=== PATIENT | female | born 1940 | race Caucasian/White ===

== ENCOUNTER 2016-09-18 16:04 | Inpatient (IN) | payer OTHER ==
[~2016-09-18] VITALS: Ht 160 cm; Wt 86.6 kg
[~2016-09-18 16:04] MED LIST: ASPI81TA21 PO; ATOR-24 PO; CYAN1TAB18 PO; ERGO1CAP35 PO; FLV1 PO; FRCT/ PO; FURO-85 PO; GABA1CAP5 PO; GEMF600T3 PO; GLC/500 PO; LORA0.5T12 PO; LOSA25TA18 PO; MGNO400 PO; NITR0.4S UT; PANT40TA PO; PARO20TA4 PO; PROP120C PO; TICA1TAB PO; VLTG EXT; ZNTT/150 PO
--- NOTE | 2016-09-18 16:22 | EMERGENCY ROOM VISIT NOTE ---
History Report prepared by Bina: Milan Camilo Under the Supervision of: Dr. Sravan Lynn M.D. First contact with patient: 16:07 Chief Complaint: ABDOMINAL PAIN Stated Complaint: AB PAIN Nursing Triage Summary: Patient with complaints of epigastric pain for 1 week. Patient saw PCP and suspected gallbladder per patient, but pain worsened and was instructed to come to ER. Patient also diaphoretic and c/o nausea History of Present Illness The patient is a 76 year old female who presents to the Emergency Room with complaints of constant epigastric pain beginning one week prior to arrival. She currently rates her discomfort as a 0/10 in severity, however, it was a 10/10 at its worst. The patient states she saw her PCP, and her doctor suspected the discomfort was attributed to her gall bladder. She notes she was told that if her abdominal pain worsened to go to the ED. The patient associates resolved nausea, abdominal pain that radiates to her back, and decreased appetite with today's symptoms. It is noted during the call with EMS, they were told to give 50 mcg Fentanyl and 4 mg Zofran as needed. The patient received a total of 100 mcg Fentanyl and 4 mg Zofran prior to arrival. She notes a history of diabetes, coronary artery disease, and a heart attack. Pt denies LOC, headache, fevers, chills, diaphoresis, visual changes, neck pain, chest pain, breathing difficulties, vomiting, back pain, melena, hematochezia, urinary symptoms, numbness, weakness, lymphadenopathy, rash, or other complaints. Source of History: patient Onset: one week [employer] Position: abdomen (epigastric) Symptom Intensity: 10/10 at worst; 0/10 currently Timing: constant Associated Symptoms: + back pain (abdominal pain radiates to back), + nausea (resolved) Note: Associated symptoms: decreased appetite. Review of Systems See HPI for pertinent positives and negatives. A total of ten systems were reviewed and were otherwise negative. Past Medical & Surgical Medical Problems: (1) Acute CO, lateral wall, initial episode of care (2) ARF (acute renal failure) (3) Coronary artery disease (4) Hernia (5) Hyperlipidemia (6) Hypertension (7) NSTEMI (non-ST elevated myocardial infarction) (8) Small bowel obstruction due to adhesions Surgical Problems: (1) Stented coronary artery Family History Diabetes mellitus FHx: cancer FHx: gallbladder disease FHx: heart disease Hypertension Social History Smoking Status: Never Smoker Alcohol Use: none Marital Status: Housing Status: lives with family Occupation Status: employed Current/Historical Medications Scheduled Aspirin Enteric Coated (Ecotrin Or Generic), 81 MG PO DAILY Atorvastatin (Lipitor), 40 MG PO HS Cholecalciferol (D 5000), 5,000 PO DAILY Cyanocobalamin (B-12), 1,000 MCG PO DAILY Folic Acid (Folic Acid), 800 MCG PO DAILY Gabapentin (Neurontin), 400 MG PO TID Gemfibrozil (Lopid), 600 MG PO DAILY Losartan Potassium (Cozaar), 25 MG PO DAILY Magnesium Gluconate (Mag-G), 500 MG PO DAILY Metformin Hcl (Glucophage), 500 MG PO QID Pantoprazole (Protonix), 40 MG PO BID Paroxetine (Paxil), 40 MG PO DAILY Propranolol Hcl (Propranolol Hcl Er), 160 MG PO DAILY Ticagrelor (Brilinta), 90 MG PO BID Scheduled PRN Diclofenac Sod (Voltaren), 4 APPLN EXT QID PRN for joint pain Furosemide (Lasix), 20 MG PO DAILY PRN for Shortness of Breath Nitroglycerin (Nitrostat), 0.4 MG UT UD PRN for Chest Pain Ranitidine (Zantac), 150 MG PO DAILY PRN for heartburn Allergies Coded Allergies: Clarithromycin (Verified Allergy, Unknown, UNKNOWN, 07/26/16) Macrolides (Verified Allergy, Unknown, 07/26/16) Amoxicillin (Verified Adverse Reaction, Mild, GI SYMPTOMS, 07/26/16) Clavulanic Acid (Verified Adverse Reaction, Mild, GI SYMPTOMS, 07/26/16) Physical Exam Vital Signs Date Time Temp Pulse Resp B/P Pulse Ox O2 Delivery O2 Flow Rate FiO2 09/18/16 20:43 Room Air 09/18/16 20:21 64 09/18/16 19:46 59 16 154/66 94 Room Air 09/18/16 17:56 60 16 154/72 96 Room Air 09/18/16 16:18 63 09/18/16 16:10 36.5 64 16 175/79 97 Room Air Physical Exam GENERAL: Awake, alert, uncomfortable-appearing, in no distress HENT: Normocephalic, atraumatic. Oropharynx unremarkable. EYES: Normal conjunctiva. Sclera non-icteric. NECK: Supple. No nuchal rigidity. FROM. No JVD. RESPIRATORY: Clear to auscultation. CARDIAC: Regular rate, normal rhythm. Extremities warm and well perfused. Pulses equal. ABDOMEN: Soft, non-distended. Epigastric tenderness to palpation. No rebound or guarding. No masses. RECTAL: Deferred. MUSCULOSKELETAL: Chest examination reveals no tenderness. The back is symmetrical on inspection without obvious abnormality. There is no CVA tenderness to palpation. No joint edema. LOWER EXTREMITIES: Calves are equal size bilaterally and non-tender. No edema. No discoloration. NEURO: Normal sensorium. No sensory or motor deficits noted. SKIN: No rash or jaundice noted. Medical Decision & Procedures ER Provider Diagnostic Interpretation: X ray results as stated below per my interpretation and radiologist interpretation. Other radiology results as stated below per my review and radiologist interpretation SINGLE VIEW CHEST CLINICAL HISTORY: Upper abdominal pain. FINDINGS: An AP, portable, upright chest radiograph is compared to study dated 07/26/2016 and correlated with chest CT dated 10/19/2013. The examination is degraded by portable technique and patient rotation. The heart is enlarged and there is atherosclerotic calcification of the thoracic aorta. The pulmonary vasculature is noncongested. There is chronic elevation of the left hemidiaphragm with left basilar atelectasis. No airspace consolidation or large pleural effusion is seen chronic interstitial thickening is observed. No pneumothorax is identified. The skeletal structures are osteopenic. The bony thorax appears intact. Degenerative changes noted in the thoracic spine. IMPRESSION: Cardiac enlargement with no acute cardiopulmonary abnormality. Electronically signed by: Edy Martin M.D. 09/18/2016 6:01 PM ULTRASOUND RIGHT UPPER QUADRANT ABDOMEN CLINICAL HISTORY: Right upper quadrant abdominal pain. COMPARISON STUDY: Abdominal CT performed the same day 09/18/2016. TECHNIQUE: Real-time, grayscale, and color flow sonography of the right upper quadrant of the abdomen was performed. Images are reviewed in the transverse and longitudinal planes. FINDINGS: Liver: The liver is normal in size and echotexture. There is no intrahepatic biliary ductal dilatation. The main portal vein is patent. Gallbladder: The gallbladder is normal in appearance. No gallstones are identified. There is no gallbladder wall thickening or pericholecystic fluid. A sonographic Hannon's sign is reportedly absent. The common bile duct measures up to 0.4 cm in diameter. Pancreas: Visualized portions of the pancreatic head and body are echogenic consistent with fatty infiltration. The splenic vein is patent. Right kidney: Survey images of the right kidney demonstrate cortical atrophy. There is no hydronephrosis. Ascites: None. IMPRESSION: There is no acute sonographic abnormality identified in the right upper quadrant. No gallstones are seen. Electronically signed by: Edy Martin M.D. 09/18/2016 5:[address] SCAN OF THE ABDOMEN AND PELVIS WITHOUT IV CONTRAST CLINICAL HISTORY: Upper abdominal pain. COMPARISON STUDY: Abdominal CT dated 07/27/2010. TECHNIQUE: CT scan of the abdomen and pelvis is performed from the lung bases to the proximal femora. Images are reviewed in the axial, sagittal, and coronal planes. IV contrast was not administered for this examination as per the referring clinician. Note that the examination was performed and significant suboptimal fashion without oral and IV contrast. Automated dose control exposure was utilized. CT DOSE: 768.91 mGy.cm FINDINGS: Lung bases: The heart is enlarged and without pericardial effusion. The coronary arteries are densely calcified. There is a tiny hiatal hernia. There is elevation of the left hemidiaphragm and bibasilar atelectasis. No airspace consolidation or pleural effusion is seen. There are calcified granulomas present at both lung bases. Liver: The unenhanced liver is normal in size, contour, and attenuation. There is no intrahepatic biliary ductal dilatation. Gallbladder: Small calcified gallstones are identified. There is no CT evidence of cholecystitis. Spleen: Normal in size and attenuation. Pancreas: There is near complete fatty replacement of the pancreas. Adrenal glands: Unremarkable. Kidneys: The unenhanced kidneys are atrophic and without hydronephrosis. There there is a 4 mm nonobstructing right renal calculus. No left renal calculi are seen. There is no evidence of contour deforming renal mass lesion. Abdominal vasculature: The abdominal aorta is normal in course and caliber noting moderate atherosclerotic calcification. Bowel: The proximal small bowel loops are distended and fecalized. There is surrounding inflammatory change and trace interloop fluid. The distal small bowel is decompressed. A transition point is identified in the ventral right upper pelvis and the appearance is consistent with a small bowel obstruction. No focally thick walled bowel loops are identified. There is no pneumatosis intestinalis or portal venous gas. These measure up to 4.5 cm in diameter. There are scattered colonic diverticula without CT evidence of acute diverticulitis. The appendix is well-visualized and normal. Peritoneum: There is no intraperitoneal free air. A midline surgical scar is present in the pelvis. Findings suggest previous ventral hernia repair. Lymphadenopathy: None. Pelvic viscera: The bladder is decompressed and grossly unremarkable. Uterus and adnexa are normal as visualized. Numerous calcified phleboliths are seen in the pelvis. Surgical clips are identified in the left groin. Skeletal structures: The skeletal structures are osteopenic. There is mild to moderate lumbosacral spondylosis and scoliosis. Sclerotic change is noted involving the sacroiliac joints and pubic symphysis. No lytic or blastic lesions are seen. IMPRESSION: 1. Suboptimal examination without oral and IV contrast 2. Finding are consistent with a small bowel obstruction. A transition point is identified in the right ventral pelvis, and this is likely on the basis of adhesions. 3. There is trace interloop fluid and mild surrounding inflammatory stranding involving the affected bowel loops which appear fecalized. No thick-walled loops identified and there is no pneumatosis intestinalis, portal venous gas, or intraperitoneal free air. 4. Cholelithiasis. 5. Cardiomegaly. 6. Nonobstructing right renal calculus. 7. Additional findings as detailed above. Electronically signed by: Edy Martin M.D. 09/18/2016 7:09 PM Laboratory Results 09/18/16 16:45 Red Blood Count 3.81, Mean Corpuscular Volume 91.3, Mean Corpuscular Hemoglobin 31.2, Mean Corpuscular Hemoglobin Concent 34.2, Mean Platelet Volume 11.0, Neutrophils (%) (Auto) 75.8, Lymphocytes (%) (Auto) 14.1, Monocytes (%) (Auto) 7.9, Eosinophils (%) (Auto) 1.8, Basophils (%) (Auto) 0.2, Neutrophils # (Auto) 7.74, Lymphocytes # (Auto) 1.44, Monocytes # (Auto) 0.81, Eosinophils # (Auto) 0.18, Basophils # (Auto) 0.02 09/18/16 16:45 Test 09/18/16 16:45 09/18/16 18:35 White Blood Count 10.21 K/uL (4.8-10.8) Red Blood Count 3.81 M/uL (4.2-5.4) Hemoglobin 11.9 g/dL (12.0-16.0) Hematocrit 34.8 % (37-47) Mean Corpuscular Volume 91.3 fL (80-100) Mean Corpuscular Hemoglobin 31.2 pg (25-34) Mean Corpuscular Hemoglobin Concent 34.2 g/dl (32-36) Platelet Count 181 K/uL (130-400) Mean Platelet Volume 11.0 fL (7.4-10.4) Neutrophils (%) (Auto) 75.8 % Lymphocytes (%) (Auto) 14.1 % Monocytes (%) (Auto) 7.9 % Eosinophils (%) (Auto) 1.8 % Basophils (%) (Auto) 0.2 % Neutrophils # (Auto) 7.74 K/uL (1.4-6.5) Lymphocytes # (Auto) 1.44 K/uL (1.2-3.4) Monocytes # (Auto) 0.81 K/uL (0.11-0.59) Eosinophils # (Auto) 0.18 K/uL (0-0.5) Basophils # (Auto) 0.02 K/uL (0-0.2) RDW Standard Deviation 46.0 fL (36.4-46.3) RDW Coefficient of Variation 14.0 % (11.5-14.5) Immature Granulocyte % (Auto) 0.2 % Immature Granulocyte # (Auto) 0.02 K/uL (0.00-0.02) Anion Gap 16.0 mmol/L (3-11) Est Creatinine Clear Calc Drug Dose 34.3 ml/min Estimated GFR () 39.4 Estimated GFR (Non- 34.0 BUN/Creatinine Ratio 15.9 (10-20) Calcium Level 9.2 mg/dl (8.5-10.1) Total Bilirubin 0.5 mg/dl (0.2-1) Direct Bilirubin 0.1 mg/dl (0-0.2) Aspartate Amino Transf (AST/SGOT) 17 U/L (15-37) Alanine Aminotransferase (ALT/SGPT) 13 U/L (12-78) Alkaline Phosphatase 59 U/L (45-117) Troponin I < 0.015 ng/ml (0-0.045) Total Protein 7.4 gm/dl (6.4-8.2) Albumin 3.8 gm/dl (3.4-5.0) Lipase 162 U/L (73-393) Urine Color YELLOW Urine Appearance CLEAR (CLEAR) Urine pH 5.0 (4.5-7.5) Urine Specific [place] 1.026 (1.000-1.030) Urine Protein NEG (NEG) Urine Glucose (UA) NEG (NEG) Urine Ketones TRACE (NEG) Urine Occult Blood NEG (NEG) Urine Nitrite NEG (NEG) Urine Bilirubin NEG (NEG) Urine Urobilinogen NEG (NEG) Urine Leukocyte Esterase TRACE (NEG) Urine WBC (Auto) 1-5 /hpf (0-5) Urine RBC (Auto) 0-4 /hpf (0-4) Urine Hyaline Casts (Auto) 1-5 /lpf (0-5) Urine Epithelial Cells (Auto) >30 /lpf (0-5) Urine Bacteria (Auto) NEG (NEG) Laboratory results reviewed by me Medications Administered Medications (Trade) Dose Ordered Sig/Pari Route Start Time Stop Time Status Last Admin Dose Admin Hydromorphone HCl 0.5 mg 0.5 mg Q15M PRN IV 09/18/16 16:30 09/18/16 22:05 DC 09/18/16 20:12 0.5 MG Sodium Chloride (Nss 1000ml) 1,000 ml @ 200 mls/hr Q5H STAT IV 09/18/16 16:29 09/18/16 21:28 DC 09/18/16 16:58 200 MLS/HR Ondansetron HCl (Zofran Inj) 4 mg NOW STAT IV 09/18/16 20:03 09/18/16 20:04 DC 09/18/16 20:12 4 MG ECG Indication: abdominal pain Rate (beats per minute): 63 Rhythm: normal sinus Findings: nonspecific-ST abn, T-wave inversion (Anterolateral), no acute ischemic change ED Course 1620: The patient was evaluated in room B5. A complete history and physical exam was performed. 1628: Ordered Sodium Chloride 1,000 ml @ 200 mls/hr IV. 1629: Ordered Dilaudid Inj 0.5 mg IV. 1934: Reevaluated the patient at this time, and he is doing well. I updated him. 1938: I spoke to FREYA Gregory (Hospitalist) about the patient's case, and he will follow the patient for further evaluation. Medical Decision Triage Nursing notes reviewed. The patient's presentation and history were concerning for abdominal pain. Etiologies such as appendicitis, diverticulitis, obstruction, inflammatory bowel disease, renal colic, PUD, biliary pathology, pancreatitis, mesenteric ischemia, aortic pathology, infections, genitourinary, UTI, perforated viscus, as well as others were entertained. The patient was evaluated. She was uncomfortable and given Dilaudid. She did well with the fentanyl prehospital but it did not last. She had blood work obtained. Ultrasound and CAT scan imaging were performed. The patient had a mild anemia on CBC. Chemistry panel reveals dehydration. LFTs, lipase, troponin, and urinalysis were negative. Gallbladder ultrasound did not reveal any abnormalities. The patient's CT imaging revealed a bowel obstruction. The patient had some more nausea and vomiting. She was hydrated with normal saline and was given additional Dilaudid and Zofran. She is doing better with this. A consultation was made with internal medicine. The patient was evaluated in the Emergency Room for further treatment. The chart was completed utilizing [employer] Speech voice recognition software. Grammatical errors, random word insertions, pronoun errors, and incomplete sentences are an occasional consequence of this system due to software limitations, ambient noise, and hardware issues. Any formal questions or concerns about the content, text, or information contained within the body of this dictation should be directly addressed to the physician for clarification. Consults Time Called: 1933 Consulting Physician: FREYA Gregory (Hospitalist) Returned Call: 1938 I spoke to FREYA Gregory (Hospitalist) about the patient's case, and he will follow the patient for further evaluation. Impression Primary Impression: Bowel obstruction Scribe Attestation The scribe's documentation has been prepared under my direction and personally reviewed by me in its entirety. I confirm that the note above accurately reflects all work, treatment, procedures, and medical decision making performed by me. Departure Information Dispostion Being Evaluated By Hospitalist (FREYA Gregory (Hospitalist)) Referrals Franck Lester M.D. (PCP)
[2016-09-18] MEDS ORDERED: SODIUM CHLORIDE 0.9% 1000ML 1,000 ML IV STA (16:29)
[2016-09-18] MEDS: HYDROmorphone INJ 0.5 MG/0.5 ML SYR IV PRN ×3 (16:42→20:12)
[2016-09-18 17:01] LABS: BASO % 0.2 %; BASO ABS # 0.02 K/uL (0-0.2); COMPLETE YES; EOS % 1.8 %; HEMATOCRIT 34.8 % (37-47); IG% 0.2 %; LYMPH % 14.1 %; LYMPH ABS # 1.44 K/uL (1.2-3.4); MEAN CELL VOLUME 91.3 fL (80-100); MEAN CORPUSCULAR HEMOGLOBIN 31.2 pg (25-34); MEAN CORPUSCULAR HGB CONC 34.2 g/dl (32-36); MONO % 7.9 %; NEUT % 75.8 %; PLATELET COUNT 181 K/uL (130-400); RED BLOOD COUNT 3.81 M/uL (4.2-5.4); WHITE BLOOD COUNT 10.21 K/uL (4.8-10.8)
[2016-09-18 17:18] LABS: ALT/SGPT 13 U/L (12-78); BLOOD UREA NITROGEN 24 mg/dl (7-18); BUN/CREATININE RATIO 15.9 (10-20); CALCIUM 9.2 mg/dl (8.5-10.1); CARBON DIOXIDE 22 mmol/L (21-32); CHLORIDE 103 mmol/L (98-107); GLUCOSE 139 mg/dl (70-99); POTASSIUM 3.9 mmol/L (3.5-5.1); SODIUM 141 mmol/L (136-145)
[2016-09-18 17:22] LABS: ALKALINE PHOSPHATASE 59 U/L (45-117); AST/SGOT 17 U/L (15-37)
--- NOTE | 2016-09-18 17:57 | DIAGNOSTIC IMAGING REPORT ---
ULTRASOUND RIGHT UPPER QUADRANT ABDOMEN CLINICAL HISTORY: Right upper quadrant abdominal pain. COMPARISON STUDY: Abdominal CT performed the same day 09/18/2016. TECHNIQUE: Real-time, grayscale, and color flow sonography of the right upper quadrant of the abdomen was performed. Images are reviewed in the transverse and longitudinal planes. FINDINGS: Liver: The liver is normal in size and echotexture. There is no intrahepatic biliary ductal dilatation. The main portal vein is patent. Gallbladder: The gallbladder is normal in appearance. No gallstones are identified. There is no gallbladder wall thickening or pericholecystic fluid. A sonographic Hannon's sign is reportedly absent. The common bile duct measures up to 0.4 cm in diameter. Pancreas: Visualized portions of the pancreatic head and body are echogenic consistent with fatty infiltration. The splenic vein is patent. Right kidney: Survey images of the right kidney demonstrate cortical atrophy. There is no hydronephrosis. Ascites: None. IMPRESSION: There is no acute sonographic abnormality identified in the right upper quadrant. No gallstones are seen. Electronically signed by: Edy Martin M.D. 09/18/2016 5:55 PM
--- NOTE | 2016-09-18 18:03 | DIAGNOSTIC IMAGING REPORT ---
SINGLE VIEW CHEST CLINICAL HISTORY: Upper abdominal pain. FINDINGS: An AP, portable, upright chest radiograph is compared to study dated 07/26/2016 and correlated with chest CT dated 10/19/2013. The examination is degraded by portable technique and patient rotation. The heart is enlarged and there is atherosclerotic calcification of the thoracic aorta. The pulmonary vasculature is noncongested. There is chronic elevation of the left hemidiaphragm with left basilar atelectasis. No airspace consolidation or large pleural effusion is seen chronic interstitial thickening is observed. No pneumothorax is identified. The skeletal structures are osteopenic. The bony thorax appears intact. Degenerative changes noted in the thoracic spine. IMPRESSION: Cardiac enlargement with no acute cardiopulmonary abnormality. Electronically signed by: Edy Martin M.D. 09/18/2016 6:01 PM
[2016-09-18] MEDS ORDERED: CHOLCAP10 PO (18:41)
[2016-09-18] MEDS ORDERED: FOLI800T PO (18:43)
[2016-09-18] MEDS ORDERED: MGNG500 PO (18:47)
[2016-09-18] MEDS ORDERED: PARO1TAB29 PO (18:50)
[2016-09-18] MEDS ORDERED: PROP160C PO (18:51)
[2016-09-18 18:57] LABS: URINE APPEARANCE CLEAR (CLEAR); URINE BILIRUBIN NEG (NEG); URINE COLOR YELLOW; URINE EPITHELIAL CELL AUTO >30 /lpf (0-5); URINE NITRITE NEG (NEG); URINE SPECIFIC GRAVITY 1.026 (1.000-1.030); UROBILINOGEN NEG (NEG)
[2016-09-18 19:02] LABS: MANUAL MICROSCOPIC REQUIRED? NO; REVIEW REQ? NO
--- NOTE | 2016-09-18 19:11 | DIAGNOSTIC IMAGING REPORT ---
CT SCAN OF THE ABDOMEN AND PELVIS WITHOUT IV CONTRAST CLINICAL HISTORY: Upper abdominal pain. COMPARISON STUDY: Abdominal CT dated 07/27/2010. TECHNIQUE: CT scan of the abdomen and pelvis is performed from the lung bases to the proximal femora. Images are reviewed in the axial, sagittal, and coronal planes. IV contrast was not administered for this examination as per the referring clinician. Note that the examination was performed and significant suboptimal fashion without oral and IV contrast. Automated dose control exposure was utilized. CT DOSE: 768.91 mGy.cm FINDINGS: Lung bases: The heart is enlarged and without pericardial effusion. The coronary arteries are densely calcified. There is a tiny hiatal hernia. There is elevation of the left hemidiaphragm and bibasilar atelectasis. No airspace consolidation or pleural effusion is seen. There are calcified granulomas present at both lung bases. Liver: The unenhanced liver is normal in size, contour, and attenuation. There is no intrahepatic biliary ductal dilatation. Gallbladder: Small calcified gallstones are identified. There is no CT evidence of cholecystitis. Spleen: Normal in size and attenuation. Pancreas: There is near complete fatty replacement of the pancreas. Adrenal glands: Unremarkable. Kidneys: The unenhanced kidneys are atrophic and without hydronephrosis. There there is a 4 mm nonobstructing right renal calculus. No left renal calculi are seen. There is no evidence of contour deforming renal mass lesion. Abdominal vasculature: The abdominal aorta is normal in course and caliber noting moderate atherosclerotic calcification. Bowel: The proximal small bowel loops are distended and fecalized. There is surrounding inflammatory change and trace interloop fluid. The distal small bowel is decompressed. A transition point is identified in the ventral right upper pelvis and the appearance is consistent with a small bowel obstruction. No focally thick walled bowel loops are identified. There is no pneumatosis intestinalis or portal venous gas. These measure up to 4.5 cm in diameter. There are scattered colonic diverticula without CT evidence of acute diverticulitis. The appendix is well-visualized and normal. Peritoneum: There is no intraperitoneal free air. A midline surgical scar is present in the pelvis. Findings suggest previous ventral hernia repair. Lymphadenopathy: None. Pelvic viscera: The bladder is decompressed and grossly unremarkable. Uterus and adnexa are normal as visualized. Numerous calcified phleboliths are seen in the pelvis. Surgical clips are identified in the left groin. Skeletal structures: The skeletal structures are osteopenic. There is mild to moderate lumbosacral spondylosis and scoliosis. Sclerotic change is noted involving the sacroiliac joints and pubic symphysis. No lytic or blastic lesions are seen. IMPRESSION: 1. Suboptimal examination without oral and IV contrast 2. Finding are consistent with a small bowel obstruction. A transition point is identified in the right ventral pelvis, and this is likely on the basis of adhesions. 3. There is trace interloop fluid and mild surrounding inflammatory stranding involving the affected bowel loops which appear fecalized. No thick-walled loops identified and there is no pneumatosis intestinalis, portal venous gas, or intraperitoneal free air. 4. Cholelithiasis. 5. Cardiomegaly. 6. Nonobstructing right renal calculus. 7. Additional findings as detailed above. Electronically signed by: Edy Martin M.D. 09/18/2016 7:09 PM
[2016-09-18] MEDS ORDERED: ONDANSETRON INJ 2 MG/ML 2 ML VIAL IV STA (20:03)
[2016-09-18 20:43] VITALS: Ht 160 cm; Wt 86.6 kg
[2016-09-18] MEDS ORDERED: CIPROFLOXACIN 400MG / 200ML D5W IV STA (21:18)
[2016-09-18] MEDS ORDERED: ACETAMINOPHEN IV 100 ML IV PRN (21:30)
[2016-09-18] MEDS ORDERED: LORAZEPAM 2 MG/ML 1 ML VIAL IV PRN (21:30)
[2016-09-18] MEDS ORDERED: MoRPHine SULFATE 4 MG/ML 1 ML CARP\\VIAL IV PRN (21:30)
[2016-09-18 22:07] VITALS: BP 184/81; PULSE 64; TEMP 36.8; O2SAT 94
[2016-09-18] MEDS: NSS + 20MEQ KCL 1000ML 1,000 ML IV SCH (22:35)
[2016-09-18] MEDS: METRONIDAZOLE / NSS 500 MG in PREMIXED NSS 100 ML IV SCH (22:35)
[2016-09-18 22:54] VITALS: BP 123/76; PULSE 63; TEMP 36.9; O2SAT 88
[2016-09-18] MEDS: MoRPHine SULFATE 2 MG/ML CARP IV PRN (23:24)
[2016-09-18] MEDS: ONDANSETRON INJ 2 MG/ML 2 ML VIAL IV PRN (23:24)
--- NOTE | 2016-09-19 01:58 | History and Physical ---
History & Physical Date & Time of Service: Sep 19, 2016 at 01:13 Chief Complaint: Small Bowel Obstruction Due To Adhesions Primary Care Physician: Franck Lester M.D. History of Present Illness Source: patient The patient is a 76-year-old female who presents emergency department with complaint of abdominal pain that began about one week prior to arrival. She's also had a decreased appetite, intermittent nausea and radiation of pain to her back during this interval as well. She has a history of colon resection approximately 20 years ago, and had surgery for bowel obstruction approximate 5 years ago. Past Medical/Surgical History Medical Problems: (1) Acute CO, lateral wall, initial episode of care Status: Resolved (2) Coronary artery disease Status: Chronic (3) Hernia Status: Resolved (4) Hyperlipidemia Status: Chronic (5) Hypertension Status: Chronic (6) NSTEMI (non-ST elevated myocardial infarction) Status: Resolved Surgical Problems: (1) Stented coronary artery Status: Chronic Family History Diabetes mellitus FHx: cancer FHx: gallbladder disease FHx: heart disease Hypertension Social History Smoking Status: Never Smoker Smokeless Tobacco Use: No Alcohol Use: none Drug Use: none Marital Status: Housing status: lives with family Occupational Status: employed Immunizations History of Influenza Vaccine: Yes Influenza Vaccine Date: Jul 31, 2013 History of Tetanus Vaccine?: UTD Tetanus Immunization Date: Apr 25, 1990 History of Pneumococcal: Yes Pneumococcal Date: Apr 18, 2009 History of Hepatitis B Vaccine: Yes Multi-Drug Resistant Organisms History of MDRO: No Allergies Coded Allergies: Clarithromycin (Verified Allergy, Unknown, UNKNOWN, 07/26/16) Macrolides (Verified Allergy, Unknown, 07/26/16) Amoxicillin (Verified Adverse Reaction, Mild, GI SYMPTOMS, 07/26/16) Clavulanic Acid (Verified Adverse Reaction, Mild, GI SYMPTOMS, 07/26/16) Home Medications Scheduled Aspirin Enteric Coated (Ecotrin Or Generic), 81 MG PO DAILY Atorvastatin (Lipitor), 40 MG PO HS Cholecalciferol (D 5000), 5,000 PO DAILY Cyanocobalamin (B-12), 1,000 MCG PO DAILY Folic Acid (Folic Acid), 800 MCG PO DAILY Gabapentin (Neurontin), 400 MG PO TID Gemfibrozil (Lopid), 600 MG PO DAILY Losartan Potassium (Cozaar), 25 MG PO DAILY Magnesium Gluconate (Mag-G), 500 MG PO DAILY Metformin Hcl (Glucophage), 500 MG PO QID Pantoprazole (Protonix), 40 MG PO BID Paroxetine (Paxil), 40 MG PO DAILY Propranolol Hcl (Propranolol Hcl Er), 160 MG PO DAILY Ticagrelor (Brilinta), 90 MG PO BID Scheduled PRN Diclofenac Sod (Voltaren), 4 APPLN EXT QID PRN for joint pain Furosemide (Lasix), 20 MG PO DAILY PRN for Shortness of Breath Nitroglycerin (Nitrostat), 0.4 MG UT UD PRN for Chest Pain Ranitidine (Zantac), 150 MG PO DAILY PRN for heartburn Review of Systems The patient denies chest pain, palpitations, shortness of breath, cough, lower extremity swelling, vision change, hearing change, sore throat, fevers, chills, sweats, weight change, blood in urine or stool, dysuria, urinary frequency or urgency, lightheadedness, dizziness, headache, memory loss, rash, abnormal bruising or bleeding, imbalance, focal or generalized weakness, numbness or tingling in arms or legs, arthralgias or myalgias, back or neck pain, night sweats, or allergy symptoms. The review of systems is otherwise negative other than for that already noted above, and at least 10 systems have been reviewed. Physical Exam Vital Signs Date Time Temp Pulse Resp B/P Pulse Ox O2 Delivery O2 Flow Rate FiO2 09/18/16 22:54 36.9 63 14 123/76 88 Room Air 09/18/16 22:07 36.8 64 16 184/81 94 Room Air 09/18/16 22:00 Room Air 09/18/16 21:45 36.5 66 16 133/65 97 09/18/16 20:43 Room Air 09/18/16 20:21 64 09/18/16 19:46 59 16 154/66 94 Room Air 09/18/16 17:56 60 16 154/72 96 Room Air 09/18/16 16:18 63 09/18/16 16:10 36.5 64 16 175/79 97 Room Air The patient is awake, well-developed and adequately nourished, alert and oriented 3, normocephalic and atraumatic, lying in bed and in mild distress secondary to abdominal pain. HEENT--PERRL, EOMI, mucous membranes moist, and oropharynx normal. Neck--supple, no JVD or bruits, thyroid normal, trachea midline, no adenopathy. Heart--normal S1 and S2, no extra beats, no murmurs, rubs or gallops. Lungs--clear bilaterally with good air movement, no respiratory distress, no accessory muscle use. Abdomen--decreased bowel sounds and soft, tender in the umbilical and right lower quadrant areas. Extremities--no cyanosis, clubbing or edema. There are good distal pulses b/l. Dermatologic--normal skin turgor, normal color, warm and dry, no abnormal lymph nodes, no rash. Neurologic--cranial nerves II through XII grossly intact. Rheumatologic--normal range of motion, nontender, muscles and joints. Psychiatric--normal affect. Diagnostics Laboratory Results Results Past 24 Hours Test 09/18/16 16:45 09/18/16 18:35 Range/Units White Blood Count 10.21 4.8-10.8 K/uL Red Blood Count 3.81 4.2-5.4 M/uL Hemoglobin 11.9 12.0-16.0 g/dL Hematocrit 34.8 37-47 % Mean Corpuscular Volume 91.3 80-100 fL Mean Corpuscular Hemoglobin 31.2 25-34 pg Mean Corpuscular Hemoglobin Concent 34.2 32-36 g/dl Platelet Count 181 130-400 K/uL Mean Platelet Volume 11.0 7.4-10.4 fL Neutrophils (%) (Auto) 75.8 % Lymphocytes (%) (Auto) 14.1 % Monocytes (%) (Auto) 7.9 % Eosinophils (%) (Auto) 1.8 % Basophils (%) (Auto) 0.2 % Neutrophils # (Auto) 7.74 1.4-6.5 K/uL Lymphocytes # (Auto) 1.44 1.2-3.4 K/uL Monocytes # (Auto) 0.81 0.11-0.59 K/uL Eosinophils # (Auto) 0.18 0-0.5 K/uL Basophils # (Auto) 0.02 0-0.2 K/uL RDW Standard Deviation 46.0 36.4-46.3 fL RDW Coefficient of Variation 14.0 11.5-14.5 % Immature Granulocyte % (Auto) 0.2 % Immature Granulocyte # (Auto) 0.02 0.00-0.02 K/uL Sodium Level 141 136-145 mmol/L Potassium Level 3.9 3.5-5.1 mmol/L Chloride Level 103 98-107 mmol/L Carbon Dioxide Level 22 21-32 mmol/L Anion Gap 16.0 3-11 mmol/L Blood Urea Nitrogen 24 7-18 mg/dl Creatinine 1.50 0.60-1.20 mg/dl Est Creatinine Clear Calc Drug Dose 34.3 ml/min Estimated GFR () 39.4 Estimated GFR (Non- 34.0 BUN/Creatinine Ratio 15.9 10-20 Random Glucose 139 70-99 mg/dl Calcium Level 9.2 8.5-10.1 mg/dl Total Bilirubin 0.5 0.2-1 mg/dl Direct Bilirubin 0.1 0-0.2 mg/dl Aspartate Amino Transf (AST/SGOT) 17 15-37 U/L Alanine Aminotransferase (ALT/SGPT) 13 12-78 U/L Alkaline Phosphatase 59 45-117 U/L Troponin I < 0.015 0-0.045 ng/ml Total Protein 7.4 6.4-8.2 gm/dl Albumin 3.8 3.4-5.0 gm/dl Lipase 162 73-393 U/L Urine Color YELLOW Urine Appearance CLEAR CLEAR Urine pH 5.0 4.5-7.5 Urine Specific [place] 1.026 1.000-1.030 Urine Protein NEG NEG Urine Glucose (UA) NEG NEG Urine Ketones TRACE NEG Urine Occult Blood NEG NEG Urine Nitrite NEG NEG Urine Bilirubin NEG NEG Urine Urobilinogen NEG NEG Urine Leukocyte Esterase TRACE NEG Urine WBC (Auto) 1-5 0-5 /hpf Urine RBC (Auto) 0-4 0-4 /hpf Urine Hyaline Casts (Auto) 1-5 0-5 /lpf Urine Epithelial Cells (Auto) >30 0-5 /lpf Urine Bacteria (Auto) NEG NEG Microbiology Results 09/18/16 Urine Culture, Received Pending Diagnostic Radiology Patient Name: LAURENT ANDERSON Unit Number: [id number] Dictated: 09/18/161753 Transcribed: 09/18/161753 EV Printed Date/Time: [~ rep prt dt]/[~ rep prt tm] [~ rep ct labl] - [~ rep ct ivnm] [facility] [place] [address] Dictated: 09/18/161753 Transcribed: 09/18/161753 EV Printed Date/Time: [~ rep prt dt]/[~ rep prt tm] [~ rep ct labl] - [~ rep ct ivnm] CLINICAL HISTORY: Right upper quadrant abdominal pain. COMPARISON STUDY: Abdominal CT performed the same day 09/18/2016. TECHNIQUE: Real-time, grayscale, and color flow sonography of the right upper quadrant of the abdomen was performed. Images are reviewed in the transverse and longitudinal planes. FINDINGS: Liver: The liver is normal in size and echotexture. There is no intrahepatic biliary ductal dilatation. The main portal vein is patent. Gallbladder: The gallbladder is normal in appearance. No gallstones are identified. There is no gallbladder wall thickening or pericholecystic fluid. A sonographic Hannon's sign is reportedly absent. The common bile duct measures up to 0.4 cm in diameter. Pancreas: Visualized portions of the pancreatic head and body are echogenic consistent with fatty infiltration. The splenic vein is patent. Right kidney: Survey images of the right kidney demonstrate cortical atrophy. There is no hydronephrosis. Ascites: None. IMPRESSION: There is no acute sonographic abnormality identified in the right upper quadrant. No gallstones are seen. Electronically signed by: Edy Martin M.D. 09/18/2016 5:55 PM The status of this report is Signed. Draft = Not yet reviewed or approved by Radiologist. Signed = Reviewed and approved by Radiologist. <AttendingPhy></AttendingPhy> <FamilyPhy>Franck Lester M.D.</FamilyPhy > <PrimaryPhy>Franck Lester M.D.</PrimaryPhy> <UnitNumber>[id number]</ UnitNumber> <VisitNumber>[id number]</VisitNumber> <PatientName>LAURENT ANDERSON</ PatientName> <DateOfBirth>1940</DateOfBirth> <Location>[facility]</Location> < ServiceDate>09/18/16</ServiceDate> <MNE>ESINDI</MNE> <OrderingPhy>Sravan Lynn MD</OrderingPhy> <OrderingPhyMNE>f rep ord dr leonard</OrderingPhyMNE> < DictatingPhyMNE>f rep dict dr leonard</DictatingPhyMNE> <CCListMNE>f rep ct mne</ CCListMNE> <AdmittingPhyMNE>f pt admit dr leonard</AdmittingPhyMNE> <AttendingPhyMNE >f pt attend dr leonard</AttendingPhyMNE> <ConsultingPhyMNE>f pt consult dr leonard</ConsultingPhyMNE> <FamilyPhyMNE>f pt fam dr leonard</FamilyPhyMNE> <OtherPhyMNE>f pt other dr leonard</OtherPhyMNE> < PrimaryPhyMNE>f pt prim care dr leonard</PrimaryPhyMNE> <ReferringPhyMNE>f pt referring dr leonard</ReferringPhyMNE> Patient Name: LAURENT ANDERSON Unit Number: [id number] Dictated: 09/18/16 1800 Transcribed: 09/18/16 1800 EV Printed Date/Time: [~ rep prt dt]/[~ rep prt tm] [~ rep ct labl] - [~ rep ct ivnm] [facility] [place] [address] Dictated: 09/18/16 1800 Transcribed: 09/18/16 1800 EV Printed Date/Time: [~ rep prt dt]/[~ rep prt tm] [~ rep ct labl] - [~ rep ct ivnm] CLINICAL HISTORY: Upper abdominal pain. FINDINGS: An AP, portable, upright chest radiograph is compared to study dated 07/26/2016 and correlated with chest CT dated 10/19/2013. The examination is degraded by portable technique and patient rotation. The heart is enlarged and there is atherosclerotic calcification of the thoracic aorta. The pulmonary vasculature is noncongested. There is chronic elevation of the left hemidiaphragm with left basilar atelectasis. No airspace consolidation or large pleural effusion is seen chronic interstitial thickening is observed. No pneumothorax is identified. The skeletal structures are osteopenic. The bony thorax appears intact. Degenerative changes noted in the thoracic spine. IMPRESSION: Cardiac enlargement with no acute cardiopulmonary abnormality. Electronically signed by: Edy Martin M.D. 09/18/2016 6:01 PM The status of this report is Signed. Draft = Not yet reviewed or approved by Radiologist. Signed = Reviewed and approved by Radiologist. <AttendingPhy></AttendingPhy> <FamilyPhy>Franck Lester M.D.</FamilyPhy > <PrimaryPhy>Franck Lester M.D.</PrimaryPhy> <UnitNumber>[id number]</ UnitNumber> <VisitNumber>[id number]</VisitNumber> <PatientName>MONICALAURENT Espinoza</ PatientName> <DateOfBirth>1940</DateOfBirth> <Location>[facility]</Location> < ServiceDate>09/18/16</ServiceDate> <MNE>ESINDI</MNE> <OrderingPhy>Sravan Lynn MD</OrderingPhy> <OrderingPhyMNE>f rep ord dr leonard</OrderingPhyMNE> < DictatingPhyMNE>f rep dict dr leonard</DictatingPhyMNE> <CCListMNE>f rep ct mne</ CCListMNE> <AdmittingPhyMNE>f pt admit dr leonard</AdmittingPhyMNE> <AttendingPhyMNE >f pt attend dr leonard</AttendingPhyMNE> <ConsultingPhyMNE>f pt consult dr leonard</ConsultingPhyMNE> <FamilyPhyMNE>f pt fam dr leonard</FamilyPhyMNE> <OtherPhyMNE>f pt other dr leonard</OtherPhyMNE> < PrimaryPhyMNE>f pt prim care dr leonard</PrimaryPhyMNE> <ReferringPhyMNE>f pt referring dr leonard</ReferringPhyMNE> Patient Name: ERNIE ANDERSONYanci Espinoza Unit Number: [id number] Dictated: 09/18/161858 Transcribed: 09/18/161858 EV Printed Date/Time: [~ rep prt dt]/[~ rep prt tm] [~ rep ct labl] - [~ rep ct ivnm] [facility] [place] [address] Dictated: 09/18/161858 Transcribed: 09/18/161858 EV Printed Date/Time: [~ rep prt dt]/[~ rep prt tm] [~ rep ct labl] - [~ rep ct ivnm] CT SCAN OF THE ABDOMEN AND PELVIS WITHOUT IV CONTRAST CLINICAL HISTORY: Upper abdominal pain. COMPARISON STUDY: Abdominal CT dated 07/27/2010. TECHNIQUE: CT scan of the abdomen and pelvis is performed from the lung bases to the proximal femora. Images are reviewed in the axial, sagittal, and coronal planes. IV contrast was not administered for this examination as per the referring clinician. Note that the examination was performed and significant suboptimal fashion without oral and IV contrast. Automated dose control exposure was utilized. CT DOSE: 768.91 mGy.cm FINDINGS: Lung bases: The heart is enlarged and without pericardial effusion. The coronary arteries are densely calcified. There is a tiny hiatal hernia. There is elevation of the left hemidiaphragm and bibasilar atelectasis. No airspace consolidation or pleural effusion is seen. There are calcified granulomas present at both lung bases. Liver: The unenhanced liver is normal in size, contour, and attenuation. There is no intrahepatic biliary ductal dilatation. Gallbladder: Small calcified gallstones are identified. There is no CT evidence of cholecystitis. Spleen: Normal in size and attenuation. Pancreas: There is near complete fatty replacement of the pancreas. Adrenal glands: Unremarkable. Kidneys: The unenhanced kidneys are atrophic and without hydronephrosis. There there is a 4 mm nonobstructing right renal calculus. No left renal calculi are seen. There is no evidence of contour deforming renal mass lesion. Abdominal vasculature: The abdominal aorta is normal in course and caliber noting moderate atherosclerotic calcification. Bowel: The proximal small bowel loops are distended and fecalized. There is surrounding inflammatory change and trace interloop fluid. The distal small bowel is decompressed. A transition point is identified in the ventral right upper pelvis and the appearance is consistent with a small bowel obstruction. No focally thick walled bowel loops are identified. There is no pneumatosis intestinalis or portal venous gas. These measure up to 4.5 cm in diameter. There are scattered colonic diverticula without CT evidence of acute diverticulitis. The appendix is well-visualized and normal. Peritoneum: There is no intraperitoneal free air. A midline surgical scar is present in the pelvis. Findings suggest previous ventral hernia repair. Lymphadenopathy: None. Pelvic viscera: The bladder is decompressed and grossly unremarkable. Uterus and adnexa are normal as visualized. Numerous calcified phleboliths are seen in the pelvis. Surgical clips are identified in the left groin. Skeletal structures: The skeletal structures are osteopenic. There is mild to moderate lumbosacral spondylosis and scoliosis. Sclerotic change is noted involving the sacroiliac joints and pubic symphysis. No lytic or blastic lesions are seen. IMPRESSION: 1. Suboptimal examination without oral and IV contrast 2. Finding are consistent with a small bowel obstruction. A transition point is identified in the right ventral pelvis, and this is likely on the basis of adhesions. 3. There is trace interloop fluid and mild surrounding inflammatory stranding involving the affected bowel loops which appear fecalized. No thick-walled loops identified and there is no pneumatosis intestinalis, portal venous gas, or intraperitoneal free air. 4. Cholelithiasis. 5. Cardiomegaly. 6. Nonobstructing right renal calculus. 7. Additional findings as detailed above. Electronically signed by: Edy Martin M.D. 09/18/2016 7:09 PM The status of this report is Signed. Draft = Not yet reviewed or approved by Radiologist. Signed = Reviewed and approved by Radiologist. <AttendingPhy></AttendingPhy> <FamilyPhy>Franck Lester M.D.</FamilyPhy > <PrimaryPhy>Franck Lester M.D.</PrimaryPhy> <UnitNumber>[id number]</ UnitNumber> <VisitNumber>[id number]</VisitNumber> <PatientName>LAURENT ANDERSON</ PatientName> <DateOfBirth>1940</DateOfBirth> <Location>[facility]</Location> < ServiceDate>09/18/16</ServiceDate> <MNE>ESINDI</MNE> <OrderingPhy>Sravan Lynn MD</OrderingPhy> <OrderingPhyMNE>f rep ord dr leonard</OrderingPhyMNE> < DictatingPhyMNE>f rep dict dr leonard</DictatingPhyMNE> <CCListMNE>f rep ct horacio</ CCListMNE> <AdmittingPhyMNE>f pt admit dr leonard</AdmittingPhyMNE> <AttendingPhyMNE >f pt attend dr leonard</AttendingPhyMNE> <ConsultingPhyMNE>f pt consult dr leonard</ConsultingPhyMNE> <FamilyPhyMNE>f pt fam dr leonard</FamilyPhyMNE> <OtherPhyMNE>f pt other dr leonard</OtherPhyMNE> < PrimaryPhyMNE>f pt prim care dr leonard</PrimaryPhyMNE> <ReferringPhyMNE>f pt referring dr leonard</ReferringPhyMNE> EKG EKG shows normal sinus rhythm at 63, with no acute ST-T changes. Impression Assessment and Plan Small bowel obstruction--the patient will be admitted to the medical surgical floor. She'll be kept nothing by mouth. Place on normal saline with potassium chloride 20 mEq at 100 ML's per hour, Cipro 400 mg IV every 12 hours, Flagyl 500 mg IV every 8 hours, Zofran 4 mg IV every 6 hours when necessary, pantoprazole 40 mg IV daily. Coronary artery disease/hypertension/NSTEMI Hx--hold aspirin 81 mg by mouth daily, losartan potassium 25 mg by mouth daily, mag gluconate 500 mg by mouth daily, propranolol ER 160 mg by mouth daily, Brilinta 90mg by mouth twice a day. Diabetes mellitus--hold metformin 500 mg by mouth 4 times a day, and place on Accu-Cheks before meals and at bedtime with NovoLog coverage. Hypercholesterolemia--hold atorvastatin 40 mg by mouth at bedtime and gemfibrozil 600 mg by mouth daily. GERD--change pantoprazole 40 mg by mouth twice a day to 40 mg IV twice a day. Peripheral neuropathy--hold gabapentin 400 mg by mouth 3 times a day. Depression--hold Paxil 40 mg by mouth daily. Vitamin B-12 deficiency--hold B12 supplement 1000 g by mouth daily and folic acid 800 g by mouth daily. Level of Care Med/Surg Advanced Directives Existing Advance Directive: Yes Existing Living Will: Yes Existing Power of Inserter: Yes Resuscitation Status FULL RESUSCITATION VTE Prophylaxis VTE Risk Assessment Done? Y/N: Yes Risk Level: Moderate Given or contraindicated: SCD's Social Service Consult None Apply
[2016-09-19] MEDS ORDERED: GLUCOSE 40% GEL 15 GM TUBE PO PRN (02:00)
[2016-09-19] MEDS ORDERED: GLUCAGON FOR INJ 1 MG VIAL SQ PRN (02:00)
[2016-09-19] MEDS ORDERED: NURSING DECISION MEDICATION ORDER SCH (02:00)
[2016-09-19] MEDS ORDERED: DEXTROSE 50% 50 ML SYR IV PRN (02:00)
[2016-09-19] MEDS ORDERED: GLUCOSE 10 TABS/TUBE PO PRN (02:00)
[2016-09-19 02:11] VITALS: O2SAT 96
[2016-09-19] MEDS: PROMETHAZINE HCL INJ 25 MG in SODIUM CHLORIDE 0.9% 50ML 50 ML IV PRN (02:32)
[2016-09-19] MEDS: ONDANSETRON INJ 2 MG/ML 2 ML VIAL IV PRN ×2 (05:31→06:07)
[2016-09-19] MEDS: INSULIN ASPART 100 UNITS/ML 3 ML PEN SC SCH ×3 (05:50→18:00)
[2016-09-19] MEDS: METRONIDAZOLE / NSS 500 MG in PREMIXED NSS 100 ML IV SCH ×3 (06:07→22:36)
[2016-09-19 06:34] LABS: HEMATOCRIT 33.5 % (37-47); MEAN CELL VOLUME 92.8 fL (80-100); MEAN CORPUSCULAR HEMOGLOBIN 31.9 pg (25-34); MEAN CORPUSCULAR HGB CONC 34.3 g/dl (32-36); MEAN PLATELET VOLUME 11.2 fL (7.4-10.4); PLATELET COUNT 165 K/uL (130-400); RED BLOOD COUNT 3.61 M/uL (4.2-5.4); WHITE BLOOD COUNT 6.28 K/uL (4.8-10.8)
[2016-09-19 07:03] VITALS: BP 111/68; PULSE 74; TEMP 36.9; O2SAT 91
[2016-09-19 07:05] LABS: BUN/CREATININE RATIO 15.6 (10-20); CALCIUM 8.8 mg/dl (8.5-10.1); CREATININE 1.4 mg/dl (0.60-1.20); POTASSIUM 3.9 mmol/L (3.5-5.1)
[2016-09-19 07:08] LABS: BASO % 0.2 %; BASO ABS # 0.01 K/uL (0-0.2); COMPLETE YES; EOS % 1.1 %; GIANT PLATELETS 1+; IG% 0.2 %; LYMPH % 15.4 %; LYMPH ABS # 0.97 K/uL (1.2-3.4); MONO % 11.8 %; NEUT % 71.3 %
[2016-09-19 07:23] LABS: MAGNESIUM 0.7 mg/dl (1.8-2.4)
[2016-09-19] MEDS: NSS + 20MEQ KCL 1000ML 1,000 ML IV SCH ×2 (07:36→18:27)
[2016-09-19] MEDS: MAGNESIUM SULFATE 1GM / D5W 1 GM in PREMIXED IN D5W 100 ML IV SCH ×3 (07:49→13:23)
[2016-09-19] MEDS ORDERED: INSULIN ASPART 100 UNITS/ML 3 ML PEN SC SCH (08:00)
[2016-09-19 08:28] LABS: PHOSPHORUS 4.6 mg/dl (2.5-4.9)
[2016-09-19] MEDS: MoRPHine SULFATE 2 MG/ML CARP IV PRN ×5 (09:11→23:07)
[2016-09-19] MEDS: CIPROFLOXACIN / D5W 400 MG in PREMIXED IN D5W 200 ML IV SCH ×2 (10:16→21:15)
[2016-09-19] MEDS: PANTOprazole INJ 40 MG in SYRINGE 0 ML IV SCH (11:31)
[2016-09-19 12:41] LABS: BUN/CREATININE RATIO 17.5 (10-20); CALCIUM 8.7 mg/dl (8.5-10.1); CREATININE 1.3 mg/dl (0.60-1.20); MAGNESIUM 1.5 mg/dl (1.8-2.4); POTASSIUM 3.9 mmol/L (3.5-5.1)
--- NOTE | 2016-09-19 13:52 | Family Medicine Progress Note ---
Progress Note Date of Service Sep 19, 2016. Subjective Pt evaluation today including: conversation w/ patient, physical exam Voiding: no voiding problems, no incontinence [place] ok today, reviewed events of admission - central, stabbing abdominal pain started Monday (2 days ago). Was 10/10 severity, radiated to back and left side, "excruciating", took Tylenol / ibuprofen with no relief. On Monday, went to [employer] and was unable to eat the 2 biscuits she ordered, went home and felt unwell, then came to the ED. Was found to have a SBO on CT scan, and low magnesium. Remains NPO. Constitutional: + fatigue, + weakness, + weight loss (30 lbs in 3 mo), No chills, No fever, No sweats Eyes: No worsening of vision ENT: No hearing loss, No unusual epistaxis Respiratory: No cough, No dyspnea on exertion, No shortness of breath, No wheezing Cardiovascular: No chest pain Breast: No breast lump Abdomen: + see HPI Musculoskeletal: No joint pain Female : No dysuria Psychiatric: No depression symptoms All Other Systems: Reviewed and Negative Medications Current Inpatient Medications Medications (Trade) Dose Ordered Sig/Pari Route Start Time Stop Time Status Last Admin Dose Admin Diclofenac Sodium 4 appln 4 appln QID PRN EXT 09/18/16 21:30 10/18/16 21:29 Ciprofloxacin/ Dextrose 400 mg/ Prmx 200 ml @ 100 mls/hr Q12 IV 09/19/16 09:00 09/29/16 08:59 09/19/16 10:16 100 MLS/HR Metronidazole/Prmx (Flagyl / Nss/ Premixed Nss) 100 ml @ 100 mls/hr Q8H IV 09/18/16 22:30 09/28/16 22:29 09/19/16 06:07 100 MLS/HR Ondansetron HCl 4 mg 4 mg Q6H PRN IV 09/18/16 21:30 10/18/16 21:29 09/19/16 06:07 4 MG Acetaminophen 100 ml @ 400 mls/hr Q8H PRN IV 09/18/16 21:30 10/18/16 21:29 Potassium Chloride/Sodium Chloride (Nss + 20meq KCl 1000ml) 1,000 ml @ 100 mls/hr Q10H IV 09/18/16 22:00 1/31/17 21:59 09/19/16 07:36 100 MLS/HR Lorazepam (Ativan Inj) 0.5 mg Q4H PRN IV 09/18/16 21:30 10/18/16 21:29 Morphine Sulfate (MoRPHine SULFATE INJ) 2 mg Q2H PRN IV 09/18/16 21:30 10/02/16 21:29 09/19/16 12:24 2 MG Morphine Sulfate 4 mg 4 mg Q2H PRN IV 09/18/16 21:30 10/02/16 21:29 Pantoprazole Sodium/Syringe (Protonix Inj/ Syringe) 10 ml @ 5 mls/min DAILY@11 IV 09/19/16 11:00 10/19/16 10:59 09/19/16 11:31 5 MLS/MIN Glucose (Glucose 40% Gel) UD PRN PO 09/19/16 02:00 10/19/16 01:59 Glucose (Glucose Chew Tab) 1 tabs UD PRN PO 09/19/16 02:00 10/19/16 01:59 Dextrose (Dextrose 50% 50ML Syringe) 50 ml UD PRN IV 09/19/16 02:00 10/19/16 01:59 Glucagon (Glucagon Inj) 1 mg UD PRN SQ 09/19/16 02:00 10/19/16 01:59 Insulin Aspart SLIDING SCALE If C... Q6 SC 09/19/16 06:00 10/19/16 05:59 Promethazine HCl/ Sodium Chloride (Phenergan Inj/ Nss 50ml) 51 ml @ 204 mls/hr Q6H PRN IV 09/19/16 02:30 10/19/16 02:29 09/19/16 02:32 204 MLS/HR Objective Vital Signs Date Time Temp Pulse Resp B/P Pulse Ox O2 Delivery O2 Flow Rate FiO2 09/19/16 08:14 Room Air 09/19/16 07:03 36.9 74 15 111/68 91 Room Air 09/19/16 02:11 96 Nasal Cannula 2.0 09/18/16 23:20 Nasal Cannula 09/18/16 22:54 36.9 63 14 123/76 88 Room Air 09/18/16 22:07 36.8 64 16 184/81 94 Room Air 09/18/16 22:00 Room Air 09/18/16 21:45 36.5 66 16 133/65 97 09/18/16 20:43 Room Air 09/18/16 20:21 64 09/18/16 19:46 59 16 154/66 94 Room Air 09/18/16 17:56 60 16 154/72 96 Room Air 09/18/16 16:18 63 09/18/16 16:10 36.5 64 16 175/79 97 Room Air Physical Exam General Appearance: WD/WN, + mild distress Eyes: normal inspection, PERRL ENT: hearing grossly normal Neck: supple, thyroid normal Respiratory/Chest: chest non-tender, lungs clear, normal breath sounds, no respiratory distress Cardiovascular: regular rate, rhythm, no murmur Abdomen: soft, no organomegaly, no pulsatile mass, + distended, + guarding, + tenderness (epigastric) Extremities: normal inspection, no pedal edema Neurologic/Psychiatric: alert, normal mood/affect, oriented x 3 Skin: no rash Laboratory Results Last 24 Hours Test 09/18/16 16:45 09/18/16 18:35 09/19/16 02:06 09/19/16 05:49 White Blood Count 10.21 K/uL Red Blood Count 3.81 M/uL Hemoglobin 11.9 g/dL Hematocrit 34.8 % Mean Corpuscular Volume 91.3 fL Mean Corpuscular Hemoglobin 31.2 pg Mean Corpuscular Hemoglobin Concent 34.2 g/dl Platelet Count 181 K/uL Mean Platelet Volume 11.0 fL Neutrophils (%) (Auto) 75.8 % Lymphocytes (%) (Auto) 14.1 % Monocytes (%) (Auto) 7.9 % Eosinophils (%) (Auto) 1.8 % Basophils (%) (Auto) 0.2 % Neutrophils # (Auto) 7.74 K/uL Lymphocytes # (Auto) 1.44 K/uL Monocytes # (Auto) 0.81 K/uL Eosinophils # (Auto) 0.18 K/uL Basophils # (Auto) 0.02 K/uL RDW Standard Deviation 46.0 fL RDW Coefficient of Variation 14.0 % Immature Granulocyte % (Auto) 0.2 % Immature Granulocyte # (Auto) 0.02 K/uL Sodium Level 141 mmol/L Potassium Level 3.9 mmol/L Chloride Level 103 mmol/L Carbon Dioxide Level 22 mmol/L Anion Gap 16.0 mmol/L Blood Urea Nitrogen 24 mg/dl Creatinine 1.50 mg/dl Est Creatinine Clear Calc Drug Dose 34.3 ml/min Estimated GFR () 39.4 Estimated GFR (Non- 34.0 BUN/Creatinine Ratio 15.9 Random Glucose 139 mg/dl Calcium Level 9.2 mg/dl Total Bilirubin 0.5 mg/dl Direct Bilirubin 0.1 mg/dl Aspartate Amino Transf (AST/SGOT) 17 U/L Alanine Aminotransferase (ALT/SGPT) 13 U/L Alkaline Phosphatase 59 U/L Troponin I < 0.015 ng/ml Total Protein 7.4 gm/dl Albumin 3.8 gm/dl Lipase 162 U/L Urine Color YELLOW Urine Appearance CLEAR Urine pH 5.0 Urine Specific [place] 1.026 Urine Protein NEG Urine Glucose (UA) NEG Urine Ketones TRACE Urine Occult Blood NEG Urine Nitrite NEG Urine Bilirubin NEG Urine Urobilinogen NEG Urine Leukocyte Esterase TRACE Urine WBC (Auto) 1-5 /hpf Urine RBC (Auto) 0-4 /hpf Urine Hyaline Casts (Auto) 1-5 /lpf Urine Epithelial Cells (Auto) >30 /lpf Urine Bacteria (Auto) NEG Bedside Glucose 133 mg/dl 149 mg/dl Test 09/19/16 05:55 09/19/16 11:57 09/19/16 11:58 White Blood Count 6.28 K/uL Red Blood Count 3.61 M/uL Hemoglobin 11.5 g/dL Hematocrit 33.5 % Mean Corpuscular Volume 92.8 fL Mean Corpuscular Hemoglobin 31.9 pg Mean Corpuscular Hemoglobin Concent 34.3 g/dl Platelet Count 165 K/uL Mean Platelet Volume 11.2 fL Neutrophils (%) (Auto) 71.3 % Lymphocytes (%) (Auto) 15.4 % Monocytes (%) (Auto) 11.8 % Eosinophils (%) (Auto) 1.1 % Basophils (%) (Auto) 0.2 % Neutrophils # (Auto) 4.48 K/uL Lymphocytes # (Auto) 0.97 K/uL Monocytes # (Auto) 0.74 K/uL Eosinophils # (Auto) 0.07 K/uL Basophils # (Auto) 0.01 K/uL RDW Standard Deviation 47.9 fL RDW Coefficient of Variation 14.0 % Immature Granulocyte % (Auto) 0.2 % Immature Granulocyte # (Auto) 0.01 K/uL Giant Platelets 1+ Sodium Level 142 mmol/L 142 mmol/L Potassium Level 3.9 mmol/L 3.9 mmol/L Chloride Level 104 mmol/L 105 mmol/L Carbon Dioxide Level 25 mmol/L 25 mmol/L Anion Gap 13.0 mmol/L 12.0 mmol/L Blood Urea Nitrogen 22 mg/dl 23 mg/dl Creatinine 1.40 mg/dl 1.30 mg/dl Est Creatinine Clear Calc Drug Dose 36.8 ml/min 39.6 ml/min Estimated GFR () 42.8 46.8 Estimated GFR (Non- 36.9 40.4 BUN/Creatinine Ratio 15.6 17.5 Random Glucose 144 mg/dl 149 mg/dl Calcium Level 8.8 mg/dl 8.7 mg/dl Phosphorus Level 4.6 mg/dl Magnesium Level 0.7 mg/dl 1.5 mg/dl Bedside Glucose 140 mg/dl Assessment and Plan 76 yo F with previous abdominal surgery (colon resection after SBO), and recent admission for low K and Mg, with overall poor appetite and about 20 lb weight loss presents 09/18/16 with small bowel obstruction, likely due to adhesions, and low magnesium. Small bowel obstruction - Remains NPO - Continue IV fluids of NS + 20mEq KCL 100mL/hour - Did not initially want an NG tube. If vomits again, would place one, and pt agrees to this. - Zofran / Phenergan for nausea - Avoid narcotics for pain unless severe - Surgery consulted to review, in case pt worsens - Continue Abx (Cipro/ Flagyl) for now Hypomagnesemia - 3g IV Mag Sulfate - Recheck level 1 hour afterwards (result was still low at 1.5, so will replete with 1 further gram of IV Mag) Coronary artery disease / Hypercholesterolemia - Aspirin, Losartan, Mag gluconate, Propranolol, Statin, Brilinta all on hold Type 2 DM - Metformin on hold - BSC AC and HS Peripheral neuropathy - Fall precautions - Gabapentin on hold VTE - Heparin SQ, SCDS CODE STATUS: FULL CODE Dispo: Med/Surg Resident Physician Supervision Note: I was present with Dr. Aguilar during the history and exam. I discussed the case with the resident and agree with the findings and plan as documented in the note. Any exceptions or clarifications are listed here: Discussed need for NG tube should patient not improve. She was resistant to the idea since she had one prior an recalls it being uncomfortable. However, she would be willing if it was deemed necessary; at this point, will hold off unless she has recurrent emesis or of recommended by general surgery. Documented By: Chuck Lucero Resident Tracking Resident Involvement: Resident Care Provided Care Provided: Adult [facility]
--- NOTE | 2016-09-19 14:45 | Medical Student: [facility] ---
Med Student History & Physical Date & Time of Service: Sep 19, 2016 at 14:40 Chief Complaint: Small Bowel Obstruction Due To Adhesions Primary Care Physician: Franck Lester M.D. History of Present Illness Source: patient, hospital records Pt is a 76 yo F with a history of HTN, T2DM and CAD who presented to the ED via ambulance one day ago with 10/10 epigastric abdominal pain. The pain began late at night two days ago and progressively worsened until it reached 10/10 pain and she called EMS. The pain was precipitated by a week of decreased appetite, food aversion, and nausea. She denied chest pain, palpitations, dyspnea, fever or chills, n/v/d, hematemesis or hematochezia. Overnight last night, she vomited 5-6 times, with the last episode early this AM. Vomitus was food and liquid in origin, no hematemesis. She attempted to eat 24 hours ago, and her last BM was yesterday before presenting to the ED. She was hospitalized in Jul 2016 with severe dehydration and hypomagnesemia (0.5 ) that resulted from nausea and food aversion similar to what she has been feeling in the last week.She previously had a colon resection and has a hx of SBO 5 years ago. Past Medical/Surgical History Medical Problems: (1) Acute kidney injury Status: Acute (2) Bowel obstruction Status: Acute (3) Bronchitis Status: Acute (4) Hypomagnesemia Status: Acute (5) Orthostasis Status: Acute (6) Syncope Status: Acute T2DM Social History Smoking Status: Never Smoker Smokeless Tobacco Use: No Alcohol Use: none Drug Use: none Marital Status: Housing status: lives with family Immunizations History of Influenza Vaccine: Yes Influenza Vaccine Date: Jul 31, 2013 History of Tetanus Vaccine?: UTD Tetanus Immunization Date: Apr 25, 1990 History of Pneumococcal: Yes Pneumococcal Date: Apr 18, 2009 History of Hepatitis B Vaccine: Yes Allergies Coded Allergies: Clarithromycin (Verified Allergy, Unknown, UNKNOWN, 07/26/16) Macrolides (Verified Allergy, Unknown, 07/26/16) Amoxicillin (Verified Adverse Reaction, Mild, GI SYMPTOMS, 07/26/16) Clavulanic Acid (Verified Adverse Reaction, Mild, GI SYMPTOMS, 07/26/16) Medications Aspirin Enteric Coated (Ecotrin Or Generic), 81 MG PO DAILY Atorvastatin (Lipitor), 40 MG PO HS Cholecalciferol (D 5000), 5,000 PO DAILY Cyanocobalamin (B-12), 1,000 MCG PO DAILY Diclofenac Sod (Voltaren), 4 APPLN EXT QID PRN for joint pain Folic Acid (Folic Acid), 800 MCG PO DAILY Furosemide (Lasix), 20 MG PO DAILY PRN for Shortness of Breath Gabapentin (Neurontin), 400 MG PO TID Gemfibrozil (Lopid), 600 MG PO DAILY Losartan Potassium (Cozaar), 25 MG PO DAILY Magnesium Gluconate (Mag-G), 500 MG PO DAILY Metformin Hcl (Glucophage), 500 MG PO QID Nitroglycerin (Nitrostat), 0.4 MG UT UD PRN for Chest Pain Pantoprazole (Protonix), 40 MG PO BID Paroxetine (Paxil), 40 MG PO DAILY Propranolol Hcl (Propranolol Hcl Er), 160 MG PO DAILY Ranitidine (Zantac), 150 MG PO DAILY PRN for heartburn Ticagrelor (Brilinta), 90 MG PO BID Review of Systems Constitutional: No chills, No fever, No sweats Eyes: No worsening of vision ENT: No hearing loss Respiratory: No cough, No dyspnea at rest, No dyspnea on exertion, No shortness of breath Cardiovascular: No chest pain, No palpitations Abdomen: + nausea, + pain (epigastric), + vomiting, No GI bleeding, No diarrhea Genitourinary - Female: No dysuria, No urinary retention Integumentary: No rash Physical Exam Vital Signs (24 Hours) Date Time Temp Pulse Resp B/P Pulse Ox O2 Delivery O2 Flow Rate FiO2 09/19/16 08:14 Room Air 09/19/16 07:03 36.9 74 15 111/68 91 Room Air 09/19/16 02:11 96 Nasal Cannula 2.0 09/18/16 23:20 Nasal Cannula 09/18/16 22:54 36.9 63 14 123/76 88 Room Air 09/18/16 22:07 36.8 64 16 184/81 94 Room Air 09/18/16 22:00 Room Air 09/18/16 21:45 36.5 66 16 133/65 97 09/18/16 20:43 Room Air 09/18/16 20:21 64 09/18/16 19:46 59 16 154/66 94 Room Air 09/18/16 17:56 60 16 154/72 96 Room Air 09/18/16 16:18 63 09/18/16 16:10 36.5 64 16 175/79 97 Room Air General Appearance: WD/WN, no apparent distress Head: normocephalic, atraumatic Eyes: EOMI, sclerae normal Neck: supple, no adenopathy, no JVD, no carotid bruits Respiratory/Chest: lungs clear, normal breath sounds, no respiratory distress Cardiovascular: regular rate, rhythm, no edema, no gallop, no JVD, no murmur Abdomen/GI: normal bowel sounds, + tenderness, + distended, + pertinent finding (firm) Extremities/Musculoskelatal: normal inspection, no pedal edema Neurologic/Psych: alert, normal mood/affect Skin: normal color, warm/dry Diagnostics Laboratory Results Results Past 24 Hours Test 09/18/16 16:45 09/18/16 18:35 09/19/16 02:06 09/19/16 05:49 Range/Units White Blood Count 10.21 4.8-10.8 K/uL Red Blood Count 3.81 4.2-5.4 M/uL Hemoglobin 11.9 12.0-16.0 g/dL Hematocrit 34.8 37-47 % Mean Corpuscular Volume 91.3 80-100 fL Mean Corpuscular Hemoglobin 31.2 25-34 pg Mean Corpuscular Hemoglobin Concent 34.2 32-36 g/dl Platelet Count 181 130-400 K/uL Mean Platelet Volume 11.0 7.4-10.4 fL Neutrophils (%) (Auto) 75.8 % Lymphocytes (%) (Auto) 14.1 % Monocytes (%) (Auto) 7.9 % Eosinophils (%) (Auto) 1.8 % Basophils (%) (Auto) 0.2 % Neutrophils # (Auto) 7.74 1.4-6.5 K/uL Lymphocytes # (Auto) 1.44 1.2-3.4 K/uL Monocytes # (Auto) 0.81 0.11-0.59 K/uL Eosinophils # (Auto) 0.18 0-0.5 K/uL Basophils # (Auto) 0.02 0-0.2 K/uL RDW Standard Deviation 46.0 36.4-46.3 fL RDW Coefficient of Variation 14.0 11.5-14.5 % Immature Granulocyte % (Auto) 0.2 % Immature Granulocyte # (Auto) 0.02 0.00-0.02 K/uL Sodium Level 141 136-145 mmol/L Potassium Level 3.9 3.5-5.1 mmol/L Chloride Level 103 98-107 mmol/L Carbon Dioxide Level 22 21-32 mmol/L Anion Gap 16.0 3-11 mmol/L Blood Urea Nitrogen 24 7-18 mg/dl Creatinine 1.50 0.60-1.20 mg/dl Est Creatinine Clear Calc Drug Dose 34.3 ml/min Estimated GFR () 39.4 Estimated GFR (Non- 34.0 BUN/Creatinine Ratio 15.9 10-20 Random Glucose 139 70-99 mg/dl Calcium Level 9.2 8.5-10.1 mg/dl Total Bilirubin 0.5 0.2-1 mg/dl Direct Bilirubin 0.1 0-0.2 mg/dl Aspartate Amino Transf (AST/SGOT) 17 15-37 U/L Alanine Aminotransferase (ALT/SGPT) 13 12-78 U/L Alkaline Phosphatase 59 45-117 U/L Troponin I < 0.015 0-0.045 ng/ml Total Protein 7.4 6.4-8.2 gm/dl Albumin 3.8 3.4-5.0 gm/dl Lipase 162 73-393 U/L Urine Color YELLOW Urine Appearance CLEAR CLEAR Urine pH 5.0 4.5-7.5 Urine Specific [place] 1.026 1.000-1.030 Urine Protein NEG NEG Urine Glucose (UA) NEG NEG Urine Ketones TRACE NEG Urine Occult Blood NEG NEG Urine Nitrite NEG NEG Urine Bilirubin NEG NEG Urine Urobilinogen NEG NEG Urine Leukocyte Esterase TRACE NEG Urine WBC (Auto) 1-5 0-5 /hpf Urine RBC (Auto) 0-4 0-4 /hpf Urine Hyaline Casts (Auto) 1-5 0-5 /lpf Urine Epithelial Cells (Auto) >30 0-5 /lpf Urine Bacteria (Auto) NEG NEG Bedside Glucose 133 149 70-90 mg/dl Test 09/19/16 05:55 09/19/16 11:57 09/19/16 11:58 Range/Units White Blood Count 6.28 4.8-10.8 K/uL Red Blood Count 3.61 4.2-5.4 M/uL Hemoglobin 11.5 12.0-16.0 g/dL Hematocrit 33.5 37-47 % Mean Corpuscular Volume 92.8 80-100 fL Mean Corpuscular Hemoglobin 31.9 25-34 pg Mean Corpuscular Hemoglobin Concent 34.3 32-36 g/dl Platelet Count 165 130-400 K/uL Mean Platelet Volume 11.2 7.4-10.4 fL Neutrophils (%) (Auto) 71.3 % Lymphocytes (%) (Auto) 15.4 % Monocytes (%) (Auto) 11.8 % Eosinophils (%) (Auto) 1.1 % Basophils (%) (Auto) 0.2 % Neutrophils # (Auto) 4.48 1.4-6.5 K/uL Lymphocytes # (Auto) 0.97 1.2-3.4 K/uL Monocytes # (Auto) 0.74 0.11-0.59 K/uL Eosinophils # (Auto) 0.07 0-0.5 K/uL Basophils # (Auto) 0.01 0-0.2 K/uL RDW Standard Deviation 47.9 36.4-46.3 fL RDW Coefficient of Variation 14.0 11.5-14.5 % Immature Granulocyte % (Auto) 0.2 % Immature Granulocyte # (Auto) 0.01 0.00-0.02 K/uL Giant Platelets 1+ Sodium Level 142 142 136-145 mmol/L Potassium Level 3.9 3.9 3.5-5.1 mmol/L Chloride Level 104 105 98-107 mmol/L Carbon Dioxide Level 25 25 21-32 mmol/L Anion Gap 13.0 12.0 3-11 mmol/L Blood Urea Nitrogen 22 23 7-18 mg/dl Creatinine 1.40 1.30 0.60-1.20 mg/dl Est Creatinine Clear Calc Drug Dose 36.8 39.6 ml/min Estimated GFR () 42.8 46.8 Estimated GFR (Non- 36.9 40.4 BUN/Creatinine Ratio 15.6 17.5 10-20 Random Glucose 144 149 70-99 mg/dl Calcium Level 8.8 8.7 8.5-10.1 mg/dl Phosphorus Level 4.6 2.5-4.9 mg/dl Magnesium Level 0.7 1.5 1.8-2.4 mg/dl Bedside Glucose 140 70-90 mg/dl Microbiology Results 09/18/16 Urine Culture - Preliminary, Resulted PIN-POINT GROWTH PRESENT, REINCUBATING. Diagnostic Radiology CT of abdomen - small bowel is distended and fecalized, with inflammation around. Likely dt adhesions. No indication of perforation. Impression Assessment and Plan Pt is a 76 yo female who presented with severe epigastric abdominal pain and was found to be severely hypomagnesemic. Epigastric abdominal pain likely secondary too small bowel obstruction dt adhesions. Other possible etiologies include, Cholecystis, Cholelithiasis, GERD , gastric ulcer, diverticulitis. Small Bowel Obstruction 1. Continue Cipro (200 mls at 100 mls per hr) and metronidazole (500 mg) abx 2. Consult General Surgery - pt reluctant to NG tube. 3. Remain NPO 4. Zofran 4 mg for nausea Hypomagnesiumemia 1. Continue Magnesium Sulfate replacement 2. Continue daily Mg bloodwork Hold home HTN and T2DM medications as NPO. Insulin sliding scale PRN. DVT prophylaxis - Subq heparin Full Resuscitation Remain on med/surg Medical Student Supervision Note: I reviewed the medical student note with the medical student. Please see separate and complete care documentation in the note of the resident physician and my separate attestation. Documented By: Chuck Lucero Level of Care Med/Surg Advanced Directives Existing Advance Directive: Yes Existing Living Will: Yes Existing Power of Accessibility Lift Technician: Yes Resuscitation Status FULL RESUSCITATION DVT Prophylaxis unfractionated heparin SQ
[2016-09-19] MEDS ORDERED: MAGNESIUM SULFATE 1GM / D5W 1 GM in PREMIXED IN D5W 100 ML IV ONE (15:00)
[2016-09-19 15:16] VITALS: BP 119/70; PULSE 70; TEMP 37.1; O2SAT 94
[2016-09-19] MEDS: HEPARIN SOD 5000 UNIT/0.5 ML CARP SQ SCH (22:33)
[2016-09-19 22:55] VITALS: BP 121/72; PULSE 66; TEMP 37.1; O2SAT 93
--- NOTE | 2016-09-19 23:16 | SURGICAL CONSULTATION ---
DATE OF CONSULTATION: 09/19/2016 I have been asked by Dr. Reynoso to see this 76-year-old female who, presented to the Emergency Room with abdominal discomfort and nausea and vomiting. The abdominal discomfort began 2 days ago. It is intermittent. It is sharp when it occurs. Each episode lasts for 5 minutes or so. She states the abdominal discomfort is throughout her abdomen and not in one area in particular. She has had some mild nausea over the last 1-2 weeks, but it has resolved spontaneously. She has been moving her bowels; in fact, she had a bowel movement prior to coming to the Emergency Room. She has not had fever or chills. Since being in the hospital, she has had at least 4 episodes of vomiting. She has refused an NG tube. She has had multiple previous abdominal procedures. PAST MEDICAL HISTORY: For coronary artery disease, status post IL, hyperlipidemia, hypertension, non-STEMI, diabetes mellitus. PAST SURGICAL HISTORY: For a sigmoid colectomy for diverticulitis, which was followed by a surgical procedure for a bowel obstruction about 5 years ago. She also reports having had ventral hernias repaired at least 3-4 times. She thinks a mesh was placed during last procedure. MEDICATIONS AT HOME: Include aspirin, Brilinta, propranolol, Paxil, Protonix, Glucophage, Cozaar, Lopid, Neurontin, folic acid, Lipitor. ALLERGIES: CLARITHROMYCIN, MACROLIDES, AMOXICILLIN AND CLAVULANIC ACID. SOCIAL HISTORY: She does not smoke nor does she drink alcohol. PHYSICAL EXAMINATION: GENERAL: Reveals an overweight female, who appears in no acute distress. VITAL SIGNS: Blood pressure 119/70, heart rate 70, respirations 18, temperature 37.1, pulse oximetry is 94% on room air. HEENT: Reveals her sclerae to be anicteric. Mucous membranes are moist. NECK: Supple, with no adenopathy. BACK: Has no spinal or CVA tenderness. LUNGS: Clear. HEART: Regular. ABDOMEN: Has bowel sounds that are present, but slightly decreased. Her abdomen is soft. It is not distended. There is tenderness over the upper portion of her incision. It is mild. There is some mild tenderness to the left and right of that, but there is no diffuse abdominal tenderness. EXTREMITIES: Reveal no edema. LABORATORY DATA: WBC 6.28, H\T\H is 11.5 and 33.5, platelet count 165,000. Sodium 142, potassium 3.9, chloride 105, CO2 25, BUN 23, creatinine 1.3, glucose 149. Magnesium is 1.5, which is up from 0.7. She had a gallbladder ultrasound that showed the gallbladder to be of normal appearance with no stones and no gallbladder wall thickening or pericholecystic fluid. The common bile duct measures 0.[address] of the abdomen and pelvis showed proximal small bowel loops, distended and focalized with surrounding inflammatory change and trace interloop fluid with distal small bowel decompression. There seemed to be a transition point in the ventral right upper pelvis. The appearance was consistent with small-bowel obstruction, but no focally thick-walled bowel loops were identified and no pneumatosis intestinalis. The appendix was normal. ASSESSMENT AND PLAN: This patient has evidence of bowel obstruction. I would agree with conservative management at first. I have recommended to her that she allow an NG tube if she develops nausea or vomits. Hopefully, this will resolve spontaneously. Because of her ventral hernia repairs and the placement of mesh, her previous multiple abdominal procedures, a surgical intervention would be difficult, at best. I explained all that to her and she agrees.
[2016-09-20] MEDS: NSS + 20MEQ KCL 1000ML 1,000 ML IV SCH ×2 (01:16→14:31)
[2016-09-20] MEDS: MoRPHine SULFATE 2 MG/ML CARP IV PRN ×5 (05:21→21:53)
[2016-09-20] MEDS: HEPARIN SOD 5000 UNIT/0.5 ML CARP SQ SCH ×3 (05:26→22:02)
[2016-09-20] MEDS: INSULIN ASPART 100 UNITS/ML 3 ML PEN SC SCH ×4 (06:00→18:00)
[2016-09-20] MEDS: METRONIDAZOLE / NSS 500 MG in PREMIXED NSS 100 ML IV SCH ×3 (06:04→23:23)
[2016-09-20 06:58] LABS: BASO % 0.2 %; BASO ABS # 0.01 K/uL (0-0.2); COMPLETE YES; EOS % 3.8 %; HEMATOCRIT 30.7 % (37-47); IG% 0.2 %; LYMPH % 21.8 %; LYMPH ABS # 0.98 K/uL (1.2-3.4); MEAN CELL VOLUME 94.2 fL (80-100); MEAN CORPUSCULAR HEMOGLOBIN 31.3 pg (25-34); MEAN CORPUSCULAR HGB CONC 33.2 g/dl (32-36); MEAN PLATELET VOLUME 10.9 fL (7.4-10.4); MONO % 13.4 %; NEUT % 60.6 %; PLATELET COUNT 145 K/uL (130-400); RED BLOOD COUNT 3.26 M/uL (4.2-5.4); WHITE BLOOD COUNT 4.49 K/uL (4.8-10.8)
[2016-09-20 07:05] VITALS: BP 131/79; PULSE 70; TEMP 36.7; O2SAT 95
[2016-09-20 07:33] LABS: BUN/CREATININE RATIO 15.6 (10-20); CALCIUM 8.1 mg/dl (8.5-10.1); CREATININE 1.2 mg/dl (0.60-1.20); MAGNESIUM 1.7 mg/dl (1.8-2.4)
--- NOTE | 2016-09-20 08:10 | Clinical Documentation Query ---
BRIANNE Nolan : CLINICAL DOCUMENTATION QUERY Patient is a 76 year old female admitted with a small bowel obstruction. Admission BUN and creatinine were 24 mg/dl and 1.50 mg/dl. There is no documented history of chronic kidney disease. She is being treated with IVF and monitored with serial chemistries. Please clarify as clinically appropriate. Thank you. In your clinical opinion is this patient being managed for: ( ) Acute kidney failure, POA ( x ) Other explanation of clinical findings (Please Explain) - dehydration related SOHAN ( ) Unable to determine (Please Define) ( ) Need to Discuss ( ) Not Agree The medical record reflects the following clinical findings, treatment, and risk factors. Clinical Indicators: As above Treatment: She is being treated with IVF and monitored with serial chemistries Risk Factors: Age, hypertension, poor intake secondary to SBO Please clarify and document your clinical opinion in the progress notes and discharge summary. Terms such as "probable", "suspected", "likely", "questionable", "possible", or "still to be ruled out" are acceptable. IF IN AGREEMENT, YOU MUST DOCUMENT ABOVE DIAGNOSTIC STATEMENT IN DAILY PROGRESS NOTES AND DISCHARGE SUMMARY. This document is not part of the patient's record. Thank You, John Zarco, RN [phone]
--- NOTE | 2016-09-20 08:12 | Clinical Documentation Query ---
KAYLA Schulte : CLINICAL DOCUMENTATION QUERY Patient is a 76 year old female admitted with a small bowel obstruction. Admission BUN and creatinine were 24 mg/dl and 1.50 mg/dl. There is no documented history of chronic kidney disease. She is being treated with IVF and monitored with serial chemistries. Please clarify as clinically appropriate. Thank you. In your clinical opinion is this patient being managed for: ( ) Acute kidney failure, POA (X ) Other explanation of clinical findings SBO (Please Explain) ( ) Unable to determine (Please Define) ( ) Need to Discuss ( ) Not Agree The medical record reflects the following clinical findings, treatment, and risk factors. Clinical Indicators: As above Treatment: She is being treated with IVF and monitored with serial chemistries Risk Factors: Age, hypertension, poor intake secondary to SBO Please clarify and document your clinical opinion in the progress notes and discharge summary. Terms such as "probable", "suspected", "likely", "questionable", "possible", or "still to be ruled out" are acceptable. IF IN AGREEMENT, YOU MUST DOCUMENT ABOVE DIAGNOSTIC STATEMENT IN DAILY PROGRESS NOTES AND DISCHARGE SUMMARY. This document is not part of the patient's record. Thank You, John Zarco, FABIO [phone]
[2016-09-20] MEDS: CIPROFLOXACIN / D5W 400 MG in PREMIXED IN D5W 200 ML IV SCH ×2 (08:31→21:56)
[2016-09-20] MEDS ORDERED: MAGNESIUM SULFATE 1GM / D5W 1 GM in PREMIXED IN D5W 100 ML IV ONE (10:30)
[2016-09-20] MEDS: PANTOprazole INJ 40 MG in SYRINGE 0 ML IV SCH (10:47)
--- NOTE | 2016-09-20 11:28 | Family Medicine Progress Note ---
Progress Note Date of Service Sep 20, 2016. Subjective Pt evaluation today including: conversation w/ patient, physical exam Voiding: no voiding problems, no incontinence Has not passed stool, and did not vomit so did not have NG tube placed. She has heard bowl "gurgling" overnight. Remains NPO. Constitutional: + weakness, No chills, No fever, No sweats, No weight loss ENT: No hearing loss Respiratory: No cough, No sputum Cardiovascular: No chest pain Abdomen: + constipation, + pain (09/27 now), No diarrhea, No nausea, No vomiting Female : No dysuria Psychiatric: No depression symptoms Endo: No fatigue Skin: No rash All Other Systems: Reviewed and Negative Medications Current Inpatient Medications Medications (Trade) Dose Ordered Sig/Pari Route Start Time Stop Time Status Last Admin Dose Admin Diclofenac Sodium 4 appln 4 appln QID PRN EXT 09/18/16 21:30 10/18/16 21:29 Ciprofloxacin/ Dextrose 400 mg/ Prmx 200 ml @ 100 mls/hr Q12 IV 09/19/16 09:00 09/29/16 08:59 09/20/16 08:31 100 MLS/HR Metronidazole/Prmx (Flagyl / Nss/ Premixed Nss) 100 ml @ 100 mls/hr Q8H IV 09/18/16 22:30 09/28/16 22:29 09/20/16 06:04 100 MLS/HR Ondansetron HCl 4 mg 4 mg Q6H PRN IV 09/18/16 21:30 10/18/16 21:29 09/19/16 06:07 4 MG Acetaminophen 100 ml @ 400 mls/hr Q8H PRN IV 09/18/16 21:30 10/18/16 21:29 Potassium Chloride/Sodium Chloride (Nss + 20meq KCl 1000ml) 1,000 ml @ 100 mls/hr Q10H IV 09/18/16 22:00 10/18/16 21:59 09/20/16 01:16 100 MLS/HR Lorazepam (Ativan Inj) 0.5 mg Q4H PRN IV 09/18/16 21:30 10/18/16 21:29 Morphine Sulfate (MoRPHine SULFATE INJ) 2 mg Q2H PRN IV 09/18/16 21:30 10/02/16 21:29 09/20/16 08:04 2 MG Morphine Sulfate 4 mg 4 mg Q2H PRN IV 09/18/16 21:30 10/02/16 21:29 Pantoprazole Sodium/Syringe (Protonix Inj/ Syringe) 10 ml @ 5 mls/min DAILY@11 IV 09/19/16 11:00 10/19/16 10:59 09/20/16 10:47 5 MLS/MIN Glucose (Glucose 40% Gel) UD PRN PO 09/19/16 02:00 10/19/16 01:59 Glucose (Glucose Chew Tab) 1 tabs UD PRN PO 09/19/16 02:00 10/19/16 01:59 Dextrose (Dextrose 50% 50ML Syringe) 50 ml UD PRN IV 09/19/16 02:00 10/19/16 01:59 Glucagon (Glucagon Inj) 1 mg UD PRN SQ 09/19/16 02:00 10/19/16 01:59 Insulin Aspart SLIDING SCALE If C... Q6 SC 09/19/16 06:00 10/19/16 05:59 Promethazine HCl/ Sodium Chloride (Phenergan Inj/ Nss 50ml) 51 ml @ 204 mls/hr Q6H PRN IV 09/19/16 02:30 10/19/16 02:29 09/19/16 02:32 204 MLS/HR Heparin Sodium (Porcine) 5000 unit 5,000 unit Q8 SQ 09/19/16 22:00 10/19/16 21:59 09/20/16 05:26 5,000 UNIT Magnesium Sulfate/ Prmx (Magnesium Sulfate/Premixed D5W) 100 ml @ 100 mls/hr NOW ONCE IV 09/20/16 10:30 09/20/16 11:29 09/20/16 10:44 100 MLS/HR Objective Vital Signs Date Time Temp Pulse Resp B/P Pulse Ox O2 Delivery O2 Flow Rate FiO2 09/20/16 08:30 Room Air 09/20/16 07:05 36.7 70 15 131/79 95 Room Air 09/20/16 00:05 Nasal Cannula 2.0 09/19/16 22:55 37.1 66 17 121/72 93 Nasal Cannula 2.0 09/19/16 15:30 Room Air 09/19/16 15:16 37.1 70 18 119/70 94 Room Air Physical Exam General Appearance: WD/WN, no apparent distress Eyes: normal inspection, PERRL ENT: hearing grossly normal Neck: supple, no adenopathy Respiratory/Chest: lungs clear, normal breath sounds, no respiratory distress Cardiovascular: regular rate, rhythm, no murmur Abdomen: soft, + distended, + pertinent finding (soft sounds audible, mild tenderness in RUQ) Extremities: normal inspection, no pedal edema Neurologic/Psychiatric: no motor/sensory deficits, alert, normal mood/affect, oriented x 3 Skin: no rash Laboratory Results Last 24 Hours Test 09/19/16 11:57 09/19/16 11:58 09/19/16 17:59 09/19/16 23:53 Bedside Glucose 140 mg/dl 126 mg/dl 135 mg/dl Sodium Level 142 mmol/L Potassium Level 3.9 mmol/L Chloride Level 105 mmol/L Carbon Dioxide Level 25 mmol/L Anion Gap 12.0 mmol/L Blood Urea Nitrogen 23 mg/dl Creatinine 1.30 mg/dl Est Creatinine Clear Calc Drug Dose 39.6 ml/min Estimated GFR () 46.8 Estimated GFR (Non- 40.4 BUN/Creatinine Ratio 17.5 Random Glucose 149 mg/dl Calcium Level 8.7 mg/dl Magnesium Level 1.5 mg/dl Test 09/20/16 06:00 09/20/16 06:25 Bedside Glucose 133 mg/dl White Blood Count 4.49 K/uL Red Blood Count 3.26 M/uL Hemoglobin 10.2 g/dL Hematocrit 30.7 % Mean Corpuscular Volume 94.2 fL Mean Corpuscular Hemoglobin 31.3 pg Mean Corpuscular Hemoglobin Concent 33.2 g/dl Platelet Count 145 K/uL Mean Platelet Volume 10.9 fL Neutrophils (%) (Auto) 60.6 % Lymphocytes (%) (Auto) 21.8 % Monocytes (%) (Auto) 13.4 % Eosinophils (%) (Auto) 3.8 % Basophils (%) (Auto) 0.2 % Neutrophils # (Auto) 2.72 K/uL Lymphocytes # (Auto) 0.98 K/uL Monocytes # (Auto) 0.60 K/uL Eosinophils # (Auto) 0.17 K/uL Basophils # (Auto) 0.01 K/uL RDW Standard Deviation 48.7 fL RDW Coefficient of Variation 14.1 % Immature Granulocyte % (Auto) 0.2 % Immature Granulocyte # (Auto) 0.01 K/uL Sodium Level 142 mmol/L Potassium Level 4.0 mmol/L Chloride Level 107 mmol/L Carbon Dioxide Level 26 mmol/L Anion Gap 9.0 mmol/L Blood Urea Nitrogen 19 mg/dl Creatinine 1.20 mg/dl Est Creatinine Clear Calc Drug Dose 42.9 ml/min Estimated GFR () 51.6 Estimated GFR (Non- 44.5 BUN/Creatinine Ratio 15.6 Random Glucose 141 mg/dl Calcium Level 8.1 mg/dl Magnesium Level 1.7 mg/dl Assessment and Plan 76 yo F with small bowel obstruction, day 2 of NPO / IV fluid and overall conservative management. Small bowel obstruction - Remains NPO - Continue IV fluids of NS + 20mEq KCL 100mL/hour - Did not initially want an NG tube. If vomits again, would place one, and pt agrees to this. - Zofran / Phenergan for nausea - Avoid narcotics for pain unless severe - Appreciate Surgery recommendations - Continue Abx (Cipro/ Flagyl) for now, will likely stop tomorrow. Hypomagnesemia - Repleted with 1g today Coronary artery disease / Hypercholesterolemia - Aspirin, Losartan, Mag gluconate, Propranolol, Statin, Brilinta all on hold Type 2 DM - Metformin on hold - BSC AC and HS Peripheral neuropathy - Fall precautions - Gabapentin on hold VTE - Heparin SQ, SCDS CODE STATUS: FULL CODE Dispo: Med/Surg Resident Physician Supervision Note: I was present with Dr. Aguilar during the history and exam. I discussed the case with the resident and agree with the findings and plan as documented in the note. Any exceptions or clarifications are listed here: Continue conservative approach for SBO. Appreciate surgery consultation. Documented By: Chuck Lucero Resident Tracking Resident Involvement: Resident Care Provided Care Provided: Adult [facility] Medicine
[2016-09-20] MEDS: ONDANSETRON INJ 2 MG/ML 2 ML VIAL IV PRN ×2 (11:44→18:58)
--- NOTE | 2016-09-20 14:23 | Medical Student: [facility] ---
Med Student Progress Note Date of Service Sep 20, 2016. Subjective Pt evaluation today including: conversation w/ patient, physical exam, chart review, lab review Pain: 1/10 in epigastric and LLQ PO Intake: Remain NPO Voiding: no voiding problems Pt is 76 yo female who presented to ED 3 days ago with 10/10 abdominal pain. She was found to be hypomagnesemic and to have a small bowel obstruction. Today she notes her pain to be 1/10. She has not vomited, and denies passing a BM of flatulence. She notes that she is feeling better today, however she is not hungry currently. Review of Systems Constitutional: + sweats, No chills, No fever Respiratory: No cough, No shortness of breath Cardiac: No chest pain, No palpitations Abdomen: + nausea, + pain (epigastric and LLQ), No diarrhea, No vomiting Objective Vital Signs Date Time Temp Pulse Resp B/P Pulse Ox O2 Delivery O2 Flow Rate FiO2 09/20/16 08:30 Room Air 09/20/16 07:05 36.7 70 15 131/79 95 Room Air 09/20/16 00:05 Nasal Cannula 2.0 09/19/16 22:55 37.1 66 17 121/72 93 Nasal Cannula 2.0 09/19/16 15:30 Room Air 09/19/16 15:16 37.1 70 18 119/70 94 Room Air Physical Exam General Appearance: WD/WN, no apparent distress Neck: supple, no JVD Respiratory/Chest: lungs clear, normal breath sounds Cardiovascular: regular rate, rhythm, no murmur Abdomen: normal bowel sounds, + tenderness, + pertinent finding (firm) Neurologic/Psychiatric: alert, normal mood/affect Laboratory Results Last 24 Hours Test 09/19/16 17:59 09/19/16 23:53 09/20/16 06:00 09/20/16 06:25 Bedside Glucose 126 mg/dl 135 mg/dl 133 mg/dl White Blood Count 4.49 K/uL Red Blood Count 3.26 M/uL Hemoglobin 10.2 g/dL Hematocrit 30.7 % Mean Corpuscular Volume 94.2 fL Mean Corpuscular Hemoglobin 31.3 pg Mean Corpuscular Hemoglobin Concent 33.2 g/dl Platelet Count 145 K/uL Mean Platelet Volume 10.9 fL Neutrophils (%) (Auto) 60.6 % Lymphocytes (%) (Auto) 21.8 % Monocytes (%) (Auto) 13.4 % Eosinophils (%) (Auto) 3.8 % Basophils (%) (Auto) 0.2 % Neutrophils # (Auto) 2.72 K/uL Lymphocytes # (Auto) 0.98 K/uL Monocytes # (Auto) 0.60 K/uL Eosinophils # (Auto) 0.17 K/uL Basophils # (Auto) 0.01 K/uL RDW Standard Deviation 48.7 fL RDW Coefficient of Variation 14.1 % Immature Granulocyte % (Auto) 0.2 % Immature Granulocyte # (Auto) 0.01 K/uL Sodium Level 142 mmol/L Potassium Level 4.0 mmol/L Chloride Level 107 mmol/L Carbon Dioxide Level 26 mmol/L Anion Gap 9.0 mmol/L Blood Urea Nitrogen 19 mg/dl Creatinine 1.20 mg/dl Est Creatinine Clear Calc Drug Dose 42.9 ml/min Estimated GFR () 51.6 Estimated GFR (Non- 44.5 BUN/Creatinine Ratio 15.6 Random Glucose 141 mg/dl Calcium Level 8.1 mg/dl Magnesium Level 1.7 mg/dl Test 09/20/16 12:17 Bedside Glucose 134 mg/dl Assessment and Plan Assessment and Plan: Pt is a 76 yo female who presented with severe epigastric abdominal pain secondary to small bowel obstruction and was found to be severely hypomagnesemic. Small Bowel Obstruction 1. Continue Cipro (200 mls at 100 mls per hr) and metronidazole (500 mg) abx 2. Remain NPO 3. Zofran 4 mg for nausea Hypomagnesiumemia 1. Continue Magnesium Sulfate replacement 2. Continue daily Mg bloodwork Hold home HTN and T2DM medications as NPO. Insulin sliding scale PRN. DVT prophylaxis - Subq heparin Full Resuscitation Remain on med/surg MEDICAL STUDENT SUPERVISION NOTE I saw this patient with the medical student and the resident physician. Please see the resident note along with my attestation of the same date. Continued [facility] stay due to: voiding difficulties (Remains Obstructed)
[2016-09-20 15:06] VITALS: BP 123/74; PULSE 70; TEMP 37.1; O2SAT 93
[2016-09-20 15:50] VITALS: O2SAT 93
[2016-09-20] MEDS: PROMETHAZINE HCL INJ 25 MG in SODIUM CHLORIDE 0.9% 50ML 50 ML IV PRN (15:52)
--- NOTE | 2016-09-20 16:38 | Surgery Progress Note ---
Surgery Progress Note Date of Service Sep 20, 2016. Subjective + feeling well F/U SBO, pt is stable, no abdominal pain, no N/V, no fever, not pass gas and stool yet, Objective Vital Signs: Date Time Temp Pulse Resp B/P Pulse Ox O2 Delivery O2 Flow Rate FiO2 09/20/16 15:06 37.1 70 16 123/74 93 Room Air 09/20/16 08:30 Room Air 09/20/16 07:05 36.7 70 15 131/79 95 Room Air 09/20/16 00:05 Nasal Cannula 2.0 09/19/16 22:55 37.1 66 17 121/72 93 Nasal Cannula 2.0 General Appearance: WD/WN Head: normocephalic Neck: supple Respiratory/Chest: chest non-tender, lungs clear Cardiovascular: regular rate, rhythm, no edema Abdomen: normal bowel sounds, non tender, non distended, soft, + abnormal bowel sounds Laboratory Results: Results Past 24 Hours Test 09/19/16 17:59 09/19/16 23:53 09/20/16 06:00 09/20/16 06:25 Range/Units Bedside Glucose 126 135 133 70-90 mg/dl White Blood Count 4.49 4.8-10.8 K/uL Red Blood Count 3.26 4.2-5.4 M/uL Hemoglobin 10.2 12.0-16.0 g/dL Hematocrit 30.7 37-47 % Mean Corpuscular Volume 94.2 80-100 fL Mean Corpuscular Hemoglobin 31.3 25-34 pg Mean Corpuscular Hemoglobin Concent 33.2 32-36 g/dl Platelet Count 145 130-400 K/uL Mean Platelet Volume 10.9 7.4-10.4 fL Neutrophils (%) (Auto) 60.6 % Lymphocytes (%) (Auto) 21.8 % Monocytes (%) (Auto) 13.4 % Eosinophils (%) (Auto) 3.8 % Basophils (%) (Auto) 0.2 % Neutrophils # (Auto) 2.72 1.4-6.5 K/uL Lymphocytes # (Auto) 0.98 1.2-3.4 K/uL Monocytes # (Auto) 0.60 0.11-0.59 K/uL Eosinophils # (Auto) 0.17 0-0.5 K/uL Basophils # (Auto) 0.01 0-0.2 K/uL RDW Standard Deviation 48.7 36.4-46.3 fL RDW Coefficient of Variation 14.1 11.5-14.5 % Immature Granulocyte % (Auto) 0.2 % Immature Granulocyte # (Auto) 0.01 0.00-0.02 K/uL Sodium Level 142 136-145 mmol/L Potassium Level 4.0 3.5-5.1 mmol/L Chloride Level 107 98-107 mmol/L Carbon Dioxide Level 26 21-32 mmol/L Anion Gap 9.0 3-11 mmol/L Blood Urea Nitrogen 19 7-18 mg/dl Creatinine 1.20 0.60-1.20 mg/dl Est Creatinine Clear Calc Drug Dose 42.9 ml/min Estimated GFR () 51.6 Estimated GFR (Non- 44.5 BUN/Creatinine Ratio 15.6 10-20 Random Glucose 141 70-99 mg/dl Calcium Level 8.1 8.5-10.1 mg/dl Magnesium Level 1.7 1.8-2.4 mg/dl Test 09/20/16 12:17 Range/Units Bedside Glucose 134 70-90 mg/dl Assessment & Plan IMP SBO, Plan, continue treatment, repeat labs in am, Will F/u,
[2016-09-20] MEDS: DICLOFENAC SOD 1% GEL 100 GM TUBE EXT PRN (21:47)
[2016-09-20 22:56] VITALS: BP 119/71; PULSE 71; TEMP 36.7; O2SAT 93
[2016-09-21] MEDS: ONDANSETRON INJ 2 MG/ML 2 ML VIAL IV PRN (04:12)
[2016-09-21] MEDS: MoRPHine SULFATE 2 MG/ML CARP IV PRN ×5 (04:13→23:12)
[2016-09-21] MEDS: NSS + 20MEQ KCL 1000ML 1,000 ML IV SCH ×3 (04:18→18:42)
[2016-09-21] MEDS: INSULIN ASPART 100 UNITS/ML 3 ML PEN SC SCH ×5 (06:00→20:58)
[2016-09-21] MEDS: METRONIDAZOLE / NSS 500 MG in PREMIXED NSS 100 ML IV SCH (06:01)
[2016-09-21] MEDS: HEPARIN SOD 5000 UNIT/0.5 ML CARP SQ SCH ×3 (06:04→21:03)
[2016-09-21 07:00] VITALS: BP 132/79; PULSE 69; TEMP 36.7; O2SAT 97
[2016-09-21 07:11] LABS: BASO % 0.3 %; BASO ABS # 0.01 K/uL (0-0.2); COMPLETE YES; EOS % 3.8 %; HEMATOCRIT 27.7 % (37-47); LYMPH % 24.7 %; MEAN CELL VOLUME 93.9 fL (80-100); MEAN CORPUSCULAR HEMOGLOBIN 31.5 pg (25-34); MEAN CORPUSCULAR HGB CONC 33.6 g/dl (32-36); MEAN PLATELET VOLUME 10.9 fL (7.4-10.4); MONO % 15.1 %; NEUT % 56.1 %; PLATELET COUNT 142 K/uL (130-400); RED BLOOD COUNT 2.95 M/uL (4.2-5.4); WHITE BLOOD COUNT 3.64 K/uL (4.8-10.8)
[2016-09-21 07:37] LABS: BUN/CREATININE RATIO 14.5 (10-20); CALCIUM 8.2 mg/dl (8.5-10.1); CREATININE 1.1 mg/dl (0.60-1.20); MAGNESIUM 1.6 mg/dl (1.8-2.4); POTASSIUM 4.4 mmol/L (3.5-5.1)
[2016-09-21] MEDS: MAGNESIUM SULFATE 1GM / D5W 1 GM in PREMIXED IN D5W 100 ML IV SCH ×2 (08:02→09:00)
[2016-09-21] MEDS: CIPROFLOXACIN / D5W 400 MG in PREMIXED IN D5W 200 ML IV SCH (08:59)
--- NOTE | 2016-09-21 10:36 | Family Medicine Progress Note ---
Progress Note Date of Service Sep 21, 2016. Subjective Pt evaluation today including: conversation w/ patient Has had some burping but no stool or gas passed. Pain persistent. Remains afebrile. Constitutional: No fever, No sweats, No weakness, No weight loss ENT: No hearing loss Respiratory: No cough, No dyspnea on exertion, No shortness of breath, No sputum, No wheezing Abdomen: + pain, No nausea Female : No dysuria Endo: No fatigue Skin: No rash All Other Systems: Reviewed and Negative Medications Current Inpatient Medications Medications (Trade) Dose Ordered Sig/Pari Route Start Time Stop Time Status Last Admin Dose Admin Diclofenac Sodium (Voltaren 1% Top Gel) 4 appln QID PRN EXT 09/18/16 21:30 10/18/16 21:29 09/20/16 21:47 4 APPLN Ondansetron HCl 4 mg 4 mg Q6H PRN IV 09/18/16 21:30 10/18/16 21:29 09/21/16 04:12 4 MG Acetaminophen 100 ml @ 400 mls/hr Q8H PRN IV 09/18/16 21:30 10/18/16 21:29 Potassium Chloride/Sodium Chloride (Nss + 20meq KCl 1000ml) 1,000 ml @ 100 mls/hr Q10H IV 09/18/16 22:00 10/18/16 21:59 09/21/16 04:18 100 MLS/HR Lorazepam (Ativan Inj) 0.5 mg Q4H PRN IV 09/18/16 21:30 10/18/16 21:29 Morphine Sulfate (MoRPHine SULFATE INJ) 2 mg Q2H PRN IV 09/18/16 21:30 10/02/16 21:29 09/21/16 09:08 2 MG Morphine Sulfate (MoRPHine SULFATE INJ) 4 mg Q2H PRN IV 09/18/16 21:30 10/02/16 21:29 Glucose (Glucose 40% Gel) UD PRN PO 09/19/16 02:00 10/19/16 01:59 Glucose (Glucose Chew Tab) 1 tabs UD PRN PO 09/19/16 02:00 10/19/16 01:59 Dextrose (Dextrose 50% 50ML Syringe) 50 ml UD PRN IV 09/19/16 02:00 10/19/16 01:59 Glucagon (Glucagon Inj) 1 mg UD PRN SQ 09/19/16 02:00 10/19/16 01:59 Insulin Aspart SLIDING SCALE If C... Q6 SC 09/19/16 06:00 10/19/16 05:59 Promethazine HCl/ Sodium Chloride (Phenergan Inj/ Nss 50ml) 51 ml @ 204 mls/hr Q6H PRN IV 09/19/16 02:30 10/19/16 02:29 09/20/16 15:52 204 MLS/HR Heparin Sodium (Porcine) (Heparin Sq 5000 Unit/0.5ml) 5,000 unit Q8 SQ 09/19/16 22:00 10/19/16 21:59 09/21/16 06:04 5,000 UNIT Objective Vital Signs Date Time Temp Pulse Resp B/P Pulse Ox O2 Delivery O2 Flow Rate FiO2 09/21/16 07:34 Nasal Cannula 2.0 09/21/16 07:00 36.7 69 16 132/79 97 Nasal Cannula 2.0 09/20/16 23:20 Room Air 09/20/16 22:56 36.7 71 17 119/71 93 Room Air 09/20/16 15:50 93 Room Air 09/20/16 15:06 37.1 70 16 123/74 93 Room Air Physical Exam General Appearance: WD/WN, no apparent distress Eyes: normal inspection, PERRL ENT: hearing grossly normal Neck: supple, no JVD Respiratory/Chest: lungs clear, normal breath sounds, no respiratory distress Cardiovascular: regular rate, rhythm, no murmur Abdomen: soft, + distended, + guarding, + tenderness (epigastrium) Extremities: non-tender, normal inspection, no pedal edema Neurologic/Psychiatric: alert, normal mood/affect, oriented x 3 Skin: no rash Laboratory Results Last 24 Hours Test 09/20/16 12:17 09/20/16 17:57 09/20/16 23:56 09/21/16 06:02 Bedside Glucose 134 mg/dl 123 mg/dl 148 mg/dl 126 mg/dl Test 09/21/16 06:15 White Blood Count 3.64 K/uL Red Blood Count 2.95 M/uL Hemoglobin 9.3 g/dL Hematocrit 27.7 % Mean Corpuscular Volume 93.9 fL Mean Corpuscular Hemoglobin 31.5 pg Mean Corpuscular Hemoglobin Concent 33.6 g/dl Platelet Count 142 K/uL Mean Platelet Volume 10.9 fL Neutrophils (%) (Auto) 56.1 % Lymphocytes (%) (Auto) 24.7 % Monocytes (%) (Auto) 15.1 % Eosinophils (%) (Auto) 3.8 % Basophils (%) (Auto) 0.3 % Neutrophils # (Auto) 2.04 K/uL Lymphocytes # (Auto) 0.90 K/uL Monocytes # (Auto) 0.55 K/uL Eosinophils # (Auto) 0.14 K/uL Basophils # (Auto) 0.01 K/uL RDW Standard Deviation 48.7 fL RDW Coefficient of Variation 14.1 % Immature Granulocyte % (Auto) 0.0 % Immature Granulocyte # (Auto) 0.00 K/uL Sodium Level 143 mmol/L Potassium Level 4.4 mmol/L Chloride Level 112 mmol/L Carbon Dioxide Level 23 mmol/L Anion Gap 8.0 mmol/L Blood Urea Nitrogen 16 mg/dl Creatinine 1.10 mg/dl Est Creatinine Clear Calc Drug Dose 46.8 ml/min Estimated GFR () 57.3 Estimated GFR (Non- 49.4 BUN/Creatinine Ratio 14.5 Random Glucose 127 mg/dl Calcium Level 8.2 mg/dl Magnesium Level 1.6 mg/dl Assessment and Plan 76 yo F with small bowel obstruction, day 3 of NPO / IV fluid and overall conservative management. Small bowel obstruction - Remains NPO - Continue IV fluids of NS + 20mEq KCL 100mL/hour - Did not initially want an NG tube. If vomits again, would place one, and pt agrees to this. She would prefer to have an anxiolytic prior to getting it however. - Zofran / Phenergan for nausea - Avoid narcotics for pain unless severe - Appreciate Surgery recommendations - Will stop antibiotics today. Hypomagnesemia - Repleted with a further 2g IV today. - Will stop PPI as this could be contributing to loss of Mag / poor absorption. Coronary artery disease / Hypercholesterolemia - Aspirin, Losartan, Mag gluconate, Propranolol, Statin, Brilinta all on hold Acute on chronic kidney injury - Cr 1.5, now 1.1 with IV fluids - Likely pre-renal though has kidney disease likely from DM Type 2 DM - Metformin on hold - BSC AC and HS Peripheral neuropathy - Fall precautions - Gabapentin on hold VTE - Heparin SQ, SCDS CODE STATUS: FULL CODE Dispo: Med/Surg Resident Physician Supervision Note: I was present with Dr. Aguilar during the history and exam. I discussed the case with the resident and agree with the findings and plan as documented in the note. Any exceptions or clarifications are listed here: Upon my exam with Dr. Delcid, the patient is out of bed and seated in a chair. Clinically improving with noted flatulence. Will try clear liquids and see how she tolerates. At this point, I would stop antibiotics, as there is no evidence of infection. Documented By: Chuck Lucero Resident Tracking Resident Involvement: Resident Care Provided Care Provided: Adult Hospital Medicine
[2016-09-21] MEDS: DICLOFENAC SOD 1% GEL 100 GM TUBE EXT PRN ×2 (12:00→19:50)
[2016-09-21 13:11] LABS: BUN/CREATININE RATIO 11.2 (10-20); CALCIUM 8.6 mg/dl (8.5-10.1); CREATININE 1.2 mg/dl (0.60-1.20); MAGNESIUM 2.4 mg/dl (1.8-2.4); POTASSIUM 4.1 mmol/L (3.5-5.1)
--- NOTE | 2016-09-21 14:51 | Medical Student: [facility] ---
Med Student Progress Note Date of Service Sep 21, 2016. Subjective Pt evaluation today including: conversation w/ patient, physical exam, chart review, lab review Pain: Improved. PO Intake: Remains NPO Pt is a 76 yo female who presented to the ED 4 days ago with 10/10 abdominal pain. She was later found to have a small bowel obstruction and low magnesium at 0.7. Her pain and magnesium levels have been improving over the last 4 days. On days 1-3 she felt nauseated and vomitted on Day 2. Her last BM was 4 days ago and she had not passed gas until this morning. She has yet to have a BM. Review of Systems Constitutional: No chills, No fever, No sweats ENT: No trouble swallowing Respiratory: No cough, No shortness of breath, No wheezing Cardiac: No chest pain, No palpitations Abdomen: + pain, No nausea, No vomiting Musculoskeletal: No joint pain, No muscle pain Female : No dysuria, No urinary frequency Skin: No new/changing skin lesions, No rash Objective Vital Signs Date Time Temp Pulse Resp B/P Pulse Ox O2 Delivery O2 Flow Rate FiO2 09/21/16 07:34 Nasal Cannula 2.0 09/21/16 07:00 36.7 69 16 132/79 97 Nasal Cannula 2.0 09/20/16 23:20 Room Air 09/20/16 22:56 36.7 71 17 119/71 93 Room Air 09/20/16 15:50 93 Room Air 09/20/16 15:06 37.1 70 16 123/74 93 Room Air Physical Exam General Appearance: WD/WN, no apparent distress ENT: hearing grossly normal Neck: supple, no adenopathy Respiratory/Chest: lungs clear, normal breath sounds Cardiovascular: regular rate, rhythm, no edema, no murmur Abdomen: normal bowel sounds, non tender (Abdomen significantly less tender today. ) Extremities: normal range of motion, no pedal edema Neurologic/Psychiatric: alert, normal mood/affect, oriented x 3 Skin: normal color, warm/dry Laboratory Results Last 24 Hours Test 09/20/16 17:57 09/20/16 23:56 09/21/16 06:02 09/21/16 06:15 Bedside Glucose 123 mg/dl 148 mg/dl 126 mg/dl White Blood Count 3.64 K/uL Red Blood Count 2.95 M/uL Hemoglobin 9.3 g/dL Hematocrit 27.7 % Mean Corpuscular Volume 93.9 fL Mean Corpuscular Hemoglobin 31.5 pg Mean Corpuscular Hemoglobin Concent 33.6 g/dl Platelet Count 142 K/uL Mean Platelet Volume 10.9 fL Neutrophils (%) (Auto) 56.1 % Lymphocytes (%) (Auto) 24.7 % Monocytes (%) (Auto) 15.1 % Eosinophils (%) (Auto) 3.8 % Basophils (%) (Auto) 0.3 % Neutrophils # (Auto) 2.04 K/uL Lymphocytes # (Auto) 0.90 K/uL Monocytes # (Auto) 0.55 K/uL Eosinophils # (Auto) 0.14 K/uL Basophils # (Auto) 0.01 K/uL RDW Standard Deviation 48.7 fL RDW Coefficient of Variation 14.1 % Immature Granulocyte % (Auto) 0.0 % Immature Granulocyte # (Auto) 0.00 K/uL Sodium Level 143 mmol/L Potassium Level 4.4 mmol/L Chloride Level 112 mmol/L Carbon Dioxide Level 23 mmol/L Anion Gap 8.0 mmol/L Blood Urea Nitrogen 16 mg/dl Creatinine 1.10 mg/dl Est Creatinine Clear Calc Drug Dose 46.8 ml/min Estimated GFR () 57.3 Estimated GFR (Non- 49.4 BUN/Creatinine Ratio 14.5 Random Glucose 127 mg/dl Calcium Level 8.2 mg/dl Magnesium Level 1.6 mg/dl Test 09/21/16 12:00 09/21/16 12:34 Sodium Level 141 mmol/L Potassium Level 4.1 mmol/L Chloride Level 109 mmol/L Carbon Dioxide Level 21 mmol/L Anion Gap 11.0 mmol/L Blood Urea Nitrogen 13 mg/dl Creatinine 1.20 mg/dl Est Creatinine Clear Calc Drug Dose 42.9 ml/min Estimated GFR () 51.6 Estimated GFR (Non- 44.5 BUN/Creatinine Ratio 11.2 Random Glucose 131 mg/dl Calcium Level 8.6 mg/dl Magnesium Level 2.4 mg/dl Bedside Glucose 111 mg/dl Assessment and Plan Assessment and Plan: Pt is a 76 yo female who presented with severe epigastric abdominal pain secondary to small bowel obstruction and was found to be severely hypomagnesemic. Small Bowel Obstruction - passed gas today! 1. D/C Cipro 2. Begin clear liquid diet, return to NPO with nausea or vomiting. 3. Zofran 4 mg PRN for nausea Hypomagnesiumemia - Resolved. Today Mg Level was 2.4. 1. Stop Magnesium Sulfate replacement Hold home HTN and T2DM medications as just starting clear liquid diet. Insulin sliding scale PRN. DVT prophylaxis - Subq heparin Full Resuscitation Remain on med/surg Continued [facility] stay due to: voiding difficulties (Remains Obstructed)
[2016-09-21 15:10] VITALS: BP 126/75; PULSE 70; TEMP 36.6; O2SAT 92
--- NOTE | 2016-09-21 16:58 | Surgery Progress Note ---
Surgery Progress Note Date of Service Sep 21, 2016. Subjective + feeling well pt passed some gas, pt denies abdominal pain, no N/V, no fever, Objective Vital Signs: Date Time Temp Pulse Resp B/P Pulse Ox O2 Delivery O2 Flow Rate FiO2 09/21/16 15:10 36.6 70 18 126/75 92 Room Air 09/21/16 07:34 Nasal Cannula 2.0 09/21/16 07:00 36.7 69 16 132/79 97 Nasal Cannula 2.0 09/20/16 23:20 Room Air 09/20/16 22:56 36.7 71 17 119/71 93 Room Air General Appearance: WD/WN Head: normocephalic Neck: supple Respiratory/Chest: chest non-tender, lungs clear Cardiovascular: regular rate, rhythm, no edema Abdomen: normal bowel sounds, non tender Extremities: normal range of motion, non-tender Laboratory Results: Results Past 24 Hours Test 09/20/16 17:57 09/20/16 23:56 09/21/16 06:02 09/21/16 06:15 Range/Units Bedside Glucose 123 148 126 70-90 mg/dl White Blood Count 3.64 4.8-10.8 K/uL Red Blood Count 2.95 4.2-5.4 M/uL Hemoglobin 9.3 12.0-16.0 g/dL Hematocrit 27.7 37-47 % Mean Corpuscular Volume 93.9 80-100 fL Mean Corpuscular Hemoglobin 31.5 25-34 pg Mean Corpuscular Hemoglobin Concent 33.6 32-36 g/dl Platelet Count 142 130-400 K/uL Mean Platelet Volume 10.9 7.4-10.4 fL Neutrophils (%) (Auto) 56.1 % Lymphocytes (%) (Auto) 24.7 % Monocytes (%) (Auto) 15.1 % Eosinophils (%) (Auto) 3.8 % Basophils (%) (Auto) 0.3 % Neutrophils # (Auto) 2.04 1.4-6.5 K/uL Lymphocytes # (Auto) 0.90 1.2-3.4 K/uL Monocytes # (Auto) 0.55 0.11-0.59 K/uL Eosinophils # (Auto) 0.14 0-0.5 K/uL Basophils # (Auto) 0.01 0-0.2 K/uL RDW Standard Deviation 48.7 36.4-46.3 fL RDW Coefficient of Variation 14.1 11.5-14.5 % Immature Granulocyte % (Auto) 0.0 % Immature Granulocyte # (Auto) 0.00 0.00-0.02 K/uL Sodium Level 143 136-145 mmol/L Potassium Level 4.4 3.5-5.1 mmol/L Chloride Level 112 98-107 mmol/L Carbon Dioxide Level 23 21-32 mmol/L Anion Gap 8.0 3-11 mmol/L Blood Urea Nitrogen 16 7-18 mg/dl Creatinine 1.10 0.60-1.20 mg/dl Est Creatinine Clear Calc Drug Dose 46.8 ml/min Estimated GFR () 57.3 Estimated GFR (Non- 49.4 BUN/Creatinine Ratio 14.5 10-20 Random Glucose 127 70-99 mg/dl Calcium Level 8.2 8.5-10.1 mg/dl Magnesium Level 1.6 1.8-2.4 mg/dl Test 09/21/16 12:00 09/21/16 12:34 Range/Units Sodium Level 141 136-145 mmol/L Potassium Level 4.1 3.5-5.1 mmol/L Chloride Level 109 98-107 mmol/L Carbon Dioxide Level 21 21-32 mmol/L Anion Gap 11.0 3-11 mmol/L Blood Urea Nitrogen 13 7-18 mg/dl Creatinine 1.20 0.60-1.20 mg/dl Est Creatinine Clear Calc Drug Dose 42.9 ml/min Estimated GFR () 51.6 Estimated GFR (Non- 44.5 BUN/Creatinine Ratio 11.2 10-20 Random Glucose 131 70-99 mg/dl Calcium Level 8.6 8.5-10.1 mg/dl Magnesium Level 2.4 1.8-2.4 mg/dl Bedside Glucose 111 70-90 mg/dl Assessment & Plan IMP SBO, pt passed some gas in AM, pt has no abdominal pain, no N/V, Plan, continue treatment, repeat labs in am, Will F/u, IMP SBO, Plan, continue treatment, repeat labs in am, Will F/u,
[2016-09-21] MEDS ORDERED: NURSING DECISION MEDICATION ORDER SCH (20:00)
[2016-09-21 22:50] VITALS: BP 129/73; PULSE 75; TEMP 37.1; O2SAT 91
[2016-09-22] MEDS: NSS + 20MEQ KCL 1000ML 1,000 ML IV SCH ×2 (04:37→15:44)
[2016-09-22] MEDS: HEPARIN SOD 5000 UNIT/0.5 ML CARP SQ SCH ×3 (05:50→21:19)
[2016-09-22 06:22] LABS: BASO % 0.3 %; BASO ABS # 0.01 K/uL (0-0.2); COMPLETE YES; HEMATOCRIT 28.4 % (37-47); IG% 0.3 %; LYMPH % 26.7 %; MEAN CELL VOLUME 93.4 fL (80-100); MEAN CORPUSCULAR HEMOGLOBIN 30.6 pg (25-34); MEAN CORPUSCULAR HGB CONC 32.7 g/dl (32-36); MEAN PLATELET VOLUME 10.7 fL (7.4-10.4); MONO % 13.4 %; NEUT % 55.3 %; PLATELET COUNT 156 K/uL (130-400); RED BLOOD COUNT 3.04 M/uL (4.2-5.4); WHITE BLOOD COUNT 3.74 K/uL (4.8-10.8)
[2016-09-22 06:53] LABS: BUN/CREATININE RATIO 10.3 (10-20); CALCIUM 8.4 mg/dl (8.5-10.1); CREATININE 1.1 mg/dl (0.60-1.20); POTASSIUM 4.7 mmol/L (3.5-5.1)
[2016-09-22 07:03] VITALS: BP 145/80; PULSE 68; TEMP 36.9; O2SAT 96
--- NOTE | 2016-09-22 07:56 | Medical Student: [facility] ---
Med Student Progress Note Date of Service Sep 22, 2016. Subjective Pt evaluation today including: conversation w/ patient, physical exam, chart review, lab review Pain: 4-5/10 PO Intake: Clear liquids Pt is a 76 yo female who presented with 10/10 abdominal pain 5 days ago, and was found to have a small bowel obstruction and low magnesium levels. Pt notes that she had two BMs, one overnight and one this morning. She notes that last night was mostly solid where this morning it was both solid and liquid. She tolerated the clear liquid diet well, but does not wish to advance her diet further at this time. She notes that her pain currently is 4-5/10. Review of Systems Constitutional: No chills, No fever Eyes: No worsening of vision Respiratory: No cough, No shortness of breath, No sputum, No wheezing Cardiac: No chest pain, No palpitations Abdomen: + pain (4-5/10 epigastric area), No constipation, No diarrhea, No vomiting Skin: No rash Objective Vital Signs Date Time Temp Pulse Resp B/P Pulse Ox O2 Delivery O2 Flow Rate FiO2 09/21/16 23:10 Room Air 09/21/16 22:50 37.1 75 17 129/73 91 Room Air 09/21/16 19:50 Room Air 09/21/16 15:10 36.6 70 18 126/75 92 Room Air Physical Exam General Appearance: WD/WN, no apparent distress ENT: hearing grossly normal Neck: supple, no adenopathy Respiratory/Chest: lungs clear, normal breath sounds Cardiovascular: regular rate, rhythm, no murmur Abdomen: normal bowel sounds, soft Extremities: normal range of motion, normal inspection, no pedal edema Neurologic/Psychiatric: alert, normal mood/affect Skin: normal color, warm/dry Laboratory Results Last 24 Hours Test 09/21/16 12:00 09/21/16 12:34 09/21/16 16:43 09/21/16 20:57 Sodium Level 141 mmol/L Potassium Level 4.1 mmol/L Chloride Level 109 mmol/L Carbon Dioxide Level 21 mmol/L Anion Gap 11.0 mmol/L Blood Urea Nitrogen 13 mg/dl Creatinine 1.20 mg/dl Est Creatinine Clear Calc Drug Dose 42.9 ml/min Estimated GFR () 51.6 Estimated GFR (Non- 44.5 BUN/Creatinine Ratio 11.2 Random Glucose 131 mg/dl Calcium Level 8.6 mg/dl Magnesium Level 2.4 mg/dl Bedside Glucose 111 mg/dl 153 mg/dl 134 mg/dl Test 09/22/16 06:07 09/22/16 07:18 White Blood Count 3.74 K/uL Red Blood Count 3.04 M/uL Hemoglobin 9.3 g/dL Hematocrit 28.4 % Mean Corpuscular Volume 93.4 fL Mean Corpuscular Hemoglobin 30.6 pg Mean Corpuscular Hemoglobin Concent 32.7 g/dl Platelet Count 156 K/uL Mean Platelet Volume 10.7 fL Neutrophils (%) (Auto) 55.3 % Lymphocytes (%) (Auto) 26.7 % Monocytes (%) (Auto) 13.4 % Eosinophils (%) (Auto) 4.0 % Basophils (%) (Auto) 0.3 % Neutrophils # (Auto) 2.07 K/uL Lymphocytes # (Auto) 1.00 K/uL Monocytes # (Auto) 0.50 K/uL Eosinophils # (Auto) 0.15 K/uL Basophils # (Auto) 0.01 K/uL RDW Standard Deviation 47.2 fL RDW Coefficient of Variation 13.8 % Immature Granulocyte % (Auto) 0.3 % Immature Granulocyte # (Auto) 0.01 K/uL Sodium Level 143 mmol/L Potassium Level 4.7 mmol/L Chloride Level 116 mmol/L Carbon Dioxide Level 18 mmol/L Anion Gap 9.0 mmol/L Blood Urea Nitrogen 11 mg/dl Creatinine 1.10 mg/dl Est Creatinine Clear Calc Drug Dose 46.8 ml/min Estimated GFR () 57.3 Estimated GFR (Non- 49.4 BUN/Creatinine Ratio 10.3 Random Glucose 127 mg/dl Calcium Level 8.4 mg/dl Assessment and Plan Assessment and Plan: Pt is a 76 yo female who presented with severe epigastric abdominal pain secondary to small bowel obstruction and was found to be severely hypomagnesemic. Small Bowel Obstruction - two BMs overnight! 1. Advance to soft food diet as tolerated. 3. Zofran 4 mg PRN for nausea Hypomagnesiumemia - Today Mg Level was down to 1.7. 1. Now no longer NPO, magnesium replacement PO Hold home HTN and T2DM medications as just starting clear liquid diet. Insulin sliding scale PRN. DVT prophylaxis - Subq heparin Full Resuscitation Remain on med/surg Continued [facility] stay due to: voiding difficulties (Remains Obstructed)
[2016-09-22] MEDS: INSULIN ASPART 100 UNITS/ML 3 ML PEN SC SCH ×4 (09:30→20:57)
[2016-09-22] MEDS: MoRPHine SULFATE 2 MG/ML CARP IV PRN ×2 (14:18→20:01)
--- NOTE | 2016-09-22 14:34 | Family Medicine Progress Note ---
Progress Note Date of Service Sep 22, 2016. Subjective Pt evaluation today including: conversation w/ patient Voiding: no incontinence Passed THREE bowel movements by the time I saw her today. Looked and felt well. BMs were small the first time, then watery the rest. Had tolerated clear liquid and now full liquid diet. Has occasional spasms of pain. Constitutional: No chills, No fever, No sweats, No weakness, No weight loss Respiratory: No cough, No sputum Abdomen: + constipation, + pain, No nausea All Other Systems: Reviewed and Negative Medications Current Inpatient Medications Medications (Trade) Dose Ordered Sig/Pari Route Start Time Stop Time Status Last Admin Dose Admin Diclofenac Sodium (Voltaren 1% Top Gel) 4 appln QID PRN EXT 09/18/16 21:30 10/18/16 21:29 09/21/16 19:50 4 APPLN Ondansetron HCl 4 mg 4 mg Q6H PRN IV 09/18/16 21:30 10/18/16 21:29 09/21/16 04:12 4 MG Acetaminophen 100 ml @ 400 mls/hr Q8H PRN IV 09/18/16 21:30 10/18/16 21:29 Potassium Chloride/Sodium Chloride (Nss + 20meq KCl 1000ml) 1,000 ml @ 100 mls/hr Q10H IV 09/18/16 22:00 10/18/16 21:59 09/22/16 04:37 100 MLS/HR Lorazepam (Ativan Inj) 0.5 mg Q4H PRN IV 09/18/16 21:30 10/18/16 21:29 Morphine Sulfate (MoRPHine SULFATE INJ) 2 mg Q2H PRN IV 09/18/16 21:30 10/02/16 21:29 09/22/16 14:18 2 MG Morphine Sulfate (MoRPHine SULFATE INJ) 4 mg Q2H PRN IV 09/18/16 21:30 10/02/16 21:29 Glucose (Glucose 40% Gel) UD PRN PO 09/19/16 02:00 10/19/16 01:59 Glucose (Glucose Chew Tab) 1 tabs UD PRN PO 09/19/16 02:00 10/19/16 01:59 Dextrose (Dextrose 50% 50ML Syringe) 50 ml UD PRN IV 09/19/16 02:00 10/19/16 01:59 Glucagon 1 mg 1 mg UD PRN SQ 09/19/16 02:00 10/19/16 01:59 Promethazine HCl/ Sodium Chloride (Phenergan Inj/ Nss 50ml) 51 ml @ 204 mls/hr Q6H PRN IV 09/19/16 02:30 10/19/16 02:29 09/20/16 15:52 204 MLS/HR Heparin Sodium (Porcine) (Heparin Sq 5000 Unit/0.5ml) 5,000 unit Q8 SQ 09/19/16 22:00 10/19/16 21:59 09/22/16 14:16 5,000 UNIT Insulin Aspart (novoLOG ASPART) SLIDING SCALE If C... ACHS SC 09/21/16 21:00 10/21/16 20:59 09/22/16 13:27 5 UNITS Objective Vital Signs Date Time Temp Pulse Resp B/P Pulse Ox O2 Delivery O2 Flow Rate FiO2 09/22/16 08:00 Room Air 09/22/16 07:03 36.9 68 16 145/80 96 Room Air 09/21/16 23:10 Room Air 09/21/16 22:50 37.1 75 17 129/73 91 Room Air 09/21/16 19:50 Room Air 09/21/16 15:10 36.6 70 18 126/75 92 Room Air Physical Exam General Appearance: WD/WN, no apparent distress Eyes: normal inspection ENT: hearing grossly normal Neck: supple, no JVD Respiratory/Chest: lungs clear, normal breath sounds, no respiratory distress Cardiovascular: regular rate, rhythm, no murmur Abdomen: normal bowel sounds, non tender, soft Extremities: non-tender, normal inspection, no pedal edema Neurologic/Psychiatric: alert, normal mood/affect, oriented x 3 Skin: no rash Laboratory Results Last 24 Hours Test 09/21/16 16:43 09/21/16 20:57 09/22/16 06:07 09/22/16 08:18 Bedside Glucose 153 mg/dl 134 mg/dl 136 mg/dl White Blood Count 3.74 K/uL Red Blood Count 3.04 M/uL Hemoglobin 9.3 g/dL Hematocrit 28.4 % Mean Corpuscular Volume 93.4 fL Mean Corpuscular Hemoglobin 30.6 pg Mean Corpuscular Hemoglobin Concent 32.7 g/dl Platelet Count 156 K/uL Mean Platelet Volume 10.7 fL Neutrophils (%) (Auto) 55.3 % Lymphocytes (%) (Auto) 26.7 % Monocytes (%) (Auto) 13.4 % Eosinophils (%) (Auto) 4.0 % Basophils (%) (Auto) 0.3 % Neutrophils # (Auto) 2.07 K/uL Lymphocytes # (Auto) 1.00 K/uL Monocytes # (Auto) 0.50 K/uL Eosinophils # (Auto) 0.15 K/uL Basophils # (Auto) 0.01 K/uL RDW Standard Deviation 47.2 fL RDW Coefficient of Variation 13.8 % Immature Granulocyte % (Auto) 0.3 % Immature Granulocyte # (Auto) 0.01 K/uL Sodium Level 143 mmol/L Potassium Level 4.7 mmol/L Chloride Level 116 mmol/L Carbon Dioxide Level 18 mmol/L Anion Gap 9.0 mmol/L Blood Urea Nitrogen 11 mg/dl Creatinine 1.10 mg/dl Est Creatinine Clear Calc Drug Dose 46.8 ml/min Estimated GFR () 57.3 Estimated GFR (Non- 49.4 BUN/Creatinine Ratio 10.3 Random Glucose 127 mg/dl Calcium Level 8.4 mg/dl Magnesium Level 1.7 mg/dl Test 09/22/16 12:08 Bedside Glucose 118 mg/dl Assessment and Plan 76 yo F with small bowel obstruction, day 4 of NPO / IV fluid and overall conservative management, now passing small bowl movements. Small bowel obstruction - Tolerating liquid diet, moderately - Continue IV fluids of NS + 20mEq KCL 100mL/hour - Did not initially want an NG tube. If vomits again, would place one, and pt agrees to this. She would prefer to have an anxiolytic prior to getting it however. - Zofran / Phenergan for nausea - Avoid narcotics for pain unless severe - Appreciate Surgery recommendations Hypomagnesemia - Will go back to daily tablet form Coronary artery disease / Hypercholesterolemia - Will restart some PO meds (Brilinta, Losartan). Will hold off on Aspirin until improved GI tolerance. Acute on chronic kidney injury - Cr 1.5, now 1.1 with IV fluids - Likely pre-renal though has kidney disease likely from DM Type 2 DM - Metformin on hold - BSC AC and HS Peripheral neuropathy - Fall precautions - Gabapentin on hold VTE - Heparin SQ, SCDS CODE STATUS: FULL CODE Dispo: Med/Surg Resident Physician Supervision Note: I was present with Dr. Aguilar during the history and exam. I discussed the case with the resident and agree with the findings and plan as documented in the note. Any exceptions or clarifications are listed here: She denies pain and remains afebrile. She has tolerated full liquids without difficulty; advance diet further and anticipate d/c in AM should she tolerate. Documented By: Chuck Lucero Resident Tracking Resident Involvement: Resident Care Provided Care Provided: Adult Hospital Medicine
[2016-09-22 15:02] VITALS: BP 151/69; PULSE 71; TEMP 36.6; O2SAT 94
[2016-09-22] MEDS ORDERED: PAROXETINE 20 MG TAB PO ONE (15:21)
[2016-09-22] MEDS: DICLOFENAC SOD 1% GEL 100 GM TUBE EXT PRN (19:40)
[2016-09-22] MEDS: ONDANSETRON INJ 2 MG/ML 2 ML VIAL IV PRN (20:01)
[2016-09-22] MEDS: MAGNESIUM OXIDE 400 MG TAB PO SCH (21:08)
[2016-09-22] MEDS: TICAGRELOR 90 MG TAB PO SCH (21:08)
[2016-09-22] MEDS: RANITIDINE HCL 150 MG TAB PO SCH (21:09)
[2016-09-22 23:05] VITALS: BP 134/72; PULSE 67; TEMP 36.9; O2SAT 95
[2016-09-23] MEDS: NSS + 20MEQ KCL 1000ML 1,000 ML IV SCH ×2 (01:24→12:00)
[2016-09-23] MEDS: ONDANSETRON INJ 2 MG/ML 2 ML VIAL IV PRN (02:15)
[2016-09-23] MEDS: HEPARIN SOD 5000 UNIT/0.5 ML CARP SQ SCH ×2 (05:48→13:22)
[2016-09-23 07:05] LABS: BASO % 0.3 %; BASO ABS # 0.01 K/uL (0-0.2); COMPLETE YES; EOS % 2.5 %; HEMATOCRIT 27.7 % (37-47); LYMPH % 25.2 %; MEAN CELL VOLUME 93.6 fL (80-100); MEAN CORPUSCULAR HEMOGLOBIN 30.7 pg (25-34); MEAN CORPUSCULAR HGB CONC 32.9 g/dl (32-36); MEAN PLATELET VOLUME 10.6 fL (7.4-10.4); MONO % 16.1 %; NEUT % 55.9 %; PLATELET COUNT 154 K/uL (130-400); RED BLOOD COUNT 2.96 M/uL (4.2-5.4); WHITE BLOOD COUNT 3.97 K/uL (4.8-10.8)
[2016-09-23 07:42] LABS: BUN/CREATININE RATIO 6.9 (10-20); CALCIUM 8.3 mg/dl (8.5-10.1); CREATININE 0.98 mg/dl (0.60-1.20); MAGNESIUM 1.4 mg/dl (1.8-2.4); POTASSIUM 5.2 mmol/L (3.5-5.1)
[2016-09-23 07:59] VITALS: BP 130/76; PULSE 74; TEMP 36.7; O2SAT 93
--- NOTE | 2016-09-23 08:30 | Medical Student: [facility] ---
Discharge Summary Admission Date: Sep 18, 2016 at 21:00 Discharge Date: Sep 23, 2016 Discharge Disposition: Home Principal Diagnosis: Small Bowel Obstruction; Hypomagnesemia Immunizations: Have You Had Influenza Vaccine: Yes Influenza Vaccine Date: Jul 31, 2013 History of Tetanus Vaccine?: UTD Tetanus Immunization Date: Apr 25, 1990 History of Pneumococcal: Yes Pneumococcal Date: Apr 18, 2009 History of Hepatitis B Vaccine: Yes Procedures: ULTRASOUND RIGHT UPPER QUADRANT ABDOMEN CLINICAL HISTORY: Right upper quadrant abdominal pain. COMPARISON STUDY: Abdominal CT performed the same day 09/18/2016. TECHNIQUE: Real-time, grayscale, and color flow sonography of the right upper quadrant of the abdomen was performed. Images are reviewed in the transverse and longitudinal planes. FINDINGS: Liver: The liver is normal in size and echotexture. There is no intrahepatic biliary ductal dilatation. The main portal vein is patent. Gallbladder: The gallbladder is normal in appearance. No gallstones are identified. There is no gallbladder wall thickening or pericholecystic fluid. A sonographic Hannon's sign is reportedly absent. The common bile duct measures up to 0.4 cm in diameter. Pancreas: Visualized portions of the pancreatic head and body are echogenic consistent with fatty infiltration. The splenic vein is patent. Right kidney: Survey images of the right kidney demonstrate cortical atrophy. There is no hydronephrosis. Ascites: None. IMPRESSION: There is no acute sonographic abnormality identified in the right upper quadrant. No gallstones are seen. Electronically signed by: Edy Martin M.D. 09/18/2016 5:55 PM SINGLE VIEW CHEST CLINICAL HISTORY: Upper abdominal pain. FINDINGS: An AP, portable, upright chest radiograph is compared to study dated 07/26/2016 and correlated with chest CT dated 10/19/2013. The examination is degraded by portable technique and patient rotation. The heart is enlarged and there is atherosclerotic calcification of the thoracic aorta. The pulmonary vasculature is noncongested. There is chronic elevation of the left hemidiaphragm with left basilar atelectasis. No airspace consolidation or large pleural effusion is seen chronic interstitial thickening is observed. No pneumothorax is identified. The skeletal structures are osteopenic. The bony thorax appears intact. Degenerative changes noted in the thoracic spine. IMPRESSION: Cardiac enlargement with no acute cardiopulmonary abnormality. Electronically signed by: Edy Martin M.D. 09/18/2016 6:[address] SCAN OF THE ABDOMEN AND PELVIS WITHOUT IV CONTRAST CLINICAL HISTORY: Upper abdominal pain. COMPARISON STUDY: Abdominal CT dated 07/27/2010. TECHNIQUE: CT scan of the abdomen and pelvis is performed from the lung bases to the proximal femora. Images are reviewed in the axial, sagittal, and coronal planes. IV contrast was not administered for this examination as per the referring clinician. Note that the examination was performed and significant suboptimal fashion without oral and IV contrast. Automated dose control exposure was utilized. CT DOSE: 768.91 mGy.cm FINDINGS: Lung bases: The heart is enlarged and without pericardial effusion. The coronary arteries are densely calcified. There is a tiny hiatal hernia. There is elevation of the left hemidiaphragm and bibasilar atelectasis. No airspace consolidation or pleural effusion is seen. There are calcified granulomas present at both lung bases. Liver: The unenhanced liver is normal in size, contour, and attenuation. There is no intrahepatic biliary ductal dilatation. Gallbladder: Small calcified gallstones are identified. There is no CT evidence of cholecystitis. Spleen: Normal in size and attenuation. Pancreas: There is near complete fatty replacement of the pancreas. Adrenal glands: Unremarkable. Kidneys: The unenhanced kidneys are atrophic and without hydronephrosis. There there is a 4 mm nonobstructing right renal calculus. No left renal calculi are seen. There is no evidence of contour deforming renal mass lesion. Abdominal vasculature: The abdominal aorta is normal in course and caliber noting moderate atherosclerotic calcification. Bowel: The proximal small bowel loops are distended and fecalized. There is surrounding inflammatory change and trace interloop fluid. The distal small bowel is decompressed. A transition point is identified in the ventral right upper pelvis and the appearance is consistent with a small bowel obstruction. No focally thick walled bowel loops are identified. There is no pneumatosis intestinalis or portal venous gas. These measure up to 4.5 cm in diameter. There are scattered colonic diverticula without CT evidence of acute diverticulitis. The appendix is well-visualized and normal. Peritoneum: There is no intraperitoneal free air. A midline surgical scar is present in the pelvis. Findings suggest previous ventral hernia repair. Lymphadenopathy: None. Pelvic viscera: The bladder is decompressed and grossly unremarkable. Uterus and adnexa are normal as visualized. Numerous calcified phleboliths are seen in the pelvis. Surgical clips are identified in the left groin. Skeletal structures: The skeletal structures are osteopenic. There is mild to moderate lumbosacral spondylosis and scoliosis. Sclerotic change is noted involving the sacroiliac joints and pubic symphysis. No lytic or blastic lesions are seen. IMPRESSION: 1. Suboptimal examination without oral and IV contrast 2. Finding are consistent with a small bowel obstruction. A transition point is identified in the right ventral pelvis, and this is likely on the basis of adhesions. 3. There is trace interloop fluid and mild surrounding inflammatory stranding involving the affected bowel loops which appear fecalized. No thick-walled loops identified and there is no pneumatosis intestinalis, portal venous gas, or intraperitoneal free air. 4. Cholelithiasis. 5. Cardiomegaly. 6. Nonobstructing right renal calculus. 7. Additional findings as detailed above. Electronically signed by: Edy Martin M.D. 09/18/2016 7:09 PM Consultations: General Surgery: Recommended conservative management of watch and wait unless continued n/v in which NG tube would be recommended. Medications: Aspirin Enteric Coated (Ecotrin Or Generic), 81 MG PO DAILY Atorvastatin (Lipitor), 40 MG PO HS Cholecalciferol (D 5000), 5,000 PO DAILY Cyanocobalamin (B-12), 1,000 MCG PO DAILY Folic Acid (Folic Acid), 800 MCG PO DAILY Gabapentin (Neurontin), 400 MG PO TID Gemfibrozil (Lopid), 600 MG PO DAILY Losartan Potassium (Cozaar), 25 MG PO DAILY Magnesium Gluconate (Mag-G), 500 MG PO DAILY Metformin Hcl (Glucophage), 500 MG PO QID Pantoprazole (Protonix), 40 MG PO BID Paroxetine (Paxil), 40 MG PO DAILY Propranolol Hcl (Propranolol Hcl Er), 160 MG PO DAILY Ticagrelor (Brilinta), 90 MG PO BID Diclofenac Sod (Voltaren), 4 APPLN EXT QID PRN for joint pain Furosemide (Lasix), 20 MG PO DAILY PRN for Shortness of Breath Nitroglycerin (Nitrostat), 0.4 MG UT UD PRN for Chest Pain Ranitidine (Zantac), 150 MG PO DAILY PRN for heartburn Discharge Exam Review of Systems: Constitutional: No chills, No fever, No sweats, No weakness Eyes: No worsening of vision ENT: No hearing loss, No nasal symptoms, No sore throat, No trouble swallowing Respiratory: No cough, No dyspnea on exertion, No shortness of breath Cardiovascular: No chest pain, No palpitations Abdomen: + pain (intermitent pain), No constipation, No diarrhea, No nausea , No vomiting Musculoskeletal: No calf pain, No swelling Genitourinary - Female: No dysuria, No urinary frequency Hematologic / Lymphatic: No abnormal bleeding/bruising, No clotting problems Integumentary: No itch, No rash Physical Exam: General Appearance: WD/WN, no apparent distress Eyes: EOMI, sclerae normal ENT: hearing grossly normal Neck: supple, no adenopathy, no JVD Respiratory/Chest: lungs clear, normal breath sounds, no respiratory distress Cardiovascular: regular rate, rhythm, no edema, no murmur Abdomen / GI: normal bowel sounds, soft, + tenderness (slight tenderness in epigastric region) Extremities: normal inspection, no pedal edema Neurologic/Psychiatric: alert, normal mood/affect, oriented x 3 Skin: normal color, warm/dry, no rash Hospital Course Small Bowel Obstruction Admitted and placed NPO. Surgical consult - recommended conservative treatment. Pt reluctant to NG tube placement, requested watch and wait. Some n/v early on that was treated with Zofran and resolved. Diet advanced as tolerated. Pt moved bowels after 5 days. Tolerated soft diet and PO medications prior to dc on day 6. Hypomagnesemia Mg Level was 0.7 on admission, resumed to normal on Day 4, but fell again to 1.4 prior to discharge. Received 7 mg IV magnesium sulfate while inpt. Was dc'd on PO Magnesium Oxide. Please f/u with PCP regarding low mg levels. Home meds reinstated when regular diet was tolerated. No changes to home medications, remain as stated above. This includes examination of the patient, discharge planning, medication reconciliation, and communication with other providers. Discharge Instructions 1. Advance diet slowly, as tolerated. 2. Follow-up with PCP within the next week - monitor Mg levels. 3. Continue medications as before. Please refer to the electronic Patient Visit Report (Discharge Instructions) for additional information. Medical Student Supervision Note: Please see my separate and complete documentation for patient care of this date. Documented By: Chuck Lucero
[2016-09-23 08:35] VITALS: O2SAT 90; O2SAT 93
--- NOTE | 2016-09-23 08:47 | Discharge Instructions ---
Discharge Instructions Admission Reason for Admission: Small Bowel Obstruction Due To Adhesions Discharge Discharge Diagnosis / Problem: Small bowel obstruction Discharge Goals Goal(s): Improve disease control Activity Recommendations Activity Limitations: resume your previous activity Lifting Limitations: none Exercise/Sports Limitations: none Shower/Bathe: no limitations . Instructions / Follow-Up Instructions / Follow-Up Increase your diet SLOWLY, as tolerated If you develop worse pain or start vomiting, come back to the ED See your PCP within a week, get labwork checked to see your MAGNESIUM LEVEL Current Hospital Diet Patient's current hospital diet: Regular Diet, AHA Diet (Heart Healthy), Diabetes Type 2 Diet Discharge Diet Recommended Diet: AHA Diet (Heart Healthy) Diet Texture: Mechanical Soft (ground) Pending Studies Studies pending at discharge: no Medical Emergencies . Who to Call and When: Medical Emergencies: If at any time you feel your situation is an emergency, please call 911 immediately. . Non-Emergent Contact Non-Emergency issues call your: Primary Care Provider Call Non-Emergent contact if: you have a fever, temperature is above 100.5, your pain is worsening, your pain is unusual for you . . "Provider Documentation" section prepared by Sara Aguilar. VTE Core Measure Inpt VTE Proph given/why not?: SCD's
[2016-09-23] MEDS ORDERED: PAROXETINE 20 MG TAB PO SCH (09:00)
[2016-09-23] MEDS: RANITIDINE HCL 150 MG TAB PO SCH (09:10)
[2016-09-23] MEDS: TICAGRELOR 90 MG TAB PO SCH (09:10)
[2016-09-23] MEDS: MAGNESIUM OXIDE 400 MG TAB PO SCH (09:10)
[2016-09-23] MEDS: DICLOFENAC SOD 1% GEL 100 GM TUBE EXT PRN (09:16)
[2016-09-23] MEDS: INSULIN ASPART 100 UNITS/ML 3 ML PEN SC SCH ×2 (09:19→12:00)
[2016-09-23] MEDS ORDERED: MAGNESIUM SULFATE 1GM / D5W 1 GM in PREMIXED IN D5W 100 ML IV ONE (10:00)
--- NOTE | 2016-09-23 10:15 | Discharge Summary ---
Discharge Summary Admission Date: Sep 18, 2016 at 21:00 Discharge Date: Sep 23, 2016 Discharge Disposition: Home Principal Diagnosis: Small bowel obstruction Immunizations: Have You Had Influenza Vaccine: Yes Influenza Vaccine Date: Jul 31, 2013 History of Tetanus Vaccine?: UTD Tetanus Immunization Date: Apr 25, 1990 History of Pneumococcal: Yes Pneumococcal Date: Apr 18, 2009 History of Hepatitis B Vaccine: Yes Procedures: ULTRASOUND RIGHT UPPER QUADRANT ABDOMEN CLINICAL HISTORY: Right upper quadrant abdominal pain. COMPARISON STUDY: Abdominal CT performed the same day 09/18/2016. TECHNIQUE: Real-time, grayscale, and color flow sonography of the right upper quadrant of the abdomen was performed. Images are reviewed in the transverse and longitudinal planes. FINDINGS: Liver: The liver is normal in size and echotexture. There is no intrahepatic biliary ductal dilatation. The main portal vein is patent. Gallbladder: The gallbladder is normal in appearance. No gallstones are identified. There is no gallbladder wall thickening or pericholecystic fluid. A sonographic Hannon's sign is reportedly absent. The common bile duct measures up to 0.4 cm in diameter. Pancreas: Visualized portions of the pancreatic head and body are echogenic consistent with fatty infiltration. The splenic vein is patent. Right kidney: Survey images of the right kidney demonstrate cortical atrophy. There is no hydronephrosis. Ascites: None. IMPRESSION: There is no acute sonographic abnormality identified in the right upper quadrant. No gallstones are seen. Electronically signed by: Edy Martin M.D. 09/18/2016 5:55 PM SINGLE VIEW CHEST CLINICAL HISTORY: Upper abdominal pain. FINDINGS: An AP, portable, upright chest radiograph is compared to study dated 07/26/2016 and correlated with chest CT dated 10/19/2013. The examination is degraded by portable technique and patient rotation. The heart is enlarged and there is atherosclerotic calcification of the thoracic aorta. The pulmonary vasculature is noncongested. There is chronic elevation of the left hemidiaphragm with left basilar atelectasis. No airspace consolidation or large pleural effusion is seen chronic interstitial thickening is observed. No pneumothorax is identified. The skeletal structures are osteopenic. The bony thorax appears intact. Degenerative changes noted in the thoracic spine. IMPRESSION: Cardiac enlargement with no acute cardiopulmonary abnormality. Electronically signed by: Edy Martin M.D. 09/18/2016 6:[address] SCAN OF THE ABDOMEN AND PELVIS WITHOUT IV CONTRAST CLINICAL HISTORY: Upper abdominal pain. COMPARISON STUDY: Abdominal CT dated 07/27/2010. TECHNIQUE: CT scan of the abdomen and pelvis is performed from the lung bases to the proximal femora. Images are reviewed in the axial, sagittal, and coronal planes. IV contrast was not administered for this examination as per the referring clinician. Note that the examination was performed and significant suboptimal fashion without oral and IV contrast. Automated dose control exposure was utilized. CT DOSE: 768.91 mGy.cm FINDINGS: Lung bases: The heart is enlarged and without pericardial effusion. The coronary arteries are densely calcified. There is a tiny hiatal hernia. There is elevation of the left hemidiaphragm and bibasilar atelectasis. No airspace consolidation or pleural effusion is seen. There are calcified granulomas present at both lung bases. Liver: The unenhanced liver is normal in size, contour, and attenuation. There is no intrahepatic biliary ductal dilatation. Gallbladder: Small calcified gallstones are identified. There is no CT evidence of cholecystitis. Spleen: Normal in size and attenuation. Pancreas: There is near complete fatty replacement of the pancreas. Adrenal glands: Unremarkable. Kidneys: The unenhanced kidneys are atrophic and without hydronephrosis. There there is a 4 mm nonobstructing right renal calculus. No left renal calculi are seen. There is no evidence of contour deforming renal mass lesion. Abdominal vasculature: The abdominal aorta is normal in course and caliber noting moderate atherosclerotic calcification. Bowel: The proximal small bowel loops are distended and fecalized. There is surrounding inflammatory change and trace interloop fluid. The distal small bowel is decompressed. A transition point is identified in the ventral right upper pelvis and the appearance is consistent with a small bowel obstruction. No focally thick walled bowel loops are identified. There is no pneumatosis intestinalis or portal venous gas. These measure up to 4.5 cm in diameter. There are scattered colonic diverticula without CT evidence of acute diverticulitis. The appendix is well-visualized and normal. Peritoneum: There is no intraperitoneal free air. A midline surgical scar is present in the pelvis. Findings suggest previous ventral hernia repair. Lymphadenopathy: None. Pelvic viscera: The bladder is decompressed and grossly unremarkable. Uterus and adnexa are normal as visualized. Numerous calcified phleboliths are seen in the pelvis. Surgical clips are identified in the left groin. Skeletal structures: The skeletal structures are osteopenic. There is mild to moderate lumbosacral spondylosis and scoliosis. Sclerotic change is noted involving the sacroiliac joints and pubic symphysis. No lytic or blastic lesions are seen. IMPRESSION: 1. Suboptimal examination without oral and IV contrast 2. Finding are consistent with a small bowel obstruction. A transition point is identified in the right ventral pelvis, and this is likely on the basis of adhesions. 3. There is trace interloop fluid and mild surrounding inflammatory stranding involving the affected bowel loops which appear fecalized. No thick-walled loops identified and there is no pneumatosis intestinalis, portal venous gas, or intraperitoneal free air. 4. Cholelithiasis. 5. Cardiomegaly. 6. Nonobstructing right renal calculus. 7. Additional findings as detailed above. Electronically signed by: Edy Martin M.D. 09/18/2016 7:09 PM Consultations: Consultations: General Surgery: Recommended conservative management of watch and wait unless continued n/v in which NG tube would be recommended. (Sara Aguilar MD) Medication Reconciliation Continued Medications: Aspirin Enteric Coated (Ecotrin Or Generic) 81 Mg Tab 81 MG PO DAILY Atorvastatin (Lipitor) 40 Mg Tab 40 MG PO HS Cholecalciferol (D 5000) 5,000 Unit Cap 5000 PO DAILY Cyanocobalamin (B-12) 1,000 Mcg Tab 1000 MCG PO DAILY, #30 5 Refills Diclofenac Sod (Voltaren) 100 Appln/100 Gm Gel 4 APPLN EXT QID PRN for joint pain, #1 0 Refills apply 4 grams to either knee 4 times a day as needed for pain Folic Acid (Folic Acid) 800 Mcg Tab 800 MCG PO DAILY Furosemide (Lasix) 20 Mg Tab 20 MG PO DAILY PRN for Shortness of Breath Gabapentin (Neurontin) 400 Mg Cap 400 MG PO TID Gemfibrozil (Lopid) 600 Mg Tab 600 MG PO DAILY Losartan Potassium (Cozaar) 25 Mg Tab 25 MG PO DAILY Magnesium Gluconate (Mag-G) 500 Mg Tab 500 MG PO DAILY Metformin Hcl (Glucophage) 500 Mg Tab 500 MG PO QID Nitroglycerin (Nitrostat) 0.4 Mg Sub 0.4 MG UT UD PRN for Chest Pain Pantoprazole (Protonix) 40 Mg Tab 40 MG PO BID Paroxetine (Paxil) 40 Mg Tab 40 MG PO DAILY, TAB Propranolol Hcl (Propranolol Hcl Er) 160 Mg Cap 160 MG PO DAILY Ranitidine (Zantac) 150 Mg Tab 150 MG PO DAILY PRN for heartburn Ticagrelor (Brilinta) 90 Mg Tab 90 MG PO BID Discharge Exam Review of Systems: Constitutional: No chills, No fever, No sweats, No weakness Eyes: No worsening of vision ENT: No hearing loss, No nasal symptoms, No sore throat, No trouble swallowing Respiratory: No cough, No dyspnea on exertion, No shortness of breath Cardiovascular: No chest pain, No palpitations Abdomen: + pain (intermittent pain), No constipation, No diarrhea, No nausea , No vomiting Musculoskeletal: No calf pain, No swelling Genitourinary - Female: No dysuria, No urinary frequency Hematologic / Lymphatic: No abnormal bleeding/bruising, No clotting problems Integumentary: No itch, No rash Physical Exam: General Appearance: WD/WN, no apparent distress Eyes: EOMI, sclerae normal ENT: hearing grossly normal Neck: supple, no adenopathy, no JVD Respiratory/Chest: lungs clear, normal breath sounds, no respiratory distress Cardiovascular: regular rate, rhythm, no edema, no murmur Abdomen / GI: normal bowel sounds, soft, + tenderness (slight tenderness in epigastric region) Extremities: normal inspection, no pedal edema Neurologic/Psychiatric: alert, normal mood/affect, oriented x 3 Skin: normal color, warm/dry, no rash (Sara Aguilar MD) Hospital Course HPI: The patient is a 76-year-old female who presents emergency department with complaint of abdominal pain that began about one week prior to arrival. She's also had a decreased appetite, intermittent nausea and radiation of pain to her back during this interval as well. She has a history of colon resection approximately 20 years ago, and had surgery for bowel obstruction approximate 5 years ago. HOSPITAL COURSE: 76 yo F who presented 09/18/16 with SBO, likely due to adhesions. Small bowel obstruction - Received IV fluids, remained NPO, diet was advanced as tolerated - Zofran / Phenergan for nausea Hypomagnesemia - On arrival was 0.5 - Received about 7g IV of Mag Sulfate - May be due to chronic PPI use - would recommend switching to PRN Prilosec with regular Ranitidine. For now with acute abdominal pain would continue with current PO regime. Coronary artery disease / Hypercholesterolemia - Continued home meds when was able to tolerate PO Acute on chronic kidney injury - Improved with fluid hydration Type 2 DM - Metformin on hold - BSC AC and HS Peripheral neuropathy - Fall precautions - Gabapentin on hold VTE - Heparin SQ, SCDS CODE STATUS: FULL CODE Discharged home Follow up within a week Have magnesium level rechecked and meds adjusted as needed Total Time Spent: Greater than 30 minutes This includes examination of the patient, discharge planning, medication reconciliation, and communication with other providers. (Sara Aguilar MD) Resident Physician Supervision Note: I was present with Dr. Aguilar during the history and exam. I discussed the case with the resident and agree with the findings and plan as documented in the note. Any exceptions or clarifications are listed here: Upon visit today, the patient was seated in a bedside chair without complaints. She is tolerating her diet without nausea or vomiting. She continues to do to deny abdominal pain. Upon examination, she is afebrile. Bowel sounds are auscultated in all quadrants. With firm palpation of all quadrants, she does not have tenderness. Her magnesium is low by morning labs; this will be repleted prior to discharge. I reviewed with the patient signs and symptoms to watch for with regards to her admission diagnosis was small bowel obstruction. She has arranged follow up with primary care physician for the middle of next week but knows to contact in sooner or return to the emergency department should her symptoms recur. Documented By: Chuck Lucero (Chuck Lucero.,D.O.) Discharge Instructions Please refer to the electronic Patient Visit Report (Discharge Instructions) for additional information. (Sara Aguilar MD) Resident Tracking Resident Involvement: Resident Care Provided Care Provided: Adult [facility] (Sara Aguilar MD)
[2016-09-23 11:35] VITALS: BP 130/76; PULSE 74; TEMP 36.7; O2SAT 93
--- NOTE | 2016-09-23 11:55 | Surgery Progress Note ---
Surgery Progress Note Date of Service Sep 23, 2016. Subjective + bowel movement (multiple), + diet (tolerating regular diet), + feeling well, No nausea, No vomiting Objective Vital Signs: Date Time Temp Pulse Resp B/P Pulse Ox O2 Delivery O2 Flow Rate FiO2 09/23/16 11:35 36.7 74 20 93 Room Air 09/23/16 07:59 36.7 74 20 130/76 93 Room Air 09/23/16 07:25 Room Air 09/22/16 23:05 36.9 67 17 134/72 95 Room Air 09/22/16 19:40 Room Air 09/22/16 15:02 36.6 71 16 151/69 94 Room Air Laboratory Results: Results Past 24 Hours Test 09/22/16 12:08 09/22/16 16:44 09/22/16 20:35 09/23/16 06:47 Range/Units Bedside Glucose 118 115 107 70-90 mg/dl White Blood Count 3.97 4.8-10.8 K/uL Red Blood Count 2.96 4.2-5.4 M/uL Hemoglobin 9.1 12.0-16.0 g/dL Hematocrit 27.7 37-47 % Mean Corpuscular Volume 93.6 80-100 fL Mean Corpuscular Hemoglobin 30.7 25-34 pg Mean Corpuscular Hemoglobin Concent 32.9 32-36 g/dl Platelet Count 154 130-400 K/uL Mean Platelet Volume 10.6 7.4-10.4 fL Neutrophils (%) (Auto) 55.9 % Lymphocytes (%) (Auto) 25.2 % Monocytes (%) (Auto) 16.1 % Eosinophils (%) (Auto) 2.5 % Basophils (%) (Auto) 0.3 % Neutrophils # (Auto) 2.22 1.4-6.5 K/uL Lymphocytes # (Auto) 1.00 1.2-3.4 K/uL Monocytes # (Auto) 0.64 0.11-0.59 K/uL Eosinophils # (Auto) 0.10 0-0.5 K/uL Basophils # (Auto) 0.01 0-0.2 K/uL RDW Standard Deviation 47.3 36.4-46.3 fL RDW Coefficient of Variation 13.7 11.5-14.5 % Immature Granulocyte % (Auto) 0.0 % Immature Granulocyte # (Auto) 0.00 0.00-0.02 K/uL Sodium Level 142 136-145 mmol/L Potassium Level 5.2 3.5-5.1 mmol/L Chloride Level 118 98-107 mmol/L Carbon Dioxide Level 16 21-32 mmol/L Anion Gap 8.0 3-11 mmol/L Blood Urea Nitrogen 7 7-18 mg/dl Creatinine 0.98 0.60-1.20 mg/dl Est Creatinine Clear Calc Drug Dose 52.5 ml/min Estimated GFR () 65.9 Estimated GFR (Non- 56.8 BUN/Creatinine Ratio 6.9 10-20 Random Glucose 111 70-99 mg/dl Calcium Level 8.3 8.5-10.1 mg/dl Magnesium Level 1.4 1.8-2.4 mg/dl Test 09/23/16 08:00 09/23/16 11:46 Range/Units Bedside Glucose 110 135 70-90 mg/dl Assessment & Plan SBO resolved For D/C later today
== END 2016-09-23 14:23 | disposition home or self-care (01) | DRG 389 ==
LOC: ENRESERVTM → ENRESERVDT → EDBD 16:04 → C.EDB 16:05 → C.MSW 21:00
PROVIDERS: ADMIT Hospitalist; ATTEND Family Medicine
DX: K56.5 Intestinal adhesions [bands] with obstruction (postinfection) (principal); N17.9 Acute kidney failure, unspecified; I25.2 Old myocardial infarction; I25.10 Atherosclerotic heart disease of native coronary artery without angina pectoris; E78.00 Pure hypercholesterolemia, unspecified; I10 Essential (primary) hypertension; E83.42 Hypomagnesemia; G62.9 Polyneuropathy, unspecified; E53.8 Deficiency of other specified B group vitamins; K80.20 Calculus of gallbladder without cholecystitis without obstruction; Z95.5 Presence of coronary angioplasty implant and graft; Z79.82 Long term (current) use of aspirin

== ENCOUNTER → 2016-10-13 | Outpatient (CLI) | payer OTHER ==
[~2016-10-13] MED LIST changes: +CHOLCAP10 PO; -ERGO1CAP35 PO; -FLV1 PO; +FOLI800T PO; -FRCT/ PO; -LORA0.5T12 PO; +MGNG500 PO; -MGNO400 PO; +PARO1TAB29 PO; -PARO20TA4 PO; -PROP120C PO; +PROP160C PO
== END | disposition home or self-care (01) ==
LOC: C.LABPVFM 15:17
PROVIDERS: ATTEND Family Medicine
DX: E87.8 Other disorders of electrolyte and fluid balance, not elsewhere classified (principal)

== ENCOUNTER → 2016-11-14 | Outpatient (CLI) | payer OTHER ==
--- NOTE | 2016-11-15 12:24 | MAMMOGRAPHY REPORT ---
BILATERAL DIGITAL SCREENING MAMMOGRAM WITH CAD: 11/14/2016 CLINICAL HISTORY: Routine screening. Patient has no complaints. TECHNIQUE: Bilateral CC and MLO views were obtained. Current study was also evaluated with a Comput er Aided Detection (CAD) system. COMPARISON: Comparison is made to exams dated: 11/12/2015 mammogram, 10/07/2014 mammogram, 07/08/2013 mammogram, 05/25/2012 mammogram, 05/24/2011 mammogram, and 05/21/2010 mammogram - [facility] enter. BREAST COMPOSITION: The tissue of both breasts is heterogeneously dense, which may obscure small ma sses. FINDINGS: There are stable intramammary lymph nodes in each upper outer posterior breast. Stable be nign-appearing coarse and grouped calcifications bilaterally. No suspicious mass, architectural dis tortion or cluster of microcalcifications is seen. IMPRESSION: ACR BI-RADS CATEGORY 1: NEGATIVE There is no mammographic evidence of malignancy. A 1 year screening mammogram is recommended. The p atient will receive written notification of the results. Approximately 10% of breast cancers are not detected with mammography. A negative mammographic repor t should not delay biopsy if a clinically suggestive mass is present. Mary Alice Goss M.D. ay/:11/14/2016 15:30:06 Breakdown Man: Monica PHILLIPS)(Herrera)(BD), [facility] letter sent: Normal 1/2 BI-RADS Code: ACR BI-RADS Category 1: Negative
== END | disposition home or self-care (01) ==
LOC: C.MAMM 12:27
PROVIDERS: ATTEND Family Medicine
DX: Z12.31 Encounter for screening mammogram for malignant neoplasm of breast (principal)

== ENCOUNTER → 2016-11-16 | Outpatient (CLI) | payer OTHER ==
[2016-11-16 17:44] LABS: ESTIMATED AVERAGE GLUCOSE 140 mg/dl; HA1C FLAG Normal (Normal)
[2016-11-16 17:46] LABS: CHOLESTEROL/HDL RATIO 3.2
[2016-11-16 18:08] LABS: RATIO 11.1 mcg/mg (0-30.0)
--- NOTE | 2016-11-22 08:24 | CODING QUERY MEDICAL NECESSITY ---
SUPPORTING DIAGNOSIS NEEDED A supporting diagnosis is required for the test/procedure performed on this patient in order for us to be reimbursed by the patient's insurance. Please provide a supporting diagnosis for the following test/procedure listed below next to the test name along with your signature. *If there is no additional diagnosis for this patient that would support the following test/procedure please document that below next to the test/procedure. Test(s)/Procedure(s) that require a supporting diagnosis: * GLYCATED HEMOGLOBIN DIAGNOSIS: * DOS: 11/16/16 Provider Signature: Date: Thank you Dorota Nielson Health Information Management Once completed, please kindly fax back to [phone] For questions please call [phone]
== END | disposition home or self-care (01) ==
LOC: C.LABPVFM 10:54
PROVIDERS: ATTEND Family Medicine
DX: E78.00 Pure hypercholesterolemia, unspecified (principal); E87.8 Other disorders of electrolyte and fluid balance, not elsewhere classified; E11.9 Type 2 diabetes mellitus without complications

== ENCOUNTER → 2017-04-28 | Outpatient (CLI) | payer OTHER ==
[2017-04-28 18:15] LABS: ALT/SGPT 18 U/L (12-78); BLOOD UREA NITROGEN 27 mg/dl (7-18); BUN/CREATININE RATIO 15.8 (10-20); CALCIUM 9.7 mg/dl (8.5-10.1); CARBON DIOXIDE 28 mmol/L (21-32); CHLORIDE 104 mmol/L (98-107); GLUCOSE 130 mg/dl (70-99); MAGNESIUM 1.8 mg/dl (1.8-2.4); POTASSIUM 4.8 mmol/L (3.5-5.1); SODIUM 138 mmol/L (136-145)
[2017-04-28 18:18] LABS: ALB/GLOB RATIO 1.1 (0.9-2); ALKALINE PHOSPHATASE 77 U/L (45-117); AST/SGOT 14 U/L (15-37); CHOLESTEROL/HDL RATIO 3.1
[2017-04-29 08:21] LABS: ESTIMATED AVERAGE GLUCOSE 146 mg/dl; HA1C FLAG Normal (Normal)
== END | disposition home or self-care (01) ==
LOC: C.LABPVFM 13:21
PROVIDERS: ATTEND Family Medicine
DX: E11.9 Type 2 diabetes mellitus without complications (principal); I10 Essential (primary) hypertension; E78.00 Pure hypercholesterolemia, unspecified; K56.69 Other intestinal obstruction; E83.42 Hypomagnesemia; I25.10 Atherosclerotic heart disease of native coronary artery without angina pectoris

== ENCOUNTER → 2017-07-14 | Outpatient (CLI) | payer OTHER ==
--- NOTE | 2017-07-14 12:08 | DIAGNOSTIC IMAGING REPORT ---
ULTRASOUND KIDNEYS AND BLADDER CLINICAL HISTORY: Diabetes. Chronic kidney disease. COMPARISON STUDY: Abdominal CT dated 09/18/2016. TECHNIQUE: Real-time, grayscale, and color flow sonography of the kidneys and bladder is performed. Images are reviewed in the transverse and longitudinal planes. FINDINGS: Kidneys: The kidneys are atrophic. The right kidney measures 10.7 x 4.6 x 5.2 cm and the left kidney measures 10.3 x 5.2 x 6.2 cm. There is no hydronephrosis. No shadowing renal calculi are identified. There is no sonographic evidence of contour deforming renal mass lesion. A subcentimeter cyst is noted on the right. No perinephric fluid is identified. Bladder: The bladder is normal in appearance. Bilateral ureteral jets were seen. IMPRESSION: 1. The kidneys are atrophic and without hydronephrosis. 2. The bladder is normal as visualized. Electronically signed by: Edy Martin M.D. 07/14/2017 12:06 PM Dictated Date/Time: 07/14/2017 12:05 PM
== END | disposition home or self-care (01) ==
LOC: C.ULTR 11:29
PROVIDERS: ATTEND Family Medicine
DX: E11.22 Type 2 diabetes mellitus with diabetic chronic kidney disease (principal); N18.9 Chronic kidney disease, unspecified

== ENCOUNTER → 2017-07-31 | Outpatient (CLI) | payer OTHER ==
[2017-07-31 13:30] LABS: BLOOD UREA NITROGEN 37 mg/dl (7-18); CREATININE 2.15 mg/dl (0.60-1.20)
== END | disposition home or self-care (01) ==
LOC: C.LABPVFM 10:26
PROVIDERS: ATTEND Physical Medicine & Rehabilitation
DX: M25.532 Pain in left wrist (principal)

== ENCOUNTER → 2017-08-03 | Outpatient (CLI) | payer OTHER ==
--- NOTE | 2017-08-03 15:23 | DIAGNOSTIC IMAGING REPORT ---
MRI THE LEFT WRIST NO CONTRAST CLINICAL HISTORY: Left wrist pain. Abnormal x-ray. COMPARISON STUDY: Conventional radiographic study dated 07/19/2017 FINDINGS: Imaging was performed in the sagittal, coronal, and axial planes. There is an area of marrow edema involving the dorsal aspect of the lunate. 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 There is a tiny 2 mm ganglion located or subtle to the capitate. There is a 2 mm navicular cyst. There is irregularity of the trigone fibrocartilage, a finding not unexpected for a patient this age. There is thickening and edema surrounding the extensor carpi ulnaris tendon, consistent with a tenosynovitis. There is synovial thickening involving the ulnar aspect of the wrist with a subjacent erosion involving the ulnar styloid. The findings suggest an inflammatory arthropathy. There are no soft tissue masses to indicate a neoplasm. There are no suspicious areas of marrow replacement to indicate neoplasm. IMPRESSION: 1. Tenosynovitis involving the extensor carpi ulnaris tendon 2. Soft tissue thickening and edema adjacent to the ulnar styloid and extensor carpi ulnaris tendon. This likely represents a synovial proliferative process with a subjacent ulnar styloid erosion. The findings suggest an inflammatory arthropathy 3. Nonspecific marrow edema within the dorsal aspect of the lunate. 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 08/03/2017 3:21 PM Dictated Date/Time: 08/03/2017 3:10 PM
== END | disposition home or self-care (01) ==
LOC: C.MRI 13:36
PROVIDERS: ATTEND Physical Medicine & Rehabilitation
DX: M25.532 Pain in left wrist (principal)

== ENCOUNTER → 2017-09-06 | Outpatient (CLI) | payer OTHER ==
[~2017-09-06] MED LIST changes: +AMLO10TA3 PO; +ASPI-319 PO; -ASPI81TA21 PO; +CIPR250T3 PO; +CYAN500T13 PO; +DICL1GEL12 TD; +FUROSEMIDE 40 MG/4 ML VIAL IV ONE; +GABA-1220 PO; -GABA1CAP5 PO; -GEMF600T3 PO; +GEMF600T5 PO; +GLIM2TAB2 PO; +LORA-741 PO; +MAGN400T6 PO; +NAPR-22 PO; +ONDA4TAB46 PO; +POTTAB2 PO; +RANI150T85 PO; -ZNTT/150 PO
--- NOTE | 2017-09-06 12:07 | DIAGNOSTIC IMAGING REPORT ---
EXAMINATION: RENAL ULTRASOUND CLINICAL HISTORY: I10 [id number] CHRONIC RENAL DISEASE COMPARISON STUDY: 07/14/2017 FINDINGS: The right kidney measures 10.5 cm. The left kidney measures 10.2 cm. There is no evidence of hydronephrosis. There is a 1 cm lower pole right renal cyst. There is a mid pole left renal lobulation, likely representing a hypertrophied column of Emmett. There is bilateral renal cortical thinning. Neither ureteral jet was visualized. No bladder masses were evident. IMPRESSION : 1. Bilateral renal cortical thinning 2. 1 cm lower pole right renal cyst 3. No evidence of hydronephrosis Electronically signed by: James Gore M.D. 09/06/2017 12:05 PM Dictated Date/Time: 09/06/2017 12:03 PM
--- NOTE | 2017-09-06 12:12 | DIAGNOSTIC IMAGING REPORT ---
DOPPLER ULTRASOUND OF THE RENAL ARTERIES CLINICAL HISTORY: Hypertension. COMPARISON STUDY: Renal ultrasound July 14, [address] of the abdomen and pelvis September 18, 2016. FINDINGS: The grayscale exam will be reported separately. There is bilateral renal cortical thinning. There is no hydronephrosis. This exam is mildly compromised by suboptimal penetration. Segmental waveforms within each kidney were within normal limits. The bilateral renal arteries and veins were patent. Peak systolic velocity within the abdominal aorta was 101 cm a second. Systolic velocity within the right renal artery was 96 cm/s and peak systolic velocity within the left renal artery was 65 cm/s. IMPRESSION: 1. Study mildly compromised by suboptimal penetration but no sonographic evidence of renal artery stenosis. 2. Renal cortical thinning. No hydronephrosis. Electronically signed by: Major Bender M.D. 09/06/2017 12:11 PM Dictated Date/Time: 09/06/2017 12:08 PM
--- NOTE | 2017-09-06 13:49 | DIAGNOSTIC IMAGING REPORT ---
RENAL SCAN DIURETIC (DTPA) HISTORY: Loss of kidney function. Kidney stones. I10 [id number] TECHNIQUE: Posterior renal imaging was performed medially: The intravenous administration of 11 mCi of technetium 99 M DTPA. Additional posterior renal imaging was performed following the intravenous administration of 20 mg of Lasix. COMPARISON STUDY: Renal ultrasound 09/06/2017. FINDINGS: There is prompt and symmetric perfusion of the kidneys with normal concentration and excretion. No hydronephrosis. Following injection of Lasix there is expected clearing of the renal collecting systems with bilateral spontaneous ureteral activity. The kidneys are normal in size and shape for age. Mild cortical thinning is likely age-related. No cortical defects identified. Split function was demonstrated to be 51% on the left and 49% on the right. IMPRESSION: Normal renal scan for age demonstrating mild cortical thinning. Split function was 51% on the left and 49% on the right. Electronically signed by: Francisco Javier Boone M.D. 09/06/2017 1:48 PM Dictated Date/Time: 09/06/2017 1:42 PM
== END | disposition home or self-care (01) ==
LOC: C.ULTR 11:04
PROVIDERS: ATTEND Internal Medicine
DX: E78.00 Pure hypercholesterolemia, unspecified (principal); I10 Essential (primary) hypertension; N28.1 Cyst of kidney, acquired

== ENCOUNTER → 2017-11-03 | Outpatient (CLI) | payer OTHER ==
[~2017-11-03] MED LIST changes: -AMLO10TA3 PO; -ASPI-319 PO; +ASPI81TA21 PO; -CIPR250T3 PO; -CYAN500T13 PO; -DICL1GEL12 TD; -FUROSEMIDE 40 MG/4 ML VIAL IV ONE; +GEMF600T3 PO; -GEMF600T5 PO; -GLIM2TAB2 PO; -LORA-741 PO; -MAGN400T6 PO; -NAPR-22 PO; -ONDA4TAB46 PO; -POTTAB2 PO
[2017-11-03 12:50] LABS: HEMOGLOBIN A1C 5.9 % (4.5-5.6)
== END | disposition home or self-care (01) ==
LOC: C.LABPVFM 10:24
PROVIDERS: ATTEND Family Medicine
DX: E11.9 Type 2 diabetes mellitus without complications (principal); I25.10 Atherosclerotic heart disease of native coronary artery without angina pectoris

== ENCOUNTER → 2017-12-20 | Outpatient (CLI) | payer OTHER ==
[2017-12-20 17:22] LABS: BASO % 0.4 %; BASO ABS # 0.03 K/uL (0-0.2); EOS ABS # 0.14 K/uL (0-0.5); HEMATOCRIT 36.5 % (37-47); HEMOGLOBIN 12.2 g/dL (12.0-16.0); IG# 0.03 K/uL (0.00-0.02); LYMPH % 23.4 %; LYMPH ABS # 1.65 K/uL (1.2-3.4); MEAN CELL VOLUME 93.1 fL (80-100); MEAN CORPUSCULAR HEMOGLOBIN 31.1 pg (25-34); MEAN CORPUSCULAR HGB CONC 33.4 g/dl (32-36); MEAN PLATELET VOLUME 10.5 fL (7.4-10.4); MONO % 11.9 %; MONO ABS # 0.84 K/uL (0.11-0.59); NEUT % 61.9 %; NEUT ABS # 4.36 K/uL (1.4-6.5); PLATELET COUNT 213 K/uL (130-400); RED CELL DISTRIBUTION WIDTH CV 13.9 % (11.5-14.5); RED CELL DISTRIBUTION WIDTH SD 46.9 fL (36.4-46.3); WHITE BLOOD COUNT 7.05 K/uL (4.8-10.8)
[2017-12-20 17:56] LABS: ALBUMIN 3.9 gm/dl (3.4-5.0); BLOOD UREA NITROGEN 29 mg/dl (7-18); CALCIUM 8.8 mg/dl (8.5-10.1); CARBON DIOXIDE 26 mmol/L (21-32); CREATININE 1.89 mg/dl (0.60-1.20); GLUCOSE 132 mg/dl (70-99); POTASSIUM 4.4 mmol/L (3.5-5.1); SODIUM 135 mmol/L (136-145)
[2017-12-20 18:02] LABS: PHOSPHORUS 3.2 mg/dl (2.5-4.9); TRANSFERRIN 346 mg/dl (200-360)
== END | disposition home or self-care (01) ==
LOC: C.LABPVFM 13:22
PROVIDERS: ATTEND Internal Medicine
DX: N18.9 Chronic kidney disease, unspecified (principal); E78.00 Pure hypercholesterolemia, unspecified

== ENCOUNTER → 2018-01-31 | Outpatient (CLI) | payer OTHER ==
[~2018-01-31] MED LIST changes: +ASPI-319 PO; -ASPI81TA21 PO
[2018-01-31 17:20] LABS: BASO % 0.5 %; BASO ABS # 0.03 K/uL (0-0.2); EOS ABS # 0.24 K/uL (0-0.5); HEMATOCRIT 35.4 % (37-47); IG# 0.01 K/uL (0.00-0.02); LYMPH % 33.2 %; LYMPH ABS # 1.97 K/uL (1.2-3.4); MEAN CELL VOLUME 92.7 fL (80-100); MEAN CORPUSCULAR HEMOGLOBIN 31.4 pg (25-34); MEAN CORPUSCULAR HGB CONC 33.9 g/dl (32-36); MEAN PLATELET VOLUME 10.9 fL (7.4-10.4); MONO ABS # 0.83 K/uL (0.11-0.59); NEUT % 48.1 %; NEUT ABS # 2.86 K/uL (1.4-6.5); PLATELET COUNT 197 K/uL (130-400); RED CELL DISTRIBUTION WIDTH CV 14.3 % (11.5-14.5); RED CELL DISTRIBUTION WIDTH SD 48.7 fL (36.4-46.3); WHITE BLOOD COUNT 5.94 K/uL (4.8-10.8)
--- NOTE | 2018-01-31 17:23 | DIAGNOSTIC IMAGING REPORT ---
CHEST 2 VIEWS ROUTINE HISTORY: DYSPNEA LOWER LEG EDEMA COMPARISON: Chest 09/18/2016. FINDINGS: The heart remains mildly enlarged. No pleural effusions. No pneumothorax. No focal lung consolidations to suggest pneumonia. No evidence for pulmonary edema. Linear density within the left lower lobe. IMPRESSION: 1. Stable mild cardiomegaly. 2. Linear density at the left lower lobe which favors scarring or atelectasis. This remains unchanged. Electronically signed by: Francisco Javier Boone M.D. 01/31/2018 5:22 PM Dictated Date/Time: 01/31/2018 5:20 PM
[2018-01-31 17:45] LABS: ALBUMIN 4.1 gm/dl (3.4-5.0); BLOOD UREA NITROGEN 26 mg/dl (7-18); CARBON DIOXIDE 27 mmol/L (21-32); CREATININE 2.33 mg/dl (0.60-1.20); GLUCOSE 94 mg/dl (70-99); PHOSPHORUS 4.1 mg/dl (2.5-4.9); POTASSIUM 4.3 mmol/L (3.5-5.1); SODIUM 138 mmol/L (136-145)
== END | disposition home or self-care (01) ==
LOC: C.LABPVFM 16:03
PROVIDERS: ATTEND Family Medicine
DX: R60.0 Localized edema (principal); R06.00 Dyspnea, unspecified

== ENCOUNTER → 2018-02-07 | Outpatient (CLI) | payer OTHER ==
[2018-02-07 13:27] LABS: HEMOGLOBIN A1C 6.7 % (4.5-5.6)
[2018-02-07 13:51] LABS: BLOOD UREA NITROGEN 33 mg/dl (7-18); CALCIUM 9.2 mg/dl (8.5-10.1); CARBON DIOXIDE 24 mmol/L (21-32); CREATININE 2.11 mg/dl (0.60-1.20); GLUCOSE 188 mg/dl (70-99); POTASSIUM 4.3 mmol/L (3.5-5.1); SODIUM 137 mmol/L (136-145)
== END | disposition home or self-care (01) ==
LOC: C.LABPVFM 10:40
PROVIDERS: ATTEND Internal Medicine Nephrology
DX: I12.9 Hypertensive chronic kidney disease with stage 1 through stage 4 chronic kidney disease, or unspecified chronic kidney disease (principal); E11.22 Type 2 diabetes mellitus with diabetic chronic kidney disease; N18.9 Chronic kidney disease, unspecified; E53.8 Deficiency of other specified B group vitamins; E83.42 Hypomagnesemia

== ENCOUNTER 2019-08-02 10:49 | Inpatient (IN) ==
[2019-08-02] MEDS ORDERED: ONDANSETRON INJ 2 MG/ML 2 ML VIAL IV STA (11:37)
[2019-08-02] MEDS ORDERED: SODIUM CHLORIDE 0.9% 1000ML 1,000 ML IV SCH (11:45)
[2019-08-02 11:59] LABS: Basophils # (auto) 0.03 K/uL (0-0.2); Basophils % (auto) 0.3 %; Eosinophils # (auto) 0.21 K/uL (0-0.5); Eosinophils % (auto) 2.4 %; Hematocrit (blood only) 38.5 % (37-47); Hemoglobin 13.8 g/dL (12.0-16.0); Immature Granulocytes # (auto) 0.02 K/uL (0.00-0.02); Immature Granulocytes % (auto) 0.2 %; Lymphocytes # (auto) 1.73 K/uL (1.2-3.4); Lymphocytes % (auto) 19.5 %; Mean Corpuscular Hemoglobin 31.6 pg (25-34); Mean Corpuscular Hgb Conc 35.8 g/dL (32-36); Mean Corpuscular Volume 88.1 fL (80-100); Monocytes # (auto) 0.65 K/uL (0.11-0.59); Monocytes % (auto) 7.3 %; Neutrophils # (auto) 6.22 K/uL (1.4-6.5); Neutrophils % (auto) 70.3 %; Platelet Count 152 K/uL (130-400); RDW Coefficient of Variation 14.5 % (11.5-14.5); RDW Standard Deviation 46.4 fL (36.4-46.3); Red Blood Count 4.37 M/uL (4.2-5.4); White Blood Count 8.86 K/uL (4.8-10.8)
[2019-08-02 12:17] LABS: D Dimer 6750 ug/L FEU (0-500)
[2019-08-02 12:26] LABS: Alanine Aminotransferase 19 U/L (12-78); Albumin Globulin Ratio 1.1 (0.9-2); Albumin Level 3.9 gm/dl (3.4-5.0); Aspartate Aminotransferase 14 U/L (15-37); BUN Creatinine Ratio 7.9 (10-20); Bilirubin,Total 1.1 mg/dl (0.2-1); Blood Urea Nitrogen 16 mg/dl (7-18); Calcium 8.6 mg/dl (8.5-10.1); Carbon Dioxide 23 mmol/L (21-32); Chloride 105 mmol/L (98-107); Creatinine Clr Calc Pharmacy 24.1 ml/min; Est GFR (African American) 26.3; Est GFR (Non-African American) 22.7; Globulin 3.5 gm/dl (2.5-4.0); Glucose 150 mg/dl (70-99); Lipase 278 U/L (73-393); Potassium 3.2 mmol/L (3.5-5.1); Sodium 139 mmol/L (136-145); Total Protein 7.4 gm/dl (6.4-8.2)
[2019-08-02 12:29] LABS: Alkaline Phosphatase 111 U/L (45-117); Troponin I < 0.015 ng/ml (0-0.045)
[2019-08-02] MEDS ORDERED: POTASSIUM CHLORIDE / WTR 10 MEQ/100 ML PLCT IV ONE (12:43)
[2019-08-02] MEDS ORDERED: MAGNESIUM SULFATE / D5W 1 GM/100 ML BAG IV ONE (12:43)
[2019-08-02] MEDS ORDERED: PANTOprazole 40 MG TAB PO STA (13:42)
--- NOTE | 2019-08-02 13:59 | History & Physical Report ---
Date of Service August 02, 2019 Assessment & Plan (1) Nausea: Patient has had nausea since early June 2019. This has been associated with inability to eat and significant weight loss of 15-20 pounds since then. Nausea was initially intermittent and now is fairly constant, occurring even during times of fasting. CT abdomen/pelvis on 07/26 showed abnormalities of the gastric body - etiology uncertain - but severe gastritis vs gastric cancer vs other are all possible. She also has gallstones on imaging. CT head from that 07/26 ER visit was negative making central causes of nausea unlikely. Has h/o CAD but doubt that the GI symptoms are due to CAD (weight loss from CAD would be highly unusual). Plan - * gall bladder u/s today to r/o biliary cause of nausea/weight loss/inability to eat * add carafate 1gm QID * change oral PPI to IV zantac * I spoke with Dr Adams from GI and asked him to consult for consideration of EGD * if u/s gall bladder is negative then allow clear liquids * zofran prn (2) Abnormal CT of the abdomen: 07/26/19 CT with gastric abnormality. See discussion above in "nausea." Certainly concerning given her recent weight loss. GI consultation requested. (3) Weight loss: Differential as noted above in "nausea." Last TSH was in January 2018 and was wnl. Will repeat with AM labs tomorrow to r/o hyperthyroid state, etc as another cause of weight loss. (4) Hypomagnesemia: Severe. Given 1 gm mag sulfate in ER. Will give 2 additional gms (total 3) then repeat the mag level this evening. 2nd to inability to eat, diuretic usage, diarrhea, etc. (5) Hypokalemia: 2nd to diarrhea, difficulty eating, dry heaves, diuretics, etc. Given 10meq IV x 1 of KCL in ER. Give additional k-dur 20meq x 1 now. Replete low mag. Repeat K level later today. Hold lasix. (6) Diarrhea: In light of recent antibiotic usage (2 courses since 06/2019) check c diff. Also check stool culture. (7) Diabetes mellitus: Hold oral agents. Check BSGs ac/hs. Novolog sliding scale for now. Low threshold for basal insulin. (8) History of coronary artery disease: Troponin is negative. Although some women can have atypical anginal symptoms from their CAD I do not believe her 6+ weeks of GI symptoms/weight loss is from such. Hold aspirin for now in light of the CT findings from last week and her ongoing symptoms. Cont plavix due to h/o stents. Cont BB. Cont statin agent. (9) Hyperlipidemia: Cont statin. Hold gemfibrozil for now. (10) Hypertension: cont home medications except for losartan in light of CKD stage 4 and Cr of 2 today (11) Chronic kidney disease, stage IV (severe): baseline Cr appears to be about 2 given the levels seen over the last few months repeat BMP in am (12) D-dimer, elevated: I believe this was drawn in the ER due to a complaint of right shoulder pain. however, she has had no dyspnea, NOVOA, chest pain, or other cardiopulmonary symptoms to suggest PE. The right shoulder pain appears to be referred pain from her cervical spine. At this time, despite the elevation in d-dimer, I do not believe that she needs a VTE work-up. V/Q scan and dopplers of legs deferred for now. Cause of elevated d-dimer?? If abnormal CT of abdomen (gastric thickening) turns out to be gastric ca then dimer elevation could be from that. (13) Right shoulder pain: The patient has had right paraspinal cervical pain and right shoulder pain for about 1-2 weeks. It is brought on by movements of the neck. I believe that the shoulder pain is indeed musculoskeletal and not referred pain from the lungs or gall bladder. The shoulder pain is not connected to her eating, nausea, etc. (14) Abnormal EKG: Last week's EKG and today's has anterior T wave changes. Despite such she is not reporting any cardiopulmonary / ischemic symptoms. Her troponin is negative. She follows with Dr Vasquez from cardiology. Will follow for now. Place on telemetry. (15) DVT prophylaxis: SCDs for now If H/H remain stable then start heparin 5000 units BID for chemical DVT proph daughter updated at bedside place on telemetry due to low mag and low K History of Present Illness Chief Complaint: inability to eat Primary Care Provider: Franck Lester MD 78yo female with T2DM, CAD, HTN, and CKD 3-4 who presents with inability to eat dating back to June. She states she has had poor appetite since early June. With attempts at eating she would "feel sick." Has lost 15 pounds of weight since June. Within 10 minutes of eating she develops the nausea. Never has abdominal pain at the same time as the nausea. In fact she has never had abdominal pain. Has had dry heaves x 2 weeks. Denies vomiting of food material. She also states the nausea is becoming per frequent. Initially the nausea was with eating only; now it occurs in the morning upon awakening and during other times of fasting. Seen in ER about 1 week ago - told she had gastritis (based on CT scan) and UTI - was d/c home on 10-day course of BID cefdinir for suspected UTI. She was also on antibiotics in June for right foot cellulitis and took a course of oral keflex for that. She also reports diarrhea - intermittent initially now continuous for several day.s Had had some diarrhea about the time she took keflex in June. It resolved quickly then. Then got watery diarrhea once again about 1 week ago when she started on the cefdinir. Diarrhea is occurring about 4 times each day. No blood or mucous. No fevers/chills. Has been taking once daily protonix for 2 years. She was also placed on paxil about 1 week ago for anxiety. Denies ever having an EGD. Has had colonoscopies with Dr Adams. Allergies Allergy/AdvReac Type Severity Reaction Status Date / Time clarithromycin Allergy Unknown UNKNOWN Verified 08/02/19 13:53 amoxicillin AdvReac Mild GI SYMPTOMS Verified 08/02/19 13:53 clavulanic acid AdvReac Mild GI SYMPTOMS Verified 08/02/19 13:53 Lisinopri AdvReac Mild cough Uncoded 08/02/19 13:53 Macrolides AdvReac Unknown Unknown Uncoded 08/02/19 13:53 Home Medications Home Medications Medication Instructions Recorded Confirmed Type cholecalciferol (vitamin D3) 5,000 5,000 units PO DAILY #30 cap 02/17/19 08/02/19 Rx unit capsule folic acid 800 mcg tablet 0.8 mg PO DAILY tab 04/11/19 08/02/19 History furosemide 40 mg tablet 40 mg PO BID #180 tab 04/11/19 08/02/19 History losartan 25 mg tablet 25 mg PO DAILY #90 tab 04/11/19 08/02/19 History nitroglycerin 0.4 mg sublingual 0.4 mg SL Q5M PRN #25 tab 04/11/19 08/02/19 History tablet glimepiride 2 mg tablet 2 mg PO DAILY #90 tab 05/13/19 08/02/19 Rx propranolol 160 mg capsule,24 160 mg PO DAILY #90 cap 05/13/19 08/02/19 Rx hr,extended release atorvastatin 40 mg tablet 40 mg PO DAILY #90 tab 05/27/19 08/02/19 Rx clopidogrel 75 mg tablet 75 mg PO DAILY #90 tab 05/31/19 08/02/19 Rx lorazepam 0.5 mg tablet 0.25 mg PO DAILY PRN #10 tab 07/16/19 08/02/19 Rx amlodipine 10 mg tablet 5 mg PO DAILY tab 07/24/19 08/02/19 History cyanocobalamin (vitamin B-12) 1,000 mcg PO DAILY 07/24/19 08/02/19 History 1,000 mcg capsule gemfibrozil 600 mg tablet 600 mg PO DAILY #180 tab 07/24/19 08/02/19 History magnesium oxide 500 mg tablet 500 mg PO DAILY tab 07/24/19 08/02/19 History omeprazole 20 mg capsule,delayed 20 mg PO DAILY 07/24/19 08/02/19 History release pantoprazole 40 mg tablet,delayed 40 mg PO DAILY #90 tab 07/24/19 08/02/19 History release paroxetine HCl 20 mg tablet 20 mg PO DAILY #30 tab 07/24/19 08/02/19 Rx aspirin [Aspir-81] 81 mg PO DAILY 07/26/19 08/02/19 History cefdinir 300 mg PO BID 10 Days #20 cap 07/26/19 08/02/19 Rx ondansetron HCl [Zofran] 4 mg PO Q6H PRN #6 tab 07/26/19 08/02/19 Rx Past Med/Surg History Medical History (Updated 08/02/19 @ 15:57 by Parminder Fan) Acute PA, lateral wall, initial episode of care (Resolved 08/04/13) ARF (acute renal failure) Arteriosclerotic cardiovascular disease (Acute) Chronic reflux esophagitis (Acute) Diabetes mellitus (Acute) Elevated troponin (Acute) History of coronary artery disease (Acute) s/p stents Hyperlipidemia (Chronic) Hypertension (Chronic) NSTEMI (non-ST elevated myocardial infarction) (Resolved 08/04/13) s/p stents Presence of stent in artery (Resolved) SBO (small bowel obstruction) UTI (urinary tract infection) (Acute) Surgical History (Updated 08/02/19 @ 14:19 by Parminder Fan) History of intestinal surgery small bowel resection Hx of hernia repair ventral hernia repair w/ mesh; year? 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 other: lives with son and Feels Safe at Home: Yes Smoking Status: Former smoker Age Quit Using Tobacco: 27 ; packs per day: 0.5 ; Years Smoked: 12 ; Hx Alcohol Use: No Hx Substance Use: No caffeine: No Dental Care, Regularly: Yes Physical Activity Frequency: Does not Exercise Seatbelt Use: always Sunscreen Use: No Review of Systems Constitutional: + fatigue, + anorexia and + weight loss (15 pounds); no fever and no chills Eyes: no worsening vision Ear, Nose, Mouth, Throat: no sore throat and no dysphagia Respiratory: no cough, no dyspnea and no dyspnea on exertion Cardiovascular: no chest pain, no orthopnea and no edema Gastrointestinal: + belching, + nausea and + vomiting; no abdominal pain, no bloating, no early satiety, no coffee ground emesis, no hematemesis, no blood in stools and no melena Genitourinary: no dysuria, no difficulty urinating and no urinary incontinence Musculoskeletal: + joint pain (right shoulder) neck pain w/ radiation to right shoulder Integumentary: no rash Neurologic: + numbness (feet - neuropathy ); no localized weakness Psychiatric: + anxiety Endocrine: BSGs < 200; has been diabetic for 6 years Hematologic / Lymphatic: + easy bruising; no easy bleeding Physical Exam Constitutional: + obese; no acute distress and no altered mental status Eyes: PERRL ENMT: Ears: no TM abnormality Mouth: + dry oral mucous membranes; no oropharynx abnormality Neck: trachea midline, no thyromegaly Respiratory: normal respiratory effort, lungs clear to auscultation Cardiovascular: Rate/Rhythm: regular rate and regular rhythm Heart Sounds: normal S1, normal S2 and + murmur (1-2/6 systolic LSB) Vessels: posterior tibial pulses present and dorsalis pedis pulses present; no JVD Extremities: + edema (<1+ b/l with venous stasis changes ) Gastrointestinal (Abdomen): Inspection/Auscultation: abdomen normal to inspection and normal bowel sounds; abdomen not distended Percussion/Palpation: + abdomen tender (minimal - high epigastric region ) and abdomen soft; no guarding, abdomen not rigid and no hepatosplenomegaly TORSTEN was deferred Musculoskeletal: no cyanosis or clubbing, extremities motor strength 5/5 Skin: no rashes, warm and dry venous stasis changes b/l legs only Neurologic: deep tendon reflexes 2+ bilaterally and moves all extremities; no focal motor deficits Psychiatric: A+Ox3, euthymic affect Lymphatic: no cervical lymphadenopathy Results & Data Vital Signs (Past 12 Hours) Vital Signs Pulse Pulse Resp BP Pulse Ox 08/02/19 12:20 54 L 20 94 08/02/19 10:58 60 20 130/69 94 Laboratory Results Laboratory Results - last 24 hr 08/02/19 08/02/19 08/02/19 11:49 11:49 11:49 WBC 8.86 RBC 4.37 Hgb 13.8 Hct 38.5 MCV 88.1 MCH 31.6 MCHC 35.8 RDW Std Deviation 46.4 H RDW Coeff of Juan 14.5 Plt Count 152 MPV 11.0 H Immature Gran % (Auto) 0.2 Neut % (Auto) 70.3 Lymph % (Auto) 19.5 Gray % (Auto) 7.3 Eos % (Auto) 2.4 Baso % (Auto) 0.3 Immature Gran # (Auto) 0.02 Neut # (Auto) 6.22 Lymph # (Auto) 1.73 Gray # (Auto) 0.65 H Eos # (Auto) 0.21 Baso # (Auto) 0.03 D-Dimer 6750 H* Sodium 139 Potassium 3.2 L Chloride 105 Carbon Dioxide 23 Anion Gap 11.0 BUN 16 Creatinine 2.07 H Est Cr Clr Drug Dosing 24.1 Est GFR ( Amer) 26.3 Est GFR (Non-Af Amer) 22.7 BUN/Creatinine Ratio 7.9 L Glucose 150 H Calcium 8.6 Magnesium 1.0 L Total Bilirubin 1.1 H AST 14 L ALT 19 Alkaline Phosphatase 111 Troponin I < 0.015 Total Protein 7.4 Albumin 3.9 Globulin 3.5 Albumin/Globulin Ratio 1.1 Lipase [address] abd/pelvis - 07/26/19 IMPRESSION: 1. Findings suggest gastric fold thickening, which could indicate a mild gastritis possibly on an infectious or inflammatory basis. 2. No other evidence of acute intra-abdominal pathology allowing for lack of intravenous contrast. 3. Suspected small bowel adhesions at the anterior peritoneum at the site of postsurgical change. No resulting bowel obstruction at this time. 4. Postsurgical changes of ventral hernia repair with small recurrent bowel containing hernias along the superior margin as on prior exam. Again, this does not result in obstruction. 5. Nonobstructing 6 mm right nephrolithiasis. 6. Cholelithiasis. No evidence of cholecystitis. 7. Cardiomegaly. Urine cx from 07/26/19 noted to be negative EKG - my reading -- sinus ann; anterior T wave changes - similar to 07/26 EKG, but different in comparison to June 2019 EKG; inferior ST changes also present Code Status & VTE Plan Code Status full code VTE Prophylaxis Plan VTE Prophylaxis will be ordered: Yes PG Care Time/CCT Total # of Minutes Spent Total Time Spent with Patient: Total time spent is greater than 50% in coordination of care (as documented) at patient's floor/unit and/or counseling patient: (1) Diabetes mellitus Chronic kidney disease stage: stage 3 (moderate) Diabetes mellitus complication detail: with chronic kidney disease Diabetes mellitus complication status: with kidney complications Diabetes mellitus vermin exterminator insulin use: without vermin exterminator use Diabetes mellitus type: type 2 Qualified Code(s): E11.22 - Type 2 diabetes mellitus with diabetic chronic kidney disease; N18.3 - Chronic kidney disease, stage 3 (moderate) (2) Diarrhea Diarrhea type: unspecified type Qualified Code(s): R19.7 - Diarrhea, unspecified (3) Hyperlipidemia Hyperlipidemia type: mixed hyperlipidemia Qualified Code(s): E78.2 - Mixed hyperlipidemia (4) Hypertension Hypertension type: essential hypertension Qualified Code(s): I10 - Essential (primary) hypertension (5) Right shoulder pain Chronicity: unspecified Qualified Code(s): M25.511 - Pain in right shoulder
[2019-08-02] MEDS ORDERED: POTASSIUM CHLORIDE 20 MEQ TABCR PO STA (15:42)
[2019-08-02] MEDS ORDERED: ALUMINUM/MAGNESIUM SUSP 30 ML UDC PO PRN (16:17)
[2019-08-02] MEDS ORDERED: NITROGLYCERIN SL 0.4 MG/TAB TAB SL PRN (16:17)
[2019-08-02] MEDS ORDERED: ONDANSETRON INJ 2 MG/ML 2 ML VIAL IV PRN (16:17)
[2019-08-02] MEDS ORDERED: LORazepam 0.5 MG TAB PO PRN (16:17)
--- NOTE | 2019-08-02 16:32 | Emergency Department Note ---
History of Present Illness General Chief complaint: Nausea Time Seen by Provider: 08/02/19 11:26 History of Present Illness This is a 78-year-old female that presents to the emergency department via private vehicle accompanied by daughter with complaints of "illness". The patient states that since June she has had trouble eating, and some stomach/epigastric discomfort with nausea. She notes that she has not vomited but will dry heave at times. She states that for her right lower extremity cellulitis she was put on Keflex and then changed to Omnicef. She notes she is currently taking the Omnicef. She also notes profuse watery diarrhea. She notes weight loss as well. Patient notes a history of diabetes, coronary artery disease, as well as stent placement. She is tried Zofran at help with minimal relief. No fevers or chills. No chest pain or shortness of breath. No hematochezia. Home Medications Home Medications Medication Instructions Recorded Confirmed Type cholecalciferol (vitamin D3) 5,000 5,000 units PO DAILY #30 cap 02/17/19 08/02/19 Rx unit capsule folic acid 800 mcg tablet 0.8 mg PO DAILY tab 04/11/19 08/02/19 History furosemide 40 mg tablet 40 mg PO BID #180 tab 04/11/19 08/02/19 History losartan 25 mg tablet 25 mg PO DAILY #90 tab 04/11/19 08/02/19 History nitroglycerin 0.4 mg sublingual 0.4 mg SL Q5M PRN #25 tab 04/11/19 08/02/19 History tablet glimepiride 2 mg tablet 2 mg PO DAILY #90 tab 05/13/19 08/02/19 Rx propranolol 160 mg capsule,24 160 mg PO DAILY #90 cap 05/13/19 08/02/19 Rx hr,extended release atorvastatin 40 mg tablet 40 mg PO DAILY #90 tab 05/27/19 08/02/19 Rx clopidogrel 75 mg tablet 75 mg PO DAILY #90 tab 05/31/19 08/02/19 Rx lorazepam 0.5 mg tablet 0.25 mg PO DAILY PRN #10 tab 07/16/19 08/02/19 Rx amlodipine 10 mg tablet 5 mg PO DAILY tab 07/24/19 08/02/19 History cyanocobalamin (vitamin B-12) 1,000 mcg PO DAILY 07/24/19 08/02/19 History 1,000 mcg capsule gemfibrozil 600 mg tablet 600 mg PO DAILY #180 tab 07/24/19 08/02/19 History magnesium oxide 500 mg tablet 500 mg PO DAILY tab 07/24/19 08/02/19 History omeprazole 20 mg capsule,delayed 20 mg PO DAILY 07/24/19 08/02/19 History release pantoprazole 40 mg tablet,delayed 40 mg PO DAILY #90 tab 07/24/19 08/02/19 History release paroxetine HCl 20 mg tablet 20 mg PO DAILY #30 tab 07/24/19 08/02/19 Rx aspirin [Aspir-81] 81 mg PO DAILY 07/26/19 08/02/19 History cefdinir 300 mg PO BID 10 Days #20 cap 07/26/19 08/02/19 Rx ondansetron HCl [Zofran] 4 mg PO Q6H PRN #6 tab 07/26/19 08/02/19 Rx Allergies Allergy/AdvReac Type Severity Reaction Status Date / Time clarithromycin Allergy Unknown UNKNOWN Verified 08/02/19 13:53 amoxicillin AdvReac Mild GI SYMPTOMS Verified 08/02/19 13:53 clavulanic acid AdvReac Mild GI SYMPTOMS Verified 08/02/19 13:53 Lisinopri AdvReac Mild cough Uncoded 08/02/19 13:53 Macrolides AdvReac Unknown Unknown Uncoded 08/02/19 13:53 Past Med/Surg History Medical History Acute RI, lateral wall, initial episode of care (Resolved 08/04/13) ARF (acute renal failure) Arteriosclerotic cardiovascular disease (Acute) Chronic reflux esophagitis (Acute) Diabetes mellitus (Acute) Elevated troponin (Acute) History of coronary artery disease (Acute) s/p stents Hyperlipidemia (Chronic) Hypertension (Chronic) NSTEMI (non-ST elevated myocardial infarction) (Resolved 08/04/13) s/p stents Presence of stent in artery (Resolved) SBO (small bowel obstruction) UTI (urinary tract infection) (Acute) Surgical History History of intestinal surgery small bowel resection Hx of hernia repair ventral hernia repair w/ mesh; year? 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 Other Information That Helps Us Care for You: No other: lives with son and Feels Safe at Home: Yes Safety Concerns: Feels Safe At This Time Smoking Status: Former smoker Age Quit Using Tobacco: 27 ; packs per day: 0.5 ; Years Smoked: 12 ; Hx Alcohol Use: No Hx Substance Use: No caffeine: No Dental Care, Regularly: Yes Physical Activity Frequency: Does not Exercise Seatbelt Use: always Sunscreen Use: No Review of Systems A total of 10 systems reviewed and were otherwise negative Physical Exam Vital Signs Vital Signs - 24 hr 08/02/19 10:58 08/02/19 12:20 08/02/19 14:40 Pulse Rate 60 Pulse Rate [Left Finger] 54 L 56 L Pulse Rhythm Regular Pulse Rhythm [Left Finger] Regular Regular Pulse Strength Normal Pulse Strength [Left Finger] Normal Normal Respiratory Rate 20 20 20 Respiratory Effort / Characteristics Non-Labored Spontaneous Non-Labored Spontaneous Non-Labored Spontaneous Respiratory Depth Normal Normal Normal Respiratory Pattern Regular Regular Regular Blood Pressure 130/69 Blood Pressure [Right Arm] 125/68 Blood Pressure Mean 89 Blood Pressure Mean [Right Arm] 87 Blood Pressure Position Sitting Blood Pressure Position [Right Arm] Sitting Pulse Oximetry 94 94 93 Oxygen Delivery Method Room Air Room Air Room Air Sepsis Recent Fever Within 48 Hours No Sepsis New/Unexplained Change in Mental Status No Sepsis Action Taken by Nursing No Action Required VITAL SIGNS - Vital signs and nursing notes were reviewed. Stable and afebrile. GENERAL -78-year-old female appearing her stated age who is in no acute distress. Communicates well with provider and answers questions appropriately. SKIN - Without rashes. No meningeal or petechial rash. HEAD - NC/AT. EYES - Sclera anicteric. EARS - No deformities of external structures noted on gross examination bi laterally. NOSE - Midline and without cyanosis. MOUTH/OROPHARYNX - Without perioral cyanosis. NECK - Neck with FROM. No nuchal rigidity. LUNGS - Chest wall symmetric without accessory muscle use, intercostals retractions, or central cyanosis. Normal vesicular breath sounds CTA B/L. No wheezes, rales, or rhonchi appreciated. CARDIAC - RRR with S1/S2. No murmur, rubs, or gallops appreciated. ABDOMEN - Abdominal contour normal without pulsations or visible masses. BS normoactive all four quadrants. No tenderness, palpable masses, hepatosplenomegaly, or ascites noted. EXTREMITIES - No clubbing or peripheral cyanosis. No pretibial edema present. +5/5 strength noted in UE/LE bilaterally. No reproducible tenderness to palpation overlying the right superior trapezius muscle or shoulder region. NEUROLOGIC - Cranial nerves II through XII grossly intact. PSYCH - A&O, and cooperates fully with examiner. Pt is very pleasant and interacts well with examiner. Course Administered Medications Potassium Chloride/Sodium Chloride (Normal Saline W/20 Meq Kcl) 20 meq in 1,000 mls @ 100 mls/hr IV .Q10H ZAHRA Stop: 08/03/19 12:59 Last Admin: 08/02/19 17:54 Dose: 100 mls/hr Documented by: [id number] Ranitidine HCl 50 mg/ Dextrose 102 mls @ 200 mls/hr IV Q8H ZAHRA Stop: 09/01/19 16:59 Last Infusion: 08/02/19 18:28 Dose: 0 mls/hr Documented by: [id number] Admin: 08/02/19 17:53 Dose: 200 mls/hr Documented by: [id number] Insulin Aspart (Novolog Flexpen) 0 units SC ACHS ZAHRA Stop: 09/01/19 17:59 Last Admin: 08/02/19 20:35 Dose: Not Given Documented by: [id number] Cosigned by: [id number] Admin: 08/02/19 18:36 Dose: Not Given Documented by: [id number] Cosigned by: [id number] Sucralfate (Carafate) 1 gm PO QID ZAHRA Stop: 09/01/19 16:59 Last Admin: 08/02/19 21:04 Dose: 1 gm Documented by: [id number] Admin: 08/02/19 17:54 Dose: 1 gm Documented by: [id number] Discontinued Medications Sodium Chloride (Nss 1000ml) 1,000 mls @ 999 mls/hr IV .Q1H1M ZAHRA Stop: 08/02/19 12:45 Last Infusion: 08/02/19 12:52 Dose: 0 mls/hr Documented by: [id number] Admin: 08/02/19 11:45 Dose: 999 mls/hr Documented by: [id number] Magnesium Sulfate/Dextrose (Magnesium Sulfate / D5w) 1 gm in 100 mls @ 100 mls/hr IV ONE ONE Stop: 08/02/19 13:42 Last Infusion: 08/02/19 14:25 Dose: 0 mls/hr Documented by: [id number] Admin: 08/02/19 13:04 Dose: 100 mls/hr Documented by: [id number] Potassium Chloride (K Howie / Wtr) 10 meq in 100 mls @ 100 mls/hr IV ONE ONE Stop: 08/02/19 13:42 Last Infusion: 08/02/19 14:05 Dose: 0 mls/hr Documented by: [id number] Admin: 08/02/19 13:04 Dose: 100 mls/hr Documented by: [id number] Magnesium Sulfate/Dextrose (Magnesium Sulfate / D5w) 1 gm in 100 mls @ 100 mls/hr IV Q1H ZAHRA Stop: 08/02/19 17:59 Last Infusion: 08/02/19 20:30 Dose: 0 mls/hr Documented by: [id number] Admin: 08/02/19 19:30 Dose: 100 mls/hr Documented by: [id number] Infusion: 08/02/19 18:56 Dose: 0 mls/hr Documented by: [id number] Admin: 08/02/19 17:53 Dose: 100 mls/hr Documented by: [id number] Ondansetron HCl (Zofran) 4 mg IV NOW STA Stop: 08/02/19 11:38 Last Admin: 08/02/19 12:17 Dose: 4 mg Documented by: [id number] Pantoprazole Sodium (Protonix) 40 mg PO NOW STA Stop: 08/02/19 13:43 Last Admin: 08/02/19 14:24 Dose: 40 mg Documented by: [id number] Potassium Chloride (Klor-Con M20) 20 meq PO NOW STA Stop: 08/02/19 15:43 Last Admin: 08/02/19 17:53 Dose: 20 meq Documented by: [id number] Medical Decision Making Laboratory Data Result diagrams: 08/02/19 11:49 08/02/19 19:04 Lab Results 08/02/19 08/02/19 08/02/19 Range/Units 11:49 11:49 11:49 WBC 8.86 (4.8-10.8) K/uL RBC 4.37 (4.2-5.4) M/uL Hgb 13.8 (12.0-16.0) g/dL Hct 38.5 (37-47) % MCV 88.1 (80-100) fL MCH 31.6 (25-34) pg MCHC 35.8 (32-36) g/dL RDW Std Deviation 46.4 H (36.4-46.3) fL RDW Coeff of Juan 14.5 (11.5-14.5) % Plt Count 152 (130-400) K/uL MPV 11.0 H (7.4-10.4) fL Immature Gran % (Auto) 0.2 % Neut % (Auto) 70.3 % Lymph % (Auto) 19.5 % [place] % (Auto) 7.3 % Eos % (Auto) 2.4 % Baso % (Auto) 0.3 % Immature Gran # (Auto) 0.02 (0.00-0.02) K/uL Neut # (Auto) 6.22 (1.4-6.5) K/uL Lymph # (Auto) 1.73 (1.2-3.4) K/uL [place] # (Auto) 0.65 H (0.11-0.59) K/uL Eos # (Auto) 0.21 (0-0.5) K/uL Baso # (Auto) 0.03 (0-0.2) K/uL D-Dimer 6750 H* (0-500) ug/L FEU Sodium 139 (136-145) mmol/L Potassium 3.2 L (3.5-5.1) mmol/L Chloride 105 (98-107) mmol/L Carbon Dioxide 23 (21-32) mmol/L Anion Gap 11.0 (3-11) BUN 16 (7-18) mg/dl Creatinine 2.07 H (0.6-1.2) mg/dl Est Cr Clr Drug Dosing 24.1 ml/min Est GFR ( Amer) 26.3 Est GFR (Non-Af Amer) 22.7 BUN/Creatinine Ratio 7.9 L (10-20) Glucose 150 H (70-99) mg/dl Calcium 8.6 (8.5-10.1) mg/dl Magnesium 1.0 L (1.8-2.4) mg/dl Total Bilirubin 1.1 H (0.2-1) mg/dl AST 14 L (15-37) U/L ALT 19 (12-78) U/L Alkaline Phosphatase 111 (45-117) U/L Troponin I < 0.015 (0-0.045) ng/ml Total Protein 7.4 (6.4-8.2) gm/dl Albumin 3.9 (3.4-5.0) gm/dl Globulin 3.5 (2.5-4.0) gm/dl Albumin/Globulin Ratio 1.1 (0.9-2) Lipase 278 (73-393) U/L MDM Narrative Patient was seen and evaluated as above in room a 12. Review was performed of nursing notes and vital signs. After obtaining a thorough history and physical examination the above work up was performed. She presents to us today with persistence of inability to eat regular food, as well as persistent nausea despite antiemetics at home. Patient is nontoxic on exam and has stable vital signs. Patient is very upfront that she is concerned about going home given her decline. I extensively reviewed her previous visits. She underwent a CT scan with oral contrast that did show so possible gastritis versus other etiologies within the stomach. She is prescribed and has been taking the pantoprazole. She notes that she has had very little food to eat. I do not believe that repeating a scan of the abdomen is warranted, but did further discuss the right shoulder pain. A d-dimer was also ordered at time of entry given the right shou lder pain not reproducible on examination as well as oxygen saturation between 90-94 upon evaluation in the exam room, and unfortunately was elevated but in the setting of CKD with the patient's elevated creatinine it was felt that a CTA at this time would be more harm than benefit. VQ scan ordered. Doppler ultrasound also ordered of the lower extremities. She was medicated with IV fluids, as well as Zofran. Labs resulted. CBC reveals no leukocytosis or anemia. There is hypokalemia with potassium at 3.2 as well as magnesium at 1.0. Troponin negative. Urinalysis does not reveal UTI. C. difficile negative. EKG reveals sinus bradycardia at a rate of 55 bpm. Per my interpretation there is no evidence of active ischemia. QTc 420. When compared with EKG of July 26, 2019 there are no longer PVCs. There is also possible minor criteria for anterior septal infarct. Given the patient's persistence of decline while at home, and ability to eat regular foods, weight loss, and presentation I do believe that further evaluation and management is warranted in the inpatient setting. Case discussed with the attending physician as well as the hospitalist. Please refer to further documentation regarding her stay. I attest that I have personally reviewed the patient medication list. I attest that I have reviewed the patient's blood pressure and it was found to be upon entry it was found to be slightly elevated. She will be admitted for further evaluation and management of her medical conditions found today. GCS: 15 In the evaluation and treatment of this patient, the following differential diagnoses were considered: ASC, RI, Pneumonia, GERD, Cholecystitis, Ascending Cholangitis, Cholydocholithiasis, gastric cancer, gastritis, ulcer, bowel Obstruction, PE, Amongst Others. Impression & Plan Nausea, Weight loss, Hypomagnesemia, Hypokalemia, Diarrhea, D-dimer, elevated Discharge Plan Visit Data *Final* Discharge Date/Time: 08/02/19 15:40 Chief Complaint: Nausea ED Provider: Catalina Hernandez ED Midlevel Provider: Mingo Richards Discharge Problem: Nausea, Weight loss, Hypomagnesemia, Hypokalemia, Diarrhea, D-dimer, elevated Patient Disposition: Admitted As Inpatient Discharge Instructions Interventions: ED Discharge Assessment Last Done: 08/02/19 15:40
--- NOTE | 2019-08-02 17:18 | Ultrasound Report ---
ABDOMINAL ULTRASOUND, RIGHT UPPER QUADRANT HISTORY: gallstones, nausea, weight loss. COMPARISON: Abdomen and pelvis CT 07/26/2019. FINDINGS: Pancreas: The visualized pancreas demonstrates a normal echotexture. Liver: The liver is echogenic consistent with fatty change. Gallbladder: Echogenic foci with ringdown artifact at the gallbladder fundus consistent with adenomyo matosis. No gallbladder wall thickening. Tiny stones at the gallbladder neck. CBD: 4 mm. Right kidney: Mild cortical thinning. A 1.2 cm renal cyst. No hydronephrosis. IMPRESSION: 1. A few tiny gallstones. No gallbladder wall thickening. 2. 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 3. Mild hepatic steatosis. Electronically signed by: Francisco Javier Boone M.D. 08/02/2019 5:17 PM
[2019-08-02] MEDS: MAGNESIUM SULFATE / D5W 1 GM/100 ML BAG IV SCH ×2 (17:53→19:30)
[2019-08-02] MEDS: SUCRALFATE 1 GM/10 ML UDC PO SCH ×2 (17:54→21:04)
[2019-08-02] MEDS: NSS + 20MEQ KCL 20 MEQ/1,000 ML BAG IV SCH (17:54)
[2019-08-02 18:14] LABS: Appearance Urine Clear (Clear); Bacteria Urine Automated Negative (Negative); Bilirubin Urine Negative (Negative); Blood Urine Negative (Negative); Color Urine Dark Yellow; Epithelial Cell Urine Auto >30 /lpf (0-5); Glucose Urine UA Negative (Negative); Ketones Urine Trace (Negative); Leukocyte Esterase Urine Negative (Negative); Nitrite Urine Negative (Negative); Protein Urine Trace (Negative); RBC Urine Automated 0-4 /hpf (0-4); Specific Gravity Urine 1.021 (1.000-1.030); Urobilinogen Urine Negative (Negative); pH Urine 5.5 (4.5-7.5)
[2019-08-02] MEDS ORDERED: GLUCOSE 40% GEL 15 GM TUBE PO PRN (18:15)
[2019-08-02] MEDS ORDERED: GLUCOSE 10 TABS/TUBE PO PRN (18:15)
[2019-08-02] MEDS ORDERED: GLUCAGON FOR INJ 1 MG VIAL IM PRN (18:15)
[2019-08-02] MEDS ORDERED: DEXTROSE 50% 50 ML SYRINGE IV PRN (18:15)
[2019-08-02] MEDS ORDERED: CARBOHYDRATES FOR HYPOGLYCEMIA PO PRN (18:15)
--- NOTE | 2019-08-02 18:30 | Emergency Department Note ---
ED Visit Note I have personally seen and evaluated the patient with the PA. I agree with the diagnosis and management decisions and have been personally involved in the case. Patient and her daughter were educated to the findings. They will be evaluated by the hospitalist for further management. IV Protonix bolus was ordered. Please see Mingo Richards PA-C's notes for further details of the history, physical and visit. .
[2019-08-02] MEDS: INSULIN ASPART 100 UNITS/ML 3 ML PEN SC SCH ×2 (18:36→20:35)
[2019-08-02 19:43] LABS: BUN Creatinine Ratio 7.5 (10-20); Calcium 8.1 mg/dl (8.5-10.1); Creatinine Clr Calc Pharmacy 26.8 ml/min; Est GFR (African American) 29.9; Est GFR (Non-African American) 25.8; Magnesium 1.8 mg/dl (1.8-2.4); Potassium 3.2 mmol/L (3.5-5.1)
[2019-08-03] MEDS ORDERED: PNEUMOCOCCAL POLYSACCHARIDES 25 MCG/0.5 ML VIAL/SYR IM ONE (05:30)
[2019-08-03] MEDS ORDERED: INFLUENZA VACCINE HIGH DOSE 65+ 0.5 ML SYR IM ONE (05:30)
[2019-08-03] MEDS ORDERED: PNEUMOCOCCAL ADMINISTRATION CHARGE ONE (05:30)
[2019-08-03] MEDS ORDERED: INFLUENZA ADMINISTRATION CHARGE ONE (05:30)
[2019-08-03] MEDS: POTASSIUM CHLORIDE / WTR 10 MEQ/100 ML PLCT IV SCH ×2 (05:30→07:59)
[2019-08-03] MEDS: NSS + 20MEQ KCL 20 MEQ/1,000 ML BAG IV SCH (05:30)
[2019-08-03] MEDS: SUCRALFATE 1 GM/10 ML UDC PO SCH ×4 (07:47→21:30)
[2019-08-03] MEDS: PROPRANOLOL HCL LA 80 MG CAPCR PO SCH (07:49)
[2019-08-03 07:50] LABS: BUN Creatinine Ratio 7.2 (10-20); Calcium 8.4 mg/dl (8.5-10.1); Creatinine Clr Calc Pharmacy 30.4 ml/min; Est GFR (African American) 34.8; Est GFR (Non-African American) 30.1; Potassium 3.7 mmol/L (3.5-5.1)
[2019-08-03] MEDS: CYANOCOBALAMIN 500 MCG TABLET (VITAMIN B-12) PO SCH (07:51)
[2019-08-03] MEDS: ATORVASTATIN 40 MG TAB PO SCH (07:51)
[2019-08-03] MEDS: FOLIC ACID 400 MCG TAB PO SCH (07:52)
[2019-08-03] MEDS: CHOLECALCIFEROL 1,000 UNITS TAB PO SCH (07:52)
[2019-08-03] MEDS: PARoxetine HCl 20 MG TAB PO SCH (07:52)
[2019-08-03] MEDS: INSULIN ASPART 100 UNITS/ML 3 ML PEN SC SCH ×4 (08:09→21:30)
[2019-08-03 08:44] LABS: Albumin Level 3.3 gm/dl (3.4-5.0); Bilirubin Direct 0.2 mg/dl (0-0.2); Bilirubin,Total 0.9 mg/dl (0.2-1); Magnesium 2.1 mg/dl (1.8-2.4); Total Protein 6.3 gm/dl (6.4-8.2)
[2019-08-03] MEDS ORDERED: AMLODIPINE BESYLATE 5 MG TAB PO SCH (09:00)
[2019-08-03] MEDS: CLOPIDOGREL BISULFATE 75 MG TAB PO SCH (10:46)
--- NOTE | 2019-08-03 23:50 | Hospitalist Progress Note ---
Date of Service August 03, 2019 Assessment & Plan (1) Nausea: Appears to have good correlation with antibiotic use as per history gathered today. Continue zantac and carafate. Advance diet as tolerated. US liver - adenomyomatosis at gallbladder fundus of unlikely significance with normal LFTs Agree with holding gemfibrozil as possible contributing. Less likely paroxetine as this was started after nausea. Possible gastritis given CT findings (see below). (2) Abnormal CT of the abdomen: Suspect just gastritis but given weight loss will leave consult to GI as previously arranged as concerned for gastric ca. ?possible need for EGD. (3) Weight loss: Differential as noted above in "nausea." Last TSH was in January 2018 and was wnl. Will repeat with AM labs tomorrow to r/o hyperthyroid state, etc as another cause of weight loss. (4) Hypomagnesemia: Mg 1.0 on admission. Now resolved with IV supplementation, continue to trend. (5) Hypokalemia: Secondary to diarrhea K 3.2 on admission, now resolved. (6) Diarrhea: C. diff negative Stool culture pending (7) Diabetes mellitus: Hold oral agents. Check BSGs ac/hs. Novolog sliding scale for now. Low threshold for basal insulin. (8) History of coronary artery disease: Troponin is negative. Although some women can have atypical anginal symptoms from their CAD I do not believe her 6+ weeks of GI symptoms/weight loss is from such. Hold aspirin for now in light of the CT findings from last week and her ongoing symptoms. Cont plavix due to h/o stents. Cont BB. Cont statin agent. (9) Hyperlipidemia: Cont statin. Hold gemfibrozil for now. (10) Hypertension: cont home medications except for losartan in light of CKD stage 4 and Cr of 2 today (11) Chronic kidney disease, stage IV (severe): baseline Cr 2. Improved since admission near back to baseline. Continue to trend daily. (12) Right shoulder pain: The patient has had right paraspinal cervical pain and right shoulder pain for about 1-2 weeks. (13) Abnormal EKG: Last week's EKG and today's has anterior T wave changes. Despite such she is not reporting any cardiopulmonary / ischemic symptoms. Her troponin is negative. She follows with Dr Vasquez from cardiology. Will follow for now. Place on telemetry. (14) DVT prophylaxis: SCDs for now If H/H remain stable then start heparin 5000 units BID for chemical DVT proph daughter updated at bedside place on telemetry due to low mag and low K Subjective Revisited history with the patient. Initially presented to the ER on 06/25 with chest pain although she points to her RUQ currently, intermittent, possible association with food. Diagnosed with MSK pain and discharged from the ER but lasted intermittently for the next 2 weeks. She'd have approx 10 episodes a day lasting for 5-10 minutes a time. She also followed up with cardiology and agreed most likely MSK pain. She returned to the ER 07/09 with foot pain and diagnosed with cellulitis although she feels in hindsight this pain have been more just arthritis and was mainly ankle swelling. She was put on antibiotics and has felt nauseous since. Returned to her family doctor for panic attacks on 07/24 and started on paroxetine. Returned to ER on 07/26 with worsening nausea and diagnosed with UTI, eventual culture mixed but was placed on a course of anti biotics at that time. CT most notable for mild gastritis at that time. Returns on this occasion with decreased appetite and ongoing nausea. She reports minimal improvement since admission. Tolerating small amounts of liquid diet at present. Review of Systems Review of Systems: All systems reviewed & are unremarkable except as noted in HPI & below left foot pain over 5th mid MT superiorly without any skin changes Physical Exam Constitutional: + obese; no acute distress, not ill appearing and no altered mental status Eyes: + anicteric sclerae; normal pupil size ENMT: external ear and nose normal, oropharynx normal Neck: trachea midline, no thyromegaly Respiratory: normal respiratory effort, lungs clear to auscultation Cardiovascular: Rate/Rhythm: regular rate and regular rhythm Heart Sounds: normal S1 and normal S2; no murmur Vessels: no JVD Extremities: + edema (Trace b/l) Gastrointestinal (Abdomen): Inspection/Auscultation: abdomen normal to inspection and normal bowel sounds; abdomen not distended Percussion/Palpation: + abdomen tender (Mild epigastric) and abdomen soft; no guarding and abdomen not rigid Musculoskeletal: no cyanosis or clubbing, extremities motor strength 5/5 Skin: no rashes, warm and dry Neurologic: moves all extremities and awake; no focal motor deficits and not confused Motor/Sensory: no tremor and no pronator drift Psychiatric: A+Ox3, euthymic affect Lymphatic: no cervical lymphadenopathy Results & Data Vital Signs (Past 12 Hours) Vital Signs Temp Pulse Pulse Pulse Resp BP Pulse Ox 08/03/19 23:30 98.4 F 60 18 113/62 90 08/03/19 19:29 98.2 F 54 L 18 133/77 93 08/03/19 15:45 98.1 F 59 L 18 104/60 93 08/03/19 15:04 60 PG Care Time/CCT Total # of Minutes Spent Total Time Spent with Patient: Total time spent is greater than 50% in coordination of care (as documented) at patient's floor/unit and/or counseling patient: (1) Diabetes mellitus Chronic kidney disease stage: stage 3 (moderate) Diabetes mellitus complication detail: with chronic kidney disease Diabetes mellitus complication status: with kidney complications Diabetes mellitus senior living insulin use: without senior living use Diabetes mellitus type: type 2 Qualified Code(s): E11.22 - Type 2 diabetes mellitus with diabetic chronic kidney disease; N18.3 - Chronic kidney disease, stage 3 (moderate) (2) Diarrhea Diarrhea type: unspecified type Qualified Code(s): R19.7 - Diarrhea, unspecified (3) Hyperlipidemia Hyperlipidemia type: mixed hyperlipidemia Qualified Code(s): E78.2 - Mixed hyperlipidemia (4) Right shoulder pain Chronicity: unspecified Qualified Code(s): M25.511 - Pain in right shoulder (5) Hypertension Hypertension type: essential hypertension Qualified Code(s): I10 - Essential (primary) hypertension
[2019-08-04] MEDS: ACETAMINOPHEN 325 MG TAB PO PRN ×3 (04:44→16:32)
[2019-08-04 08:09] LABS: Basophils # (auto) 0.02 K/uL (0-0.2); Basophils % (auto) 0.3 %; Eosinophils # (auto) 0.18 K/uL (0-0.5); Eosinophils % (auto) 2.4 %; Hematocrit (blood only) 32.2 % (37-47); Immature Granulocytes # (auto) 0.01 K/uL (0.00-0.02); Immature Granulocytes % (auto) 0.1 %; Lymphocytes % (auto) 20.2 %; Mean Corpuscular Hemoglobin 30.8 pg (25-34); Mean Corpuscular Hgb Conc 34.2 g/dL (32-36); Mean Corpuscular Volume 90.2 fL (80-100); Mean Platelet Volume 10.7 fL (7.4-10.4); Monocytes # (auto) 0.75 K/uL (0.11-0.59); Monocytes % (auto) 10.1 %; Neutrophils # (auto) 4.95 K/uL (1.4-6.5); Neutrophils % (auto) 66.9 %; Platelet Count 113 K/uL (130-400); RDW Coefficient of Variation 14.6 % (11.5-14.5); Red Blood Count 3.57 M/uL (4.2-5.4); White Blood Count 7.41 K/uL (4.8-10.8)
[2019-08-04 08:37] LABS: BUN Creatinine Ratio 5.7 (10-20); Calcium 8.7 mg/dl (8.5-10.1); Creatinine Clr Calc Pharmacy 35.9 ml/min; Est GFR (African American) 42.6; Est GFR (Non-African American) 36.7; Potassium 3.6 mmol/L (3.5-5.1)
[2019-08-04 08:39] LABS: Bilirubin,Total 0.9 mg/dl (0.2-1); Globulin 2.9 gm/dl (2.5-4.0); Total Protein 5.9 gm/dl (6.4-8.2)
[2019-08-04] MEDS: CYANOCOBALAMIN 500 MCG TABLET (VITAMIN B-12) PO SCH (08:39)
[2019-08-04] MEDS: LACTOBACILLUS ACIDOPHILUS (FLORANEX) TAB PO SCH ×4 (08:39→21:42)
[2019-08-04] MEDS: CLOPIDOGREL BISULFATE 75 MG TAB PO SCH (08:40)
[2019-08-04] MEDS: PARoxetine HCl 20 MG TAB PO SCH (08:40)
[2019-08-04] MEDS: ATORVASTATIN 40 MG TAB PO SCH (08:40)
[2019-08-04] MEDS: PROPRANOLOL HCL LA 80 MG CAPCR PO SCH (08:40)
[2019-08-04] MEDS: CHOLECALCIFEROL 1,000 UNITS TAB PO SCH (08:41)
[2019-08-04] MEDS: FOLIC ACID 400 MCG TAB PO SCH (08:41)
[2019-08-04] MEDS: SUCRALFATE 1 GM/10 ML UDC PO SCH ×4 (08:41→21:42)
[2019-08-04] MEDS: INSULIN ASPART 100 UNITS/ML 3 ML PEN SC SCH ×4 (08:44→21:40)
--- NOTE | 2019-08-04 13:36 | Consultation Report ---
DATE OF CONSULTATION: 08/04/2019 REFERRED BY: Dr. Parminder Hussein. HISTORY OF PRESENT ILLNESS: I was asked by Dr. Hussein to consult on this woman for evaluation of upper GI symptoms. The patient is a 78-year-old who was admitted on the because of issues with nausea and abdominal discomfort. She states that she has been unable to eat a lot for a few weeks and she describes subjective weight loss of about 15-20 pounds. She had some associated nausea but denies any true vomiting. Some of these symptoms may have started back when she received a course of antibiotics for cellulitis. She also has been struggling with some loose stools. She denies any rectal bleeding. She denies dysphagia. She states that she just does not feel hungry and when she eats she feels up very quickly. She has been on Protonix twice a day and has had Carafate added to her treatment, neither have helped. She has seen Dr. Adams in the past and has had several colonoscopies by him. Her last colonoscopy was several years ago. She has a history of polyps. She states that her sugars have been "relatively good." PAST MEDICAL HISTORY: I reviewed her medical records and her past medical history and her past medical history is significant for diabetes, coronary artery disease, hyperlipidemia, hypertension, chronic kidney disease. OUTPATIENT MEDICATIONS: Include numerous vitamins, Lasix, losartan, glimepiride, propranolol, atorvastatin, clopidogrel, lorazepam, amlodipine, gemfibrozil, mag oxide, Protonix twice a day, paroxetine, baby aspirin. ALLERGIES: SHE STATES SHE IS ALLERGIC TO CLARITHROMYCIN, AMOXICILLIN, CLAVULANIC ACID, LISINOPRIL AND MACROLIDES. SOCIAL HISTORY: Not significant for active smoking or drinking. FAMILY HISTORY: Negative for gastrointestinal disease. REVIEW OF SYSTEMS: As above, otherwise she denies any recent change in vision or hearing. She has had no history of seizures. She denies any icterus, jaundice or pruritus. She denies any joint swelling. She denies any heat or cold intolerance. She denies any dysuria. She denies any productive cough. She has had no recent issues with increasing shortness of breath, or intolerance to exercise, though she is very fatigued. She denies recent fevers. She denies recent issues with bruising. She has had no hair loss. She feels that she has had no issues with any recent change in mood. PHYSICAL EXAMINATION: GENERAL: Reveals a pleasant woman in no distress, appearing comfortable in bed. VITAL SIGNS: Most recent blood pressure is 118/61, pulse is 59, temperature is 36.6. SKIN: Anicteric. EYES: Show anicteric sclerae. MOUTH: Clear lesions. NECK: Supple with no adenopathy. CHEST: Has good breath sounds and is clear. HEART: Regular to slightly bradycardic. ABDOMEN: Soft with good bowel sounds. There is no organomegaly, masses, rebound tenderness noted. EXTREMITIES: Warm with fair distal pulses. NEUROLOGIC: She is alert and oriented x3 and grossly intact. LABORATORY DATA: Show a white blood cell count of 8 on admission, hemoglobin is 11, platelet count is 152,000. Liver enzymes were normal and CAT scan of the abdomen and pelvis with oral contrast only showed gastric fold thickening. No other sinister pathology was seen except for some possible small bowel adhesions. IMPRESSION: A 78-year-old woman with early satiety, epigastric discomfort, weight loss, abnormal imaging on CAT scan. I see that her stool has been checked for C. diff and it has been negative which is good given her antibiotic use and loose stools. I think it is reasonable to set her up for an upper endoscopy to investigate the abnormal gastric fold findings on CAT scan. I will set this up for Dr. Adams who knows the patient. It is unclear whether this could be related to diabetes and gastroparesis; however, an endoscopy would rule out sinister upper gastrointestinal pathology. Continue to look for other non-GI sources for her symptoms.
[2019-08-04] MEDS ORDERED: OXYCODONE HCL IR 5 MG TAB (IMMEDIATE RELEASE) PO PRN (17:17)
--- NOTE | 2019-08-04 18:17 | Hospitalist Progress Note ---
Date of Service August 04, 2019 Assessment & Plan (1) Nausea: Suspect correlation with antibiotics causing gastritis. Continue zantac and carafate. Advance diet as tolerated. Appears to have resolved today. Recommending advancing diet after endoscopy tomorrow. 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 Agree with holding gemfibrozil as possible contributing. Less likely paroxetine as this was started after nausea. Possible gastritis given CT findings [see below] (2) Abnormal CT of the abdomen: Plan for EGD in a.m. Due to weight loss and early satiety. 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 Current wrist swelling and pain without a erythema or warmth. Possibly related to cannula placement although no infiltration and this flushed normally prior to removal this morning. Worse with ice Lyme test negative. Deferred gonorrhea and chlamydia testing, sexual history not taken, consider testing if no viable cause of reactive arthritis found. Unable to give NSAIDs or steroids due to gastritis with EGD planned tomorrow. Consider starting prednisone pending EGD findings. Overnight will prescribe oxycodone for pain relief and advised patient to elevate hand above her head (4) Weight loss: Suspect secondary to nausea. EGD to rule out cancerous cause. Last TSH was in January 2018 and was wnl. (5) Hypomagnesemia: Mg 1.0 on admission. Now resolved with IV supplementation, continue to trend. (6) Hypokalemia: Secondary to diarrhea K 3.2 on admission, now resolved. (7) Diarrhea: C. diff negative Stool culture negative Continue lactobacillus due to recent antibiotic use. (8) Diabetes mellitus: Holding glimepiride. 0 units of NovoLog sliding scale required. Suspect due to reduced oral intake on liquid diet. (9) History of coronary artery disease: Troponin is negative. Hold aspirin for now in light of the CT findings from last week and her ongoing symptoms. Cont plavix due to h/o stents. Cont BB. Cont statin agent. (10) Hyperlipidemia: Cont statin. Hold gemfibrozil for now. (11) Hypertension: Holding Lasix and losartan due to setting of CKD (12) Chronic kidney disease, stage IV (severe): baseline Cr 2. Now improved to 1.4. Questionable needs to restart Lasix as remains euvolemic and suspect this was decreasing her renal function. (13) Right shoulder pain: Now resolved. Possible part of inflammatory arthritis as above. (14) DVT prophylaxis: SCDs for now Hold heparin prior to EGD. If she stays beyond tomorrow recommend chemical DVT prophylaxis. Subjective Patient seen after seen by gastroenterology. She informs me the plan is for endoscopy tomorrow. However her main concern right now is her left wrist pain which is been going on since she woke up at 5 AM this morning. She denies falling on it. Her hand did have a cannula placed over her first MCPJ however while she was having pain this was flushed and did not change her pain in any way. She is only been getting Zantac through this IV. I had advised ice to be placed upon her wrist but she reports this made it worse. Warm packs make no difference. She reports her nausea is mostly resolved at this point. Her left toe pain has also resolved. Review of Systems Review of Systems: All systems reviewed & are unremarkable except as noted in HPI & below Physical Exam Constitutional: + obese; no acute distress, not ill appearing and no altered mental status Eyes: + anicteric sclerae; normal pupil size ENMT: external ear and nose normal, oropharynx normal Neck: trachea midline, no thyromegaly Respiratory: normal respiratory effort, lungs clear to auscultation Cardiovascular: Rate/Rhythm: regular rate and regular rhythm Heart Sounds: normal S1 and normal S2; no murmur Vessels: no JVD Extremities: + edema (Trace b/l) Gastrointestinal (Abdomen): Inspection/Auscultation: abdomen normal to inspection and normal bowel sounds; abdomen not distended Percussion/Palpation: abdomen soft; abdomen nontender (Resolved), no guarding and abdomen not rigid Musculoskeletal: Swelling and pain surrounding left wrist. Unable to reproduce pain on distal or proximal muscle/tendon movements. No erythema. Skin: no rashes, warm and dry Neurologic: moves all extremities and awake; no focal motor deficits and not confused Motor/Sensory: no tremor and no pronator drift Psychiatric: A+Ox3, euthymic affect Lymphatic: no cervical lymphadenopathy Results & Data Vital Signs (Past 12 Hours) Vital Signs Temp Pulse Resp BP Pulse Ox 08/04/19 07:19 97.9 F 59 L 18 118/61 90 PG Care Time/CCT Total # of Minutes Spent Total Time Spent with Patient: Total time spent is greater than 50% in coordination of care (as documented) at patient's floor/unit and/or counseling patient: (1) Diarrhea Diarrhea type: unspecified type Qualified Code(s): R19.7 - Diarrhea, unspecified (2) Diabetes mellitus Diabetes mellitus type: 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-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 Diabetes mellitus complication status: with kidney complications Diabetes mellitus complication detail: with chronic kidney disease Chronic kidney disease stage: stage 3 (moderate) Qualified Code(s): E11.22 - Type 2 diabetes mellitus with diabetic chronic kidney disease; N18.3 - Chronic kidney disease, stage 3 (moderate) (3) Hyperlipidemia Hyperlipidemia type: mixed hyperlipidemia Qualified Code(s): E78.2 - Mixed hyperlipidemia (4) Hypertension Hypertension type: essential hypertension Qualified Code(s): I10 - Essential (primary) hypertension (5) Right shoulder pain Chronicity: unspecified Qualified Code(s): M25.511 - Pain in right shoulder
[2019-08-04 18:44] LABS: Lyme Ab IgG w/WB Rflx Negative (Negative)
[2019-08-04 18:45] LABS: Lyme Ab IgM w/WB Rflx Negative (Negative)
[2019-08-04] MEDS: LACTATED RINGER'S 1,000 ML IV SCH (23:15)
[2019-08-05 06:28] LABS: Basophils # (auto) 0.03 K/uL (0-0.2); Basophils % (auto) 0.4 %; Eosinophils # (auto) 0.12 K/uL (0-0.5); Eosinophils % (auto) 1.6 %; Hematocrit (blood only) 31.9 % (37-47); Immature Granulocytes # (auto) 0.02 K/uL (0.00-0.02); Immature Granulocytes % (auto) 0.3 %; Lymphocytes # (auto) 1.48 K/uL (1.2-3.4); Lymphocytes % (auto) 20.1 %; Mean Corpuscular Hemoglobin 30.8 pg (25-34); Mean Corpuscular Hgb Conc 34.5 g/dL (32-36); Mean Corpuscular Volume 89.4 fL (80-100); Mean Platelet Volume 11.1 fL (7.4-10.4); Monocytes # (auto) 1.04 K/uL (0.11-0.59); Monocytes % (auto) 14.1 %; Neutrophils # (auto) 4.66 K/uL (1.4-6.5); Neutrophils % (auto) 63.5 %; Platelet Count 109 K/uL (130-400); RDW Coefficient of Variation 14.3 % (11.5-14.5); RDW Standard Deviation 46.3 fL (36.4-46.3); Red Blood Count 3.57 M/uL (4.2-5.4); White Blood Count 7.35 K/uL (4.8-10.8)
[2019-08-05 06:41] LABS: INR 1.2 (0.9-1.1); Prothrombin Time 11.9 Seconds (9.0-12.0)
[2019-08-05 07:05] LABS: BUN Creatinine Ratio 4.8 (10-20); Calcium 8.4 mg/dl (8.5-10.1); Est GFR (Non-African American) 40.6; Potassium 3.4 mmol/L (3.5-5.1)
[2019-08-05 07:17] LABS: Bilirubin,Total 1.2 mg/dl (0.2-1); Thyroid Stimulating Hormone 0.258 uIu/ml (0.300-4.500)
[2019-08-05 07:29] LABS: T4 Free Thyroxine 1.18 ng/dl (0.8-1.6)
[2019-08-05] MEDS: INSULIN ASPART 100 UNITS/ML 3 ML PEN SC SCH ×4 (08:02→21:25)
[2019-08-05] MEDS: LACTOBACILLUS ACIDOPHILUS (FLORANEX) TAB PO SCH ×4 (08:12→20:04)
--- NOTE | 2019-08-05 09:23 | History & Physical Bridge Note ---
Date of Service August 05, 2019 History & Physical Bridge Note I have examined the patient, reviewed the History & Physical and in the interval since the performance of the History & Physical I have noted the following changes of clinical significance: no changes noted. Patient has been NPO since midnight when she had her last sips of liquid. She has not had a meal since around 6 PM for dinner. Proceed with EGD today for further evaluation. Supervising Physician Co-Signing Physician Notes Agree with TONY Lee as above Abd: Soft, NT, ND, +BS Continue current therapy Proceed with EGD for abnormal CT imaging findings and abdominal pain.
--- NOTE | 2019-08-05 11:08 | Anesthesiology Consultation ---
Date of Service August 05, 2019 Assessment & Plan (1) Encounter for pre-operative examination: Chart Review Chart Review: Acceptable Risk for Surgery and Patient NOT seen in Pre Admission Testing Consults Requested none History Surgery Operation Date: 08/05/19 16:30 Proposed Procedures p Esophagogastroduodenoscopy Dr Adams - Sky Mcbride Case, DO Height/Weight Height: 5 ft 3 in Weight: 86.6 kg Allergies Allergy/AdvReac Type Severity Reaction Status Date / Time clarithromycin Allergy Unknown UNKNOWN Verified 08/02/19 13:53 amoxicillin AdvReac Mild GI SYMPTOMS Verified 08/02/19 13:53 clavulanic acid AdvReac Mild GI SYMPTOMS Verified 08/02/19 13:53 Lisinopri AdvReac Mild cough Uncoded 08/02/19 13:53 Macrolides AdvReac Unknown Unknown Uncoded 08/02/19 13:53 Medications Home Medications Medication Instructions Recorded Confirmed Last Taken cholecalciferol (vitamin D3) 5,000 5,000 units PO DAILY #30 cap 02/17/19 08/02/19 07/09/19 unit capsule folic acid 800 mcg tablet 0.8 mg PO DAILY tab 04/11/19 08/02/19 07/09/19 furosemide 40 mg tablet 40 mg PO BID #180 tab 04/11/19 08/02/19 07/09/19 losartan 25 mg tablet 25 mg PO DAILY #90 tab 04/11/19 08/02/19 07/09/19 nitroglycerin 0.4 mg sublingual 0.4 mg SL Q5M PRN #25 tab 04/11/19 08/02/19 Unknown tablet glimepiride 2 mg tablet 2 mg PO DAILY #90 tab 05/13/19 08/02/19 07/09/19 propranolol 160 mg capsule,24 160 mg PO DAILY #90 cap 05/13/19 08/02/19 07/09/19 hr,extended release atorvastatin 40 mg tablet 40 mg PO DAILY #90 tab 05/27/19 08/02/19 07/09/19 clopidogrel 75 mg tablet 75 mg PO DAILY #90 tab 05/31/19 08/02/19 07/09/19 lorazepam 0.5 mg tablet 0.25 mg PO DAILY PRN #10 tab 07/16/19 08/02/19 Unknown amlodipine 10 mg tablet 5 mg PO DAILY tab 07/24/19 08/02/19 Unknown cyanocobalamin (vitamin B-12) 1,000 mcg PO DAILY 07/24/19 08/02/19 Unknown 1,000 mcg capsule gemfibrozil 600 mg tablet 600 mg PO DAILY #180 tab 07/24/19 08/02/19 Unknown magnesium oxide 500 mg tablet 500 mg PO DAILY tab 07/24/19 08/02/19 Unknown omeprazole 20 mg capsule,delayed 20 mg PO DAILY 07/24/19 08/02/19 Unknown release pantoprazole 40 mg tablet,delayed 40 mg PO DAILY #90 tab 07/24/19 08/02/19 Unknown release paroxetine HCl 20 mg tablet 20 mg PO DAILY #30 tab 07/24/19 08/02/19 Unknown aspirin [Aspir-81] 81 mg PO DAILY 07/26/19 08/02/19 Unknown cefdinir 300 mg PO BID 10 Days #20 cap 07/26/19 08/02/19 Unknown ondansetron HCl [Zofran] 4 mg PO Q6H PRN #6 tab 07/26/19 08/02/19 Unknown Active Medications Generic Name Dose Route Start Last Admin Trade Name Freq PRN Reason Stop Dose Admin Acetaminophen 650 mg 08/02/19 16:17 08/04/19 16:32 Tylenol PO 09/01/19 16:16 650 mg Q4H PRN Administration Pain or Fever Atorvastatin Calcium 40 mg 08/03/19 09:00 08/04/19 08:40 Lipitor PO 09/02/19 08:59 40 mg DAILY ZAHRA Administration Clopidogrel Bisulfate 75 mg 08/03/19 09:00 08/04/19 08:40 Plavix PO 09/02/19 08:59 75 mg DAILY ZAHRA Administration Cyanocobalamin 1,000 mcg 08/03/19 09:00 08/04/19 08:39 Vitamin B-12 PO 09/02/19 08:59 1,000 mcg DAILY ZAHRA Administration Folic Acid 800 mcg 08/03/19 09:00 08/04/19 08:41 Folvite PO 09/02/19 08:59 800 mcg DAILY ZAHRA Administration Ranitidine HCl 50 mg/ Dextrose 102 mls @ 200 mls/hr 08/02/19 17:00 08/05/19 01:42 IV 09/01/19 16:59 Infused Q8H ZAHRA Infusion Lactated Ringer's 1,000 mls @ 80 mls/hr 08/04/19 23:30 08/05/19 10:32 Lr IV 09/03/19 23:29 0 mls/hr .[id number] ZAHRA Infusion Insulin Aspart 0 units 08/02/19 18:00 08/05/19 08:02 Novolog Flexpen SC 09/01/19 17:59 Not Given ACHS ZAHRA Lactobacillus Acidophilus 4 tab 08/04/19 08:00 08/05/19 08:12 Floranex PO 09/03/19 07:59 Not Given QIDM ZAHRA Lorazepam 0.25 mg 08/02/19 16:17 08/04/19 04:45 Ativan PO 09/01/19 16:16 0.25 mg DAILY PRN Administration anxiety Oxycodone HCl 5 mg 08/04/19 17:17 08/04/19 17:45 Roxicodone Immediate Rel PO 08/18/19 17:16 5 mg Q4H PRN Administration Pain Paroxetine HCl 20 mg 08/03/19 09:00 08/04/19 08:40 Paxil PO 09/02/19 08:59 20 mg DAILY ZAHRA Administration Propranolol HCl 160 mg 08/03/19 09:00 08/04/19 08:40 Inderal La PO 09/02/19 08:59 160 mg DAILY ZAHRA Administration Sucralfate 1 gm 08/02/19 17:00 08/04/19 21:42 Carafate PO 09/01/19 16:59 1 gm QID ZAHRA Administration Vitamin D 5,000 units 08/03/19 09:00 08/04/19 08:41 Vitamin D3 PO 09/02/19 08:59 5,000 units DAILY ZAHRA Administration NPO Date Last Intake of Fluids: 08/04/19 Time Last Intake of Fluids: 23:30 Date Last Intake of Solids: 08/04/19 Time Last Intake of Solids: 18:00 Past Medical History Medical History Acute [place], lateral wall, initial episode of care (Resolved 08/04/13) ARF (acute renal failure) Arteriosclerotic cardiovascular disease (Acute) Chronic reflux esophagitis (Acute) Diabetes mellitus (Acute) Elevated troponin (Acute) History of coronary artery disease (Acute) s/p stents Hyperlipidemia (Chronic) Hypertension (Chronic) NSTEMI (non-ST elevated myocardial infarction) (Resolved 08/04/13) s/p stents Presence of stent in artery (Resolved) SBO (small bowel obstruction) UTI (urinary tract infection) (Acute) Past Family History Family History Mother , from complications of a fall ; age 92 Breast cancer stage 4 Sister Breast cancer Father , 60s Coronary heart disease s/p CABG Past Surgical History Surgical History History of intestinal surgery small bowel resection Hx of hernia repair ventral hernia repair w/ mesh; year? Social History Smoking Status: Former smoker Hx Alcohol Use: No Hx Substance Use: No Physical Exam Vital Signs Last Vital Signs Temp 37.1 C 08/05/19 10:49 Pulse 58 L 08/05/19 10:49 Resp 20 08/05/19 10:49 BP 133/79 08/05/19 10:49 Pulse Ox 94 08/05/19 10:49 Testing Laboratory Results 08/05/19 05:50 08/05/19 05:50 PT 11.9 Seconds (9.0-12.0) 08/05/19 05:50 INR 1.2 (0.9-1.1) H 08/05/19 05:50 Urine Color Dark Yellow 08/02/19 17:43 Urine Appearance Clear (Clear) 08/02/19 17:43 Urine pH 5.5 (4.5-7.5) 08/02/19 17:43 Ur Specific [place] 1.021 (1.000-1.030) 08/02/19 17:43 Urine Protein Trace (Negative) H 08/02/19 17:43 Urine Glucose (UA) Negative (Negative) 08/02/19 17:43 Urine Ketones Trace (Negative) H 08/02/19 17:43 Urine Nitrite Negative (Negative) 08/02/19 17:43 Ur Leukocyte Esterase Negative (Negative) 08/02/19 17:43 Urine WBC (Auto) 1-5 /hpf (0-5) 08/02/19 17:43 Urine RBC (Auto) 0-4 /hpf (0-4) 08/02/19 17:43 U Hyaline Cast (Auto) 10-30 /lpf (0-5) H 08/02/19 17:43 U Epithel Cells (Auto) >30 /lpf (0-5) H 08/02/19 17:43 Urine Bacteria (Auto) Negative (Negative) 08/02/19 17:43 08/02/19 17:43 Escherichia coli Shiga Toxins Test - Final Stool Stool Culture - Final No Salmonella isolated, No Shigella isolated, No Campylobacter jejuni isolated. 08/02/19 17:43 Urine Culture - Preliminary Urine,Clean Catch Yeast not [place] albicans 08/05/19 06:45 POC Glucose 122 H
[2019-08-05] MEDS ORDERED: ATROPINE SULFATE 0.1 MG/ML 10ML SYR IV PRN (11:11)
[2019-08-05] MEDS ORDERED: ePHEDrine sulfate 50 MG/ML AMP IV PRN (11:11)
[2019-08-05] MEDS ORDERED: PROPOFOL IV EMULSION 10 MG/ML 20 ML VIAL IV ONE (11:46)
[2019-08-05] MEDS ORDERED: LIDOCAINE HCL 2% 2 ML VIAL/AMP(20MG/ML) INFIL ONE (11:46)
--- NOTE | 2019-08-05 11:51 | GI REPORT ---
Patient Name: Clay Pederson Procedure Date: 08/05/2019 10:59 AM Date of : 1940 Admit Type: Inpatient Age: 78 Gender: Female Attending MD: Sky Adams DO Procedure: Upper GI endoscopy Providers: Sky Adams DO Referring MD: Franck Lester Indications: Abnormal CT of the GI tract Medicines: Monitored Anesthesia Care Complications: No immediate complications. Estimated Blood Loss: Estimated blood loss: none. Procedure: Pre-Anesthesia Assessment: - Prior to the procedure, a History and Physical was performed, and patient medications and allergies were reviewed. The patient's tolerance of previous anesthesia was also reviewed. The risks and benefits of the procedure and the sedation options and risks were discussed with the patient. All questions were answered, and informed consent was obtained. Prior Anticoagulants: The patient last took aspirin 1 day and Plavix (clopidogrel) 1 day prior to the procedure. ASA Grade Assessment: IV - A patient with severe systemic disease that is a constant threat to life. After reviewing the risks and benefits, the patient was deemed in satisfactory condition to undergo the procedure. After obtaining informed consent, the endoscope was passed under direct vision. Throughout the procedure, the patient's blood pressure, pulse, and oxygen saturations were monitored continuously. The Endoscope was introduced through the mouth, and advanced to the second part of duodenum. The upper GI endoscopy was accomplished without difficulty. The patient tolerated the procedure well. Findings: The examined esophagus was normal. A small hiatal hernia was present. Diffuse moderate inflammation characterized by granularity was found in the entire examined stomach. Biopsies were taken with a cold forceps for histology. The examined duodenum was normal. Impression: - Normal esophagus. - Small hiatal hernia. - Gastritis. Biopsied. - Normal examined duodenum. Recommendation: - Resume previous diet. - Continue present medications. - Await pathology results. - Return to primary care physician as previously scheduled. Sky Adams DO 08/05/2019 11:51:25 AM This report has been signed electronically. Note Initiated On: 08/05/2019 10:59 AM Number of Addenda: 0 I attest to the content of the Intraoperative Record and orders documented therein, exceptions below {[id number]}
[2019-08-05] MEDS: SUCRALFATE 1 GM/10 ML UDC PO SCH ×4 (12:48→20:04)
[2019-08-05] MEDS: PARoxetine HCl 20 MG TAB PO SCH (12:48)
[2019-08-05] MEDS: CYANOCOBALAMIN 500 MCG TABLET (VITAMIN B-12) PO SCH (12:48)
[2019-08-05] MEDS: ATORVASTATIN 40 MG TAB PO SCH (12:48)
[2019-08-05] MEDS: PROPRANOLOL HCL LA 80 MG CAPCR PO SCH (12:48)
[2019-08-05] MEDS: CHOLECALCIFEROL 1,000 UNITS TAB PO SCH (12:48)
[2019-08-05] MEDS: POTASSIUM CHLORIDE / WTR 10 MEQ/100 ML PLCT IV SCH ×2 (12:49→13:59)
[2019-08-05] MEDS: FOLIC ACID 400 MCG TAB PO SCH (12:49)
[2019-08-05] MEDS: LACTATED RINGER'S 1,000 ML IV SCH (13:59)
--- NOTE | 2019-08-05 16:58 | Anesthesiology Progress Note ---
Date of Service August 05, 2019 Anesthesia Post Procedure Vital Signs Vital Signs: Temp Pulse Pulse Resp BP BP Pulse Ox 08/05/19 15:34 36.8 C 65 16 123/69 94 08/05/19 12:24 59 L 20 138/61 94 08/05/19 12:10 54 L 16 130/64 95 08/05/19 11:54 62 16 114/57 L 94 08/05/19 10:49 37.1 C 58 L 20 133/79 94 08/05/19 07:41 37.1 C 61 18 143/72 H 90 08/04/19 23:26 37.0 C 63 19 133/62 97 Pain Intensity Left Hand: Pain Intensity: 5 Transfer of Care Handoff Completed per policy Notes Mental Status: alert / awake / arousable Patient Amnestic to Procedure: Yes Nausea / Vomiting: adequately controlled Pain: adequately controlled Airway Patency, RR, SpO2: stable & adequate BP & HR: stable & adequate Hydration State: stable & adequate Anesthetic Complications: no major complications apparent and Pt Satisfied with anesthetic care
[2019-08-05] MEDS ORDERED: KETOROLAC TROMETHAMINE 15 MG/ML VIAL IV ONE (19:14)
[2019-08-05] MEDS ORDERED: LOPERAMIDE HCL 2 MG CAP PO STA (19:22)
[2019-08-05] MEDS ORDERED: LOPERAMIDE HCL 2 MG CAP PO PRN (19:22)
--- NOTE | 2019-08-05 19:22 | Hospitalist Progress Note ---
Date of Service August 05, 2019 Assessment & Plan (1) Gastritis: Presented with persistent nausea. 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 Now resolved Continue carafate and PPI started as above Advance diet as tolerated. 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 Agree with holding gemfibrozil as possible contributing. Less likely paroxetine as this was started after nausea. (4) Abnormal CT of the abdomen: secondary to gastritis (5) Inflammatory arthritis: Consistent with inflammatory/reactive arthritis given prior history of right ankle swelling and toe pains at different points in the last 2 weeks. Current wrist swelling and pain possibly related to IV site Lyme test negative. Deferred gonorrhea and chlamydia testing, sexual history not taken, consider testing if no viable cause of reactive arthritis found. -plan as above (6) Weight loss: Suspect secondary to nausea. EGD w/ gastritis as above Last TSH was in January 2018 and was wnl. -TSH now mildly low at 0.2 but FT4 normal (7) Hypomagnesemia: Mg 1.0 on admission. Now resolved with IV supplementation, continue to trend. (8) Hypokalemia: Secondary to diarrhea K 3.2 on admission, now improved but still at 3.4 -replace with KCl -follow BMP (9) Diarrhea: C. diff negative Stool culture negative Continue lactobacillus due to recent antibiotic use. -add immodium as C. diff negative (10) Diabetes mellitus: Holding glimepiride. 0 units of NovoLog sliding scale required. Suspect due to reduced oral intake on liquid diet. (11) History of coronary artery disease: Troponin is negative. 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 (12) Hyperlipidemia: Cont statin. -continue to hold gemfibrozil for now. (13) Hypertension: Holding Lasix and losartan due to setting of dehydration (14) Chronic kidney disease, stage IV (severe): baseline Cr 2. Now improved to 1.28 with holding lasix and losartan and giving IVFs Questionable needs to restart Lasix as remains euvolemic and suspect this was decreasing her renal function. -dc IVFs (15) Right shoulder pain: Now resolved. Possible part of inflammatory arthritis as above. (16) Thrombocytopenia: plts mildly low at 109, no previous h/o thrombocytopenia No splenomegaly on imaging, no h/o liver issues chronically although fatty liver on CT scan -no evidence of bleeding -follow CBC (17) Anemia: mild, hgb 11 may be hemodilutional, no obvious bleeding but may have been some from gastritis -holding ASA, ok to restart Plavix -follow CBC (18) DVT prophylaxis: SCDs Dispo-hopefully to home tomorrow Subjective Still having 2 loose stools today which is decreased from previous but did not eat all day for EGD. EGD showed gastritis. Had liquids for dinner and tolerated. Reports nausea is improved, denies abd pains. Denies CP or SOB. Denies lightheadedness and is ambulating independently to the bathroom. Biggest complaint right now is actually pain in her left wrist. She had an IV site infiltrate there this admission and it remains swollen and exquisitely painful to move and to the touch. Review of Systems Review of Systems: All systems reviewed & are unremarkable except as noted in HPI & below Physical Exam Constitutional: WD/WN, vitals as above Eyes: + anicteric sclerae Neck: trachea midline, no thyromegaly Respiratory: normal respiratory effort, lungs clear to auscultation Cardiovascular: RRR, no murmur, no edema Gastrointestinal (Abdomen): normal bowel sounds, soft, nontender, no hepatosplenomegaly Musculoskeletal: Extremities: + extremities abnormal to inspection (left wrist with mild erythema,warmth,edema), no cyanosis and no clubbing Left wrist with exquisite tenderness to palpation over joint; significantly decreased passive and active ROM, +warmth to the touch Skin: no rashes, warm and dry Neurologic: moves all extremities and awake; no focal motor deficits Psychiatric: A+Ox3, euthymic affect Results & Data Vital Signs (Past 12 Hours) Vital Signs Temp Pulse Pulse Resp BP BP Pulse Ox 08/05/19 15:34 36.8 C 65 16 123/69 94 08/05/19 12:24 59 L 20 138/61 94 08/05/19 12:10 54 L 16 130/64 95 08/05/19 11:54 62 16 114/57 L 94 08/05/19 10:49 37.1 C 58 L 20 133/79 94 08/05/19 07:41 37.1 C 61 18 143/72 H 90 Laboratory Results 08/05/19 08/05/19 08/05/19 Range/Units 17:05 12:33 06:45 WBC (4.8-10.8) K/uL RBC (4.2-5.4) M/uL Hgb (12.0-16.0) g/dL Hct (37-47) % MCV (80-100) fL MCH (25-34) pg MCHC (32-36) g/dL RDW Std Deviation (36.4-46.3) fL RDW Coeff of Juan (11.5-14.5) % Plt Count (130-400) K/uL MPV (7.4-10.4) fL Immature Gran % (Auto) % Neut % (Auto) % Lymph % (Auto) % [place] % (Auto) % Eos % (Auto) % Baso % (Auto) % Immature Gran # (Auto) (0.00-0.02) K/uL Neut # (Auto) (1.4-6.5) K/uL Lymph # (Auto) (1.2-3.4) K/uL [place] # (Auto) (0.11-0.59) K/uL Eos # (Auto) (0-0.5) K/uL Baso # (Auto) (0-0.2) K/uL PT (9.0-12.0) Seconds INR (0.9-1.1) Sodium (136-145) mmol/L Potassium (3.5-5.1) mmol/L Chloride (98-107) mmol/L Carbon Dioxide (21-32) mmol/L Anion Gap (3-11) BUN (7-18) mg/dl Creatinine (0.6-1.2) mg/dl Est Cr Clr Drug Dosing ml/min Est GFR ( Amer) Est GFR (Non-Af Amer) BUN/Creatinine Ratio (10-20) Glucose (70-99) mg/dl POC Glucose 121 H 132 H 122 H (70-99) Calcium (8.5-10.1) mg/dl Total Bilirubin (0.2-1) mg/dl AST (15-37) U/L ALT (12-78) U/L Alkaline Phosphatase (45-117) U/L Total Protein (6.4-8.2) gm/dl Albumin (3.4-5.0) gm/dl Globulin (2.5-4.0) gm/dl Albumin/Globulin Ratio (0.9-2) TSH (0.300-4.500) uIu/ml Free T4 (0.8-1.6) ng/dl 08/05/19 08/05/19 08/05/19 Range/Units 05:50 05:50 05:50 WBC 7.35 (4.8-10.8) K/uL RBC 3.57 L (4.2-5.4) M/uL Hgb 11.0 L (12.0-16.0) g/dL Hct 31.9 L (37-47) % MCV 89.4 (80-100) fL MCH 30.8 (25-34) pg MCHC 34.5 (32-36) g/dL RDW Std Deviation 46.3 (36.4-46.3) fL RDW Coeff of Juan 14.3 (11.5-14.5) % Plt Count 109 L (130-400) K/uL MPV 11.1 H (7.4-10.4) fL Immature Gran % (Auto) 0.3 % Neut % (Auto) 63.5 % Lymph % (Auto) 20.1 % [place] % (Auto) 14.1 % Eos % (Auto) 1.6 % Baso % (Auto) 0.4 % Immature Gran # (Auto) 0.02 (0.00-0.02) K/uL Neut # (Auto) 4.66 (1.4-6.5) K/uL Lymph # (Auto) 1.48 (1.2-3.4) K/uL [place] # (Auto) 1.04 H (0.11-0.59) K/uL Eos # (Auto) 0.12 (0-0.5) K/uL Baso # (Auto) 0.03 (0-0.2) K/uL PT 11.9 (9.0-12.0) Seconds INR 1.2 H (0.9-1.1) Sodium 137 (136-145) mmol/L Potassium 3.4 L (3.5-5.1) mmol/L Chloride 108 H (98-107) mmol/L Carbon Dioxide 21 (21-32) mmol/L Anion Gap 8.0 (3-11) BUN 6 L (7-18) mg/dl Creatinine 1.28 H (0.6-1.2) mg/dl Est Cr Clr Drug Dosing 39.0 ml/min Est GFR ( Amer) 47.0 Est GFR (Non-Af Amer) 40.6 BUN/Creatinine Ratio 4.8 L (10-20) Glucose 125 H (70-99) mg/dl POC Glucose (70-99) Calcium 8.4 L (8.5-10.1) mg/dl Total Bilirubin 1.2 H (0.2-1) mg/dl AST 9 L (15-37) U/L ALT 11 L (12-78) U/L Alkaline Phosphatase 86 (45-117) U/L Total Protein 6.0 L (6.4-8.2) gm/dl Albumin 3.0 L (3.4-5.0) gm/dl Globulin 3.0 (2.5-4.0) gm/dl Albumin/Globulin Ratio 1.0 (0.9-2) TSH 0.258 L (0.300-4.500) uIu/ml Free T4 1.18 (0.8-1.6) ng/dl 08/04/ Range/Units 20:19 WBC (4.8-10.8) K/uL RBC (4.2-5.4) M/uL Hgb (12.0-16.0) g/dL Hct (37-47) % MCV (80-100) fL MCH (25-34) pg MCHC (32-36) g/dL RDW Std Deviation (36.4-46.3) fL RDW Coeff of Juan (11.5-14.5) % Plt Count (130-400) K/uL MPV (7.4-10.4) fL Immature Gran % (Auto) % Neut % (Auto) % Lymph % (Auto) % [place] % (Auto) % Eos % (Auto) % Baso % (Auto) % Immature Gran # (Auto) (0.00-0.02) K/uL Neut # (Auto) (1.4-6.5) K/uL Lymph # (Auto) (1.2-3.4) K/uL [place] # (Auto) (0.11-0.59) K/uL Eos # (Auto) (0-0.5) K/uL Baso # (Auto) (0-0.2) K/uL PT (9.0-12.0) Seconds INR (0.9-1.1) Sodium (136-145) mmol/L Potassium (3.5-5.1) mmol/L Chloride (98-107) mmol/L Carbon Dioxide (21-32) mmol/L Anion Gap (3-11) BUN (7-18) mg/dl Creatinine (0.6-1.2) mg/dl Est Cr Clr Drug Dosing ml/min Est GFR ( Amer) Est GFR (Non-Af Amer) BUN/Creatinine Ratio (10-20) Glucose (70-99) mg/dl POC Glucose 175 H (70-99) Calcium (8.5-10.1) mg/dl Total Bilirubin (0.2-1) mg/dl AST (15-37) U/L ALT (12-78) U/L Alkaline Phosphatase (45-117) U/L Total Protein (6.4-8.2) gm/dl Albumin (3.4-5.0) gm/dl Globulin (2.5-4.0) gm/dl Albumin/Globulin Ratio (0.9-2) TSH (0.300-4.500) uIu/ml Free T4 (0.8-1.6) ng/dl PG Care Time/CCT Total # of Minutes Spent Total Time Spent with Patient: Total time spent is greater than 50% in coordination of care (as documented) at patient's floor/unit and/or counseling patient: (1) Diabetes mellitus Chronic kidney disease stage: stage 3 (moderate) Diabetes mellitus complication detail: with chronic kidney disease Diabetes mellitus complication status: with kidney complications 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 use Diabetes mellitus type: type 2 Qualified Code(s): E11.22 - Type 2 diabetes mellitus with diabetic chronic kidney disease; N18.3 - Chronic kidney disease, stage 3 (moderate) (2) Diarrhea Diarrhea type: unspecified type Qualified Code(s): R19.7 - Diarrhea, unspecified (3) Gastritis Chronicity: acute Gastritis bleeding: with bleeding Gastritis type: unspecified gastritis Qualified Code(s): K29.01 - Acute gastritis with bleeding (4) Hyperlipidemia Hyperlipidemia type: mixed hyperlipidemia Qualified Code(s): E78.2 - Mixed hyperlipidemia (5) Right shoulder pain Chronicity: unspecified Qualified Code(s): M25.511 - Pain in right shoulder (6) Hypertension Hypertension type: essential hypertension Qualified Code(s): I10 - Essential (primary) hypertension
--- NOTE | 2019-08-05 20:43 | XRay Report ---
XR wrist LT min 3V routine CLINICAL HISTORY: 78 years-old Female presenting with left wrist pain,swelling. TECHNIQUE: Frontal, bilateral oblique, and lateral views of the left wrist were obtained. COMPARISON: 07/19/2017. FINDINGS: Osteopenia. No acute fracture or malalignment. Mild osteophytosis at the distal radial ulnar joint an d articulation of the pisiform and triquetrum. Diffuse soft tissue swelling. IMPRESSION: 1. No acute osseous injury. 2. Nonspecific soft tissue swelling. Electronically signed by: Alvaro Almazan M.D. 08/05/2019 8:42 PM
[2019-08-05] MEDS: PANTOprazole 40 MG TAB PO SCH (21:18)
[2019-08-06 06:11] LABS: Basophils # (auto) 0.03 K/uL (0-0.2); Basophils % (auto) 0.4 %; Eosinophils # (auto) 0.31 K/uL (0-0.5); Eosinophils % (auto) 4.4 %; Hematocrit (blood only) 31.8 % (37-47); Hemoglobin 11.2 g/dL (12.0-16.0); Immature Granulocytes # (auto) 0.01 K/uL (0.00-0.02); Immature Granulocytes % (auto) 0.1 %; Lymphocytes # (auto) 1.28 K/uL (1.2-3.4); Lymphocytes % (auto) 18.1 %; Mean Corpuscular Hemoglobin 31.1 pg (25-34); Mean Corpuscular Hgb Conc 35.2 g/dL (32-36); Mean Corpuscular Volume 88.3 fL (80-100); Mean Platelet Volume 10.9 fL (7.4-10.4); Monocytes % (auto) 14.1 %; Neutrophils # (auto) 4.46 K/uL (1.4-6.5); Neutrophils % (auto) 62.9 %; Platelet Count 105 K/uL (130-400); RDW Coefficient of Variation 14.3 % (11.5-14.5); White Blood Count 7.09 K/uL (4.8-10.8)
[2019-08-06 06:18] LABS: INR 1.2 (0.9-1.1); Prothrombin Time 11.9 Seconds (9.0-12.0)
[2019-08-06 06:46] LABS: Albumin Level 2.8 gm/dl (3.4-5.0); BUN Creatinine Ratio 4.5 (10-20); Bilirubin Direct 0.3 mg/dl (0-0.2); Calcium 8.4 mg/dl (8.5-10.1); Creatinine Clr Calc Pharmacy 39.3 ml/min; Est GFR (African American) 47.5; Magnesium 1.4 mg/dl (1.8-2.4); Potassium 3.3 mmol/L (3.5-5.1)
[2019-08-06 06:48] LABS: Bilirubin,Total 1.1 mg/dl (0.2-1); Total Protein 5.9 gm/dl (6.4-8.2)
[2019-08-06] MEDS: INSULIN ASPART 100 UNITS/ML 3 ML PEN SC SCH ×3 (07:44→17:46)
[2019-08-06] MEDS: LACTOBACILLUS ACIDOPHILUS (FLORANEX) TAB PO SCH ×3 (07:52→16:04)
[2019-08-06] MEDS: SUCRALFATE 1 GM/10 ML UDC PO SCH ×3 (07:53→16:04)
[2019-08-06 08:26] LABS: Folate (Folic Acid) 19.35 ng/ml (>5.38)
[2019-08-06] MEDS: FOLIC ACID 400 MCG TAB PO SCH (08:41)
[2019-08-06] MEDS: PROPRANOLOL HCL LA 80 MG CAPCR PO SCH (08:44)
[2019-08-06] MEDS: PARoxetine HCl 20 MG TAB PO SCH (08:45)
[2019-08-06] MEDS: ATORVASTATIN 40 MG TAB PO SCH (08:45)
[2019-08-06] MEDS: PANTOprazole 40 MG TAB PO SCH (08:46)
[2019-08-06] MEDS: CHOLECALCIFEROL 1,000 UNITS TAB PO SCH (08:47)
[2019-08-06] MEDS: CYANOCOBALAMIN 500 MCG TABLET (VITAMIN B-12) PO SCH (08:47)
--- NOTE | 2019-08-06 10:05 | Anesthesiology Progress Note ---
Date of Service August 06, 2019 Anesthesia Post Procedure Vital Signs Vital Signs: Temp Pulse Pulse Resp BP BP Pulse Ox 08/05/19 23:04 36.9 C 54 L 18 130/64 95 08/05/19 15:34 36.8 C 65 16 123/69 94 08/05/19 12:24 59 L 20 138/61 94 08/05/19 12:10 54 L 16 130/64 95 08/05/19 11:54 62 16 114/57 L 94 08/05/19 10:49 37.1 C 58 L 20 133/79 94 Pain Intensity Left Hand: Pain Intensity: 5 Notes Mental Status: alert / awake / arousable and participated in evaluation Nausea / Vomiting: adequately controlled Pain: adequately controlled Airway Patency, RR, SpO2: stable & adequate BP & HR: stable & adequate Hydration State: stable & adequate Anesthetic Complications: no major complications apparent
[2019-08-06] MEDS ORDERED: POTASSIUM CHLORIDE 20 MEQ TABCR PO STA (10:23)
[2019-08-06] MEDS: CLOPIDOGREL BISULFATE 75 MG TAB PO SCH (10:25)
[2019-08-06] MEDS: MAGNESIUM SULFATE / D5W 1 GM/100 ML BAG IV SCH ×2 (11:49→12:51)
--- NOTE | 2019-08-06 14:30 | Consultation Report ---
DATE OF CONSULTATION: 08/06/2019 HISTORY OF PRESENT ILLNESS: The patient is a 78-year-old white female who presented to us 2 days prior. She had IV placed in the dorsum of her left hand, had some infiltration of her IV. We are asked to evaluate her. X-rays are otherwise unremarkable. No fracture, no other bony or osseous abnormalities are noted. Her clinical examination reveals there to be some soft tissue swelling, no evidence of cellulitis. No evidence of infection or abscesses noted. I would recommend warm compresses, wrist splint if she feels that she needs it and we will follow with her. ASSESSMENT: Status post infiltration of IV. PLAN: For conservative management. No need for surgical intervention. We will follow with you.
--- NOTE | 2019-08-06 15:34 | Discharge Summary ---
Date of Service August 06, 2019 Admission HPI Per Admitting Provider 78yo female with T2DM, CAD, HTN, and CKD 3-4 who presents with inability to eat dating back to June. She states she has had poor appetite since early June. With attempts at eating she would "feel sick." Has lost 15 pounds of weight since June. Within 10 minutes of eating she develops the nausea. Never has abdominal pain at the same time as the nausea. In fact she has never had abdominal pain. Has had dry heaves x 2 weeks. Denies vomiting of food material. She also states the nausea is becoming per frequent. Initially the nausea was with eating only; now it occurs in the morning upon awakening and during other times of fasting. Seen in ER about 1 week ago - told she had gastritis (based on CT scan) and UTI - was d/c home on 10-day course of BID cefdinir for suspected UTI. She was also on antibiotics in June for right foot cellulitis and took a course of oral keflex for that. She also reports diarrhea - intermittent initially now continuous for several day.s Had had some diarrhea about the time she took keflex in June. It resolved quickly then. Then got watery diarrhea once again about 1 week ago when she started on the cefdinir. Diarrhea is occurring about 4 times each day. No blood or mucous. No fevers/chills. Has been taking once daily protonix for 2 years. She was also placed on paxil about 1 week ago for anxiety. Denies ever having an EGD. Has had colonoscopies with Dr Adams. Principal Diagnosis Acute gastritis Discharge Exam Constitutional WD/WN, vitals as above Eyes + anicteric sclerae ENMT external ear and nose normal, oropharynx normal Neck trachea midline, no thyromegaly Respiratory normal respiratory effort, lungs clear to auscultation Cardiovascular RRR, no murmur, no edema Gastrointestinal (Abdomen) normal bowel sounds, soft, nontender, no hepatosplenomegaly Musculoskeletal Extremities: + extremities abnormal to inspection (left wrist now without erythema,and warmth,edemaboth improved), no cyanosis and no clubbing TTP improved over wrist Skin no rashes, warm and dry Neurologic moves all extremities and awake; no focal motor deficits Psychiatric A+Ox3, euthymic affect Discharge Data Allergies Allergy/AdvReac Type Severity Reaction Status Date / Time clarithromycin Allergy Unknown UNKNOWN Verified 08/09/19 10:00 amoxicillin AdvReac Mild GI SYMPTOMS Verified 08/09/19 10:00 clavulanic acid AdvReac Mild GI SYMPTOMS Verified 08/09/19 10:00 Lisinopri AdvReac Mild cough Uncoded 08/09/19 10:00 Macrolides AdvReac Unknown Unknown Uncoded 08/09/19 10:00 Consultations 08/02/19 12:53 ED Decision to Admit Stat 08/02/19 16:17 Consult Gastroenterology Routine 08/05/19 19:16 Consult Orthopedic Surgery Routine Procedures Performed Operation Date: 08/05/19 16:30 Actual Procedures p EGD Biopsy Cytology - Sky Mcbride Case, DO Ordered Studies 08/02/19 14:50 US gallbladder Stat Wrist xray Hospital Course (1) Gastritis: Presented with persistent nausea. 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 and is ok with this, she will just remain on Plavix as last [place] in heart was 2008 -adv diet to regular and tolerating on day of discharge without difficulty, feeling much better (2) Left wrist pain: Had IV site infiltrate over left this admission Developed warmth, mild erythema, edema, and exquisite tenderness with decreased ROM Wrist xray without abnormality -give one dose toradol cautiously given gastritis and had improvement by the next day Seen by Ortho and does not feel there is a joint infection or any intervention necessary -continue elevation of wrist (3) Nausea: Suspect correlation with antibiotics causing gastritis. 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 (4) Abnormal CT of the abdomen: secondary to gastritis (5) Inflammatory arthritis: Thought was given to this being inflammatory/reactive arthritis given prior history of right ankle swelling and toe pains, right shoulder pain, now left wrist. However, ESR normal Current wrist swelling and pain possibly related to IV site Lyme test negative. Deferred gonorrhea and chlamydia testing, sexual history not taken, consider testing if no viable cause of reactive arthritis found. -plan as above (6) Weight loss: Suspect secondary to nausea. EGD w/ gastritis as above Last TSH was in January 2018 and was wnl. -TSH now mildly low at 0.2 but FT4 normal -should improve now with improved intake (7) Hypomagnesemia: Mg 1.0 on admission. Secondary to poor po intake and previous diarrhea Now improved after supplementation (8) Hypokalemia: Secondary to diarrhea K 3.2 on admission, now improved but still at 3.3 -replaced with KCl -follow BMP as outpt (9) Diarrhea: C. diff negative Stool culture negative Continue lactobacillus due to recent antibiotic use. -add immodium as C. diff negative Now resolved by time of discharge (10) Diabetes mellitus: Held glimepiride here 0 units of NovoLog sliding scale required. Suspect due to reduced oral intake on liquid diet. (11) History of coronary artery disease: Troponin is negative. -continue to hold aspirin for gastritis- as above Continue plavix Cont beta andriy Cont statin agent. (12) Hyperlipidemia: Cont statin, ok to restart gemfibrozil (held initially) (13) Hypertension: Held Lasix and losartan due to setting of dehydration -ok to restart losartan on dc but continue to hold lasix and use prn (14) Chronic kidney disease, stage IV (severe): baseline Cr 2. Now improved to 1.287with holding lasix and losartan and giving IVFs -continue to hold Lasix as remains euvolemic and suspect this was decreasing her renal function.Can use prn leg swelling or weight gain-instructed on this at time of discharge -restart losartan (15) Right shoulder pain: Now resolved. Possible part of inflammatory arthritis as above. (16) Thrombocytopenia: plts mildly low at 105, no previous h/o thrombocytopenia No splenomegaly on imaging, no h/o liver issues chronically although fatty liver on CT scan -no evidence of bleeding B12 levels here are normal -follow CBC as outpt -consider Heme referral if persists (17) Anemia: mild, hgb 11 may be hemodilutional, no obvious bleeding but may have been some from gastritis -discontinuing ASA, ok to restart Plavix -follow CBC as outpt (18) DVT prophylaxis: SCDs Dispo- to home today Total Time Total Time Spent Total Time Spent (In Minutes): 35 min Total Time Includes: Examination of the Patient, Discharge Planning and Medication Reconciliation Discharge Plan Discharge Items Patient Disposition: Home - Self-Care Reason For Visit: HYPOMAGNESEMIA,HYPOKALEMIA,WEIGHT LOSS,INABILITY Discharge Diagnosis: Acute gastritis, hypomagnesemia, hypokalemia, Left wrist pain Condition on Discharge: Good Goals: You have been hospitalized for an acute medical problem. During your stay at [facility], we have made an effort to correct the problem that brought you to the hospital while keeping you as comfortable as possible. Medications were used to bring your condition under control and your discharge instructions will include directions for any medications you should take after leaving the hospital. Please make sure you see your Primary Care Provider as part of your follow up plan. Activity: Resume your previous activity Non-emergency contact: Primary Care Provider Call non-emergency contact if: you have any medication questions, your symptoms worsen, your pain is not controlled, your pain is worsening, your pain is unusual for you, your pain is concerning for you and your temperature is above 101 Follow-up/Referrals: Franck Lester MD [Primary Care Provider] - 08/09/19 10:00 am (follow up appointment with your primary care physician) Diet: Carb Consistent or DM2 and Heart Healthy Addtl Attending Provider Instructions: You were admitted for nausea and low magnesium and potassium levels. The nausea was due to gastritis or inflammation of the stomach lining. This improved and you should continue on Protonix 40mg twice daily for 1-2 months. Your diarrhea also improved and you were ruled out for infection in the stool. Please STOP taking your aspirin at this time. You should only take your lasix as needed for leg swelling or for weight gain of more than 2-3 pounds from one day to the next. Please follow up with your PCP as scheduled for you. Pending Studies at Discharge: No Stand-Alone Forms: My [facility] Medications and DC Order Prescriptions: Continued glimepiride 2 mg tablet 2 mg PO DAILY Qty: 90 RF: 1 propranolol 160 mg capsule,extended release 24 hr 160 mg PO DAILY Qty: 90 RF: 1 atorvastatin 40 mg tablet 40 mg PO DAILY Qty: 90 RF: 1 nitroglycerin 0.4 mg tablet, sublingual 0.4 mg SL Q5M PRN (Reason: chest pain) Qty: 25 RF: 0 losartan 25 mg tablet 25 mg PO DAILY Qty: 90 RF: 0 folic acid 800 mcg tablet 0.8 mg PO DAILY RF: 0 amlodipine 10 mg tablet 5 mg PO DAILY RF: 0 cyanocobalamin (vitamin B-12) 1,000 mcg capsule 1,000 mcg PO DAILY RF: 0 paroxetine HCl 20 mg tablet 20 mg PO DAILY Qty: 30 RF: 2 cholecalciferol (vitamin D3) 5,000 unit capsule 5,000 units PO DAILY Qty: 30 RF: 0 clopidogrel 75 mg tablet 75 mg PO DAILY Qty: 90 RF: 3 lorazepam 0.5 mg tablet 0.25 mg PO DAILY PRN (Reason: anxiety) Qty: 10 RF: 0 Changed furosemide 40 mg tablet 40 mg PO QAM PRN (Reason: leg swelling or weight gain) Qty: 30 RF: 0 pantoprazole 40 mg tablet,delayed release (DR/EC) 40 mg PO BID Qty: 60 RF: 0 Discontinued magnesium oxide 500 mg tablet 500 mg PO DAILY RF: 0 omeprazole 20 mg capsule,delayed release(DR/EC) 20 mg PO DAILY RF: 0 gemfibrozil 600 mg tablet 600 mg PO DAILY Qty: 180 RF: 0 aspirin [Aspir-81] 81 mg Tablet,Delayed Release (Dr/Ec) 81 mg PO DAILY RF: 0 cefdinir 300 mg capsule 300 mg PO BID 10 Days Qty: 20 RF: 0 ondansetron HCl [Zofran] 4 mg tablet 4 mg PO Q6H PRN (Reason: nausea and vomiting) Qty: 6 RF: 0 Discharge Orders: Discharge Order (Routine); Ordered 08/06/19 Ordered By: Vilma Dewitt Admission Data Admit Date/Time: 08/02/19 14:50 Attending Provider: Vilma Dewitt Admit Provider: Parminder Fan Primary Care Provider: Franck Lester Other Providers: Sky Adams ; Luiz Nogueira ; Rafael Gifford Other Interventions: Discharge Summary Assessment (RN) Last Done: 08/06/19 15:55 DC Date/Time DO NOT enter until pt leaves facility: 08/06/19 17:54
== END 2019-08-06 17:54 | disposition home or self-care (01) | DRG 392 ==
LOC: ED 10:49 → 2S 14:50 → SUATTDRO 14:50 → 2S 15:40 → 4W 08-03 17:56

== ENCOUNTER 2021-09-13 12:01 | Inpatient (IN) ==
[2021-09-13 12:44] LABS: Basophils # (auto) 0.03 K/uL (0-0.2); Basophils % (auto) 0.4 %; Eosinophils # (auto) 0.19 K/uL (0-0.5); Eosinophils % (auto) 2.3 %; Hematocrit (blood only) 39.1 % (37-47); Immature Granulocytes # (auto) 0.02 K/uL (0.00-0.02); Immature Granulocytes % (auto) 0.2 %; Lymphocytes # (auto) 1.62 K/uL (1.2-3.4); Mean Corpuscular Hemoglobin 30.4 pg (25-34); Mean Corpuscular Hgb Conc 33.2 g/dL (32-36); Mean Corpuscular Volume 91.6 fL (80-100); Mean Platelet Volume 10.1 fL (7.4-10.4); Monocytes # (auto) 0.58 K/uL (0.11-0.59); Monocytes % (auto) 7.2 %; Neutrophils # (auto) 5.67 K/uL (1.4-6.5); Neutrophils % (auto) 69.9 %; Platelet Count 184 K/uL (130-400); RDW Coefficient of Variation 13.9 % (11.5-14.5); RDW Standard Deviation 46.6 fL (36.4-46.3); Red Blood Count 4.27 M/uL (4.2-5.4); White Blood Count 8.11 K/uL (4.8-10.8)
[2021-09-13] MEDS ORDERED: NITROGLYCERIN 2% OINTMENT 30GM TUBE EXT STA (12:50)
[2021-09-13 13:02] LABS: Alanine Aminotransferase 19 (12-78); Albumin Level 3.5 gm/dl (3.4-5.0); Aspartate Aminotransferase 12 U/L (15-37); BUN Creatinine Ratio 12.2 (10-20); Blood Urea Nitrogen 20 mg/dl (7-18); Calcium 9.3 mg/dl (8.5-10.1); Carbon Dioxide 26 mmol/L (21-32); Chloride 103 mmol/L (98-107); Est GFR (African American) 33.4 ml/min; Est GFR (Non-African American) 28.8 ml/min; Glucose 166 mg/dl (70-99); Lipase 225 U/L (73-393); Sodium 136 mmol/L (136-145)
--- NOTE | 2021-09-13 13:08 | XRay Report ---
XR chest 1V portable HISTORY: Atypical Chest Pain COMPARISON: Chest 08/19/2019. FINDINGS: No pneumothorax. No pleural effusions. There are low lung volumes. The heart is normal in s ize. The right lung is clear. Small patchy density within the left lateral lung base. This is similar to the prior studies. Otherwise, no new focal lung consolidations to suggest pneumonia. IMPRESSION: No significant change compared to the prior study. No acute process. ACT 112: Negative or not required by law. Electronically signed by: Francisco Javier Boone M.D. 09/13/2021 1:07 PM
[2021-09-13 13:11] LABS: Albumin Globulin Ratio 0.9 (0.9-2); Alkaline Phosphatase 80 U/L (45-117); Bilirubin,Total 0.6 mg/dl (0.2-1); Globulin 3.8 gm/dl (2.5-4.0); Total Protein 7.3 gm/dl (6.4-8.2); Troponin I 0.079 ng/ml (0-0.045)
--- NOTE | 2021-09-13 13:52 | Electrocardiogram Report ---
Test Reason : Blood Pressure : / mmHG Vent. Rate : 067 BPM Atrial Rate : 067 BPM P-R Int : 196 ms QRS Dur : 092 ms QT Int : 400 ms P-R-T Axes : 044 -25 072 degrees QTc Int : 422 ms Poor data quality, interpretation may be adversely affected Normal sinus rhythm Low voltage QRS Cannot rule out Anteroseptal infarct (cited on or before 23-NOV-2020) Abnormal ECG When compared with ECG of 23-NOV-2020 21:55, ST no longer depressed in Inferior leads ST no longer elevated in Lateral leads T wave inversion no longer evident in Inferior leads Confirmed by Omega Liu ([id number]) on 09/13/2021 1:52:25 PM Referred By: Confirmed By:Edil Liu
--- NOTE | 2021-09-13 14:56 | Emergency Department Note ---
Impression & Plan Chest pain, precordial, History of coronary artery disease, Stented coronary artery, Elevated troponin ED Provider Note INFORMANT: Patient ED PROVIDER(S): Sravan Lynn MD CHIEF COMPLAINT: Chest pain PLAN: Disposition: Admitted Condition: Good Outpatient prescription management: none Referral: None MEDICAL DECISION MAKING: Patient presented because of chest pain. Her ECG did not show any obvious ST elevation. She was pain-free. Nitropaste was applied. Patient had already rec eived aspirin. A work-up including chest x-ray was done. The patient's chest x-ray was unremarkable. Her CBC and chemistry panel were unremarkable. The patient does have an elevated troponin. Record review indicates that her previous troponin measurements recently were negative. In light of her symptoms and known history this is concerning for possible cardiac etiology. Further management in the hospital will be necessary. Consultation was made with the hospitalist service. The patient was evaluated in the ER and admitted. Triage Nursing notes reviewed and agree them. Vital Signs: reviewed and remarkable for no significant abnormalities Differential diagnosis: Cardiac ischemia, aortic dissection, pulmonary embolism, pneumothorax, pneumonia, pericarditis, myocarditis, esophageal rupture, GERD, cholecystitis, pancreatitis, musculoskeletal, as well as other pathologies. Diagnostics interpreted by me: ECG: Twelve-lead ECG reveals normal sinus rhythm at 67 bpm. Poor R wave pr ogression. Low voltage QRS nonspecific ST changes. There is some lateral ST depression. Cardiac Monitoring: Cardiac monitoring ordered by me: The patient was placed on continuous cardiac monitoring and observed. It revealed a normal sinus rhythm at 60 beats per minute without ectopy or evidence of dysrhythmia. Imaging studies: Chest x-ray. Findings: A chest x-ray was performed and revealed no pneumothorax, effusion, infiltrate, pulmonary edema, free air under the diaphragm, or wide mediastinum. Impression: No acute disease. HPI: The patient is a 81 year old female who presents to the Emergency Room with complaints of precordial chest pain. This started 2 days ago and is coming and going. The patient states she woke up again today and the pain started. She noted severe pain earlier but it improved. She does have a history of coronary artery disease and 5 coronary stents. The patient also notes the following associated symptoms, pain radiating to the neck. The patient has been given ni tro and aspirin by EMS successfully for relieving factors. Current pain is rated as 0/10. Patient does note she is been having some night sweats on and off for the last several weeks. Pt denies LOC, headache, fevers, chills, visual changes, neck pain, breathing difficulties, nausea, vomiting, abdominal pain, back pain, melena, hematochezia, urinary symptoms, numbness, weakness, lymphadenopathy, r yony, or other complaints. ROS: See above HPI for pertinent positives & negatives. A total of 10 systems reviewed and were otherwise negative. PAST MEDICAL HISTORY:See Below , CAD PAST SURGICAL HISTORY:See Below, FAMILY HISTORY:See Below SOCIAL HISTORY:See Below, former smoker HOME MEDICATIONS:See Below ALLERGIES:See Below VITALS:See Below PHYSICAL EXAMINATION: GENERAL: Awake, alert, well-appearing, in no distress HENT: Normocephalic, atraumatic. Oropharynx unremarkable. EYES: Normal conjunctiva. Sclera non-icteric. NECK: Inspection normal. Non-tender. Supple. No nuchal rigidity. FROM. No masses. RESPIRATORY: Clear to auscultation. No wheezes. No rales. Normal respiratory effort. CARDIAC: Normal rate. Normal rhythm. No murmurs. No rubs. Extremities warm and well perfused. Pulses equal. No JVD. GI: Soft, non-distended. No tenderness to palpation. No rebound or guarding. No masses. RECTAL: Deferred. MUSCULOSKELETAL: Atraumatic. Chest examination reveals no tenderness. The back is symmetrical on inspection without obvious abnormality. There is no CVA tenderness to palpation. No joint edema. LOWER EXTREMITIES: Calves are equal size bilaterally and non-tender. No edema. No discoloration. NEURO: Normal sensorium. No sensory or motor deficits noted. SKIN: No rash or jaundice noted. Sravan Lynn MD Past Med/Surg History Medical History (Updated 09/13/21 @ 14:56 by Sravan Lynn MD) Acute [place], lateral wall, initial episode of care (08/04/13) Anemia Arteriosclerotic cardiovascular disease Chronic reflux esophagitis Diabetes mellitus History of coronary artery disease s/p stents Hyperlipidemia Hypertension IV infiltration NSTEMI (non-ST elevated myocardial infarction) (08/04/13) s/p stents Presence of stent in artery SBO (small bowel obstruction) Thrombocytopenia Surgical History (Updated 09/13/21 @ 14:56 by Sravan Lynn MD) Cataract History of dilatation and curettage History of eye surgery Rt eye, removal of lens material by phacofragmentation with aspirati History of intestinal surgery small bowel resection History of ligation of vein History of lithotripsy Renal lithotripsy History of partial colectomy History of surgery Cath stent 1 mid-right coronary artery Cath stent 2 mid-left anterior descending artery Cath stent 2 proximal left anterior descending artery Cath stent 3 mid-left anterior descending artery Hx of hernia repair ventral hernia repair w/ mesh; year? Family History Mother Breast cancer Sister Breast cancer Father Coronary heart disease Denies family history of Ovarian cancer Prostate cancer Myocardial infarction Colorectal cancer Social History Smoking Status: Former smoker Tobacco Type: Cigarettes Age Quit Using Tobacco: 27; packs per day: 0.5; Years Smoked: 12; Hx Alcohol Use: No Hx Substance Use: No Preferred Language: Cameroonian Communication Ability: Effective Ham Clerk Required: No Beliefs That Will Affect Care: Sabianist Sabianist Beliefs: no blood marital status: Current Living Situation: Spouse current occupational status: retired 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 other: lives with son and Feels Safe at Home: Yes caffeine: No Dental Care, Regularly: Yes Physical Activity Frequency: Does not Exercise Seatbelt Use: always Sunscreen Use: No Assistive Devices: Glasses Allergies Allergies Allergy/AdvReac Type Severity Reaction Status Date / Time clarithromycin Allergy Unknown UNKNOWN Verified 09/13/21 13:16 amoxicillin AdvReac Mild GI SYMPTOMS Verified 09/13/21 13:16 clavulanic acid AdvReac Mild GI SYMPTOMS Verified 09/13/21 13:16 Lisinopri AdvReac Mild cough Uncoded 09/13/21 13:16 Macrolides AdvReac Unknown Unknown Uncoded 09/13/21 13:16 Home Meds Home Medications Medication Instructions Recorded Confirmed nitroglycerin 0.4 mg sublingual 0.4 mg SL Q5M PRN #25 tab 04/11/19 09/13/21 tablet cyanocobalamin (vitamin B-12) 1,000 mcg PO DAILY 07/24/19 09/13/21 1,000 mcg capsule pantoprazole 40 mg tablet,delayed 40 mg PO BID 11/23/20 09/13/21 release propranolol 160 mg capsule,24 160 mg PO DAILY 11/23/20 09/13/21 hr,extended release paroxetine HCl 40 mg tablet 20 mg PO DAILY tab 06/23/21 09/13/21 Previous Rx's Medication Instructions Recorded cholecalciferol (vitamin D3) 125 5,000 units PO DAILY #30 cap 02/17/19 mcg (5,000 unit) capsule magnesium oxide 500 mg capsule 500 mg PO TID #30 cap 12/01/20 amlodipine 10 mg tablet 10 mg PO DAILY #90 tab 01/14/21 glimepiride 2 mg tablet 2 mg PO DAILY #90 tab 02/24/21 atorvastatin 40 mg tablet 40 mg PO DAILY #90 tab 03/18/21 buspirone 7.5 mg tablet 7.5 mg PO TID PRN #90 tab 05/19/21 gabapentin 100 mg capsule 100 mg PO Q8H PRN #270 cap 05/19/21 linagliptin 5 mg tablet (Tradjenta) 5 mg PO DAILY #30 tab 05/19/21 losartan 25 mg tablet 25 mg PO DAILY #30 tab 05/31/21 furosemide 40 mg tablet 40 mg PO DAILY PRN #30 tab 07/15/21 clopidogrel 75 mg tablet 75 mg PO DAILY #90 tab 09/13/21 Results & Data (ED) Vital Signs Vital Signs - 24 hr 09/13/21 11:46 09/13/21 12:21 09/13/21 13:00 Temperature 36.7 C Temperature Source Oral Pulse Rate 64 66 60 Pulse Rate from SpO2 Sensor 60 Respiratory Rate 20 20 24 Blood Pressure 138/97 131/74 Blood Pressure Mean 110 93 Pulse Oximetry 95 94 96 Oxygen Delivery Method Room Air Room Air Sepsis Recent Fever Within 48 Hours No Sepsis New/Unexplained Change in Mental Status No Sepsis Action Taken by Nursing No Action Required 09/13/21 13:10 09/13/21 13:20 09/13/21 13:30 Temperature Temperature Source Pulse Rate 62 61 60 Pulse Rate from SpO2 Sensor 62 61 60 Respiratory Rate 20 27 H 21 Blood Pressure 143/83 H Blood Pressure Mean 103 Pulse Oximetry 97 95 95 Oxygen Delivery Method Sepsis Recent Fever Within 48 Hours Sepsis New/Unexplained Change in Mental Status Sepsis Action Taken by Nursing 09/13/21 13:40 Temperature Temperature Source Pulse Rate 58 L Pulse Rate from SpO2 Sensor 57 L Respiratory Rate 25 H Blood Pressure Blood Pressure Mean Pulse Oximetry 97 Oxygen Delivery Method Sepsis Recent Fever Within 48 Hours Sepsis New/Unexplained Change in Mental Status Sepsis Action Taken by Nursing Laboratory Data Result diagrams: 09/13/21 12:09/13/21 12:33 Lab Results 09/13/21 09/13/21 09/13/21 Range/Units 12:33 12: 13:00 WBC 8.11 (4.8-10.8) K/uL RBC 4.27 (4.2-5.4) M/uL Hgb 13.0 (12.0-16.0) g/dL Hct 39.1 (37-47) % MCV 91.6 (80-100) fL MCH 30.4 (25-34) pg MCHC 33.2 (32-36) g/dL RDW Std Deviation 46.6 H (36.4-46.3) fL RDW Coeff of Juan 13.9 (11.5-14.5) % Plt Count 184 (130-400) K/uL MPV 10.1 (7.4-10.4) fL Immature Gran % (Auto) 0.2 % Neut % (Auto) 69.9 % Lymph % (Auto) 20.0 % [place] % (Auto) 7.2 % Eos % (Auto) 2.3 % Baso % (Auto) 0.4 % Neut # (Auto) 5.67 (1.4-6.5) K/uL Lymph # (Auto) 1.62 (1.2-3.4) K/uL [place] # (Auto) 0.58 (0.11-0.59) K/uL Eos # (Auto) 0.19 (0-0.5) K/uL Baso # (Auto) 0.03 (0-0.2) K/uL Immature Gran # (Auto) 0.02 (0.00-0.02) K/uL Sodium 136 (136-145) mmol/L Potassium 4.0 (3.5-5.1) mmol/L Chloride 103 (98-107) mmol/L Carbon Dioxide 26 (21-32) mmol/L Anion Gap 7.0 (3-11) BUN 20 H (7-18) mg/dl Creatinine 1.67 H (0.6-1.2) mg/dl Est Cr Clr Drug Dosing Not Reportable Est GFR ( Amer) 33.4 ml/min Est GFR (Non-Af Amer) 28.8 ml/min BUN/Creatinine Ratio 12.2 (10-20) Glucose 166 H (70-99) mg/dl Calcium 9.3 (8.5-10.1) mg/dl Total Bilirubin 0.6 (0.2-1) mg/dl AST 12 L (15-37) U/L ALT 19 (12-78) Alkaline Phosphatase 80 (45-117) U/L Troponin I 0.079 H* (0-0.045) ng/ml Total Protein 7.3 (6.4-8.2) gm/dl Albumin 3.5 (3.4-5.0) gm/dl Globulin 3.8 (2.5-4.0) gm/dl Albumin/Globulin Ratio 0.9 (0.9-2) Lipase 225 (73-393) U/L SARS-CoV-2, RNA, NAAT NEGATIVE (NEGATIVE) Administered Medications Discontinued Medications Nitroglycerin (Nitroglycerin 2% Ointment 30gm Tube) 0.5 inch EXT NOW STA Stop: 09/13/21 12:51 Last Admin: 09/13/21 13:00 Dose: 0.5 inch Documented by: [id number] Imaging Data Radiologist's Impression: Chest X-Ray 09/13/21 12:21 XR chest 1V portable HISTORY: Atypical Chest Pain COMPARISON: Chest 08/19/2019. FINDINGS: No pneumothorax. No pleural effusions. There are low lung volumes. The heart is normal in size. The right lung is clear. Small patchy density within the left lateral lung base. This is similar to the prior studies. Otherwise, no new focal lung consolidations to suggest pneumonia. IMPRESSION: No significant change compared to the prior study. No acute process. ACT 112: Negative or not required by law. Electronically signed by: Francisco Javier Boone M.D. 09/13/2021 1:07 PM Discharge Plan Visit Data Chief Complaint: Chest Pain ED Provider: Sravan Lynn Discharge Problem: Chest pain, precordial, History of coronary artery disease, Stented coronary artery, Elevated troponin Forms Stand Alone Forms: [employer] Prescriptions Prescriptions: No Action magnesium oxide 500 mg capsule 500 mg PO TID Qty: 30 RF: 0 glimepiride 2 mg tablet 2 mg PO DAILY Qty: 90 RF: 3 losartan 25 mg tablet 25 mg PO DAILY Qty: 30 RF: 11 furosemide 40 mg tablet 40 mg PO DAILY PRN (Reason: edema) Qty: 30 RF: 5 clopidogrel 75 mg tablet 75 mg PO DAILY Qty: 90 RF: 3 nitroglycerin 0.4 mg tablet, sublingual 0.4 mg SL Q5M PRN (Reason: chest pain) Qty: 25 RF: 0 cyanocobalamin (vitamin B-12) 1,000 mcg capsule 1,000 mcg PO DAILY RF: 0 paroxetine HCl 40 mg tablet 20 mg PO DAILY RF: 0 Tradjenta 5 mg tablet 5 mg PO DAILY Qty: 30 RF: 5 gabapentin 100 mg capsule 100 mg PO Q8H PRN (Reason: neuropathy) Qty: 270 RF: 3 buspirone 7.5 mg tablet 7.5 mg PO TID PRN (Reason: anxiety) Qty: 90 RF: 2 cholecalciferol (vitamin D3) 5,000 unit capsule 5,000 units PO DAILY Qty: 30 RF: 0 amlodipine 10 mg tablet 10 mg PO DAILY Qty: 90 RF: 1 atorvastatin 40 mg tablet 40 mg PO DAILY Qty: 90 RF: 3 pantoprazole 40 mg tablet,delayed release (DR/EC) 40 mg PO BID RF: 0 propranolol 160 mg capsule,extended release 24 hr 160 mg PO DAILY RF: 0 Referrals Referrals: Sarkis Asher DO [Primary Care Provider] -
[2021-09-13] MEDS ORDERED: NITROGLYCERIN SL 0.4 MG/TAB TAB SL PRN ×2 (15:11→15:17)
[2021-09-13] MEDS ORDERED: ACETAMINOPHEN 325 MG TAB PO PRN (15:11)
[2021-09-13] MEDS ORDERED: busPIRone 7.5 MG TAB PO PRN (15:17)
[2021-09-13] MEDS ORDERED: FUROSEMIDE 40 MG TAB PO PRN (15:17)
[2021-09-13] MEDS ORDERED: GABAPENTIN 100 MG CAP PO PRN (15:17)
[2021-09-13] MEDS ORDERED: Heparin IV Adult Wt-Based Low-Dose *NO* Bolus Protocol IV SCH (15:49)
--- NOTE | 2021-09-13 15:49 | History & Physical Report ---
Date of Service September 13, 2021 Assessment & Plan (1) NSTEMI (non-ST elevated myocardial infarction): Plan: will admit patient Given atypical chest pain with significant PMH of CAD Elevated trop. on fist set. will place on heparin IV will consult cardio NPO after midnight for possible cath (2) Chest pain, precordial: Plan: as above (3) Type 2 DM with CKD stage 3 and hypertension: Plan: glycemic control last a1C is 7.5 (4) Hypertension: Plan: resume home meds (5) Hyperlipidemia: Plan: resume home meds (6) History of coronary artery disease: Plan: as above History of Present Illness Chief Complaint: chest pain Primary Care Provider: Sarkis Asher, 81 yo female with history of CAD, and 5 coronary stents. Sharp Chest pain woke her up this morning. Pain radiated to neck and was relieved by nitro. She had some resting sharp chest pain also on Monday morning. When pain returned today, she decided to come into the hospital. Trop is mildly elevated in the ER. Allergies Allergy/AdvReac Type Severity Reaction Status Date / Time clarithromycin Allergy Unknown UNKNOWN Verified 09/13/21 13:16 amoxicillin AdvReac Mild GI SYMPTOMS Verified 09/13/21 13:16 clavulanic acid AdvReac Mild GI SYMPTOMS Verified 09/13/21 13:16 lisinopril AdvReac Mild Cough Verified 09/13/21 15:34 Macrolide Antibiotics AdvReac Unknown Unknown Verified 09/13/21 15:34 Home Medications Medication Instructions Recorded Confirmed Type cholecalciferol (vitamin D3) 125 5,000 units PO DAILY #30 cap 02/17/19 09/13/21 Rx mcg (5,000 unit) capsule nitroglycerin 0.4 mg sublingual 0.4 mg SL Q5M PRN #25 tab 04/11/19 09/13/21 History tablet cyanocobalamin (vitamin B-12) 1,000 mcg PO DAILY 07/24/19 09/13/21 History 1,000 mcg capsule pantoprazole 40 mg tablet,delayed 40 mg PO BID 11/23/20 09/13/21 History release propranolol 160 mg capsule,24 160 mg PO DAILY 11/23/20 09/13/21 History hr,extended release magnesium oxide 500 mg capsule 500 mg PO TID #30 cap 12/01/20 09/13/21 Rx amlodipine 10 mg tablet 10 mg PO DAILY #90 tab 01/14/21 09/13/21 Rx glimepiride 2 mg tablet 2 mg PO DAILY #90 tab 02/24/21 09/13/21 Rx atorvastatin 40 mg tablet 40 mg PO DAILY #90 tab 03/18/21 09/13/21 Rx buspirone 7.5 mg tablet 7.5 mg PO TID PRN #90 tab 05/19/21 09/13/21 Rx gabapentin 100 mg capsule 100 mg PO Q8H PRN #270 cap 05/19/21 09/13/21 Rx linagliptin 5 mg tablet (Tradjenta) 5 mg PO DAILY #30 tab 05/19/21 09/13/21 Rx losartan 25 mg tablet 25 mg PO DAILY #30 tab 05/31/21 09/13/21 Rx paroxetine HCl 40 mg tablet 20 mg PO DAILY tab 06/23/21 09/13/21 History furosemide 40 mg tablet 40 mg PO DAILY PRN #30 tab 07/15/21 09/13/21 Rx clopidogrel 75 mg tablet 75 mg PO DAILY #90 tab 09/13/21 09/13/21 Rx Past Med/Surg History Medical History Acute [place], lateral wall, initial episode of care (08/04/13) Anemia Arteriosclerotic cardiovascular disease Chronic reflux esophagitis Diabetes mellitus History of coronary artery disease s/p stents Hyperlipidemia Hypertension IV infiltration NSTEMI (non-ST elevated myocardial infarction) (08/04/13) s/p stents Presence of stent in artery SBO (small bowel obstruction) Thrombocytopenia Surgical History Cataract History of dilatation and curettage History of eye surgery Rt eye, removal of lens material by phacofragmentation with aspirati History of intestinal surgery small bowel resection History of ligation of vein History of lithotripsy Renal lithotripsy History of partial colectomy History of surgery Cath stent 1 mid-right coronary artery Cath stent 2 mid-left anterior descending artery Cath stent 2 proximal left anterior descending artery Cath stent 3 mid-left anterior descending artery Hx of hernia repair ventral hernia repair w/ mesh; year? Family History Mother , from complications of a fall ; age 92 Breast cancer stage 4 Sister Breast cancer Father , 60s Coronary heart disease s/p CABG Denies family history of Ovarian cancer Prostate cancer Myocardial infarction Colorectal cancer Social History Smoking Status: Former smoker Tobacco Type: Cigarettes Age Quit Using Tobacco: 27; packs per day: 0.5; Years Smoked: 12; Second Hand Exposure: No; Do You Dip or Chew Tobacco: No; Hx Alcohol Use: No Hx Substance Use: No Preferred Language: Vietnamese Communication Ability: Effective Staffing Consultant Required: No Beliefs That Will Affect Care: None marital status: Current Living Situation: Spouse current occupational status: retired 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 Other Information That Helps Us Care for You: No other: lives with son and Feels Safe at Home: Yes caffeine: No Dental Care, Regularly: Yes Physical Activity Frequency: Does not Exercise Seatbelt Use: always Sunscreen Use: No Assistive Devices: Glasses Review of Systems Constitutional: no fever Eyes: no blind spots and no diplopia Ear, Nose, Mouth, Throat: no ear pain Respiratory: no cough Cardiovascular: + chest pain Gastrointestinal: no abdominal pain Genitourinary: no dysuria and no urinary frequency Musculoskeletal: no back pain Integumentary: no acne and no rash Neurologic: no gait abnormality Psychiatric: no behavioral changes Endocrine: + fatigue Hematologic / Lymphatic: no easy bleeding Allergy / Immunological: no GI upset with certain foods Physical Exam Constitutional: WD/WN, vitals as above Eyes: PERRL, conjunctivae normal, anicteric sclerae ENMT: external ear and nose normal, oropharynx normal Neck: trachea midline, no thyromegaly Respiratory: normal respiratory effort, lungs clear to auscultation Cardiovascular: RRR, no murmur, no edema Gastrointestinal (Abdomen): normal bowel sounds, soft, nontender, no hepatosplenomegaly Musculoskeletal: no cyanosis or clubbing, extremities motor strength 5/5 Skin: no rashes, warm and dry Neurologic: PERRL, EOMI, accommodation nl, no face palsy, no dysarthria Psychiatric: A+Ox3, euthymic affect Lymphatic: no cervical or axillary lymphadenopathy Results & Data Results & Data ([facility]) Vital Signs (Past 12 Hours) Vital Signs Temp Pulse Resp BP Pulse Ox 09/13/21 13:40 58 L 25 H 97 09/13/21 13:30 60 21 143/83 H 95 09/13/21 13:20 61 27 H 95 09/13/21 13:10 62 20 97 09/13/21 13:00 60 24 131/74 96 09/13/21 12:21 66 20 94 09/13/21 11:46 36.7 C 64 20 138/97 95 PG Care Time/CCT Total # of Minutes Spent Total Time Spent with Patient: Total time spent is greater than 50% in coordination of care (as documented) at patient's floor/unit and/or counseling patient: Coding Level of Care Code 76761 Initial Inpt Care Lvl 3 Diagnoses NSTEMI (non-ST elevated myocardial infarction) I21.4 Chest pain, precordial R07.2 Type 2 DM with CKD stage 3 and hypertension E11.22; I12.9; N18.3 Hypertension I10 Hypertension type: essential hypertension Hyperlipidemia E78.2 Hyperlipidemia type: mixed hyperlipidemia History of coronary artery disease Z86.79 (1) Hyperlipidemia Hyperlipidemia type: mixed hyperlipidemia Qualified Code(s): E78.2 - Mixed hyperlipidemia (2) Hypertension Hypertension type: essential hypertension Qualified Code(s): I10 - Essential (primary) hypertension
[2021-09-13] MEDS: HEPARIN SODIUM/DEXTROSE 25,000 UNITS/500 ML BAG IV SCH (17:08)
[2021-09-13] MEDS ORDERED: GLUCAGON FOR INJ 1 MG VIAL SQ PRN (21:56)
[2021-09-13] MEDS ORDERED: DEXTROSE 50% 50 ML SYRINGE IV PRN (21:56)
[2021-09-13] MEDS ORDERED: GLUCOSE 10 TABS/TUBE PO PRN (21:56)
[2021-09-13] MEDS ORDERED: GLUCOSE 40% GEL 15 GM TUBE PO PRN (21:56)
[2021-09-13] MEDS ORDERED: CARBOHYDRATES FOR HYPOGLYCEMIA PO PRN (21:56)
[2021-09-13 22:18] LABS: INR 1.1 (0.9-1.1); Partial Thromboplastin Time 25.1 Seconds (21.0-31.0); Prothrombin Time 10.8 Seconds (9.0-12.0)
[2021-09-13] MEDS ORDERED: HEPARIN SOD (PORCINE) 1000 UNIT/ML IV ONE (22:45)
[2021-09-13] MEDS ORDERED: GABAPENTIN 100 MG CAP PO ONE (22:45)
[2021-09-14] MEDS: MAGNESIUM OXIDE 400 MG TAB PO SCH ×4 (00:04→20:25)
[2021-09-14] MEDS: PANTOprazole 40 MG TAB PO SCH ×3 (00:05→20:26)
[2021-09-14] MEDS ORDERED: PHARMACY GLYCEMIC MGMT CONSULT PRN (00:23)
[2021-09-14 06:15] LABS: Basophils # (auto) 0.03 K/uL (0-0.2); Basophils % (auto) 0.4 %; Eosinophils # (auto) 0.19 K/uL (0-0.5); Eosinophils % (auto) 2.4 %; Hematocrit (blood only) 38.2 % (37-47); Hemoglobin 12.6 g/dL (12.0-16.0); Immature Granulocytes # (auto) 0.03 K/uL (0.00-0.02); Immature Granulocytes % (auto) 0.4 %; Lymphocytes # (auto) 2.24 K/uL (1.2-3.4); Lymphocytes % (auto) 27.9 %; Mean Corpuscular Hemoglobin 29.6 pg (25-34); Mean Corpuscular Volume 89.9 fL (80-100); Mean Platelet Volume 10.2 fL (7.4-10.4); Monocytes # (auto) 0.64 K/uL (0.11-0.59); Neutrophils % (auto) 60.9 %; Platelet Count 168 K/uL (130-400); RDW Coefficient of Variation 13.7 % (11.5-14.5); RDW Standard Deviation 45.2 fL (36.4-46.3); Red Blood Count 4.25 M/uL (4.2-5.4); White Blood Count 8.03 K/uL (4.8-10.8)
[2021-09-14 06:31] LABS: Partial Thromboplastin Ratio 3.2
[2021-09-14 06:53] LABS: Partial Thromboplastin Time 83.3 Seconds (21.0-31.0)
[2021-09-14 06:58] LABS: Albumin Level 3.2 gm/dl (3.4-5.0); BUN Creatinine Ratio 13.5 (10-20); Bilirubin Direct 0.2 mg/dl (0-0.2); Calcium 9.3 mg/dl (8.5-10.1); Creatinine Clr Calc Pharmacy 30.6 ml/min; Est GFR (African American) 33.1 ml/min; Est GFR (Non-African American) 28.6 ml/min
[2021-09-14 07:08] LABS: Albumin Globulin Ratio 0.9 (0.9-2); Bilirubin,Total 0.6 mg/dl (0.2-1); Globulin 3.4 gm/dl (2.5-4.0); Total Protein 6.6 gm/dl (6.4-8.2); Troponin I 6.71 ng/ml (0-0.045)
[2021-09-14 07:22] LABS: Estimated Average Glucose 171 mg/dl; Hemoglobin A1C 7.6 % (4.5-5.6)
[2021-09-14] MEDS: INSULIN ASPART PER UNIT SC SCH ×4 (07:56→20:24)
[2021-09-14] MEDS: ASPIRIN 81 MG ECTAB PO SCH (07:57)
[2021-09-14] MEDS: CLOPIDOGREL BISULFATE 75 MG TAB PO SCH (07:57)
[2021-09-14] MEDS: amLODIPine BESYLATE 5 MG TAB PO SCH (07:58)
[2021-09-14] MEDS: PROPRANOLOL HCL LA 80 MG CAPCR PO SCH (07:58)
[2021-09-14] MEDS: LOSARTAN POTASSIUM 25 MG TAB PO SCH (07:59)
[2021-09-14] MEDS: GABAPENTIN 100 MG CAP PO SCH ×3 (08:00→20:25)
[2021-09-14] MEDS: INSULIN GLARGINE SOLOSTAR 100 UNITS/ML 3 ML PEN SC SCH ×2 (08:01→20:26)
[2021-09-14] MEDS ORDERED: PARoxetine HCL 20 MG TAB PO SCH ×2 (09:00→17:00)
[2021-09-14] MEDS ORDERED: CYANOCOBALAMIN 500 MCG TABLET (VITAMIN B-12) PO SCH ×2 (09:00→17:00)
[2021-09-14] MEDS ORDERED: ATORVASTATIN 40 MG TAB PO SCH ×2 (09:00→17:00)
[2021-09-14] MEDS ORDERED: CHOLECALCIFEROL 5,000 UNITS 125 MCG TAB PO SCH ×2 (09:00→17:00)
[2021-09-14] MEDS ORDERED: Nursing to Pharmacy Communication SCH (10:00)
[2021-09-14] MEDS ORDERED: niCARdipine HCL INJ 2.5 MG/ML 10 ML AMP ONE (11:30)
[2021-09-14] MEDS ORDERED: NITROGLYCERIN/D5W 100MCG/ML 20ML SYR ONE (11:32)
--- NOTE | 2021-09-14 11:41 | Pre Anesthesia Assessment ---
Date of Service September 14, 2021 Pre Sedation Assessment Vital Signs Temp Pulse Pulse Resp BP BP BP 09/14/21 08:00 36.7 C 62 63 18 124/69 09/14/21 03:10 36.8 C 60 18 144/74 H 09/13/21 23:06 36.8 C 60 18 147/72 H 09/13/21 22:33 84 09/13/21 21:10 36.5 C 107 H 16 164/85 H 09/13/21 20:51 62 16 131/65 09/13/21 19:21 60 16 135/82 09/13/21 13:40 58 L 25 H 09/13/21 13:30 60 21 143/83 H 09/13/21 13:20 61 27 H 09/13/21 13:10 62 20 09/13/21 13:00 60 24 131/74 09/13/21 12:21 66 20 09/13/21 11:46 36.7 C 64 20 138/97 Pulse Ox 09/14/21 08:00 95 09/14/21 03:10 92 09/13/21 23:06 97 09/13/21 22:33 09/13/21 21:10 100 09/13/21 20:51 92 09/13/21 19:21 96 09/13/21 13:40 97 09/13/21 13:30 95 09/13/21 13:20 95 09/13/21 13:10 97 09/13/21 13:00 96 09/13/21 12:21 94 09/13/21 11:46 95 Cardiovascular + regular rate and + regular rhythm Respiratory + respiratory effort normal Pre-Sedation Airway Assessment Smoking Status: Former smoker Hx Sleep Apnea: No Hx Difficult Intubation: No Short, Thick Neck: No Thyromental Distance: > or= 3.5 Finger Breadths Oral Cavity: + WNL ASA: ASA3 Procedure Planning Contraindications for Sedation: none Current Medications Reviewed: Yes Notes The planned sedation has been discussed with the patient. Informed Consent was obtained. I have identified the patient, determined the appropriateness of sedation and have assessed the patient immediately prior to the procedure. All medicine(s) and interventions are by my order.
--- NOTE | 2021-09-14 11:48 | Cardiology Consultation ---
Date of Consultation September 14, 2021 Assessment & Plan (1) NSTEMI (non-ST elevated myocardial infarction): While her symptoms early yesterday morning are certainly atypical for acute coronary syndrome, she did have some other symptoms which are more suggestive of coronary disease in the past few days. She presented with elevated biomarkers. She was placed on heparin infusion. She has been on Plavix. This morning she is comfortable. Her EKG did not demonstrate evidence of acute coronary syndrome, but she clearly had an NSTEMI. With her history and objective findings it seems most appropriate to recommend coronary angiography. She is familiar with the procedure. We went over the risks and benefits again. Will plan on proceeding this afternoon. (2) History of coronary artery disease: Known to have had percutaneous intervention to the LAD and right coronary artery. She has been continued on Plavix and high-dose atorvastatin. (3) Hyperlipidemia: LDL 55 when measured this morning. Triglycerides were elevated. She should be continued on high-dose atorvastatin. She would likely be a good candidate for Vascepa if it is affordable. (4) Dyspnea: She does not appear to have orthopnea. Her lung examination was benign today. It is possible this represents an anginal equivalent. It is possible that she is just very deconditioned as well given her orthopedic disease. Will measure LVEDP at the time of catheterization. If she needs an intervention will see if this improves her dyspnea as well. History of Present Illness Reason for Consultation: NSTEMI Requesting Physician: Dayron Attending Physician: William Emerson DO History of Present Illness The patient is a 81-year-old woman with a remote history of PCI to the right coronary artery and 3 stents in the LAD presented with symptoms of atypical chest pain. The patient states that yesterday around 10 30 in the morning should be in experience severe sharp chest pains in the precordium. These were intermittent in nature and lasted until EMS was called. It is unclear what resolved her symptoms, but she did not report recurrent sharp chest pains subsequently. However, she did have episodes of chest discomfort yesterday evening as well. She describes this as more of a pressure and tight sensation in the chest. The patient also had similar symptoms several days ago. She reports on [place] [facility] having an episode of chest discomfort that was fairly mild in nature but described as precordial pressure. She has a very sedentary individual. She states she has breathing difficulty even with minimal ambulation or activity. Getting from the bed to the bedside commode in the hospital produced dyspnea. She did not report orthopnea. She d oes not feel that her symptoms of dyspnea have changed recently. She has some difficulty with ambulation due to knee discomfort she does report some weight gain recently. She had an element of lower extremity edema which appears to have resolved. A few weeks ago she had several days worth of sweating at nighttime. This was not accompanied by subjective fevers. Allergies Allergy/AdvReac Type Severity Reaction Status Date / Time clarithromycin Allergy Unknown UNKNOWN Verified 09/13/21 13:16 amoxicillin AdvReac Mild GI SYMPTOMS Verified 09/13/21 13:16 clavulanic acid AdvReac Mild GI SYMPTOMS Verified 09/13/21 13:16 lisinopril AdvReac Mild Cough Verified 09/13/21 15:34 Macrolide Antibiotics AdvReac Unknown Unknown Verified 09/13/21 15:34 Home Medications Medication Instructions Recorded Confirmed Type cholecalciferol (vitamin D3) 125 5,000 units PO DAILY #30 cap 02/17/19 09/13/21 Rx mcg (5,000 unit) capsule nitroglycerin 0.4 mg sublingual 0.4 mg SL Q5M PRN #25 tab 04/11/19 09/13/21 History tablet cyanocobalamin (vitamin B-12) 1,000 mcg PO DAILY 07/24/19 09/13/21 History 1,000 mcg capsule pantoprazole 40 mg tablet,delayed 40 mg PO BID 11/23/20 09/13/21 History release propranolol 160 mg capsule,24 160 mg PO DAILY 11/23/20 09/13/21 History hr,extended release magnesium oxide 500 mg capsule 500 mg PO TID #30 cap 12/01/20 09/13/21 Rx amlodipine 10 mg tablet 10 mg PO DAILY #90 tab 01/14/21 09/13/21 Rx glimepiride 2 mg tablet 2 mg PO DAILY #90 tab 02/24/21 09/13/21 Rx atorvastatin 40 mg tablet 40 mg PO DAILY #90 tab 03/18/21 09/13/21 Rx buspirone 7.5 mg tablet 7.5 mg PO TID PRN #90 tab 05/19/21 09/13/21 Rx gabapentin 100 mg capsule 100 mg PO Q8H PRN #270 cap 05/19/21 09/13/21 Rx linagliptin 5 mg tablet (Tradjenta) 5 mg PO DAILY #30 tab 05/19/21 09/13/21 Rx losartan 25 mg tablet 25 mg PO DAILY #30 tab 05/31/21 09/13/21 Rx paroxetine HCl 40 mg tablet 20 mg PO DAILY tab 06/23/21 09/13/21 History furosemide 40 mg tablet 40 mg PO DAILY PRN #30 tab 07/15/21 09/13/21 Rx clopidogrel 75 mg tablet 75 mg PO DAILY #90 tab 09/13/21 09/13/21 Rx Patient History Medical History Acute ME, lateral wall, initial episode of care (08/04/13) Anemia Arteriosclerotic cardiovascular disease Chronic reflux esophagitis Diabetes mellitus History of coronary artery disease s/p stents Hyperlipidemia Hypertension IV infiltration NSTEMI (non-ST elevated myocardial infarction) (08/04/13) s/p stents Presence of stent in artery SBO (small bowel obstruction) Thrombocytopenia Surgical History Cataract History of dilatation and curettage History of eye surgery Rt eye, removal of lens material by phacofragmentation with aspirati History of intestinal surgery small bowel resection History of ligation of vein History of lithotripsy Renal lithotripsy History of partial colectomy History of surgery Cath stent 1 mid-right coronary artery Cath stent 2 mid-left anterior descending artery Cath stent 2 proximal left anterior descending artery Cath stent 3 mid-left anterior descending artery Hx of hernia repair ventral hernia repair w/ mesh; year? Family History Mother , from complications of a fall ; age 92 Breast cancer stage 4 Sister Breast cancer Father , 60s Coronary heart disease s/p CABG Denies family history of Ovarian cancer Prostate cancer Myocardial infarction Colorectal cancer Social History Smoking Status: Former smoker Tobacco Type: Cigarettes Age Quit Using Tobacco: 27; packs per day: 0.5; Years Smoked: 12; Second Hand Exposure: No; Do You Dip or Chew Tobacco: No; Hx Alcohol Use: No Hx Substance Use: No Preferred Language: Bangladeshi Communication Ability: Effective Head Inspector Required: No Beliefs That Will Affect Care: None marital status: Current Living Situation: Spouse current occupational status: retired 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 Mood affect appear normal. She answered all questions appropriately. Obese HEENT: Sclerae are anicteric. Pupils are equal and reactive to light and accommodation. Extraocular movements were intact. Neuro: Cranial nerves intact Lungs: Lungs are clear to auscultation bilaterally. There are no rales wheezes or rhonchi. She has normal respiratory effort without use of accessory muscles. There is normal pulmonary excursion. Cardiac: The rhythm was regular. S1 and S2 were normal. There are no murmurs on examination. The PMI was not markedly displaced on palpation. Abdomen: The abdomen was soft and nontender. Obese Extremities: Patient has bilateral radial pulses that are equal in intensity. There is no evidence cyanosis or clubbing. There was no evidence of significant peripheral edema bilaterally. Skin: There are no rashes noted on examination today. Results & Data ([facility]) Vital Signs (Past 12 Hours) Vital Signs Temp Pulse Pulse Resp BP Pulse Ox 09/14/21 08:00 36.7 C 62 63 18 124/69 95 09/14/21 03:10 36.8 C 60 18 144/74 H 92 Laboratory Results Abnormal Lab Results 09/13/21 09/13/21 09/13/21 12:33 12:33 13:00 WBC 8.11 RBC 4.27 Hgb 13.0 Hct 39.1 MCV 91.6 MCH 30.4 MCHC 33.2 RDW Std Deviation 46.6 H RDW Coeff of Juan 13.9 Plt Count 184 MPV 10.1 Immature Gran % (Auto) 0.2 Neut % (Auto) 69.9 Lymph % (Auto) 20.0 Craven % (Auto) 7.2 Eos % (Auto) 2.3 Baso % (Auto) 0.4 Neut # (Auto) 5.67 Lymph # (Auto) 1.62 Craven # (Auto) 0.58 Eos # (Auto) 0.19 Baso # (Auto) 0.03 Immature Gran # (Auto) 0.02 PT INR APTT PTT Ratio Sodium 136 Potassium 4.0 Chloride 103 Carbon Dioxide 26 Anion Gap 7.0 BUN 20 H Creatinine 1.67 H Est Cr Clr Drug Dosing Not Reportable Est GFR ( Amer) 33.4 Est GFR (Non-Af Amer) 28.8 BUN/Creatinine Ratio 12.2 Glucose 166 H POC Glucose Estimat Average Glucose Hemoglobin A1c Calcium 9.3 Total Bilirubin 0.6 Direct Bilirubin AST 12 L ALT 19 Alkaline Phosphatase 80 Troponin I 0.079 H* Total Protein 7.3 Albumin 3.5 Globulin 3.8 Albumin/Globulin Ratio 0.9 Triglycerides Cholesterol LDL Cholesterol, Calc VLDL Cholesterol, Calc HDL Cholesterol Cholesterol/HDL Ratio Lipase 225 SARS-CoV-2, RNA, NAAT NEGATIVE 09/13/21 09/13/21 09/13/21 17:51 21:40 22:21 WBC RBC Hgb Hct MCV MCH MCHC RDW Std Deviation RDW Coeff of Juan Plt Count MPV Immature Gran % (Auto) Neut % (Auto) Lymph % (Auto) Craven % (Auto) Eos % (Auto) Baso % (Auto) Neut # (Auto) Lymph # (Auto) Craven # (Auto) Eos # (Auto) Baso # (Auto) Immature Gran # (Auto) PT 10.8 INR 1.1 APTT 25.1 PTT Ratio 1.0 Sodium Potassium Chloride Carbon Dioxide Anion Gap BUN Creatinine Est Cr Clr Drug Dosing Est GFR ( Amer) Est GFR (Non-Af Amer) BUN/Creatinine Ratio Glucose POC Glucose 101 H Estimat Average Glucose Hemoglobin A1c Calcium Total Bilirubin Direct Bilirubin AST ALT Alkaline Phosphatase Troponin I 1.890 H* Total Protein Albumin Globulin Albumin/Globulin Ratio Triglycerides Cholesterol LDL Cholesterol, Calc VLDL Cholesterol, Calc HDL Cholesterol Cholesterol/HDL Ratio Lipase SARS-CoV-2, RNA, NAAT 09/14/21 09/14/21 09/14/21 01:42 05:49 05:49 WBC 8.03 RBC 4.25 Hgb 12.6 Hct 38.2 MCV 89.9 MCH 29.6 MCHC 33.0 RDW Std Deviation 45.2 RDW Coeff of Juan 13.7 Plt Count 168 MPV 10.2 Immature Gran % (Auto) 0.4 Neut % (Auto) 60.9 Lymph % (Auto) 27.9 Craven % (Auto) 8.0 Eos % (Auto) 2.4 Baso % (Auto) 0.4 Neut # (Auto) 4.90 Lymph # (Auto) 2.24 Craven # (Auto) 0.64 H Eos # (Auto) 0.19 Baso # (Auto) 0.03 Immature Gran # (Auto) 0.03 H PT INR APTT PTT Ratio Sodium 136 Potassium 4.0 Chloride 104 Carbon Dioxide 23 Anion Gap 9.0 BUN 23 H Creatinine 1.68 H Est Cr Clr Drug Dosing 30.6 Est GFR ( Amer) 33.1 Est GFR (Non-Af Amer) 28.6 BUN/Creatinine Ratio 13.5 Glucose 143 H POC Glucose Estimat Average Glucose Hemoglobin A1c Calcium 9.3 Total Bilirubin 0.6 Direct Bilirubin 0.2 AST 35 ALT 19 Alkaline Phosphatase 74 Troponin I 5.690 H* 6.710 H* Total Protein 6.6 Albumin 3.2 L Globulin 3.4 Albumin/Globulin Ratio 0.9 Triglycerides 217 H Cholesterol 136 LDL Cholesterol, Calc 55 VLDL Cholesterol, Calc 43 HDL Cholesterol 38 Cholesterol/HDL Ratio 4 Lipase SARS-CoV-2, RNA, NAAT 09/14/21 09/14/21 09/14/21 05:49 05:49 05:49 WBC RBC Hgb Hct MCV MCH MCHC RDW Std Deviation RDW Coeff of Juan Plt Count MPV Immature Gran % (Auto) Neut % (Auto) Lymph % (Auto) Craven % (Auto) Eos % (Auto) Baso % (Auto) Neut # (Auto) Lymph # (Auto) Craven # (Auto) Eos # (Auto) Baso # (Auto) Immature Gran # (Auto) PT INR APTT 83.3 H* PTT Ratio 3.2 Sodium Potassium Chloride Carbon Dioxide Anion Gap BUN Creatinine Est Cr Clr Drug Dosing Est GFR ( Amer) Est GFR (Non-Af Amer) BUN/Creatinine Ratio Glucose POC Glucose Estimat Average Glucose 171 Hemoglobin A1c 7.6 H Calcium Total Bilirubin Direct Bilirubin AST ALT Alkaline Phosphatase Troponin I Cancelled Total Protein Albumin Globulin Albumin/Globulin Ratio Triglycerides Cholesterol LDL Cholesterol, Calc VLDL Cholesterol, Calc HDL Cholesterol Cholesterol/HDL Ratio Lipase SARS-CoV-2, RNA, NAAT 12/28/21 07:29 WBC RBC Hgb Hct MCV MCH MCHC RDW Std Deviation RDW Coeff of Juan Plt Count MPV Immature Gran % (Auto) Neut % (Auto) Lymph % (Auto) Craven % (Auto) Eos % (Auto) Baso % (Auto) Neut # (Auto) Lymph # (Auto) Craven # (Auto) Eos # (Auto) Baso # (Auto) Immature Gran # (Auto) PT INR APTT PTT Ratio Sodium Potassium Chloride Carbon Dioxide Anion Gap BUN Creatinine Est Cr Clr Drug Dosing Est GFR ( Amer) Est GFR (Non-Af Amer) BUN/Creatinine Ratio Glucose POC Glucose 156 H Estimat Average Glucose Hemoglobin A1c Calcium Total Bilirubin Direct Bilirubin AST ALT Alkaline Phosphatase Troponin I Total Protein Albumin Globulin Albumin/Globulin Ratio Triglycerides Cholesterol LDL Cholesterol, Calc VLDL Cholesterol, Calc HDL Cholesterol Cholesterol/HDL Ratio Lipase SARS-CoV-2, RNA, NAAT Diagnostic Findings Chest x-ray obtained at the time admission not reveal any acute cardiopulmonary process EKG obtained the time admission revealed normal sinus rhythm with nonspecific ST and T-wave changes. Poor R-wave progression in the precordial leads. Echocardiogram dated today revealed an ejection fraction around 50%. There were regional wall motion abnormalities involving the distal inferior wall and apex. PG Care Time/CCT Total # of Minutes Spent Total Time Spent with Patient: Total time spent is greater than 50% in coordination of care (as documented) at patient's floor/unit and/or counseling patient: Coding Level of Care Code 84763 Initial Inpt Care Lvl 3 Diagnoses NSTEMI (non-ST elevated myocardial infarction) I21.4 History of coronary artery disease Z86.79 Hyperlipidemia E78.2 Hyperlipidemia type: mixed hyperlipidemia Dyspnea R06.00 (1) Hyperlipidemia Hyperlipidemia type: mixed hyperlipidemia Qualified Code(s): E78.2 - Mixed hyperlipidemia
[2021-09-14] MEDS ORDERED: MIDAZOLAM HCL 1 MG/ML 2ML VIAL ONE (11:58)
[2021-09-14] MEDS ORDERED: HEPARIN (PORCINE) 1000 UNIT/ML 10 ML (CATH LAB USE ONLY) ONE ×2 (11:58→13:04)
[2021-09-14] MEDS ORDERED: fentaNYL citrate 100 MCG/2 ML VIAL ONE (11:58)
--- NOTE | 2021-09-14 12:35 | Cardiac Catheterization ---
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 Clinical evaluation leading to the procedure CAD Presenation: Non STEMI Diagnostic Physicians Name: Omega Liu MD Closure Device Recommendations: PCI without planned CABG Cardiac Cath Procedure Full Procedure Date September 14, 2021 Pre-Procedure Diagnosis Pre-Procedure Diagnosis: Non STEMI AUC Score AUC Score: 8 Post-Procedure Diagnosis Post-Procedure Diagnosis: Severe CAD Procedure(s) Performed Procedure(s) Performed: Coronary Angiography and Left Heart Cath Carpenter General Omega Liu MD School Bus Monitor(s) none Estimated Blood Loss Estimated Blood Loss: 5cc Medication(s) Medication(s): Fentanyl, Heparin, Lidocaine 1%, Nicardipine, Nitroglycerin and Versed Summary of Findings Procedure performed: Cardiac catheterization Staff expansion envelope 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 Procedure in detail: The patient was informed of the risks benefits and alternatives to the intended procedure, he understood such and wished to proceed. He was taken to the cardiac catheterization suite in a fasting state. Conscious sedation was administered per protocol and the patient was monitored electrocardiographically throughout today's procedure. The right wrist area was prepped and draped in usual sterile fashion. This area was anesthetized using subcutaneous administration of a lidocaine solution. The right radial artery was then accessed using Seldinger technique, and a arterial sheath was placed at this si te over a guidewire. The sheath was used to facilitate passage of the cardiac catheter for coronary angiography and left heart catheterization. Coronary angiogram was then obtained in multiple orthogonal views prior to removal of the catheter. At the conclusion of the procedure the sheath was removed and hemostasis was achieved at the access site using manual pressure. The patient tolerated procedure well, there were no immediate complications. Equipment used: 5 Welsh Tinypasser 4. 5 Welsh [facility] Findings: Coronary angiography Left main: Left main coronary was normal in size and caliber and bifurcated normally into the left anterior descending left circumflex arteries Left anterior descending: Left anterior descending artery was a large transapical vessel. There was a large 1st diagonal branch with luminal irregularities. There was a stent in the midportion of the LAD with minimal InStent restenoses. There were several smaller distal diagonal branches. The LAD was noted to fill the distal right coronary via collateral circulation. Left circumflex: Left circumflex was a nondominant vessel. It produced a large 1st OM branch. There are luminal irregularities but no discrete stenosis in this vessel Right coronary artery: The right coronary artery was relatively small. There was a stent in its proximal portion with minimal InStent restenoses but a discrete 50-60% stenosis distal to the stent. There appeared to be subtotal occlusion of a large PLB branch. The distal portion of the right coronary artery was known to fill via [id number] collaterals. Impression: Right dominant coronary system Normal left ventricular filling pressures No evidence of aortic stenosis Patent RCA and LAD stents Acute coronary syndrome involving the distal right coronary artery Hemodynamics Rest Ao:: 116/52 mm of mercury Final Ao: 120/62 mm of mercury LV: 106/4 mm of mercury Left ventricular end-diastolic pressure 13 mm of mercury Recommendations Recommendations: PCI without planned CABG Specimens Specimens: None Radiation Exposure (mGy) One thousand one hundred three Contrast (mls) Thirty Procedural Complication(s) None Disposition PCU I attest to the content of the Intraoperative Record and any orders documented therein. Any exceptions are noted below. [facility] Card Cath Procedure Codes Cardiac Catheterization Procedure 1: Cardiovascular Cath Procedures: 70843 Coronaries and LHC (+/-LV) Moderate Sedation Procedure 1: Sedation/Anesthesia: 82915 Mod Sedation by the same physician;Init15 Min Child Age 5 & Up Procedure 2: Sedation/Anesthesia: 48333 Mod Sedation by the same physician; Ea [id number] Minutes PG Care Time/CCT Total # of Minutes Spent Total Time Spent with Patient: Total time spent is greater than 50% in coordination of care (as documented) at patient's floor/unit and/or counseling patient:
[2021-09-14] MEDS ORDERED: CLOPIDOGREL BISULFATE 300 MG TAB ONE (12:38)
--- NOTE | 2021-09-14 13:30 | XCELERA ---
[id number]
--- NOTE | 2021-09-14 13:48 | Cardiac Catheterization ---
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 Clinical evaluation leading to the procedure Presentation with CP and NSTEMI CAD Presenation: Non STEMI Anginal Classification: CCS IV STEMI OR Non-STEMI Symptom Onset Date: 09/13/21 Coronary Anatomy Dominant: Right Diagnostic Physicians Name: Jose Lawton MD Closure Device Recommendations: PCI without planned CABG PCI Indication: PCI for high risk Non-MICHAEL Lesion Segment Name: Prox/Dist RCA Culprit Artery: Yes Stenosis Prior to Rx (%): See Findings Previously Treated Lesion: Yes Lesion Complexity: High/C Cardiac Cath Procedure Full Procedure Date September 14, 2021 Pre-Procedure Diagnosis Pre-Procedure Diagnosis: Non STEMI AUC Score AUC Score: Appropriate Post-Procedure Diagnosis Post-Procedure Diagnosis: Successful PCI Procedure(s) Performed Procedure(s) Performed: Drug Eluting Stent Instrument Technician Jose Lawton MD Technical Sme(s) Diagnostic procedure performed by Dr Kvng Liu Estimated Blood Loss Estimated Blood Loss: None Summary of Findings Successful PCI RCA Site Prox/Dist RCA Guide 6F AL1 with telescope support Wire Whisper/Runthru/Wiggle Stent 3.5x26 prox; 3.0x12 + 3.0x26 Distal Stenosis prox 60/70->0 ; dist 100->0 PROMISE 0->3 Lesion type C Lesion Length 15 mm prox/25 mm dist Rec DAPT for 1 year Hemodynamics Rest Ao:: 120/80 Final Ao: 120/80 LV: 120/10 Recommendations Recommendations: PCI without planned CABG Radiation Exposure (mGy) 4295 Contrast (mls) 145 I attest to the content of the Intraoperative Record and any orders documented therein. Any exceptions are noted below. PG Care Time/CCT Total # of Minutes Spent Total Time Spent with Patient: Total time spent is greater than 50% in coordination of care (as documented) at patient's floor/unit and/or counseling patient:
[2021-09-14] MEDS: SODIUM CHLORIDE 0.9% 1000ML 1,000 ML IV SCH ×2 (14:32→21:29)
[2021-09-14 16:35] LABS: Partial Thromboplastin Ratio > 5.3
[2021-09-14 17:19] LABS: Partial Thromboplastin Time > 139.0 Seconds (21.0-31.0)
[2021-09-14] MEDS: HEPARIN SODIUM/DEXTROSE 25,000 UNITS/500 ML BAG IV SCH (17:25)
--- NOTE | 2021-09-14 17:48 | Electrocardiogram Report ---
Test Reason : Blood Pressure : / mmHG Vent. Rate : 063 BPM Atrial Rate : 063 BPM P-R Int : 196 ms QRS Dur : 086 ms QT Int : 430 ms P-R-T Axes : 023 -32 -13 degrees QTc Int : 440 ms Normal sinus rhythm Left axis deviation Low voltage QRS Abnormal ECG When compared with ECG of 13-SEP-2021 12:26, T wave inversion now evident in Inferior leads Confirmed by Omega Liu ([id number]) on 09/14/2021 5:47:59 PM Referred By: REFERRED SELF Confirmed By:Edil Liu
--- NOTE | 2021-09-14 17:58 | Electrocardiogram Report ---
Test Reason : Blood Pressure : / mmHG Vent. Rate : 053 BPM Atrial Rate : 053 BPM P-R Int : 226 ms QRS Dur : 082 ms QT Int : 454 ms P-R-T Axes : 045 -34 -17 degrees QTc Int : 426 ms Sinus bradycardia with 1st degree A-V block with Fusion complexes Left axis deviation Inferior infarct , age undetermined Abnormal ECG When compared with ECG of 14-SEP-2021 02:34, (unconfirmed) Fusion complexes are now Present OK interval has increased Confirmed by Omega Liu ([id number]) on 09/14/2021 5:58:25 PM Referred By: REFERRED SELF Confirmed By:Edil Liu
--- NOTE | 2021-09-14 19:04 | Hospitalist Progress Note ---
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 (4) Hypertension: Plan: follow BP - on home meds (5) Hyperlipidemia: Plan: atorva 40mg (6) History of coronary artery disease: Plan: currently active cad - s/p stenting Plan: hopefully home tomorrow Admission and Anticipated Discharge Date Admission Date: September 13, 2021 Subjective feeling better no cp and sob went away when stent went in. otherwise feeling OK no new complaints Review of Systems Review of Systems: All systems reviewed & are unremarkable except as noted in HPI & below Physical Exam Physical Exam: gen aao pleasant nad heent nc at mmm breathing unlabored no accessory muscles good effort skin no rashes no pallor or icterus neuro no focal deficits Results & Data Results & Data ([facility]) Vital Signs (Past 12 Hours) Vital Signs Temp Pulse Pulse Resp BP Pulse Ox Pulse Ox 09/14/21 18:33 57 L 20 128/67 96 09/14/21 17:33 98.6 F 58 L 20 120/82 98 09/14/21 16:33 98.6 F 55 L 20 122/68 94 09/14/21 15:33 98.6 F 56 L 16 118/73 92 09/14/21 15:12 95 09/14/21 15:03 59 L 16 135/72 93 09/14/21 15:00 56 L 09/14/21 14:33 98.4 F 59 L 18 124/68 96 09/14/21 14:18 58 L 18 128/67 94 09/14/21 14:03 98.4 F 57 L 18 119/74 94 09/14/21 13:55 68 20 127/76 91 09/14/21 13:40 66 20 117/63 90 09/14/21 08:00 98.1 F 62 63 18 124/69 95 PG Care Time/CCT Total # of Minutes Spent Total Time Spent with Patient: Total time spent is greater than 50% in coordination of care (as documented) at patient's floor/unit and/or counseling patient: Coding Level of Care Code 76687 Subseq Hosp Care Lvl 3 Diagnoses NSTEMI (non-ST elevated myocardial infarction) I21.4 Chest pain, precordial R07.2 Type 2 DM with CKD stage 3 and hypertension E11.22; I12.9; N18.3 Hypertension I10 Hypertension type: essential hypertension Hyperlipidemia E78.2 Hyperlipidemia type: mixed hyperlipidemia History of coronary artery disease Z86.79 (1) Hypertension Hypertension type: essential hypertension Qualified Code(s): I10 - Essential (primary) hypertension (2) Hyperlipidemia Hyperlipidemia type: mixed hyperlipidemia Qualified Code(s): E78.2 - Mixed hyperlipidemia
[2021-09-15] MEDS: SODIUM CHLORIDE 0.9% 1000ML 1,000 ML IV SCH (05:15)
[2021-09-15 06:55] LABS: BUN Creatinine Ratio 13.5 (10-20); Calcium 8.8 mg/dl (8.5-10.1); Est GFR (African American) 29.7 ml/min; Est GFR (Non-African American) 25.6 ml/min; Potassium 4.1 mmol/L (3.5-5.1)
[2021-09-15] MEDS: amLODIPine BESYLATE 5 MG TAB PO SCH (07:56)
[2021-09-15] MEDS: CLOPIDOGREL BISULFATE 75 MG TAB PO SCH (07:56)
[2021-09-15] MEDS: GABAPENTIN 100 MG CAP PO SCH (07:56)
[2021-09-15] MEDS: LOSARTAN POTASSIUM 25 MG TAB PO SCH (07:56)
[2021-09-15] MEDS: PANTOprazole 40 MG TAB PO SCH (07:56)
[2021-09-15] MEDS: ASPIRIN 81 MG ECTAB PO SCH (07:56)
[2021-09-15] MEDS: MAGNESIUM OXIDE 400 MG TAB PO SCH (07:56)
[2021-09-15] MEDS: PROPRANOLOL HCL LA 80 MG CAPCR PO SCH (07:56)
[2021-09-15] MEDS: INSULIN GLARGINE SOLOSTAR 100 UNITS/ML 3 ML PEN SC SCH (08:01)
[2021-09-15] MEDS: INSULIN ASPART PER UNIT SC SCH ×2 (08:01→12:21)
--- NOTE | 2021-09-15 17:22 | Discharge Summary ---
Date of Service September 15, 2021 Admission HPI Per Admitting Provider 81 yo female with history of CAD, and 5 coronary stents. Sharp Chest pain woke her up this morning. Pain radiated to neck and was relieved by nitro. She had some resting sharp chest pain also on Monday morning. When pain returned today, she decided to come into the hospital. Trop is mildly elevated in the ER. Principal Diagnosis NSTEMI due to RCA stenosis, that has now been stented Discharge Exam In general she is awake and alert pleasant no distress. HEENT normocephalic atraumatic mucous membranes moist. Breathing unlabored no accessory muscle use good effort. Skin shows no rashes no pallor or icterus. Neuro without focal deficits. Discharge Data Allergies Allergy/AdvReac Type Severity Reaction Status Date / Time clarithromycin Allergy Unknown UNKNOWN Verified 09/13/21 13:16 amoxicillin AdvReac Mild GI SYMPTOMS Verified 09/13/21 13:16 clavulanic acid AdvReac Mild GI SYMPTOMS Verified 09/13/21 13:16 lisinopril AdvReac Mild Cough Verified 09/13/21 15:34 Macrolide Antibiotics AdvReac Unknown Unknown Verified 09/13/21 15:34 Consultations 09/13/21 13:28 ED Decision to Admit Stat 09/13/21 15:11 Consult Cardiology Routine 09/14/21 13:49 Consult Cardiac Rehabilitation Routine 09/14/21 13:50 Consult Internal Medicine Routine Procedures Performed Operation Date: 09/14/21 11:30 Actual Procedures p Cath, Left with Cors and Vent - Julius Liu MD p Drug Eluting Stent SGl Vessel - Jose Lawton MD s Cineradiography w/Routine Exam - Jose Lawton MD Ordered Studies 09/14/21 11:18 CL Cath Imgs for PACS use only Routine Hospital Course (1) NSTEMI (non-ST elevated myocardial infarction): cath - RCA stentstable for home. Dual antiplatelets. Could consider changing propranolol to metoprolol or carvedilolwill defer to outpatient for this. Continue statin. Consider AYUSH if kidney function allows, but given CKD, will hold off acutely at least. med management/lifestyle change - secondary risk reductions (2) Chest pain, precordial: as above (3) Type 2 DM with CKD stage 3 and hypertension: A1c 7.6 - reasonable control for age. Discussed scaling back carbohydrate intake some. No need for med changes at this time. Outpatient basic metabolic panel by the end of the week (4) Hypertension: follow BP as outpatient-continue current home meds, consider changes as above outlined (with beta-andriy, and/or potential of addition of AYUSH inhibitor) (5) Hyperlipidemia: atorva 40mg (6) History of coronary artery disease: currently active cad - s/p stenting stable for home Total Time Total Time Spent Total Time Spent (In Minutes): Less than 30 Discharge Plan Discharge Items Patient Disposition: Home - Self-Care Reason For Visit: NSTEMI Discharge Diagnosis: small heart attack - now stable after stenting (see below) Activity: Resume your previous activity Activity Comment: take it easy until you see dr vasquez in the office Non-emergency contact: Primary Care Provider and Metal Hanging 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 Call non-emergency contact if: you have any medication questions and your symptoms worsen Follow-up/Referrals: Sarkis Asher, [Primary Care Provider] - 09/30/21 12:00 pm Diet: Carb Consistent or DM2 Addtl Attending Provider Instructions: Heart attack -Fortunately your echocardiogram looked relatively reassuringyour overall heart squeezes at 45 to 50% (normal is about 55-65) -Currently you are risks for "clogging arteries" are under pretty good controlabout the only thing that can use a little bit of a tune up is that your A1c is mildly elevated at 7.6% (high sugars clog arteries, and any A1c above about 7 is indicative of doing some degree of damage, but 7.6 is fairly mildly upthe main "intervention" for that would really be just trying to eliminate some of the starchy/bradycardia/sugary foods from your diet) -The main medication change will be having you on both aspirin and Plavix for the next year or so -Once Dr. Vasquez is seen you in follow-up, I would strongly recommend working towards taking a 30-minute walk every dayregular cardiovascular exercise can definitely reduce your chances of having another heart attack/worsening blockages have Dr Asehr check labwork (BMP) next week as a follow up ACTIVITY RECOMMENDATIONS: Excess manipulation of the wrist should be avoided for the next 24-48 hours. * No lifting over 2 pounds (approximately a 1/2 gallon of milk) with the utilized arm for 24 hours. * No strenuous activity such as bowling or tennis for 3 days. * Keep the site of the procedure covered with a bandage for 24 hours. *You may shower the day after the procedure. Do not take a tub bath or submerge the puncture site in water for the next 3 days. *Do not operate any motorized equipment for 3 days. SPECIAL CARE INSTRUCTIONS: The site may be slightly bruised and sore following your procedure. Should any of the following occur, contact the Dr. who performed your procedure. 1. Redness/inflammation, swelling, chills, or fever, or colored drainage at procedure site within 3-7 days after your procedure. 2. Coldness, discoloration, ongoing numbness, severe pain, or swelling. Expect mild tingling of hand and tenderness at the puncture site for up to three days. If this persists beyond three days, or other symptoms develop, notify the Dr. who performed your procedure. BLEEDING: If the procedure site on your wrist begins to bleed, do not panic 1. Place 1 or 2 fingers firmly just slightly above the insertion site to stop the bleeding. You may be able to feel your pulse as you hold pressure. 2. Lift your finger after 5 minutes to see if the bleeding has stopped. 3. Once the bleeding has stopped, gently wipe the wrist area clean with a bandage. * If the bleeding from your wrist does not stop after 10 minutes, or if there is a large amount of bleeding or spurting, call 911 (do not drive yourself to the hospital). SKIN IRRITATION: * You may experience some redness and/or swelling in the area where radiation was administered. If any skin irritation occurs, please contact your family olvin correaian. FOLLOW UP VISIT: Keep any scheduled doctor appointments. Pending Studies at Discharge: No Stand-Alone Forms: [employer], Smoking Cessation Medications and DC Order Prescriptions: New aspirin 81 mg Tablet,Delayed Release (Dr/Ec) 81 mg PO QAM Qty: 30 RF: 0 nitroglycerin 0.4 mg tablet, sublingual 0.4 mg sublingual Q5M PRN (Reason: chest pain) Qty: 30 RF: 0 Continued magnesium oxide 500 mg capsule 500 mg PO TID Qty: 30 RF: 0 glimepiride 2 mg tablet 2 mg PO DAILY Qty: 90 RF: 3 losartan 25 mg tablet 25 mg PO DAILY Qty: 30 RF: 11 furosemide 40 mg tablet 40 mg PO DAILY PRN (Reason: edema) Qty: 30 RF: 5 clopidogrel 75 mg tablet 75 mg PO DAILY Qty: 90 RF: 3 nitroglycerin 0.4 mg tablet, sublingual 0.4 mg SL Q5M PRN (Reason: chest pain) Qty: 25 RF: 0 cyanocobalamin (vitamin B-12) 1,000 mcg capsule 1,000 mcg PO DAILY RF: 0 paroxetine HCl 40 mg tablet 20 mg PO DAILY RF: 0 Tradjenta 5 mg tablet 5 mg PO DAILY Qty: 30 RF: 5 gabapentin 100 mg capsule 100 mg PO Q8H PRN (Reason: neuropathy) Qty: 270 RF: 3 buspirone 7.5 mg tablet 7.5 mg PO TID PRN (Reason: anxiety) Qty: 90 RF: 2 cholecalciferol (vitamin D3) 5,000 unit capsule 5,000 units PO DAILY Qty: 30 RF: 0 amlodipine 10 mg tablet 10 mg PO DAILY Qty: 90 RF: 1 atorvastatin 40 mg tablet 40 mg PO DAILY Qty: 90 RF: 3 pantoprazole 40 mg tablet,delayed release (DR/EC) 40 mg PO BID RF: 0 propranolol 160 mg capsule,extended release 24 hr 160 mg PO DAILY RF: 0 Discharge Orders: Discharge Order (Routine); Ordered 09/15/21 Ordered By: William Saldana/Other Patient Handouts: Healthy Meals for Diabetes, Eating Heart-Healthy Foods Admission Data Admit Date/Time: 09/13/21 15:16 Attending Provider: William Emerson Admit Provider: Andrew Padgett Primary Care Provider: Sarkis Asher Other Providers: Andrew Padgett ; Julius Liu Other Interventions: Discharge Summary Assessment (RN) Last Done: 09/15/21 13:20 Coding Level of Care Code D/C DAY MANAGEMENT <30 MINS Diagnoses NSTEMI (non-ST elevated myocardial infarction) I21.4 Chest pain, precordial R07.2 Type 2 DM with CKD stage 3 and hypertension E11.22; I12.9; N18.3 Hypertension I10 Hypertension type: essential hypertension Hyperlipidemia E78.2 Hyperlipidemia type: mixed hyperlipidemia History of coronary artery disease Z86.79
== END 2021-09-15 14:00 | disposition home or self-care (01) | DRG 247 ==
LOC: ED 12:01 → EDINP 15:16 → SUATTDRO 15:16 → 2S 18:35

== ENCOUNTER 2022-02-09 19:01 | Inpatient (IN) ==
--- NOTE | 2022-02-09 19:13 | Emergency Department Note ---
Impression & Plan Acute hyponatremia, Thrombocytopenia, Acute alteration in mental status, SOHAN (acute kidney injury), Hypomagnesemia, Fever ED Provider Note NAME: LAURENT ANDERSON AGE: 81 SEX: F : 1940 ARRIVES VIA: Ambulance INFORMANT: Patient, EMS personnel ED PROVIDER(S): Ryan Parra DO CHIEF COMPLAINT: Altered mental status HPI: The patient is a 81-year-old female who presented to the emergency department for an evaluation of altered mental status. Apparently the patient is mental status has been waxing waning throughout the day. She was seen in our facility recently. She was started on tramadol as well as Baclofen. It is unc lear if she was on these medicines before. The patient's family members called 911. Patient was found have a low-grade fever prior to arrival. She was given Tylenol. There is also a reported oxygen saturation of 79%. The patient's mental status is slowly improved since she left her home. She now is awake and answering questions but slowly. She denies having any chest pain or abdominal pain. Apparently she was diagnosed with sciatica when she was in the facility 2 days ago. She was seen in our emergency department at that time. She also had a fever at that time as well. She denies having any dysuria or frequency. There is no recent trauma. The patient's had no other changes to her medications. Apparently she is been compliant with her outpatient medications. History is obtained from EMS personnel. ROS: See above HPI for pertinent positives & negatives. A total of 10 systems reviewed and were otherwise negative. PAST MEDICAL HISTORY: See Below PAST SURGICAL HISTORY: See Below FAMILY HISTORY: See Below SOCIAL HISTORY: See Below HOME MEDICATIONS: See Below ALLERGIES: See Below VITALS: See Below PHYSICAL EXAMINATION: GENERAL: The patient is awake but slow to answer questions. She appears to be oriented to person place and situation at this time. EYES: The conjunctivae are clear. The pupils are round and reactive. EARS, NOSE, MOUTH AND THROAT: The nose is without any evidence of any deformity. Mucous membranes are dry. NECK: The neck is nontender and supple. RESPIRATORY: Diminished breath sounds are noted throughout. There was mild conversational dyspnea. Tachypnea was also noted. CARDIOVASCULAR: Tachycardic and irregular heart sounds are noted auscultation. There is no definite murmur. GASTROINTESTINAL: The abdomen was soft and mildly distended. There is no guarding or rigidity appreciated. MUSCULOSKELETAL/EXTREMITIES: There is no evidence of gross deformity full range of motion is noted in the hips and shoulders. SKIN: The skin is warm and dry. Trace pedal edema was noted bilaterally. NEUROLOGIC: Patient is awake and oriented to person place and situation. She is moving all extremities well. Strength was symmetric but diminished. MEDICAL DECISION MAKING: The patient is a 81-year-old female who presented to the emergency department for an evaluation of febrile illness. The patient was recently seen in our facility for similar complaints. At that time she was diagnosed with sciatica. The patient started having confusion and alteration of mental status. She was noted to have a fever prior to arrival. I discussed the patient's laboratory and radiographic studies with her and her family member. She was treated with IV fluids and IV antibiotics in the emergency department. The patient was found to have significant hyponatremia. It is possible that is the cause of the altered mental status. No definite source for the fever could be found. Empiric antibiotics were started. I discussed the patient's condition with the [facility] hospitalist. They have agreed to evaluate the patient in the emergency department for further management and disposition. Triage Nursing notes reviewed. Prior medical records reviewed Vital Signs: reviewed and remarkable for no significant abnormalities Differential diagnosis: Infection, hypoglycemia, electrolyte abnormalities, overdose, toxicologic, cardiac sources, intracerebral event, neurologic, trauma, as well as other pathologies. ER treatment provided: See below Diagnostics interpreted by me: ECG: EKG was obtained in the emergency department. My interpretation is atrial fibrillation at 106 bpm. PVCs were noted. There is no acute ST segment abnormalities noted. This was compared to a tracing from February 07, 2022. Atrial fibrillation has replaced sinus rhythm compared to the previous tracing. Cardiac Monitoring: An order was placed for continuous cardiac monitoring. The monitor shows a rate of 78 bpm with atrial fibrillation Laboratory studies: As stated above and show below. Imaging studies: See below Consultation(s): Dr. Cline was notified about the patient. Past Med/Surg History Medical History Acid reflux Acute TX, lateral wall, initial episode of care (08/04/13) Anemia Arteriosclerotic cardiovascular disease Chronic back pain Congestive heart failure Diabetes mellitus NIDDM History of coronary artery disease s/p stents Hyperlipidemia Hypertension Myocardial Infarction 09/07 with 3 stents NSTEMI (non-ST elevated myocardial infarction) (08/04/13) s/p stents Presence of stent in artery SBO (small bowel obstruction) history Spinal stenosis of lumbar region with radiculopathy Thrombocytopenia Surgical History Cataract History of cardiac cath 09/07 stents x 3 at [place] History of colonoscopy History of dilatation and curettage History of esophagogastroduodenoscopy (EGD) History of eye surgery Rt eye, removal of lens material by phacofragmentation with aspirati History of intestinal surgery small bowel resection History of ligation of vein History of lithotripsy Renal lithotripsy History of partial colectomy History of surgery Cath stent 1 mid-right coronary artery Cath stent 2 mid-left anterior descending artery Cath stent 2 proximal left anterior descending artery Cath stent 3 mid-left anterior descending artery Hx of hernia repair ventral hernia repair w/ mesh; year? 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: No Beliefs That Will Affect Care: Restoration Restoration Beliefs: Mu-ism- no blood products marital status: Current Living Situation: Spouse current occupational status: retired 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 How many Children do You have: 4 other: lives with son and Feels Safe at Home: Yes Childhood Exposure to Second-Hand Smoke: Yes caffeine: No Dental Care, Regularly: Yes Physical Activity Frequency: Does not Exercise Seatbelt Use: always Sunscreen Use: No Assistive Devices: Cane, Denture - Upper, Denture - Lower, Glasses, Walker and Wheelchair Allergies Allergies Allergy/AdvReac Type Severity Reaction Status Date / Time clarithromycin Allergy Unknown UNKNOWN Verified 02/09/22 20:04 amoxicillin AdvReac Intermediate GI SYMPTOMS Verified 02/09/22 20:04 clavulanic acid AdvReac Intermediate GI SYMPTOMS Verified 02/09/22 20:04 lisinopril AdvReac Intermediate Cough Verified 02/09/22 20:04 Macrolide Antibiotics AdvReac Unknown Unknown Verified 02/09/22 20:04 Home Meds Home Medications Medication Instructions Recorded Confirmed cyanocobalamin (vitamin B-12) 1,000 mcg PO QAM 07/24/19 02/09/22 1,000 mcg capsule paroxetine HCl 40 mg tablet 20 mg PO QAM tab 06/23/21 02/09/22 amlodipine 10 mg tablet 10 mg PO QAM 12/17/21 02/09/22 atorvastatin 40 mg tablet 40 mg PO QPM 12/17/21 02/09/22 buspirone 7.5 mg tablet 7.5 mg PO HS 12/17/21 02/09/22 cholecalciferol (vitamin D3) 125 5,000 units PO QAM 12/17/21 02/09/22 mcg (5,000 unit) capsule clopidogrel 75 mg tablet 75 mg PO QAM 12/17/21 02/09/22 losartan 25 mg tablet 25 mg PO QAM 12/17/21 02/09/22 propranolol 160 mg capsule,24 160 mg PO QAM 12/17/21 02/09/22 hr,extended release baclofen 10 mg tablet 10 mg PO DIRECTED PRN 02/09/22 02/09/22 calcitriol 0.25 mcg capsule 0.25 mcg PO 2XWK 02/09/22 02/09/22 Previous Rx's Medication Instructions Recorded magnesium oxide 500 mg capsule 500 mg PO TID #30 cap 12/01/20 gabapentin 100 mg capsule 100 mg PO Q8H PRN #270 cap 05/19/21 furosemide 40 mg tablet 40 mg PO DAILY PRN #30 tab 07/15/21 aspirin 81 mg tablet,delayed 81 mg PO QAM #30 tab 09/15/21 release nitroglycerin 0.4 mg sublingual 0.4 mg SUBLINGUAL Q5M PRN #30 tab 09/15/21 tablet pantoprazole 40 mg tablet,delayed 40 mg PO BID #60 tab 11/16/21 release glimepiride 4 mg tablet 4 mg PO DAILY #30 tab 12/29/21 tramadol 50 mg tablet (Ultram) 50 mg PO Q6H PRN #30 tab 02/07/22 methocarbamol 750 mg tablet 750 mg PO Q6H PRN #90 tab 02/08/22 Results & Data (ED) Vital Signs Vital Signs - 24 hr 02/09/22 19:03 02/09/22 19:22 02/09/22 19:27 Temperature 37.2 C 37.2 C Temperature Source Oral Oral Pulse Rate 95 H Pulse Rate [Apical] 101 H Pulse Rhythm Irregular Pulse Rhythm [Apical] Regular Pulse Strength Normal Pulse Strength [Apical] Normal Respiratory Rate 30 H 30 H Respiratory Effort / Characteristics Non-Labored Spontaneous Non-Labored Spontaneous Respiratory Depth Normal Normal Respiratory Pattern Regular Tachypnea Blood Pressure 135/78 Blood Pressure [Left Arm] 116/67 Blood Pressure Mean 97 Blood Pressure Mean [Left Arm] 83 Blood Pressure Position Semi-fowlers Blood Pressure Position [Left Arm] Semi-fowlers Pulse Oximetry 98 90 91 Oxygen Delivery Method Non-rebreather Nasal Cannula Nasal Cannula Oxygen Flow Rate 15 6 6 Sepsis Recent Fever Within 48 Hours Yes Sepsis New/Unexplained Change in Mental Status Yes Sepsis Action Taken by Nursing Physician Notified 02/09/22 20:11 02/09/22 20:19 02/09/22 20:30 Temperature Temperature Source Pulse Rate 82 Pulse Rate [Apical] 82 77 Pulse Rhythm Irregular Pulse Rhythm [Apical] Irregular Irregular Pulse Strength Pulse Strength [Apical] Normal Normal Respiratory Rate 28 H 28 H 28 H Respiratory Effort / Characteristics Non-Labored Spontaneous Spontaneous Spontaneous Respiratory Depth Normal Normal Respiratory Pattern Tachypnea Tachypnea Blood Pressure Blood Pressure [Left Arm] 123/65 118/73 Blood Pressure Mean Blood Pressure Mean [Left Arm] 84 88 Blood Pressure Position Blood Pressure Position [Left Arm] Semi-fowlers Semi-fowlers Pulse Oximetry 97 98 97 Oxygen Delivery Method Non-rebreather Non-rebreather Non-rebreather Oxygen Flow Rate 10 10 10 Sepsis Recent Fever Within 48 Hours Sepsis New/Unexplained Change in Mental Status Sepsis Action Taken by Nursing 02/09/22 20:45 02/09/22 21:00 02/09/22 21:15 Temperature Temperature Source Pulse Rate Pulse Rate [Apical] 80 78 80 Pulse Rhythm Pulse Rhythm [Apical] Irregular Irregular Irregular Pulse Strength Pulse Strength [Apical] Normal Normal Normal Respiratory Rate 28 H 28 H 28 H Respiratory Effort / Characteristics Spontaneous Spontaneous Spontaneous Respiratory Depth Normal Normal Normal Respiratory Pattern Tachypnea Tachypnea Regular Tachypnea Blood Pressure Blood Pressure [Left Arm] 118/73 113/66 113/56 L Blood Pressure Mean Blood Pressure Mean [Left Arm] 88 81 75 Blood Pressure Position Blood Pressure Position [Left Arm] Semi-fowlers Semi-fowlers Semi-fowlers Pulse Oximetry 97 95 96 Oxygen Delivery Method Non-rebreather Non-rebreather Non-rebreather Oxygen Flow Rate 10 10 10 Sepsis Recent Fever Within 48 Hours Sepsis New/Unexplained Change in Mental Status Sepsis Action Taken by Nursing 02/09/22 21:30 Temperature Temperature Source Pulse Rate Pulse Rate [Apical] 78 Pulse Rhythm Pulse Rhythm [Apical] Irregular Pulse Strength Pulse Strength [Apical] Normal Respiratory Rate 27 H Respiratory Effort / Characteristics Spontaneous Respiratory Depth Normal Respiratory Pattern Regular Tachypnea Blood Pressure Blood Pressure [Left Arm] 119/63 Blood Pressure Mean Blood Pressure Mean [Left Arm] 81 Blood Pressure Position Blood Pressure Position [Left Arm] Semi-fowlers Pulse Oximetry 96 Oxygen Delivery Method Non-rebreather Oxygen Flow Rate 10 Sepsis Recent Fever Within 48 Hours Sepsis New/Unexplained Change in Mental Status Sepsis Action Taken by [facility] Medications Current Medication List: was personally reviewed by me Laboratory Data Attestation: I reviewed the patient's lab results. Result diagrams: 02/09/22 19:00 02/09/22 19:00 Lab Results 02/09/22 02/09/22 02/09/22 Range/Units 19:00 19:00 19:00 WBC 11.08 H (4.8-10.8) K/uL RBC 4.26 (4.2-5.4) M/uL Hgb 12.9 (12.0-16.0) g/dL Hct 37.0 (37-47) % MCV 86.9 (80-100) fL MCH 30.3 (25-34) pg MCHC 34.9 (32-36) g/dL RDW Std Deviation 46.7 H (36.4-46.3) fL RDW Coeff of Juan 14.7 H (11.5-14.5) % Plt Count 78 L (130-400) K/uL MPV 12.2 H (7.4-10.4) fL Immature Gran % (Auto) 1.4 % Neut % (Auto) 89.2 % Lymph % (Auto) 3.6 % [place] % (Auto) 5.7 % Eos % (Auto) 0.1 % Baso % (Auto) 0.0 % Neut # (Auto) 9.89 H (1.4-6.5) K/uL Lymph # (Auto) 0.40 L (1.2-3.4) K/uL [place] # (Auto) 0.63 H (0.11-0.59) K/uL Eos # (Auto) 0.01 (0-0.5) K/uL Baso # (Auto) 0.00 (0-0.2) K/uL Immature Gran # (Auto) 0.15 H (0.00-0.02) K/uL Platelet Estimate Decreased L (Normal) ESR 63 H (0-30) mm/hr PT 11.0 (9.0-12.0) Seconds INR 1.0 (0.9-1.1) APTT 28.1 (21.0-31.0) Seconds PTT Ratio 1.0 VBG pH (7.36-7.41) VBG pCO2 (38-50) mmHg VBG pO2 mmHg VBG HCO3 mmol/L VBG O2 Saturation % VBG Base Excess mEq/L Barometric Pressure mm/Hg Sodium (136-145) mmol/L Potassium (3.5-5.1) mmol/L Chloride (98-107) mmol/L Carbon Dioxide (21-32) mmol/L Anion Gap (3-11) BUN (6-23) mg/dl Creatinine (0.6-1.2) mg/dl Est Cr Clr Drug Dosing ml/min Est GFR ( Amer) ml/min Est GFR (Non-Af Amer) ml/min BUN/Creatinine Ratio (10-20) Glucose (70-99(Fasting)) mg/dl Lactate (0.4-2.0) mmol/L Calcium (8.5-10.1) mg/dl Magnesium (1.7-2.4) mg/dl Total Bilirubin (0.2-1.0) mg/dl AST (13-39) U/L ALT (7-52) U/L Alkaline Phosphatase (34-104) U/L Ammonia (18-72) umol/L Troponin I High Sens (0-14) pg/ml C-Reactive Protein (0-0.5) mg/dl Total Protein (6.0-8.3) gm/dl Albumin (3.4-5.0) gm/dl Globulin (2.5-4.0) gm/dl Albumin/Globulin Ratio (0.9-2) Urine Color Urine Appearance (Clear) Urine pH (4.5-7.5) Ur Specific [place] (1.000-1.030) Urine Protein (Negative) Urine Glucose (UA) (Negative) Urine Ketones (Negative) Urine Blood (Negative) Urine Nitrite (Negative) Urine Bilirubin (Negative) Urine Urobilinogen (Negative) Ur Leukocyte Esterase (Negative) Urine WBC (Auto) (0-5) /hpf Urine RBC (Auto) (0-4) /hpf U Hyaline Cast (Auto) (0-5) /lpf U Epithel Cells (Auto) (0-5) /lpf Urine Bacteria (Auto) (Negative) Ur Renal Epithelial Cell (0-5) /lpf Urine Yeast Ur Random Sodium mmol/L Urine Opiates Screen (Neg) Ur Methadone, Qual (Neg) Urine Barbiturates (Neg) Ur Phencyclidine (PCP) (Neg) U Amphetamin/Meth Scrn (Neg) MDMA (Ecstasy) Screen (Neg) U Benzodiazepines Scrn (Neg) Ur Cocaine Metabolite (Neg) U Marijuana (THC) Screen (Neg) Ethyl Alcohol mg/dL (<10.0) mg/dl SARS-CoV-2 (PCR) (Negative) Influenza Type A (PCR) (Neg) Influenza Type B (PCR) (Neg) RSV (RT-PCR) (Neg) 02/09/22 02/09/22 02/09/22 Range/Units 19:00 19:00 19:00 WBC (4.8-10.8) K/uL RBC (4.2-5.4) M/uL Hgb (12.0-16.0) g/dL Hct (37-47) % MCV (80-100) fL MCH (25-34) pg MCHC (32-36) g/dL RDW Std Deviation (36.4-46.3) fL RDW Coeff of Juan (11.5-14.5) % Plt Count (130-400) K/uL MPV (7.4-10.4) fL Immature Gran % (Auto) % Neut % (Auto) % Lymph % (Auto) % [place] % (Auto) % Eos % (Auto) % Baso % (Auto) % Neut # (Auto) (1.4-6.5) K/uL Lymph # (Auto) (1.2-3.4) K/uL [place] # (Auto) (0.11-0.59) K/uL Eos # (Auto) (0-0.5) K/uL Baso # (Auto) (0-0.2) K/uL Immature Gran # (Auto) (0.00-0.02) K/uL Platelet Estimate (Normal) ESR (0-30) mm/hr PT (9.0-12.0) Seconds INR (0.9-1.1) APTT (21.0-31.0) Seconds PTT Ratio VBG pH (7.36-7.41) VBG pCO2 (38-50) mmHg VBG pO2 mmHg VBG HCO3 mmol/L VBG O2 Saturation % VBG Base Excess mEq/L Barometric Pressure mm/Hg Sodium 126 L (136-145) mmol/L Potassium 3.9 (3.5-5.1) mmol/L Chloride 92 L (98-107) mmol/L Carbon Dioxide 20 L (21-32) mmol/L Anion Gap 14 H (3-11) BUN 34 H (6-23) mg/dl Creatinine 2.02 H (0.6-1.2) mg/dl Est Cr Clr Drug Dosing 26.4 ml/min Est GFR ( Amer) 26.5 ml/min Est GFR (Non-Af Amer) 22.9 ml/min BUN/Creatinine Ratio 16.8 (10-20) Glucose 240 H (70-99(Fasting)) mg/dl Lactate 2.4 H* (0.4-2.0) mmol/L Calcium 8.3 L (8.5-10.1) mg/dl Magnesium 1.2 L (1.7-2.4) mg/dl Total Bilirubin 1.4 H (0.2-1.0) mg/dl AST 17 (13-39) U/L ALT 10 (7-52) U/L Alkaline Phosphatase 70 (34-104) U/L Ammonia 32.0 (18-72) umol/L Troponin I High Sens (0-14) pg/ml C-Reactive Protein 22.15 H (0-0.5) mg/dl Total Protein 6.7 (6.0-8.3) gm/dl Albumin 3.4 (3.4-5.0) gm/dl Globulin 3.3 (2.5-4.0) gm/dl Albumin/Globulin Ratio 1.0 (0.9-2) Urine Color Urine Appearance (Clear) Urine pH (4.5-7.5) Ur Specific [place] (1.000-1.030) Urine Protein (Negative) Urine Glucose (UA) (Negative) Urine Ketones (Negative) Urine Blood (Negative) Urine Nitrite (Negative) Urine Bilirubin (Negative) Urine Urobilinogen (Negative) Ur Leukocyte Esterase (Negative) Urine WBC (Auto) (0-5) /hpf Urine RBC (Auto) (0-4) /hpf U Hyaline Cast (Auto) (0-5) /lpf U Epithel Cells (Auto) (0-5) /lpf Urine Bacteria (Auto) (Negative) Ur Renal Epithelial Cell (0-5) /lpf Urine Yeast Ur Random Sodium mmol/L Urine Opiates Screen (Neg) Ur Methadone, Qual (Neg) Urine Barbiturates (Neg) Ur Phencyclidine (PCP) (Neg) U Amphetamin/Meth Scrn (Neg) MDMA (Ecstasy) Screen (Neg) U Benzodiazepines Scrn (Neg) Ur Cocaine Metabolite (Neg) U Marijuana (THC) Screen (Neg) Ethyl Alcohol mg/dL (<10.0) mg/dl SARS-CoV-2 (PCR) (Negative) Influenza Type A (PCR) (Neg) Influenza Type B (PCR) (Neg) RSV (RT-PCR) (Neg) 02/09/22 02/09/22 02/09/22 Range/Units 19:00 19:00 19:08 WBC (4.8-10.8) K/uL RBC (4.2-5.4) M/uL Hgb (12.0-16.0) g/dL Hct (37-47) % MCV (80-100) fL MCH (25-34) pg MCHC (32-36) g/dL RDW Std Deviation (36.4-46.3) fL RDW Coeff of Juan (11.5-14.5) % Plt Count (130-400) K/uL MPV (7.4-10.4) fL Immature Gran % (Auto) % Neut % (Auto) % Lymph % (Auto) % [place] % (Auto) % Eos % (Auto) % Baso % (Auto) % Neut # (Auto) (1.4-6.5) K/uL Lymph # (Auto) (1.2-3.4) K/uL [place] # (Auto) (0.11-0.59) K/uL Eos # (Auto) (0-0.5) K/uL Baso # (Auto) (0-0.2) K/uL Immature Gran # (Auto) (0.00-0.02) K/uL Platelet Estimate (Normal) ESR (0-30) mm/hr PT (9.0-12.0) Seconds INR (0.9-1.1) APTT (21.0-31.0) Seconds PTT Ratio VBG pH 7.39 (7.36-7.41) VBG pCO2 37 L (38-50) mmHg VBG pO2 33 mmHg VBG HCO3 22 mmol/L VBG O2 Saturation 61.0 % VBG Base Excess -2.5 mEq/L Barometric Pressure 737.5 mm/Hg Sodium (136-145) mmol/L Potassium (3.5-5.1) mmol/L Chloride (98-107) mmol/L Carbon Dioxide (21-32) mmol/L Anion Gap (3-11) BUN (6-23) mg/dl Creatinine (0.6-1.2) mg/dl Est Cr Clr Drug Dosing ml/min Est GFR ( Amer) ml/min Est GFR (Non-Af Amer) ml/min BUN/Creatinine Ratio (10-20) Glucose (70-99(Fasting)) mg/dl Lactate (0.4-2.0) mmol/L Calcium (8.5-10.1) mg/dl Magnesium (1.7-2.4) mg/dl Total Bilirubin (0.2-1.0) mg/dl AST (13-39) U/L ALT (7-52) U/L Alkaline Phosphatase (34-104) U/L Ammonia (18-72) umol/L Troponin I High Sens 29.4 H (0-14) pg/ml C-Reactive Protein (0-0.5) mg/dl Total Protein (6.0-8.3) gm/dl Albumin (3.4-5.0) gm/dl Globulin (2.5-4.0) gm/dl Albumin/Globulin Ratio (0.9-2) Urine Color Urine Appearance (Clear) Urine pH (4.5-7.5) Ur Specific [place] (1.000-1.030) Urine Protein (Negative) Urine Glucose (UA) (Negative) Urine Ketones (Negative) Urine Blood (Negative) Urine Nitrite (Negative) Urine Bilirubin (Negative) Urine Urobilinogen (Negative) Ur Leukocyte Esterase (Negative) Urine WBC (Auto) (0-5) /hpf Urine RBC (Auto) (0-4) /hpf U Hyaline Cast (Auto) (0-5) /lpf U Epithel Cells (Auto) (0-5) /lpf Urine Bacteria (Auto) (Negative) Ur Renal Epithelial Cell (0-5) /lpf Urine Yeast Ur Random Sodium mmol/L Urine Opiates Screen (Neg) Ur Methadone, Qual (Neg) Urine Barbiturates (Neg) Ur Phencyclidine (PCP) (Neg) U Amphetamin/Meth Scrn (Neg) MDMA (Ecstasy) Screen (Neg) U Benzodiazepines Scrn (Neg) Ur Cocaine Metabolite (Neg) U Marijuana (THC) Screen (Neg) Ethyl Alcohol mg/dL < 10.0 (<10.0) mg/dl SARS-CoV-2 (PCR) (Negative) Influenza Type A (PCR) (Neg) Influenza Type B (PCR) (Neg) RSV (RT-PCR) (Neg) 02/09/22 02/09/22 02/09/22 Range/Units 19:20 19:20 19:34 WBC (4.8-10.8) K/uL RBC (4.2-5.4) M/uL Hgb (12.0-16.0) g/dL Hct (37-47) % MCV (80-100) fL MCH (25-34) pg MCHC (32-36) g/dL RDW Std Deviation (36.4-46.3) fL RDW Coeff of Juan (11.5-14.5) % Plt Count (130-400) K/uL MPV (7.4-10.4) fL Immature Gran % (Auto) % Neut % (Auto) % Lymph % (Auto) % [place] % (Auto) % Eos % (Auto) % Baso % (Auto) % Neut # (Auto) (1.4-6.5) K/uL Lymph # (Auto) (1.2-3.4) K/uL [place] # (Auto) (0.11-0.59) K/uL Eos # (Auto) (0-0.5) K/uL Baso # (Auto) (0-0.2) K/uL Immature Gran # (Auto) (0.00-0.02) K/uL Platelet Estimate (Normal) ESR (0-30) mm/hr PT (9.0-12.0) Seconds INR (0.9-1.1) APTT (21.0-31.0) Seconds PTT Ratio VBG pH (7.36-7.41) VBG pCO2 (38-50) mmHg VBG pO2 mmHg VBG HCO3 mmol/L VBG O2 Saturation % VBG Base Excess mEq/L Barometric Pressure mm/Hg Sodium (136-145) mmol/L Potassium (3.5-5.1) mmol/L Chloride (98-107) mmol/L Carbon Dioxide (21-32) mmol/L Anion Gap (3-11) BUN (6-23) mg/dl Creatinine (0.6-1.2) mg/dl Est Cr Clr Drug Dosing ml/min Est GFR ( Amer) ml/min Est GFR (Non-Af Amer) ml/min BUN/Creatinine Ratio (10-20) Glucose (70-99(Fasting)) mg/dl Lactate (0.4-2.0) mmol/L Calcium (8.5-10.1) mg/dl Magnesium (1.7-2.4) mg/dl Total Bilirubin (0.2-1.0) mg/dl AST (13-39) U/L ALT (7-52) U/L Alkaline Phosphatase (34-104) U/L Ammonia (18-72) umol/L Troponin I High Sens (0-14) pg/ml C-Reactive Protein (0-0.5) mg/dl Total Protein (6.0-8.3) gm/dl Albumin (3.4-5.0) gm/dl Globulin (2.5-4.0) gm/dl Albumin/Globulin Ratio (0.9-2) Urine Color Yellow Urine Appearance Clear (Clear) Urine pH 5.0 (4.5-7.5) Ur Specific [place] 1.012 (1.000-1.030) Urine Protein 1+ H (Negative) Urine Glucose (UA) Trace H (Negative) Urine Ketones Negative (Negative) Urine Blood Trace H (Negative) Urine Nitrite Negative (Negative) Urine Bilirubin Negative (Negative) Urine Urobilinogen Negative (Negative) Ur Leukocyte Esterase Negative (Negative) Urine WBC (Auto) 1-5 (0-5) /hpf Urine RBC (Auto) 0-4 (0-4) /hpf U Hyaline Cast (Auto) 1-5 (0-5) /lpf U Epithel Cells (Auto) >30 H (0-5) /lpf Urine Bacteria (Auto) Negative (Negative) Ur Renal Epithelial Cell 5-10 H (0-5) /lpf Urine Yeast Not Reportable Ur Random Sodium mmol/L Urine Opiates Screen Neg (Neg) Ur Methadone, Qual Neg (Neg) Urine Barbiturates Neg (Neg) Ur Phencyclidine (PCP) Neg (Neg) U Amphetamin/Meth Scrn Neg (Neg) MDMA (Ecstasy) Screen Neg (Neg) U Benzodiazepines Scrn Neg (Neg) Ur Cocaine Metabolite Neg (Neg) U Marijuana (THC) Screen Neg (Neg) Ethyl Alcohol mg/dL (<10.0) mg/dl SARS-CoV-2 (PCR) NEGATIVE (Negative) Influenza Type A (PCR) Negative (Neg) Influenza Type B (PCR) Negative (Neg) RSV (RT-PCR) Negative (Neg) 02/09/22 02/09/22 Range/Units 20:16 21:05 WBC (4.8-10.8) K/uL RBC (4.2-5.4) M/uL Hgb (12.0-16.0) g/dL Hct (37-47) % MCV (80-100) fL MCH (25-34) pg MCHC (32-36) g/dL RDW Std Deviation (36.4-46.3) fL RDW Coeff of Juan (11.5-14.5) % Plt Count (130-400) K/uL MPV (7.4-10.4) fL Immature Gran % (Auto) % Neut % (Auto) % Lymph % (Auto) % [place] % (Auto) % Eos % (Auto) % Baso % (Auto) % Neut # (Auto) (1.4-6.5) K/uL Lymph # (Auto) (1.2-3.4) K/uL [place] # (Auto) (0.11-0.59) K/uL Eos # (Auto) (0-0.5) K/uL Baso # (Auto) (0-0.2) K/uL Immature Gran # (Auto) (0.00-0.02) K/uL Platelet Estimate (Normal) ESR (0-30) mm/hr PT (9.0-12.0) Seconds INR (0.9-1.1) APTT (21.0-31.0) Seconds PTT Ratio VBG pH (7.36-7.41) VBG pCO2 (38-50) mmHg VBG pO2 mmHg VBG HCO3 mmol/L VBG O2 Saturation % VBG Base Excess mEq/L Barometric Pressure mm/Hg Sodium (136-145) mmol/L Potassium (3.5-5.1) mmol/L Chloride (98-107) mmol/L Carbon Dioxide (21-32) mmol/L Anion Gap (3-11) BUN (6-23) mg/dl Creatinine (0.6-1.2) mg/dl Est Cr Clr Drug Dosing ml/min Est GFR ( Amer) ml/min Est GFR (Non-Af Amer) ml/min BUN/Creatinine Ratio (10-20) Glucose (70-99(Fasting)) mg/dl Lactate 2.4 H* (0.4-2.0) mmol/L Calcium (8.5-10.1) mg/dl Magnesium (1.7-2.4) mg/dl Total Bilirubin (0.2-1.0) mg/dl AST (13-39) U/L ALT (7-52) U/L Alkaline Phosphatase (34-104) U/L Ammonia (18-72) umol/L Troponin I High Sens (0-14) pg/ml C-Reactive Protein (0-0.5) mg/dl Total Protein (6.0-8.3) gm/dl Albumin (3.4-5.0) gm/dl Globulin (2.5-4.0) gm/dl Albumin/Globulin Ratio (0.9-2) Urine Color Urine Appearance (Clear) Urine pH (4.5-7.5) Ur Specific [place] (1.000-1.030) Urine Protein (Negative) Urine Glucose (UA) (Negative) Urine Ketones (Negative) Urine Blood (Negative) Urine Nitrite (Negative) Urine Bilirubin (Negative) Urine Urobilinogen (Negative) Ur Leukocyte Esterase (Negative) Urine WBC (Auto) (0-5) /hpf Urine RBC (Auto) (0-4) /hpf U Hyaline Cast (Auto) (0-5) /lpf U Epithel Cells (Auto) (0-5) /lpf Urine Bacteria (Auto) (Negative) Ur Renal Epithelial Cell (0-5) /lpf Urine Yeast Ur Random Sodium 74 mmol/L Urine Opiates Screen (Neg) Ur Methadone, Qual (Neg) Urine Barbiturates (Neg) Ur Phencyclidine (PCP) (Neg) U Amphetamin/Meth Scrn (Neg) MDMA (Ecstasy) Screen (Neg) U Benzodiazepines Scrn (Neg) Ur Cocaine Metabolite (Neg) U Marijuana (THC) Screen (Neg) Ethyl Alcohol mg/dL (<10.0) mg/dl SARS-CoV-2 (PCR) (Negative) Influenza Type A (PCR) (Neg) Influenza Type B (PCR) (Neg) RSV (RT-PCR) (Neg) Administered Medications Magnesium Sulfate/Dextrose (Magnesium Sulfate / D5w) 1 gm in 100 mls @ 100 mls/hr IV Q1H ZAHRA Stop: 02/09/22 22:08 Last Admin: 02/09/22 21:26 Dose: 100 mls/hr Documented by: [id number] Infusion: 02/09/22 21:26 Dose: 0 mls/hr Documented by: [id number] Admin: 02/09/22 20:26 Dose: 100 mls/hr Documented by: [id number] Discontinued Medications Ceftriaxone Sodium (Rocephin) 2,000 mg in 70 mls @ 140 mls/hr IV NOW STA Stop: 02/09/22 19:53 Last Infusion: 02/09/22 20:39 Dose: 0 mls/hr Documented by: [id number] Admin: 02/09/22 20:06 Dose: 140 mls/hr Documented by: [id number] Sodium Chloride (Nss 1000ml) 1,000 mls @ 999 mls/hr IV .Q1H1M ONE Stop: 02/09/22 21:37 Last Admin: 02/09/22 20:41 Dose: 999 mls/hr Documented by: [id number] Imaging Data Radiologist's Impression: Abdomen/Pelvis CT 02/09/22 19:04 CT abd pelvis wo con CLINICAL HISTORY: fever TECHNIQUE: Helical axial images of the abdomen and pelvis were obtained. Automated dose lowering techniques and/or adjustment according to patient size were utilized for this exam. This exam was performed without intravenous contr ast. COMPARISON: Comparison is made to CT abdomen pelvis 07/26/2020 FINDINGS: Lower chest: Cardiomegaly is partially visualized. Bilateral atelectasis is seen. Liver: Unremarkable. No focal lesions are seen. Gallbladder and biliary tree: No calcified gallstones. Normal caliber wall. No intra- or extrahepatic biliary ductal dilation. Pancreas: Fatty replacement of the pancreas is seen. Spleen: Unremarkable. Adrenals: Unremarkable. Kidneys and ureters: Nonobstructive nephrolithiasis is seen. Perinephric stranding is seen. Bladder: Marquez catheter is seen. Reproductive organs: Unremarkable. Bowel: Unremarkable. Lymph nodes Retroperitoneal: Unremarkable. Mesenteric: Unremarkable. Pelvic: Unremarkable. Peritoneum: Normal. Vessels: Atherosclerotic calcifications are seen. Abdominal wall: Surgical clips are seen in the left inguinal area. Calcified soft tissue lesions are seen in the midline. There is a midline scar containing partial hernia of a large bowel loops without evidence of obstruction. Bones: Degenerative changes in the visualized spine. IMPRESSION: No evidence of acute abnormality is seen. Additional findings as above. ACT 112: Negative or not required by law. Electronically signed by: Charles Rao M.D. 02/09/2022 8:13 PM Chest X-Ray 02/09/22 19:04 XR chest 1V portable CLINICAL HISTORY: SEPSIS TECHNIQUE: Single frontal radiograph of the chest was obtained. Comparison: Comparison is made to chest radiograph 02/07/2022 FINDINGS: No lines and tubes are seen. Cardiomegaly is noted. Prominence and cephalization of the vasculature is seen. No evidence of pleural effusion or pneumothorax. IMPRESSION: Mild pulmonary edema. ACT 112: Negative or not required by law. Electronically signed by: Charles Rao M.D. 02/09/2022 7:[address] 02/09/22 19:04 CT head/brain wo con CLINICAL HISTORY: ams Technique: Contiguous axial CT images of the head were acquired from the base of the skull to the vertex without intravenous contrast administration. Images were viewed in brain, subdural and bone windows. Automated dose lowering techniques and/or adjustment according to patient size were utilized for this exam. Comparison: Comparison is made to CT head 07/26/2019 Findings: Areas of decreased attenuation are present in the periventricular and sub cortical white matter bilaterally consistent with small vessel ischemic disease. Generalized cerebral atrophy with commensurate enlargement of the ventricles, sulci, and cisterns is also present. There is no acute intracranial hemorrhage or evidence of acute territorial infarction. No shift of the midline structures, mass effect, or extra-axial abnormalities are shown. Atherosclerotic calcifications are present in the intracranial segments of the internal carotid arteries. Imaged portions of the paranasal sinuses and mastoid air cells are clear. The orbits appear normal. There are no acute fractures of the calvaria or scalp swelling. Impression: No acute intracranial hemorrhage, no evidence of acute territorial infarction or other acute intracranial disease process. ACT 112: Negative or not required by law. Electronically signed by: Charles Rao M.D. 02/09/2022 7:52 PM Discharge Plan Visit Data Chief Complaint: Altered Mental Status Stated Complaint: CONFUSION ED Provider: Ryan Parra Discharge Problem: Acute hyponatremia, Thrombocytopenia, Acute alteration in mental status, SOHAN (acute kidney injury), Hypomagnesemia, Fever Forms Stand Alone Forms: [facility] Prescriptions Prescriptions: No Action magnesium oxide 500 mg capsule 500 mg PO TID Qty: 30 RF: 0 furosemide 40 mg tablet 40 mg PO DAILY PRN (Reason: edema) Qty: 30 RF: 5 pantoprazole 40 mg tablet,delayed release (DR/EC) 40 mg PO BID Qty: 60 RF: 11 methocarbamol 750 mg tablet 750 mg PO Q6H PRN (Reason: muscle spasm) Qty: 90 RF: 5 cyanocobalamin (vitamin B-12) 1,000 mcg capsule 1,000 mcg PO QAM RF: 0 paroxetine HCl 40 mg tablet 20 mg PO QAM RF: 0 gabapentin 100 mg capsule 100 mg PO Q8H PRN (Reason: neuropathy) Qty: 270 RF: 3 glimepiride 4 mg tablet 4 mg PO DAILY Qty: 30 RF: 5 aspirin 81 mg Tablet,Delayed Release (Dr/Ec) 81 mg PO QAM Qty: 30 RF: 0 nitroglycerin 0.4 mg tablet, sublingual 0.4 mg sublingual Q5M PRN (Reason: chest pain) Qty: 30 RF: 0 atorvastatin 40 mg tablet 40 mg PO QPM RF: 0 propranolol 160 mg capsule,extended release 24 hr 160 mg PO QAM RF: 0 clopidogrel 75 mg tablet 75 mg PO QAM RF: 0 amlodipine 10 mg tablet 10 mg PO QAM RF: 0 losartan 25 mg tablet 25 mg PO QAM RF: 0 buspirone 7.5 mg tablet 7.5 mg PO HS RF: 0 cholecalciferol (vitamin D3) 5,000 unit capsule 5,000 units PO QAM RF: 0 tramadol [Ultram] 50 mg tablet 50 mg PO Q6H PRN (Reason: pain) Qty: 30 RF: 0 baclofen 10 mg Tablet 10 mg PO DIRECTED PRN (Reason: MUSCLE SPASMS) RF: 0 calcitriol 0.25 mcg capsule 0.25 mcg PO 2XWK RF: 0 Referrals Referrals: Sarkis Asher DO [Primary Care Provider] - Discharge Problem: Fever Qualifiers: Fever type: unspecified Qualified Code(s): R50.9 - Fever, unspecified
[2022-02-09] MEDS ORDERED: cefTRIAXone SODIUM 2,000 MG/70 ML BAG IV STA (19:24)
--- NOTE | 2022-02-09 19:26 | XRay Report ---
XR chest 1V portable CLINICAL HISTORY: SEPSIS TECHNIQUE: Single frontal radiograph of the chest was obtained. Comparison: Comparison is made to chest radiograph 02/07/2022 FINDINGS: No lines and tubes are seen. Cardiomegaly is noted. Prominence and cephalization of the vasculature i s seen. No evidence of pleural effusion or pneumothorax. IMPRESSION: Mild pulmonary edema. ACT 112: Negative or not required by law. Electronically signed by: Charles Rao M.D. 02/09/2022 7:25 PM
[2022-02-09 19:29] LABS: Base Excess VBG -2.5 mEq/L; pH VBG 7.39 (7.36-7.41)
[2022-02-09 19:37] LABS: Partial Thromboplastin Time 28.1 Seconds (21.0-31.0)
[2022-02-09 19:46] LABS: Appearance Urine Clear (Clear); Bacteria Urine Automated Negative (Negative); Bilirubin Urine Negative (Negative); Blood Urine Trace (Negative); Color Urine Yellow; Epithelial Cell Urine Auto >30 /lpf (0-5); Glucose Urine UA Trace (Negative); Ketones Urine Negative (Negative); Leukocyte Esterase Urine Negative (Negative); Nitrite Urine Negative (Negative); Protein Urine 1+ (Negative); RBC Urine Automated 0-4 /hpf (0-4); Specific Gravity Urine 1.012 (1.000-1.030); Urobilinogen Urine Negative (Negative)
--- NOTE | 2022-02-09 19:54 | CT Scan Report ---
CT head/brain wo con CLINICAL HISTORY: ams Technique: Contiguous axial CT images of the head were acquired from the base of the skull to the carole rama without intravenous contrast administration. Images were viewed in brain, subdural and bone [facility]. Automated dose lowering techniques and/or adjustment according to patient size were utilized for this exam. Comparison: Comparison is made to CT head 07/26/2019 Findings: Areas of decreased attenuation are present in the periventricular and subcortical white matter bilate rally consistent with small vessel ischemic disease. Generalized cerebral atrophy with commensurate e nlargement of the ventricles, sulci, and cisterns is also present. There is no acute intracranial hem orrhage or evidence of acute territorial infarction. No shift of the midline structures, mass effect, or extra-axial abnormalities are shown. Atherosclerotic calcifications are present in the intracran ial segments of the internal carotid arteries. Imaged portions of the paranasal sinuses and mastoid air cells are clear. The orbits appear normal. There are no acute fractures of the calvaria or scalp swelling. Impression: No acute intracranial hemorrhage, no evidence of acute territorial infarction or other acute intracra nial disease process. ACT 112: Negative or not required by law. Electronically signed by: Charles Rao M.D. 02/09/2022 7:52 PM
[2022-02-09 19:56] LABS: Hemoglobin 12.9 g/dL (12.0-16.0); Mean Corpuscular Hemoglobin 30.3 pg (25-34); Mean Corpuscular Hgb Conc 34.9 g/dL (32-36); Mean Corpuscular Volume 86.9 fL (80-100); Mean Platelet Volume 12.2 fL (7.4-10.4); Platelet Count 78 K/uL (130-400); RDW Coefficient of Variation 14.7 % (11.5-14.5); RDW Standard Deviation 46.7 fL (36.4-46.3); Red Blood Count 4.26 M/uL (4.2-5.4); White Blood Count 11.08 K/uL (4.8-10.8)
[2022-02-09 19:57] LABS: Eosinophils # (auto) 0.01 K/uL (0-0.5); Eosinophils % (auto) 0.1 %; Immature Granulocytes # (auto) 0.15 K/uL (0.00-0.02); Immature Granulocytes % (auto) 1.4 %; Lymphocytes % (auto) 3.6 %; Monocytes # (auto) 0.63 K/uL (0.11-0.59); Monocytes % (auto) 5.7 %; Neutrophils # (auto) 9.89 K/uL (1.4-6.5); Neutrophils % (auto) 89.2 %; Platelet Estimate Decreased (Normal)
[2022-02-09 20:02] LABS: Albumin Level 3.4 gm/dl (3.4-5.0); BUN Creatinine Ratio 16.8 (10-20); Bilirubin,Total 1.4 mg/dl (0.2-1.0); C Reactive Protein 22.15 mg/dl (0-0.5); Calcium 8.3 mg/dl (8.5-10.1); Creatinine Clr Calc Pharmacy 26.4 ml/min; Est GFR (African American) 26.5 ml/min; Est GFR (Non-African American) 22.9 ml/min; Globulin 3.3 gm/dl (2.5-4.0); Magnesium 1.2 mg/dl (1.7-2.4); Potassium 3.9 mmol/L (3.5-5.1); Total Protein 6.7 gm/dl (6.0-8.3)
[2022-02-09 20:13] LABS: Amphetamines+Metham, Urine Neg (Neg); Barbiturates, Urine Neg (Neg); Benzodiazepine, Urine Neg (Neg); Cocaine, Urine Neg (Neg); MDMA (Ecstacy), Urine Neg (Neg); Methadone, Urine Neg (Neg); Opiate, Urine Neg (Neg); Phencyclidine, Urine Neg (Neg)
--- NOTE | 2022-02-09 20:15 | CT Scan Report ---
CT abd pelvis wo con CLINICAL HISTORY: fever TECHNIQUE: Helical axial images of the abdomen and pelvis were obtained. Automated dose lowering tech niques and/or adjustment according to patient size were utilized for this exam. This exam was perfor med without intravenous contrast. COMPARISON: Comparison is made to CT abdomen pelvis 07/26/2020 FINDINGS: Lower chest: Cardiomegaly is partially visualized. Bilateral atelectasis is seen. Liver: Unremarkable. No focal lesions are seen. Gallbladder and biliary tree: No calcified gallstones. Normal caliber wall. No intra- or extrahepatic biliary ductal dilation. Pancreas: Fatty replacement of the pancreas is seen. Spleen: Unremarkable. Adrenals: Unremarkable. Kidneys and ureters: Nonobstructive nephrolithiasis is seen. Perinephric stranding is seen. Bladder: Marquez catheter is seen. Reproductive organs: Unremarkable. Bowel: Unremarkable. Lymph nodes Retroperitoneal: Unremarkable. Mesenteric: Unremarkable. Pelvic: Unremarkable. Peritoneum: Normal. Vessels: Atherosclerotic calcifications are seen. Abdominal wall: Surgical clips are seen in the left inguinal area. Calcified soft tissue lesions are seen in the midline. There is a midline scar containing partial hernia of a large bowel loops without evidence of obstruction. Bones: Degenerative changes in the visualized spine. IMPRESSION: No evidence of acute abnormality is seen. Additional findings as above. ACT 112: Negative or not required by law. Electronically signed by: Charles Rao M.D. 02/09/2022 8:13 PM
[2022-02-09 20:23] LABS: Influenza A virus by PCR Negative (Neg); Influenza B virus by PCR Negative (Neg); RSV by PCR Negative (Neg); SARS CoV2 RNA(COVID-19) InHosp NEGATIVE (Negative)
[2022-02-09] MEDS: MAGNESIUM SULFATE / D5W 1 GM/100 ML BAG IV SCH ×2 (20:26→21:26)
[2022-02-09] MEDS ORDERED: SODIUM CHLORIDE 0.9% 1000ML 1,000 ML IV ONE (20:37)
--- NOTE | 2022-02-09 23:24 | History & Physical Report ---
Date of Service February 09, 2022 Assessment & Plan (1) Acute hypoxemic respiratory failure: (2) Acute alteration in mental status: (3) Acute hyponatremia: (4) SOHAN (acute kidney injury): (5) Hypomagnesemia: (6) Type 2 DM with CKD stage 3 and hypertension: (7) History of coronary artery disease: (8) Anemia: (9) Thrombocytopenia: (10) Hypertension: Plan: Clay is a 81 year old female w/ PmHx of T2DM w/ CKD stage 3, HTN, Peripheral neuropathy, R sided sciatica, CAD s/p stent x3 09/07, chronic reflux admitted for acute hypoxemic respiratory failure. Acute Hypoxemic Respiratory Failure: -CXR w/ cardiomegaly, mild pulmonary edema, left diaphragmatic angle not clearly seen. -WBC 11.08, Procal 8.3, Lactate 2.4. -Echo 09/07 w/ EF 45-50% -?Pneumonia vs CHF induced vs decreased diaphragmatic excursion due to medication. -Given 2g IV Ceftriaxone in ED. -Switched to Zosyn 4g q8h due to clinical picture and risk for aspiration. -Blood, urine cultures, nasal MRSA swab pending. -Consider 40mg IV Lasix if continued difficulty breathing. -holding home sciatica medications for possible contribution to mechanical excursion of diaphragm. -Continue to monitor vitals. Altered mental status: -Mental status improving w/ non-rebreather. -Most likely secondary to acute hypoxemic respiratory failure. -Urine drug screen negative. -Ammonia WNL. -Continue to monitor mental status. Elevated High Sensitivity Troponin I: -Trop 29.4 on entry, repeat 5 hours later 23.7. -Most likely oxygen supply demand mismatch. -AM Troponin to look for continued downward trend. New Onset A. Fib: -EKG with evidence of atrial fibrillation. No previous history of A. Fib. -Mg 1.2 upon admission. -May be 2/2 low Mg - expect resolution w/ replenishment of Mg. -started on heparin low dose drip. R Sciatica: -Holding patient's baclofen, methocarbamol, gabapentin, tramadol. -Tylenol PRN for pain. Hyponatremia: -Na 126 on entry to hospital. -Given 1L NSS. -Serum and Urine osmols pending. Hypomagnesemia: -Mg 1.2 on arrival, replenished 2g in ED. -AM Mg. Thrombocytopenia: -Platelets 78 on entry to hospital. -Ordered peripheral smear. -Follow AM CBC for trend. SOHAN on CKD: -Baseline creat 1.6-1.8. Creatinine upon entry to ED 2.02. -May be due to poor forward flow from heart. -Holding home losartan in setting of SOHAN. -Continue to monitor renal function w/ AM BMP. HTN: -Continue home amlodipine. Holding losartan in setting of SOHAN on CKD. DM: -Holding home glimepiride. -SSI. Hx of CAD: -Continue home ASA and Plavix. DVT Prophylaxis: Low dose heparin w/o bolus. F/E/N/GI: NPO while patient sick appearing, risk for aspiration. May advance as tolerated if improvement. Mg replenished 2g. Code Status: DNR/DNI. Dispo: PCU/telemetry. History of Present Illness Chief Complaint: Altered Mental Status, Acute respiratory failure w/ hypoxia. Primary Care Provider: Sarkis Asher DO Clay is a 81 year old female w/ PmHx of T2DM w/ CKD stage 3, HTN, Peripheral neuropathy, R sided sciatica, CAD s/p stent x3 09/07, chronic reflux who presented to the ED for altered mental status and hypoxic respiratory failure. Patient recently came into the ED 2 days ago for sciatica pain and was given Tramadol to take at home. She was also given baclofen by her outpatient doctor for spasms. Clay took the Tramadol on Monday and was reported to be in a more drowsy state but still with it and answering questions appropriately. Earlier this morning after she took a 9AM dose of the Tramadol she developed into a more stuporous state, not making sense with questions she was asked and difficult to arouse. Patient also developed rapid breathing and shortness of breath and was brought to the ED. Upon coming into the ED and put on 10L non-rebreather she started to regain some consciousness. Prior to coming in patient had instances of fever and chills over the past week, at times needing 5-6 blankets for chills and then getting very hot and having to remove the blankets. Temperatures taken at home have been up to 101.9. Patient has had some nausea and decreased appetite, she has not eaten much over the past few days but has tried to keep well hydrated with water. Allergies Allergy/AdvReac Type Severity Reaction Status Date / Time clarithromycin Allergy Unknown UNKNOWN Verified 02/09/22 20:04 amoxicillin AdvReac Intermediate GI SYMPTOMS Verified 02/09/22 20:04 clavulanic acid AdvReac Intermediate GI SYMPTOMS Verified 02/09/22 20:04 lisinopril AdvReac Intermediate Cough Verified 02/09/22 20:04 Macrolide Antibiotics AdvReac Unknown Unknown Verified 02/09/22 20:04 Home Medications Medication Instructions Recorded Confirmed Type cyanocobalamin (vitamin B-12) 1,000 mcg PO QAM 07/24/19 02/09/22 History 1,000 mcg capsule magnesium oxide 500 mg capsule 500 mg PO TID #30 cap 12/01/20 02/09/22 Rx gabapentin 100 mg capsule 100 mg PO Q8H PRN #270 cap 05/19/21 02/09/22 Rx paroxetine HCl 40 mg tablet 20 mg PO QAM tab 06/23/21 02/09/22 History furosemide 40 mg tablet 40 mg PO DAILY PRN #30 tab 07/15/21 02/09/22 Rx aspirin 81 mg tablet,delayed 81 mg PO QAM #30 tab 09/15/21 02/09/22 Rx release nitroglycerin 0.4 mg sublingual 0.4 mg SUBLINGUAL Q5M PRN #30 tab 09/15/21 02/09/22 Rx tablet pantoprazole 40 mg tablet,delayed 40 mg PO BID #60 tab 11/16/21 02/09/22 Rx release amlodipine 10 mg tablet 10 mg PO QAM 12/17/21 02/09/22 History atorvastatin 40 mg tablet 40 mg PO QPM 12/17/21 02/09/22 History buspirone 7.5 mg tablet 7.5 mg PO HS 12/17/21 02/09/22 History cholecalciferol (vitamin D3) 125 5,000 units PO QAM 12/17/21 02/09/22 History mcg (5,000 unit) capsule clopidogrel 75 mg tablet 75 mg PO QAM 12/17/21 02/09/22 History losartan 25 mg tablet 25 mg PO QAM 12/17/21 02/09/22 History propranolol 160 mg capsule,24 160 mg PO QAM 12/17/21 02/09/22 History hr,extended release glimepiride 4 mg tablet 4 mg PO DAILY #30 tab 12/29/21 02/09/22 Rx tramadol 50 mg tablet (Ultram) 50 mg PO Q6H PRN #30 tab 02/07/22 02/09/22 Rx methocarbamol 750 mg tablet 750 mg PO Q6H PRN #90 tab 02/08/22 02/09/22 Rx baclofen 10 mg tablet 10 mg PO DIRECTED PRN 02/09/22 02/09/22 History calcitriol 0.25 mcg capsule 0.25 mcg PO 2XWK 02/09/22 02/09/22 History Past Med/Surg History Medical History Acid reflux Acute AR, lateral wall, initial episode of care (08/04/13) Anemia Arteriosclerotic cardiovascular disease Chronic back pain Congestive heart failure Diabetes mellitus NIDDM History of coronary artery disease s/p stents Hyperlipidemia Hypertension Myocardial Infarction 09/07 with 3 stents NSTEMI (non-ST elevated myocardial infarction) (08/04/13) s/p stents Presence of stent in artery SBO (small bowel obstruction) history Spinal stenosis of lumbar region with radiculopathy Thrombocytopenia Surgical History Cataract History of cardiac cath 09/07 stents x 3 at [facility] History of colonoscopy History of dilatation and curettage History of esophagogastroduodenoscopy (EGD) History of eye surgery Rt eye, removal of lens material by phacofragmentation with aspirati History of intestinal surgery small bowel resection History of ligation of vein History of lithotripsy Renal lithotripsy History of partial colectomy History of surgery Cath stent 1 mid-right coronary artery Cath stent 2 mid-left anterior descending artery Cath stent 2 proximal left anterior descending artery Cath stent 3 mid-left anterior descending artery Hx of hernia repair ventral hernia repair w/ mesh; year? Family History Mother , from complications of a fall ; age 92 Breast cancer stage 4 Sister Breast cancer Father , 60s Coronary heart disease s/p CABG Denies family history of Ovarian cancer Prostate cancer Myocardial infarction Colorectal cancer Social History (Reviewed 02/09/22 @ 19:11 by BRUNO [place] Smoking Status: Former smoker Tobacco Type: Cigarettes Age Quit Using Tobacco: 27; packs per day: 0.5; Years Smoked: 12; Second Hand Exposure: No; Do You Dip or Chew Tobacco: No; Tobacco Cessation Education Requested by Patient: No Hx Alcohol Use: No Hx Substance Use: No Preferred Language: Irish Communication Ability: Effective 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 Required: No Beliefs That Will Affect Care: Anabaptism Anabaptism Beliefs: Julias witness-no blood products marital status: Current Living Situation: Spouse current occupational status: retired 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 [employer] How many Children do You have: 4 Other Information That Helps Us Care for You: No other: lives with son and Feels Safe at Home: Yes Childhood Exposure to Second-Hand Smoke: Yes caffeine: No Dental Care, Regularly: Yes Physical Activity Frequency: Does not Exercise Seatbelt Use: always Sunscreen Use: No Assistive Devices: Cane, Walker and Wheelchair Review of Systems Constitutional: as per Subjective / HPI Physical Exam Constitutional: WD/WN, vitals as above Respiratory: Non-rebreather mask, clear to auscultation but difficult to assess with shallow breaths, equal chest rise bilaterally. Cardiovascular: Rate/Rhythm: + irregularly irregular Heart Sounds: normal S1 and normal S2 Extremities: normal capillary refill and + edema (1+) Gastrointestinal (Abdomen): BS+, non-tender, soft, obese habitus. Psychiatric: A+Ox3, euthymic affect Eye Contact: + fair eye contact Results & Data Results & Data ([facility]) Vital Signs (Past 12 Hours) Vital Signs Temp Pulse Pulse Resp BP BP Pulse Ox 02/09/22 22:02 78 26 H 96 02/09/22 21:50 78 29 H 96 02/09/22 21:40 72 32 H 95 02/09/22 21:30 72 78 32 H 119/63 119/63 96 02/09/22 21:20 72 35 H 95 02/09/22 21:15 77 80 26 H 113/56 L 113/56 L 95 02/09/22 21:10 79 28 H 93 02/09/22 21:00 77 78 33 H 113/66 113/66 95 02/09/22 20:50 76 34 H 94 02/09/22 20:45 78 80 35 H 118/73 118/73 95 02/09/22 20:40 77 29 H 95 02/09/22 20:30 83 77 35 H 118/73 118/73 96 02/09/22 20:20 79 35 H 96 02/09/22 20:19 82 82 28 H 123/65 98 02/09/22 20:15 74 34 H 123/65 96 02/09/22 20:11 28 H 97 02/09/22 20:10 87 35 H 98 02/09/22 20:00 81 33 H 123/76 97 02/09/22 19:58 84 37 H 96 02/09/22 19:30 103 H 35 H 108/64 91 02/09/22 19:27 37.2 C 101 H 30 H 116/67 91 02/09/22 19:22 90 02/09/22 19:20 88 39 H 89 L 02/09/22 19:15 94 H 42 H 116/67 91 02/09/22 19:10 102 H 44 H 96 02/09/22 19:06 99 H 45 H 94 02/09/22 19:03 37.2 C 95 H 30 H 135/78 98 Code Status & VTE Plan VTE Prophylaxis Plan VTE Prophylaxis will be ordered: Yes Supervising Physician Co-Signing Physician Notes Attending addendum: I have physically seen this patient, have supervised the medical residents activities, and agree with the H&P unless as otherwise noted. Assessment and Plan: Acute respiratory failure with hypoxia- Chest x-ray more suggestive of pneumonia Given ceftriaxone 2 g IV in ED Admit on Zosyn 4.5 g IV every 8 hours and azithromycin 5 mg IV daily Duonebs every 4 hours while awake and every 2 hours when necessary. Guaifenesin extended release 12 mg p.o. twice daily Presently on mask 10 L, taper downward as symptoms improve Follow sputum culture and sensitivity and blood culture sensitivity results Altered mental status- Improving with increased oxygenation with nonrebreather Check an ABG to assess for possible CO2 narcosis Urine drug screen negative Ammonia normal Elevated troponin/new onset atrial fibrillation- The patient will be admitted to telemetry for serial cardiac enzymes, serial EKG's, cardiac rhythm monitoring and a 2-D echocardiogram with Dopplers. Troponin 29.4 upon admission Magnesium 1.2 replete with IV replacement, recheck laboratories Start heparin drip low-dose no bolus Remaining orders and notations as noted Resident Activity Tracking Resident Involvement: Resident Care Provided Care Provided: Adult Hospital Medicine (1) Hypertension Hypertension type: essential hypertension Qualified Code(s): I10 - Essential (primary) hypertension
[2022-02-10] MEDS ORDERED: PIPERACILL/TAZOBAC CONSULT ACTIVE PRN (00:16)
[2022-02-10] MEDS ORDERED: DEXTROSE 50% 50 ML SYRINGE IV PRN (00:16)
[2022-02-10] MEDS ORDERED: HEPARIN SODIUM/DEXTROSE 25,000 UNITS/500 ML BAG IV SCH (00:16)
[2022-02-10] MEDS ORDERED: GLUCOSE 10 TABS/TUBE PO PRN (00:16)
[2022-02-10] MEDS ORDERED: GLUCAGON FOR INJ 1 MG VIAL SQ PRN (00:16)
[2022-02-10] MEDS ORDERED: GLUCOSE 40% GEL 15 GM TUBE PO PRN (00:16)
[2022-02-10] MEDS ORDERED: CARBOHYDRATES FOR HYPOGLYCEMIA PO PRN (00:16)
[2022-02-10 00:35] LABS: HCO3 ABG 21 mmol/L (19-24); Oxygen Saturation ABG 97.1 % (90-95); PCO2 ABG 33 mmHg (35-46); PO2 ABG 88 mmHg (80-95); pH ABG 7.42 (7.35-7.45)
[2022-02-10 00:36] LABS: Allen Test Pos (Pos)
[2022-02-10] MEDS ORDERED: Heparin IV Adult Wt-Based Low-Dose *NO* Bolus Protocol IV SCH (01:22)
[2022-02-10] MEDS ORDERED: PIPERACILLIN/TAZOBACTAM 4.5 GM in DEXTROSE 5% 100 ML IV ONE (01:30)
[2022-02-10] MEDS ORDERED: HEPARIN 25000 UNIT/500 ML D5W IV ONE (01:31)
[2022-02-10] MEDS: HEPARIN SODIUM/DEXTROSE 25,000 UNITS/500 ML BAG IV SCH ×2 (01:43→09:08)
[2022-02-10] MEDS: ACETAMINOPHEN 325 MG TAB PO PRN ×2 (01:48→11:23)
[2022-02-10] MEDS ORDERED: ONDANSETRON INJ 2 MG/ML 2 ML VIAL ONE (04:58)
[2022-02-10] MEDS ORDERED: ONDANSETRON INJ 2 MG/ML 2 ML VIAL IV PRN (04:58)
[2022-02-10] MEDS: INSULIN ASPART PER UNIT SC SCH ×4 (07:39→21:13)
[2022-02-10] MEDS ORDERED: PIPERACILLIN/TAZOBACTAM 4.5 GM/120ML D5W IV ONE (07:57)
[2022-02-10 08:33] LABS: Partial Thromboplastin Ratio 1.5; Partial Thromboplastin Time 40.7 Seconds (21.0-31.0)
[2022-02-10] MEDS: PROPRANOLOL HCL LA 80 MG CAPCR PO SCH (08:33)
[2022-02-10] MEDS: PANTOprazole 40 MG TAB PO SCH ×2 (08:33→21:19)
[2022-02-10] MEDS: MAGNESIUM OXIDE 400 MG TAB PO SCH ×3 (08:33→21:19)
[2022-02-10] MEDS: CLOPIDOGREL BISULFATE 75 MG TAB PO SCH (08:33)
[2022-02-10] MEDS: PARoxetine HCL 20 MG TAB PO SCH (08:34)
[2022-02-10] MEDS: amLODIPine BESYLATE 5 MG TAB PO SCH (08:34)
[2022-02-10] MEDS: ASPIRIN 81 MG ECTAB PO SCH (08:34)
[2022-02-10 08:46] LABS: BUN Creatinine Ratio 17.9 (10-20); Calcium 7.9 mg/dl (8.5-10.1); Creatinine Clr Calc Pharmacy 30.7 ml/min; Est GFR (Non-African American) 27.6 ml/min; Magnesium 1.8 mg/dl (1.7-2.4); Phosphorus 2.8 mg/dl (2.5-4.9); Potassium 3.5 mmol/L (3.5-5.1)
[2022-02-10 08:52] LABS: Troponin I High Sensitivity 25.4 pg/ml (0-14)
[2022-02-10] MEDS: PIPERACILLIN/TAZOBACTAM 4.5 GM in DEXTROSE 5% 100 ML IV SCH ×2 (09:02→17:17)
[2022-02-10] MEDS: CHOLECALCIFEROL 5,000 UNITS 125 MCG TAB PO SCH (09:11)
[2022-02-10 09:12] LABS: Basophils # (auto) 0.01 K/uL (0-0.2); Basophils % (auto) 0.1 %; Eosinophils # (auto) 0.01 K/uL (0-0.5); Eosinophils % (auto) 0.1 %; Hematocrit (blood only) 33.9 % (37-47); Hemoglobin 11.9 g/dL (12.0-16.0); Immature Granulocytes # (auto) 0.08 K/uL (0.00-0.02); Immature Granulocytes % (auto) 0.7 %; Lymphocytes # (auto) 0.58 K/uL (1.2-3.4); Mean Corpuscular Hemoglobin 30.4 pg (25-34); Mean Corpuscular Hgb Conc 35.1 g/dL (32-36); Mean Corpuscular Volume 86.5 fL (80-100); Mean Platelet Volume 12.4 fL (7.4-10.4); Monocytes # (auto) 0.77 K/uL (0.11-0.59); Monocytes % (auto) 6.7 %; Neutrophils # (auto) 10.08 K/uL (1.4-6.5); Neutrophils % (auto) 87.4 %; Platelet Count 87 K/uL (130-400); RDW Coefficient of Variation 14.7 % (11.5-14.5); RDW Standard Deviation 46.4 fL (36.4-46.3); Red Blood Count 3.92 M/uL (4.2-5.4); White Blood Count 11.53 K/uL (4.8-10.8)
--- NOTE | 2022-02-10 10:28 | Hospitalist Progress Note ---
Date of Service February 10, 2022 Assessment & Plan (1) Weakness: Plan: Clay is a 81 y/o F with a hx of T2DM w/ CKD III, CHF, CAD, ID s/p multiple stents and chronic sciatica, who presented to [facility] on 02/09 for evaluation of altered mental status. 1. Weakness -Acute onset bilateral lower extremity weakness x3days. Muscle strength=1 in BLE. -Pt. has chronic pain in rt. piriformis muscle + Rt. leg sciatica managed with injections at home. -Based on clinical exam today, concern for possible cauda equina syndrome. No recent Spinal imaging completed in ~3/4 years. -Lumbar Spinal MRI w/o contrast MRI ordered for r/o 2. Bacteremia -initially thought to be 1/2. on further review is 2/2. MRSA nares negative making MRSA/resistant bacteria unlikely. do not need broad coverage with zosyn - will change to nafcillin for now 3. Acute Hypoxemic Respiratory Failure -CXR w/ cardiomegaly, mild pulmonary edema -Consider CHF induced + reduce respiratory drive 2/2 medication for sciatica -Hold Sciatica medication: Tramadol, baclofen, methocarbamol, gabapentin -Cont. O2 admin. with nasal cannula -Continue to monitor vitals 4. Altered mental status -Resolved. Patient A&OX3 -Most likely secondary to medication induced sedation + patients presentation on admission 2/2 acute hypoxemic respiratory failure. -Ammonia wnl. -Continue to monitor mental status. 5. SOHAN on CKD -2/2 Dehydration, hypoperfusion/poor forward flow -Prev. episodes of vomiting/ diarrhea + chronic diarrhea -Cr: 1.73 today, baseline creatinine 1.6-2.0 -Hold Losartan. - Cont. to monitor renal function with BMP 6. Hyponatremia -Na 128, trending down from 126 -Euvolemic on exam -Await Serum and urine osmols 7. Elevated High Sensitivity Troponin -Trop 25.4 today. 29.4 on entry. -Most likely oxygen supply demand mismatch. -Downtrending. 8. New Onset Atrial Fibrillation -Resolved. EKG with evidence of atrial fibrillation. No previous history of A. Fib. -Likely a new diagnosis given risk factors including chronic CHF, heart failure, and age. -Started on heparin low dose drip. -Cont. straight knife machine cutter on telemetry 9. Chronic R Sciatica -Holding patient's baclofen, methocarbamol, gabapentin, tramadol. -Tylenol PRN for pain. 10. Hypertension -Continue home amlodipine. Holding losartan in setting of SOHAN on CKD. 11. T2DM -Holding home glimepiride. -Cont. Insulin aspart 12. CAD -Continue home Aspirin and Plavix. DVT Prophylaxis: Low dose heparin w/o bolus. F/E/N/GI: Heart Healthy Code Status: DNR/DNI (2) Acute hypoxemic respiratory failure: (3) Right sided sciatica: (4) Acute hyponatremia: (5) Acute alteration in mental status: (6) SOHAN (acute kidney injury): (7) Hypomagnesemia: (8) Type 2 DM with CKD stage 3 and hypertension: (9) History of coronary artery disease: (10) CHF (congestive heart failure): Admission and Anticipated Discharge Date Admission Date: February 09, 2022 Supervising Physician Co-Signing Physician Notes I personally examined the patient and verified all rice points of history and exam, discussed case, and agree with decision making with Merlene SCHWARTZ 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 monday was OK. sitting in garage felt a "pop" in her back but not relaly pain. woke up monday bad R hip pain and felt like back "was getting squeezed" then monday through now b/l LE weakness can't walk - dtr notes that she was even putting her on/off toilet with large amount of assistance vitals noted nad heent nc at mmm lungs clear diminished bibasilar no respiratory distress b/l LE ~1-2/5 weakness rather profound no muscle atrophy (+) tenderness medial to R greater trochanter region of piriformis no crepits, SI tender, paraspinals tender (difficult exam due to weakness) gram positive bacteremia w new onset b/l leg weakness - very concerning for epidural abscess / discitis type pathology - abx to nafcillin, follow cultures, repeat cultures in am. urgent MRI Lspine. echo re veg? hypoxia - probably acute on chronic systolic CHF multifactorial in cause for flare up. BP low enough would hesitate to diurese further especially w improving oxygenation and no significant dyspnea thrombocytopenia - mild no bleeding appears to have bottomed out at last check continue to follow new afib - chads vasc ~10% so reasonable to have unbroken anticoagulatin - heparin for now anticipate doac in care home but will want flexibility to stop heparin given concern on problem #1 potentially needing surgical intervention Subjective No acute changes overnight. Feeling okay this morning. Still feels slightly short of breath at rest today, similar to how she normally feels at home. Daughter at bedside, reports an overall better appearance today compared to when the patient came to ED yesterday. She has some back pain when she sits upward in bed related to chronic sciatica. She also has bilateral lower extremity weakness with difficulty and pain with lifting both lest. Review of Systems Constitutional: + fatigue and + weakness; no fever and no chills Eyes: no worsening vision Ear, Nose, Mouth, Throat: + hearing loss; no ear pain and no dizziness Respiratory: + dyspnea; no cough Cardiovascular: + dyspnea at rest; no chest pain and no lightheadedness Gastrointestinal: no abdominal pain, no nausea and no vomiting Genitourinary: no urinary frequency, no urinary incontinence and no pelvic pain Neurologic: no loss of sensation, no headache(s) and no confusion Physical Exam Constitutional: WD/WN, vitals as above Eyes: PERRL, conjunctivae normal, anicteric sclerae Respiratory: normal respiratory effort, lungs clear to auscultation symmetric chest movement Cardiovascular: Extremities: normal capillary refill; no edema Difficult to exam rate/rhythm. Distant heart sounds. Gastrointestinal (Abdomen): normal bowel sounds, soft, nontender, no hepatosplenomegaly Inspection/Auscultation: + abdominal surgical scar Skin: no rashes, warm and dry Neurologic: PERRL, EOMI, accommodation nl, no face palsy, no dysarthria CN's II-XI intact bilaterally and plantar reflexes intact bilaterally; + does not move all extremities Motor/Sensory: + abnormal movement Cranial Nerves: + hearing impairment Bilateral lower extremity weakness. Strength: 1 in BLE; 4 in BUE Psychiatric: Orientation: oriented x 3 and cooperative Results & Data Results & Data ([facility]) Vital Signs (Past 12 Hours) Vital Signs Pulse Pulse Resp BP BP Pulse Ox Pulse Ox 02/10/22 09:00 70 20 127/78 95 02/10/22 07:00 71 20 114/52 L 95 95 02/10/22 03:51 75 20 93 02/10/22 00:16 73 22 124/76 94 94 02/09/22 23:40 75 34 H 97 02/09/22 23:30 78 30 H 96 02/09/22 23:00 68 21 111/57 L 96 02/09/22 22:50 70 31 H 96 02/09/22 22:40 74 33 H 95 02/09/22 22:30 82 27 H 111/66 95 02/09/22 22:20 82 23 96 02/09/22 22:15 80 26 H 108/64 96
[2022-02-10 15:59] LABS: Partial Thromboplastin Ratio 1.5; Partial Thromboplastin Time 42.3 Seconds (21.0-31.0)
[2022-02-10] MEDS ORDERED: LORazepam 2 MG/1 ML VIAL IV ONE ×2 (16:43→21:15)
--- NOTE | 2022-02-10 19:14 | Billing Data ---
Date of Service February 10, 2022 Coding Level of Care Code 50203 Subseq Hosp Care Lvl 3
--- NOTE | 2022-02-10 19:40 | Billing Data ---
Date of Service February 10, 2022 Coding Level of Care Code 19634 Initial Inpt Care Lvl 3
[2022-02-10] MEDS: NAFCILLIN SODIUM 2,000 MG in DEXTROSE 5% 100 ML IV SCH ×2 (20:02→22:43)
[2022-02-10] MEDS: busPIRone 7.5 MG TAB PO SCH (21:19)
[2022-02-10] MEDS: ATORVASTATIN 40 MG TAB PO SCH (21:19)
[2022-02-10 23:42] LABS: Partial Thromboplastin Ratio 1.3; Partial Thromboplastin Time 36.9 Seconds (21.0-31.0)
[2022-02-10] MEDS ORDERED: HEPARIN SOD (PORCINE) 1000 UNIT/ML IV ONE (23:58)
[2022-02-11] MEDS ORDERED: HEPARIN IV BOLUS 3,000 UNITS in SYRINGE 0 ML IV ONE (00:30)
[2022-02-11] MEDS: NAFCILLIN SODIUM 2,000 MG in DEXTROSE 5% 100 ML IV SCH ×5 (03:00→20:21)
[2022-02-11] MEDS ORDERED: SODIUM CHLORIDE 0.9% 1000ML 500 ML IV ONE (03:38)
[2022-02-11] MEDS: HEPARIN SODIUM/DEXTROSE 25,000 UNITS/500 ML BAG IV SCH (04:12)
--- NOTE | 2022-02-11 06:02 | Electrocardiogram Report ---
Test Reason : Blood Pressure : / mmHG Vent. Rate : 106 BPM Atrial Rate : 062 BPM P-R Int : 000 ms QRS Dur : 080 ms QT Int : 310 ms P-R-T Axes : 000 -12 006 degrees QTc Int : 411 ms Atrial fibrillation with rapid ventricular response with premature ventricular or aberrantly conducte d complexes Possible Inferior infarct (cited on or before 14-SEP-2021) Abnormal ECG When compared with ECG of 07-FEB-2022 09:54, Atrial fibrillation has replaced Sinus rhythm Premature ventricular complexes are now Present Confirmed by Napoleon Burrell ([id number]) on 02/11/2022 6:02:41 AM Referred By: REFERRED SELF Confirmed By:Napoleon Burrell
[2022-02-11 06:48] LABS: Basophils # (auto) 0.01 K/uL (0-0.2); Basophils % (auto) 0.1 %; Eosinophils # (auto) 0.06 K/uL (0-0.5); Eosinophils % (auto) 0.5 %; Hematocrit (blood only) 33.7 % (37-47); Hemoglobin 11.9 g/dL (12.0-16.0); Immature Granulocytes # (auto) 0.07 K/uL (0.00-0.02); Immature Granulocytes % (auto) 0.6 %; Lymphocytes % (auto) 9.8 %; Mean Corpuscular Hemoglobin 30.4 pg (25-34); Mean Platelet Volume 11.9 fL (7.4-10.4); Monocytes # (auto) 0.68 K/uL (0.11-0.59); Monocytes % (auto) 5.6 %; Neutrophils # (auto) 10.23 K/uL (1.4-6.5); Neutrophils % (auto) 83.4 %; Platelet Count 127 K/uL (130-400); RDW Coefficient of Variation 14.7 % (11.5-14.5); RDW Standard Deviation 46.5 fL (36.4-46.3); Red Blood Count 3.92 M/uL (4.2-5.4); White Blood Count 12.25 K/uL (4.8-10.8)
[2022-02-11 06:49] LABS: Mean Corpuscular Hgb Conc 35.3 g/dL (32-36)
--- NOTE | 2022-02-11 07:03 | XRay Report ---
XR chest 1V portable CLINICAL HISTORY: hypoxia TECHNIQUE: Single frontal radiograph of the chest was obtained. Comparison: Comparison is made to chest radiograph 02/09/2022 FINDINGS: No lines and tubes are seen. Calcified aortic knob is seen. The lungs are clear. No evidence of pleur al effusion or pneumothorax. IMPRESSION: No acute chest disease. ACT 112: Negative or not required by law. Electronically signed by: Charles Rao M.D. 02/11/2022 7:01 AM
[2022-02-11 07:18] LABS: Calcium 7.8 mg/dl (8.5-10.1); Creatinine Clr Calc Pharmacy 26.3 ml/min; Est GFR (African American) 28.7 ml/min; Est GFR (Non-African American) 24.8 ml/min; Magnesium 1.9 mg/dl (1.7-2.4); Potassium 3.2 mmol/L (3.5-5.1)
[2022-02-11 07:24] LABS: Partial Thromboplastin Ratio 1.8
[2022-02-11 07:26] LABS: Partial Thromboplastin Time 50.3 Seconds (21.0-31.0)
--- NOTE | 2022-02-11 08:28 | Magnetic Resonance Report ---
MR lumbar spine wo con CLINICAL HISTORY: sudden immobility in bilateral lower extremities TECHNIQUE: Multiplanar sequences through the lumbar spine were obtained, without intravenous contrast . Comparison: None available at the time of this dictation. FINDINGS: The alignment is anatomical. Degenerative changes are noted in the discs and vertebral bodies. L1-L2: No significant abnormality. L2-L3: There is a moderate posterior disc bulge with mild canal stenosis. Moderate bilateral neurofor aminal stenosis. L3-L4: Large posterior disc bulge and bilateral facet arthropathy result in moderate to severe canal stenosis, AP diameter 8 mm. There is severe bilateral neural foraminal stenosis. L4-L5: Large posterior disc bulge and bilateral facet arthropathy results in severe canal stenosis, A P diameter 6 mm. Severe bilateral neuroforaminal stenosis is seen. L5-S1: Partial fusion of L5-S1 is noted. No canal or neuroforaminal stenosis is seen. The spinal ligaments are intact, without evidence of disruption or abnormal signal intensity. The spi nal cord is normal in signal intensity and there is no evidence of cord contusion. There is no eviden ce of an extradural, intradural, extramedullary or intramedullary lesion. Visualized soft tissues are normal. IMPRESSION: Severe multilevel degenerative changes with severe canal stenosis, AP diameter 6 mm at L4-L5. Severe bilateral neuroforaminal stenosis is seen. ACT 112: Negative or not required by law. Electronically signed by: Charles Rao M.D. 02/11/2022 8:27 AM
[2022-02-11] MEDS: INSULIN ASPART PER UNIT SC SCH ×4 (08:39→20:57)
[2022-02-11] MEDS: PROPRANOLOL HCL LA 80 MG CAPCR PO SCH (08:40)
[2022-02-11] MEDS: ASPIRIN 81 MG ECTAB PO SCH (08:41)
[2022-02-11] MEDS: amLODIPine BESYLATE 5 MG TAB PO SCH (08:41)
[2022-02-11] MEDS: MAGNESIUM OXIDE 400 MG TAB PO SCH ×3 (08:41→20:20)
[2022-02-11] MEDS: CLOPIDOGREL BISULFATE 75 MG TAB PO SCH (08:41)
[2022-02-11] MEDS: CHOLECALCIFEROL 5,000 UNITS 125 MCG TAB PO SCH (08:41)
[2022-02-11] MEDS: PANTOprazole 40 MG TAB PO SCH ×2 (08:41→20:20)
[2022-02-11] MEDS: ACETAMINOPHEN 325 MG TAB PO PRN (09:21)
[2022-02-11] MEDS: CALCITRIOL 0.25 MCG CAPSULE PO SCH (09:22)
[2022-02-11] MEDS: PARoxetine HCL 20 MG TAB PO SCH (09:22)
--- NOTE | 2022-02-11 10:23 | Hospitalist Progress Note ---
Date of Service February 11, 2022 Assessment & Plan (1) Weakness: Plan: Clay is a 81 y/o F with a hx of T2DM w/ CKD III, CHF, CAD, SC s/p multiple stents and chronic sciatica, who presented to [facility] on 02/09 for evaluation of altered mental status. 1. Weakness -Acute onset bilateral lower extremity weakness x3days prior to hospital stay. -Pt. has chronic pain in rt. piriformis muscle + Rt. leg sciatica managed with injections at home. No evidence of epidural abscess. -Lumbar MRI w/o contrast showed severe multilevel degenerative changes with severe canal stenosis + multiple posterior disc bulge. -Considered steroid therapy but unlikely to provide much relief given severity of symptoms and minimal relief from steroid injections at home. -Ortho assessed today, will consider decompression next week. 2. Bacteremia -WBC: 12.25, Procal: 6.89 -Blood culture, 10/20, +Strep. MRSA nares negative making MRSA/resistant bacteria unlikely. -Broad coverage with Zosyn not needed - changed to nafcillin for now. -Patient remains hemodynamically stable. Continue to monitor vitals + CBC. 3. Acute Hypoxemic Respiratory Failure -CXR w/ cardiomegaly, mild pulmonary edema. Likely 2/2 CHF induced + reduce res piratory drive 2/2 medication for sciatica -Cont. O2 admin. with nasal cannula -Cont. Hold Sciatica medication: Tramadol, baclofen, methocarbamol, gabapentin -Continue to monitor vitals 4. SOHAN on CKD -Etiology likely Dehydration/hypoperfusion/poor forward flow 2/2 previous episodes of vomiting/ diarrhea + chronic diarrhea -Cr: 1.89 today, baseline creatinine 1.6-2.0 -Cont. to hold Losartan. -Cont. to monitor renal function with BMP 5. Hyponatremia -Na 130 today. -Euvolemic on exam. -Trending up. 6. New Onset Atrial Fibrillation -EKG in ED with evidence of atrial fibrillation. No previous history of A. Fib. -Likely a new diagnosis given risk factors including chronic CHF, heart failure, and age. -Cont. heparin low dose drip. -Cont. cardiac cath lab technologist on telemetry 7. Chronic R Sciatica -Holding patient's baclofen, methocarbamol, gabapentin, tramadol. -Tylenol PRN for pain. 8. Hypertension -Continue home amlodipine. Holding losartan in setting of SOHAN on CKD. 9. T2DM -Holding home glimepiride. -Cont. Insulin aspart 10. CAD -Continue home Aspirin and Plavix. DVT Prophylaxis: Low dose heparin w/o bolus. F/E/N/GI: Heart Healthy Code Status: DNR/DNI (2) Acute hypoxemic respiratory failure: (3) Right sided sciatica: (4) Acute hyponatremia: (5) SOHAN (acute kidney injury): (6) Type 2 DM with CKD stage 3 and hypertension: (7) History of coronary artery disease: (8) CHF (congestive heart failure): (9) Bacteremia: (10) Atrial fibrillation: Admission and Anticipated Discharge Date Admission Date: February 09, 2022 Supervising Physician Co-Signing Physician Notes I personally examined the patient and verified all rice points of history and exam, discussed case, and agree with decision making with Merlene SCHWARTZ feels about the same. after lengthy discussions of the two main acute issues - spinal stenosis w motor weakness and strep bacteremia - she and her daughter are understandably a little despondant. offered support to the best of my ability. vitals noted nad heent nc at mmm breathing unlabored no accessory muscles good effort skin no rashes no pallor or icterus gram positive bacteremia - fortunately per radiology and ortho - no evidence of spinal infection/abscess. appearing to likely be spontaneous bacteremia. echo without vegetation, repeat Cx pending. continue nafcillin for now - consider ID consult but given risk for secondary seeding given all of her other current comorbidiites, likely need to treat for 4-6 weeks regardless. for now follow repeat cultures, likely ask ID for assistance as planning gets closer to discharge. new onset b/l leg weakness - fortunately does not appear infectious. unfortunately does have severe spinal disease. hypoxia - stable - likely was acute on chronic systolic chf, now suspect also components of atelectasis given weakness thrombocytopenia - mild no bleeding improving new afib - chads vasc ~10% so reasonable to have unbroken anticoagulation - heparin for now anticipate doac in rn security but will want flexibility to stop heparin given concern on problem #2 probably needing surgical intervention Subjective No acute changes overnight. Feeling somewhat better today. Still having right thigh pain that is worse when sitting up. She is still having bilaterally leg weakness with the inability to completely lift legs off of bed. No numbness or tingling in legs. Review of Systems Constitutional: + fatigue and + weakness; no fever and no chills Ear, Nose, Mouth, Throat: + hearing loss; no ear pain and no dizziness Cardiovascular: no chest pain and no lightheadedness Gastrointestinal: no abdominal pain, no nausea and no vomiting Genitourinary: no urinary frequency, no urinary incontinence and no pelvic pain Neurologic: no loss of sensation, no headache(s) and no confusion Physical Exam Constitutional: WD/WN, vitals as above Respiratory: normal respiratory effort, lungs clear to auscultation symmetric chest movement Cardiovascular: Extremities: normal capillary refill; no edema Gastrointestinal (Abdomen): normal bowel sounds, soft, nontender, no hepatosplenomegaly Inspection/Auscultation: + abdominal surgical scar Skin: no rashes, warm and dry Neurologic: PERRL, EOMI, accommodation nl, no face palsy, no dysarthria CN's II-XI intact bilaterally and plantar reflexes intact bilaterally; + does not move all extremities Motor/Sensory: + abnormal movement Cranial Nerves: + hearing impairment Psychiatric: Orientation: oriented x 3 and cooperative Results & Data Results & Data ([facility]) Vital Signs (Past 12 Hours) Vital Signs Temp Pulse Resp BP BP Pulse Ox 02/11/22 07:00 36.5 C 77 18 92/56 L 97 02/11/22 05:27 36.3 C L 73 28 H 107/62 96 02/11/22 03:22 36.6 C 74 20 93/60 L 92 02/10/22 23:33 37.2 C 71 18 108/70 93 02/10/22 22:39 37.2 C 78 20 107/66 96
[2022-02-11] MEDS ORDERED: Nursing to Pharmacy Communication SCH (12:00)
--- NOTE | 2022-02-11 14:19 | Orthopedic Consultation ---
Date of Consultation February 11, 2022 Assessment & Plan (1) Spinal stenosis of lumbar region with radiculopathy: At this time patient is undergoing antibiotic treatment for bacteremia with strep. She does however have severe spinal stenosis and may benefit from a lumbar decompression possible fusion involving least L3-L4 L4-5. We will lower for more days of medical management and consider surgery early next week pending her medical state presentation. History of Present Illness Reason for Consultation: Bilateral leg pain and weakness Attending Physician: William Emerson DO History of Present Illness This is a 81-year-old female who presents with marked decline in status over the past week. She initiated with back pain but then spread into bilateral leg pain with weakness and inability ambulate. She was admitted with multiple acute issues but also determined to have severe spinal stenosis most prominent at L3- L4 L4-5 with what appears to be acute disc herniation. This point she is comfortable lying supine but still cannot weight-bear and ambulate secondary to pain and weakness to lower extremities. Allergies Allergy/AdvReac Type Severity Reaction Status Date / Time clarithromycin Allergy Unknown UNKNOWN Verified 02/09/22 20:04 amoxicillin AdvReac Intermediate GI SYMPTOMS Verified 02/09/22 20:04 clavulanic acid AdvReac Intermediate GI SYMPTOMS Verified 02/09/22 20:04 lisinopril AdvReac Intermediate Cough Verified 02/09/22 20:04 Macrolide Antibiotics AdvReac Unknown Unknown Verified 02/09/22 20:04 Home Medications Medication Instructions Recorded Confirmed Type cyanocobalamin (vitamin B-12) 1,000 mcg PO QAM 07/24/19 02/09/22 History 1,000 mcg capsule magnesium oxide 500 mg capsule 500 mg PO TID #30 cap 12/01/20 02/09/22 Rx gabapentin 100 mg capsule 100 mg PO Q8H PRN #270 cap 05/19/21 02/09/22 Rx paroxetine HCl 40 mg tablet 20 mg PO QAM tab 06/23/21 02/09/22 History furosemide 40 mg tablet 40 mg PO DAILY PRN #30 tab 07/15/21 02/09/22 Rx aspirin 81 mg tablet,delayed 81 mg PO QAM #30 tab 09/15/21 02/09/22 Rx release nitroglycerin 0.4 mg sublingual 0.4 mg SUBLINGUAL Q5M PRN #30 tab 09/15/21 02/09/22 Rx tablet pantoprazole 40 mg tablet,delayed 40 mg PO BID #60 tab 11/16/21 02/09/22 Rx release amlodipine 10 mg tablet 10 mg PO QAM 12/17/21 02/09/22 History atorvastatin 40 mg tablet 40 mg PO QPM 12/17/21 02/09/22 History buspirone 7.5 mg tablet 7.5 mg PO HS 12/17/21 02/09/22 History cholecalciferol (vitamin D3) 125 5,000 units PO QAM 12/17/21 02/09/22 History mcg (5,000 unit) capsule clopidogrel 75 mg tablet 75 mg PO QAM 12/17/21 02/09/22 History losartan 25 mg tablet 25 mg PO QAM 12/17/21 02/09/22 History propranolol 160 mg capsule,24 160 mg PO QAM 12/17/21 02/09/22 History hr,extended release glimepiride 4 mg tablet 4 mg PO DAILY #30 tab 12/29/21 02/09/22 Rx tramadol 50 mg tablet (Ultram) 50 mg PO Q6H PRN #30 tab 02/07/22 02/09/22 Rx methocarbamol 750 mg tablet 750 mg PO Q6H PRN #90 tab 02/08/22 02/09/22 Rx baclofen 10 mg tablet 10 mg PO DIRECTED PRN 02/09/22 02/09/22 History calcitriol 0.25 mcg capsule 0.25 mcg PO 2XWK 02/09/22 02/09/22 History Patient History Medical History Acid reflux Acute DE, lateral wall, initial episode of care (08/04/13) Anemia Arteriosclerotic cardiovascular disease Chronic back pain Congestive heart failure Diabetes mellitus NIDDM History of coronary artery disease s/p stents Hyperlipidemia Hypertension Myocardial Infarction 09/07 with 3 stents NSTEMI (non-ST elevated myocardial infarction) (08/04/13) s/p stents Presence of stent in artery SBO (small bowel obstruction) history Spinal stenosis of lumbar region with radiculopathy Thrombocytopenia Surgical History Cataract History of cardiac cath 09/07 stents x 3 at [facility] History of colonoscopy History of dilatation and curettage History of esophagogastroduodenoscopy (EGD) History of eye surgery Rt eye, removal of lens material by phacofragmentation with aspirati History of intestinal surgery small bowel resection History of ligation of vein History of lithotripsy Renal lithotripsy History of partial colectomy History of surgery Cath stent 1 mid-right coronary artery Cath stent 2 mid-left anterior descending artery Cath stent 2 proximal left anterior descending artery Cath stent 3 mid-left anterior descending artery Hx of hernia repair ventral hernia repair w/ mesh; year? Family History Mother , from complications of a fall ; age 92 Breast cancer stage 4 Sister Breast cancer Father , 60s Coronary heart disease s/p CABG Denies family history of Ovarian cancer Prostate cancer Myocardial infarction Colorectal cancer Social History Smoking Status: Former smoker Tobacco Type: Cigarettes Age Quit Using Tobacco: 27; packs per day: 0.5; Years Smoked: 12; Second Hand Exposure: No; Do You Dip or Chew Tobacco: No; Tobacco Cessation Education Requested by Patient: No Hx Alcohol Use: No Hx Substance Use: No Preferred Language: Austrian Communication Ability: Effective Hamper Maker Machine Required: No Beliefs That Will Affect Care: Mu-Ism Mu-Ism Beliefs: Shahrzad witness-no blood products marital status: Current Living Situation: Spouse current occupational status: retired 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 Plantar flexion dorsiflexion intact but of 4-/5. Results & Data ([facility]) Vital Signs (Past 12 Hours) Vital Signs Temp Pulse Resp BP BP Pulse Ox 02/11/22 12:30 36.4 C L 61 22 121/65 93 02/11/22 07:00 36.5 C 77 18 92/56 L 97 02/11/22 05:27 36.3 C L 73 28 H 107/62 96 02/11/22 03:22 36.6 C 74 20 93/60 L 92
--- NOTE | 2022-02-11 15:26 | XCELERA ---
[id number]
--- NOTE | 2022-02-11 16:51 | Billing Data ---
Date of Service February 11, 2022 Coding Level of Care Code 29025 Subseq Hosp Care Lvl 3
[2022-02-11] MEDS: busPIRone 7.5 MG TAB PO SCH (20:20)
[2022-02-11] MEDS: ATORVASTATIN 40 MG TAB PO SCH (20:21)
[2022-02-12] MEDS: NAFCILLIN SODIUM 2,000 MG in DEXTROSE 5% 100 ML IV SCH ×6 (01:08→20:12)
[2022-02-12] MEDS: HEPARIN SODIUM/DEXTROSE 25,000 UNITS/500 ML BAG IV SCH ×2 (01:10→23:14)
--- NOTE | 2022-02-12 07:53 | Hospitalist Progress Note ---
Date of Service February 12, 2022 Assessment & Plan (1) Weakness: Plan: Clay is a 81 y/o F with a hx of T2DM w/ CKD III, CHF, CAD, [place] s/p multiple stents and chronic sciatica, who presented to [facility] on 02/09 for evaluation of altered mental status. Weakness: -Acute onset bilateral lower extremity weakness x3days prior to hospital stay. -Pt. has chronic pain in rt. piriformis muscle + Rt. leg sciatica managed with injections at home. No evidence of epidural abscess. -Lumbar MRI w/o contrast showed severe multilevel degenerative changes with severe canal stenosis + multiple posterior disc bulge. -Considered steroid therapy but unlikely to provide much relief given severity of symptoms and minimal relief from steroid injections at home. -Ortho assessed, will consider decompression next week. Bacteremia: -WBC: 9.34, Procal: 6.89 -Blood culture, 2/2, +Strep. MRSA nares negative making MRSA/resistant bacteria unlikely. -Broad coverage with Zosyn not needed - changed to nafcillin. -Repeat blood cultures 2/2 negative after 24 hours. -Patient remains hemodynamically stable. Continue to monitor vitals + CBC. Acute Hypoxemic Respiratory Failure: -CXR w/ cardiomegaly, mild pulmonary edema. Likely 2/2 CHF induced + reduce respiratory drive 2/2 medication for sciatica -Cont. O2 as needed, wean as tolerated. -Cont. Hold Sciatica medication: Tramadol, baclofen, methocarbamol. -Continue to monitor vitals SOHAN on CKD: -Etiology likely Dehydration/hypoperfusion/poor forward flow 2/2 previous episodes of vomiting/ diarrhea + chronic diarrhea -Cr: 1.76 today, baseline creatinine 1.6-2.0 -Cont. to hold Losartan. -Cont. to monitor renal function with BMP Hyponatremia: -Na 130 today. -Euvolemic on exam. -Trending up. -AM BMP. New Onset Atrial Fibrillation: -EKG in ED with evidence of atrial fibrillation. No previous history of A. Fib. -Likely a new diagnosis given risk factors including chronic CHF, heart failure, and age. -Cont. heparin low dose drip. -Rate has been controlled. -Cont. registered nurse cardiac telemetry on telemetry Chronic R Sciatica: -Holding patient's baclofen, methocarbamol, tramadol. -Restarted patient's gabapentin 100mg TID today. -Tylenol PRN for pain. Hypertension -Continue home amlodipine. Holding losartan in setting of SOHAN on CKD. T2DM -Holding home glimepiride. -SSI CAD -Continue home Aspirin and Plavix. DVT Prophylaxis: Low dose heparin w/o bolus. F/E/N/GI: Heart Healthy Code Status: DNR/DNI (2) Acute hypoxemic respiratory failure: (3) Right sided sciatica: (4) Acute hyponatremia: (5) SOHAN (acute kidney injury): (6) Type 2 DM with CKD stage 3 and hypertension: (7) History of coronary artery disease: (8) CHF (congestive heart failure): (9) Bacteremia: (10) Atrial fibrillation: Admission and Anticipated Discharge Date Admission Date: February 09, 2022 Supervising Physician Co-Signing Physician Notes I personally examined the patient and verified all rice points of history and exam, discussed case, and agree with decision making with Dr Armas only major complaint today is back pain. son present - answered questions to the best of my ability - several (specifics/technical specifics as it relates to back surgery) i largely had to defer; outlined big picture with back/surgery/etc, and was able to answer bacteremia related questions in detail vitals noted nad heent nc at mmm breathing unlabored no accessory muscles good effort skin no rashes no pallor or icterus gram positive bacteremia - fortunately per radiology and ortho - no evidence of spinal infection/abscess. appearing to likely be spontaneous bacteremia. echo without vegetation, repeat Cx NGTD. continue nafcillin for now - consider ID consult but given risk for secondary seeding given all of her other current comorbidites, likely need to treat for 4-6 weeks regardless. for now follow repeat cultures, likely ask ID for assistance as planning gets closer to discharge. new onset b/l leg weakness - fortunately does not appear infectious. unfortunately does have severe spinal disease. for surgery soon since she can't walk - giving at least a few days to get ahead of strep bacteremia first hypoxia - stable - likely was acute on chronic systolic chf, now suspect also components of atelectasis given weakness thrombocytopenia - mild no bleeding improving new afib - rates controlled, chads vasc ~10% so reasonable to have unbroken anticoagulation - heparin for now anticipate doac in long term care social worker but will want flexibility to stop heparin given concern on problem #2 probably needing surgical intervention Subjective Talked with patient at the bedside today. Patient doing well with breathing and saying she feels a little better than when she first came in. Her biggest complaint this morning is her lower back pain. Denies fevers, chills. Marquez in place so difficult for patient to assess urinary incontinence, has not had bowel movement while here. Review of Systems Constitutional: as per Subjective / HPI Physical Exam Constitutional: WD/WN, vitals as above Eyes: PERRL, conjunctivae normal, anicteric sclerae Respiratory: normal respiratory effort, lungs clear to auscultation Cardiovascular: Rate/Rhythm: + irregularly irregular Heart Sounds: normal S1 and normal S2 no murmurs or gallops. Gastrointestinal (Abdomen): normal bowel sounds, soft, nontender, no hepatosplenomegaly Psychiatric: A+Ox3, euthymic affect Genitourinary: Marquez in place, draining yellow urine. Results & Data Results & Data ([facility]) Vital Signs (Past 12 Hours) Vital Signs Temp Pulse Pulse Resp BP BP Pulse Ox 02/12/22 07:30 36.6 C 60 18 120/73 97 02/12/22 04:06 36.7 C 63 18 114/71 90 02/12/22 00:19 36.7 C 71 18 121/70 92 02/11/22 22:17 72 02/11/22 19:56 36.7 C 63 18 116/68 97 Resident Activity Tracking Resident Involvement: Resident Care Provided Care Provided: Adult Hospital Medicine
[2022-02-12] MEDS: PROPRANOLOL HCL LA 80 MG CAPCR PO SCH (08:01)
[2022-02-12] MEDS: MAGNESIUM OXIDE 400 MG TAB PO SCH ×3 (08:01→20:08)
[2022-02-12] MEDS: CHOLECALCIFEROL 5,000 UNITS 125 MCG TAB PO SCH (08:02)
[2022-02-12] MEDS: ASPIRIN 81 MG ECTAB PO SCH (08:02)
[2022-02-12] MEDS: PANTOprazole 40 MG TAB PO SCH ×2 (08:02→20:09)
[2022-02-12] MEDS: PARoxetine HCL 20 MG TAB PO SCH (08:02)
[2022-02-12] MEDS: amLODIPine BESYLATE 5 MG TAB PO SCH (08:03)
[2022-02-12] MEDS: ACETAMINOPHEN 325 MG TAB PO PRN ×2 (08:04→17:12)
[2022-02-12] MEDS: INSULIN ASPART PER UNIT SC SCH ×4 (08:52→20:52)
[2022-02-12 09:42] LABS: Basophils # (auto) 0.01 K/uL (0-0.2); Basophils % (auto) 0.1 %; Eosinophils # (auto) 0.07 K/uL (0-0.5); Eosinophils % (auto) 0.7 %; Hematocrit (blood only) 34.7 % (37-47); Hemoglobin 11.9 g/dL (12.0-16.0); Immature Granulocytes # (auto) 0.12 K/uL (0.00-0.02); Immature Granulocytes % (auto) 1.3 %; Lymphocytes # (auto) 1.05 K/uL (1.2-3.4); Lymphocytes % (auto) 11.2 %; Mean Corpuscular Hgb Conc 34.3 g/dL (32-36); Mean Corpuscular Volume 87.4 fL (80-100); Mean Platelet Volume 11.4 fL (7.4-10.4); Monocytes # (auto) 0.85 K/uL (0.11-0.59); Monocytes % (auto) 9.1 %; Neutrophils # (auto) 7.24 K/uL (1.4-6.5); Neutrophils % (auto) 77.6 %; Platelet Count 172 K/uL (130-400); RDW Standard Deviation 48.2 fL (36.4-46.3); Red Blood Count 3.97 M/uL (4.2-5.4); White Blood Count 9.34 K/uL (4.8-10.8)
[2022-02-12 10:03] LABS: BUN Creatinine Ratio 18.8 (10-20); Calcium 7.5 mg/dl (8.5-10.1); Creatinine Clr Calc Pharmacy 28.8 ml/min; Est GFR (African American) 31.3 ml/min; Potassium 3.2 mmol/L (3.5-5.1)
[2022-02-12 12:19] LABS: Partial Thromboplastin Ratio 2.3
[2022-02-12 12:25] LABS: Partial Thromboplastin Time 64.4 Seconds (21.0-31.0)
[2022-02-12] MEDS ORDERED: GABAPENTIN 100 MG CAP PO PRN (12:28)
--- NOTE | 2022-02-12 17:25 | Billing Data ---
Date of Service February 12, 2022 Coding Level of Care Code 01114 Subseq Hosp Care Lvl 3
[2022-02-12] MEDS: BACLOFEN 10 MG TAB PO SCH (17:54)
[2022-02-12] MEDS: MoRPHine SULFATE 2 MG/ML CARP IV PRN (17:54)
[2022-02-12] MEDS: ATORVASTATIN 40 MG TAB PO SCH (20:08)
[2022-02-12] MEDS: busPIRone 7.5 MG TAB PO SCH (20:08)
[2022-02-13] MEDS: NAFCILLIN SODIUM 2,000 MG in DEXTROSE 5% 100 ML IV SCH ×3 (00:10→07:36)
[2022-02-13 06:14] LABS: Basophils # (auto) 0.02 K/uL (0-0.2); Basophils % (auto) 0.2 %; Eosinophils # (auto) 0.13 K/uL (0-0.5); Eosinophils % (auto) 1.2 %; Hematocrit (blood only) 33.8 % (37-47); Hemoglobin 11.6 g/dL (12.0-16.0); Immature Granulocytes # (auto) 0.24 K/uL (0.00-0.02); Immature Granulocytes % (auto) 2.3 %; Lymphocytes # (auto) 1.54 K/uL (1.2-3.4); Lymphocytes % (auto) 14.6 %; Mean Corpuscular Hemoglobin 29.9 pg (25-34); Mean Corpuscular Hgb Conc 34.3 g/dL (32-36); Mean Corpuscular Volume 87.1 fL (80-100); Mean Platelet Volume 10.5 fL (7.4-10.4); Monocytes # (auto) 0.88 K/uL (0.11-0.59); Monocytes % (auto) 8.3 %; Neutrophils # (auto) 7.73 K/uL (1.4-6.5); Neutrophils % (auto) 73.4 %; Platelet Count 210 K/uL (130-400); RDW Coefficient of Variation 15.7 % (11.5-14.5); RDW Standard Deviation 50.5 fL (36.4-46.3); Red Blood Count 3.88 M/uL (4.2-5.4); White Blood Count 10.54 K/uL (4.8-10.8)
[2022-02-13 06:40] LABS: BUN Creatinine Ratio 16.3 (10-20); Calcium 7.5 mg/dl (8.5-10.1); Creatinine Clr Calc Pharmacy 21.9 ml/min; Est GFR (African American) 22.3 ml/min; Est GFR (Non-African American) 19.3 ml/min; Potassium 3.3 mmol/L (3.5-5.1)
--- NOTE | 2022-02-13 06:53 | Hospitalist Progress Note ---
Date of Service February 13, 2022 Assessment & Plan (1) Weakness: Plan: Clay is a 81 y/o F with a hx of T2DM w/ CKD III, CHF, CAD, [place] s/p multiple stents and chronic sciatica, who presented to [facility] on 02/09 for evaluation of altered mental status. Weakness: -Acute onset bilateral lower extremity weakness x3days prior to hospital stay. -Pt. has chronic pain in rt. piriformis muscle + Rt. leg sciatica managed with injections at home. No evidence of epidural abscess. -Lumbar MRI w/o contrast showed severe multilevel degenerative changes with severe canal stenosis + multiple posterior disc bulge. -Considered steroid therapy but unlikely to provide much relief given severity of symptoms and minimal relief from steroid injections at home. -Ortho assessed, will consider decompression when medically optimized. Bacteremia: -WBC: 10.54, Procal: 6.89 -Blood culture, 2/2, +Strep. MRSA nares negative making MRSA/resistant bacteria unlikely. -Changed from Nafcillin to cefazolin due to potential renal injury from nafcillin. -Repeat blood cultures 2/2 negative after 48 hours. -Patient remains hemodynamically stable. Continue to monitor vitals + CBC. Acute Hypoxemic Respiratory Failure: -CXR w/ cardiomegaly, mild pulmonary edema. Likely 2/2 CHF induced + reduce respiratory drive 2/2 medication for sciatica -Cont. O2 as needed, wean as tolerated. -Cont. Hold Sciatica medication: Tramadol, baclofen, methocarbamol. -Continue to monitor vitals SOHAN on CKD: -Etiology likely Dehydration/hypoperfusion/poor forward flow 2/2 previous episodes of vomiting/ diarrhea + chronic diarrhea -Cr: 2.33 today, baseline creatinine 1.6-2.0 -Cont. to hold Losartan. -Switched Nafcillin to cefazolin for potential interstitial nephritis. -Ordered 2 bags LR at 80ml/hr. -Cont. to monitor renal function with BMP Hyponatremia: -Na 128 today. -Euvolemic on exam. -AM BMP. New Onset Atrial Fibrillation: -EKG in ED with evidence of atrial fibrillation. No previous history of A. Fib. -Likely a new diagnosis given risk factors including chronic CHF, heart failure, and age. -Cont. heparin low dose drip. -Rate has been controlled. Converted back to sinus rhythm 02/12 ~13:30 -Cont. escrow processor on telemetry Chronic R Sciatica: -Holding patient's baclofen, methocarbamol, tramadol. -Restarted patient's gabapentin 100mg TID and baclofen dosed at 10mg BID. -Tylenol PRN for pain. Hypertension -Continue home amlodipine. Holding losartan in setting of SOHAN on CKD. T2DM -Holding home glimepiride. -SSI CAD -Continue home Aspirin and Plavix. DVT Prophylaxis: Low dose heparin w/o bolus. F/E/N/GI: Heart Healthy Code Status: DNR/DNI (2) Acute hypoxemic respiratory failure: (3) Right sided sciatica: (4) Acute hyponatremia: (5) SOHAN (acute kidney injury): (6) Type 2 DM with CKD stage 3 and hypertension: (7) History of coronary artery disease: (8) CHF (congestive heart failure): (9) Bacteremia: (10) Atrial fibrillation: Admission and Anticipated Discharge Date Admission Date: February 09, 2022 Supervising Physician Co-Signing Physician Notes I personally examined the patient and verified all rice points of history and exam, discussed case, and agree with decision making with Dr Armas some back pain. nursing notes poor PO intake last 2 days vitals noted nad heent nc at mmm breathing unlabored no accessory muscles good effort skin no rashes no pallor or icterus gram positive bacteremia - fortunately per radiology and ortho - no evidence of spinal infection/abscess. appearing to likely be spontaneous bacteremia. echo without vegetation, repeat Cx NGTD. continue IV abx, consider ID consult but given risk for secondary seeding given all of her other current comorbidites, likely need to treat for 4-6 weeks regardless. SOHAN - on initial review ddx was prerenal vs AIN from nafcillin (far less likely) - while working up and following - nafcillin changed to ancef - but to be clear this is because both would be quite useful for her current bacteremia and there was no need to keep the nafcillin even if it was in question - far more likley prerenal since PO intake has been poor and started fluids, follow - urine studies ordered, follow clinical picture and creatinine new onset b/l leg weakness - fortunately does not appear infectious. unfortunately does have severe spinal disease. for surgery soon since she can't walk - giving at least a few days to get ahead of strep bacteremia first: IV abx. hypoxia - stable - likely was acute on chronic systolic chf, now suspect also components of atelectasis given weakness thrombocytopenia - mild no bleeding improved new afib - rates controlled (actually a little ann earlier this AM), chads vas c ~10% so reasonable to have unbroken anticoagulation - heparin for now anticipate doac in senior care but will want flexibility to stop heparin given concern on problem #2 probably needing surgical intervention Subjective Talked to patient today, states that the baclofen and gabapentin home meds made only a slight difference in her back pain. Not having any shortness of breath or chest pain at the current time. Denies fevers, chills. Review of Systems Constitutional: as per Subjective / HPI Physical Exam Constitutional: WD/WN, vitals as above Eyes: PERRL, conjunctivae normal, anicteric sclerae Respiratory: normal respiratory effort, lungs clear to auscultation Cardiovascular: Heart Sounds: normal S1 and normal S2 no murmurs. Gastrointestinal (Abdomen): normal bowel sounds, soft, nontender, no hepatosplenomegaly Psychiatric: A+Ox3, euthymic affect Eye Contact: + fair eye contact Results & Data Results & Data ([facility]) Vital Signs (Past 12 Hours) Vital Signs Temp Pulse Pulse Resp BP Pulse Ox 02/13/22 03:23 36.6 C 55 L 16 116/68 97 02/12/22 23:26 36.4 C L 46 L 18 98/63 L 95 02/12/22 22:18 59 L 02/12/22 19:03 36.5 C 44 L 16 109/58 L 95 Resident Activity Tracking Resident Involvement: Resident Care Provided Care Provided: Adult Hospital Medicine
[2022-02-13] MEDS ORDERED: POTASSIUM CHLORIDE CRTAB 20 MEQ TABCR PO STA (07:10)
[2022-02-13 07:15] LABS: Partial Thromboplastin Ratio 3.8
[2022-02-13] MEDS: INSULIN ASPART PER UNIT SC SCH ×4 (07:28→20:46)
[2022-02-13 07:31] LABS: Partial Thromboplastin Time 104.2 Seconds (21.0-31.0)
[2022-02-13] MEDS: PROPRANOLOL HCL LA 80 MG CAPCR PO SCH (07:33)
[2022-02-13] MEDS: PARoxetine HCL 20 MG TAB PO SCH (07:34)
[2022-02-13] MEDS: BACLOFEN 10 MG TAB PO SCH ×2 (07:34→20:46)
[2022-02-13] MEDS: CHOLECALCIFEROL 5,000 UNITS 125 MCG TAB PO SCH (07:34)
[2022-02-13] MEDS: MAGNESIUM OXIDE 400 MG TAB PO SCH ×3 (07:34→20:46)
[2022-02-13] MEDS: PANTOprazole 40 MG TAB PO SCH ×2 (07:34→20:46)
[2022-02-13] MEDS: amLODIPine BESYLATE 5 MG TAB PO SCH (07:34)
[2022-02-13] MEDS: ASPIRIN 81 MG ECTAB PO SCH (07:35)
--- NOTE | 2022-02-13 08:23 | Orthopedic Progress Note ---
Date of Service February 13, 2022 Assessment & Plan (1) Spinal stenosis of lumbar region with radiculopathy: Plan: Assessment lumbar spinal stenosis with herniated was pulposis and neurologic deficit. Plan at this time she would require a lumbar decompression and fusion L3-L4 L4-5. I would like her to be optimized medically before we undergo this procedure. This would require at least 2 hours to complete. I will wait for medical clearance and we will try to perform surgery hopefully next week. Admission and Anticipated Discharge Date Admission Date: February 09, 2022 Subjective Patient states her leg pain is controlled while lying supine. She has been unable to get out of bed and sit secondary to quadricep weakness. She denies any numbness or tingling in the lower extremities. Physical Exam Physical Exam: On exam she has a 4/5 bilateral plantar flexion dorsiflexion extensor pollicis longus with marked deficit in the bilateral quadriceps and a 3+. Sensory appears to be symmetric and intact bilaterally. She has discomfort with straight leg raise bilaterally. Results & Data ([facility]) Vital Signs (Past 12 Hours) Vital Signs Temp Pulse Pulse Resp BP Pulse Ox 02/13/22 07:12 36.5 C 42 L 18 101/60 99 02/13/22 07:10 55 L 02/13/22 03:23 36.6 C 55 L 16 116/68 97 02/12/22 23:26 36.4 C L 46 L 18 98/63 L 95 02/12/22 22:18 59 L
[2022-02-13] MEDS: HEPARIN SODIUM/DEXTROSE 25,000 UNITS/500 ML BAG IV SCH ×2 (09:26→09:36)
[2022-02-13] MEDS: ceFAZolin 1000MG 1,000 MG/7.5 ML SYR IV SCH ×2 (12:29→22:34)
[2022-02-13 13:26] LABS: Appearance Urine Clear (Clear); Bilirubin Urine Negative (Negative); Blood Urine 2+ (Negative); Color Urine Dark Yellow; Glucose Urine UA Negative (Negative); Ketones Urine Negative (Negative); Leukocyte Esterase Urine Negative (Negative); Nitrite Urine Negative (Negative); Protein Urine Negative (Negative); Specific Gravity Urine 1.016 (1.000-1.030); Urobilinogen Urine Negative (Negative)
[2022-02-13 13:40] LABS: Bacteria Urine Automated 1+ (Negative); Renal Epithelial Cells Urine 0-5 /lpf (0-5)
[2022-02-13] MEDS: LACTATED RINGER'S 1,000 ML IV SCH (14:19)
[2022-02-13 14:47] LABS: Partial Thromboplastin Ratio 2.6
[2022-02-13 14:50] LABS: BUN Creatinine Ratio 15.5 (10-20); Calcium 7.6 mg/dl (8.5-10.1); Creatinine Clr Calc Pharmacy 19.3 ml/min; Est GFR (African American) 19.2 ml/min; Est GFR (Non-African American) 16.6 ml/min
[2022-02-13 14:53] LABS: Partial Thromboplastin Time 72.8 Seconds (21.0-31.0)
[2022-02-13] MEDS ORDERED: POTASSIUM CHLORIDE 10 MEQ in SODIUM CHLORIDE 0.9% 1000ML 1,000 ML IV SCH (15:45)
--- NOTE | 2022-02-13 16:42 | Billing Data ---
Date of Service February 13, 2022 Coding Level of Care Code 03049 Subseq Hosp Care Lvl 3
[2022-02-13] MEDS: ATORVASTATIN 40 MG TAB PO SCH (20:46)
[2022-02-13] MEDS: busPIRone 7.5 MG TAB PO SCH (20:46)
[2022-02-13 21:33] LABS: Partial Thromboplastin Ratio 2.7
[2022-02-13 21:41] LABS: Partial Thromboplastin Time 74.6 Seconds (21.0-31.0)
[2022-02-14] MEDS: LACTATED RINGER'S 1,000 ML IV SCH (02:22)
[2022-02-14] MEDS: ACETAMINOPHEN 325 MG TAB PO PRN (02:23)
[2022-02-14 04:38] LABS: Basophils # (auto) 0.01 K/uL (0-0.2); Basophils % (auto) 0.1 %; Eosinophils # (auto) 0.11 K/uL (0-0.5); Immature Granulocytes # (auto) 0.16 K/uL (0.00-0.02); Immature Granulocytes % (auto) 1.5 %; Lymphocytes # (auto) 1.08 K/uL (1.2-3.4); Lymphocytes % (auto) 10.3 %; Mean Corpuscular Hemoglobin 30.2 pg (25-34); Mean Corpuscular Hgb Conc 34.4 g/dL (32-36); Mean Corpuscular Volume 87.9 fL (80-100); Mean Platelet Volume 10.4 fL (7.4-10.4); Monocytes # (auto) 0.77 K/uL (0.11-0.59); Monocytes % (auto) 7.3 %; Neutrophils # (auto) 8.36 K/uL (1.4-6.5); Neutrophils % (auto) 79.8 %; Platelet Count 229 K/uL (130-400); RDW Standard Deviation 51.8 fL (36.4-46.3); Red Blood Count 3.64 M/uL (4.2-5.4); White Blood Count 10.49 K/uL (4.8-10.8)
[2022-02-14 04:59] LABS: Calcium 7.8 mg/dl (8.5-10.1); Creatinine Clr Calc Pharmacy 21.4 ml/min; Est GFR (African American) 21.8 ml/min; Est GFR (Non-African American) 18.8 ml/min; Potassium 4.1 mmol/L (3.5-5.1)
[2022-02-14 05:00] LABS: Partial Thromboplastin Ratio 2.9
[2022-02-14 05:19] LABS: Partial Thromboplastin Time 79.7 Seconds (21.0-31.0)
--- NOTE | 2022-02-14 06:56 | Hospitalist Progress Note ---
Date of Service February 14, 2022 Assessment & Plan (1) Weakness: Plan: Clay is a 81 y/o F with a hx of T2DM w/ CKD III, CHF, CAD, [place] s/p multiple stents and chronic sciatica, admitted for evaluation of altered mental status and acute hypoxic respiratory failure. Bacteremia: -WBC: 10.54, Procal: 6.89 -Blood cultures 2/2 w/ Group B Beta strep. -MRSA nares negative. -Changed from Nafcillin to cefazolin due to potential renal injury from nafc illin. -Repeat blood cultures 2/2 negative after 48 hours. -MRI lumbar spine w/o evidence of abscess. -CT head w/o evidence of sinusitis. CT A/P w/o evidence acute abnormality. -Source of bacteremia remains elusive at this time. -Consulted Infectious Disease. -Patient remains hemodynamically stable. Continue to monitor vitals and CBC. Acute Hypoxemic Respiratory Failure: -CXR w/ cardiomegaly, mild pulmonary edema. Likely -CHF induced along w/ reduced respiratory drive from back pain medications -CXR 02/14 w/ mild pulmonary edema, slightly increased from 02/11. -Given 20mg IV Lasix. -Cont. O2 as needed, wean as tolerated. -Cont. Hold Sciatica medication: Tramadol, baclofen, methocarbamol. -Continue to monitor vitals. Chronic R Sciatica/Weakness: -Acute onset bilateral lower extremity weakness x3days prior to hospital stay. -Lumbar MRI w/o contrast: severe multilevel degenerative changes/severe canal stenosis L4-L5 -Holding patient's baclofen, methocarbamol, tramadol. -Restarted patient's gabapentin 100mg TID. -Patient noted to be more sluggish after restarting Baclofen 10mg BID. -Morphine 2mg IV PRN q6h for pain. -Tylenol PRN for pain. -Dr. Baires following, possible decompression, fusion L3-L4, L4-L5 when medically optimized. SOHAN on CKD: -Creat 2.02 on admission, etiology initially thought to be dehydration. -Creat 2.38 today, baseline creatinine 1.6-2.0 -s/p 2L LR w/ mildly increased pulmonary edema on CXR. -Likely prerenal but may have interstitial nephritis contribution from Nafcillin due to worsening Creat after administration. -Given 20mg IV Lasix as above. -Cont. to hold Losartan. -Switched Nafcillin to cefazolin. -Cont. to monitor renal function with BMP Hyponatremia: -Na 130 today. -Euvolemic on exam. -AM BMP. New Onset Atrial Fibrillation: -EKG in ED with evidence of atrial fibrillation. No previous history of A. Fib. -Likely a new diagnosis given risk factors including chronic CHF, heart failure, and age. -Cont. heparin low dose drip. -Rate has been controlled. Converted back to sinus rhythm 02/12 ~13:30 -Cont. monitor technician on telemetry Hypertension -Continue home amlodipine. Holding losartan in setting of SOHAN on CKD. T2DM -Holding home glimepiride. -SSI CAD -Continue home Aspirin and Plavix. DVT Prophylaxis: Low dose heparin w/o bolus. F/E/N/GI: Heart Healthy Code Status: DNR/DNI Dispo: PCU Telemetry (2) Acute hypoxemic respiratory failure: (3) Right sided sciatica: (4) Acute hyponatremia: (5) SOHAN (acute kidney injury): (6) Type 2 DM with CKD stage 3 and hypertension: (7) History of coronary artery disease: (8) CHF (congestive heart failure): (9) Bacteremia: (10) Atrial fibrillation: Admission and Anticipated Discharge Date Admission Date: February 09, 2022 Supervising Physician Co-Signing Physician Notes Resident Physician Supervision Note: I independently interviewed and examined the patient and verified the rice history and physical, reviewed labs and image studies and agree with resident Dr. Armas findings and care plan. Subjective Spoke to patient this morning, she is feeling about the same as yesterday although answering more sluggish with replies. She is not experiencing any shortness of breath at this time and says she is eating around her normal amount. When I talked to the patient's at bedside later in the day he relayed to me she may not be eating a whole lot on a regular basis due to the pain she experiences while sitting upright. This pain limits her eating and she tends to want to go back to lying down. Review of Systems Constitutional: as per Subjective / HPI Physical Exam Constitutional: WD/WN, vitals as above Patient sluggish with responses at times. May take a few seconds for her to respond. Eyes: PERRL, conjunctivae normal, anicteric sclerae Respiratory: normal respiratory effort, lungs clear to auscultation Cardiovascular: RRR, no murmur, no edema Extremities: + edema (1+) Gastrointestinal (Abdomen): normal bowel sounds, soft, nontender, no hepatosplenomegaly Psychiatric: A+Ox3, euthymic affect Eye Contact: + fair eye contact Results & Data Results & Data ([facility]) Vital Signs (Past 12 Hours) Vital Signs Temp Pulse Pulse Resp BP BP Pulse Ox 02/14/22 04:00 36.3 C L 54 L 18 113/62 97 02/13/22 23:29 65 02/13/22 23:09 36.7 C 65 18 144/73 H 97 02/13/22 20:49 36.6 C 55 L 18 111/72 95 Resident Activity Tracking Resident Involvement: Resident Care Provided Care Provided: Adult Hospital Medicine
[2022-02-14] MEDS: HEPARIN SODIUM/DEXTROSE 25,000 UNITS/500 ML BAG IV SCH ×2 (07:19→11:19)
[2022-02-14] MEDS: INSULIN ASPART PER UNIT SC SCH ×4 (08:38→21:01)
[2022-02-14] MEDS: PANTOprazole 40 MG TAB PO SCH ×2 (08:39→21:03)
[2022-02-14] MEDS: amLODIPine BESYLATE 5 MG TAB PO SCH (08:40)
[2022-02-14] MEDS: PROPRANOLOL HCL LA 80 MG CAPCR PO SCH (08:40)
[2022-02-14] MEDS: ASPIRIN 81 MG ECTAB PO SCH (08:40)
[2022-02-14] MEDS: PARoxetine HCL 20 MG TAB PO SCH (08:40)
[2022-02-14] MEDS: CHOLECALCIFEROL 5,000 UNITS 125 MCG TAB PO SCH (08:40)
[2022-02-14] MEDS: CALCITRIOL 0.25 MCG CAPSULE PO SCH (08:40)
[2022-02-14] MEDS: BACLOFEN 10 MG TAB PO SCH (08:40)
[2022-02-14] MEDS: MAGNESIUM OXIDE 400 MG TAB PO SCH ×3 (08:41→21:03)
[2022-02-14] MEDS: MoRPHine SULFATE 2 MG/ML CARP IV PRN (10:17)
[2022-02-14] MEDS: ceFAZolin 1000MG 1,000 MG/7.5 ML SYR IV SCH ×2 (11:19→23:43)
[2022-02-14 11:58] LABS: Partial Thromboplastin Ratio 2.4; Partial Thromboplastin Time 66.8 Seconds (21.0-31.0)
--- NOTE | 2022-02-14 15:13 | XRay Report ---
XR chest 1V portable CLINICAL HISTORY: shortness of breath TECHNIQUE: Single frontal radiograph of the chest was obtained. Comparison: Comparison is made to chest radiograph 02/11/2022 FINDINGS: No lines and tubes are seen. Calcified aortic knob is seen. Lungs are underinflated but clear. Promin ence of the pulmonary vasculature is seen. No evidence of pleural effusion or pneumothorax. IMPRESSION: Mild pulmonary edema. This appears slightly increased from prior exam. ACT 112: Negative or not required by law. Electronically signed by: Charles Rao M.D. 02/14/2022 3:11 PM
[2022-02-14] MEDS ORDERED: FUROSEMIDE INJ 20 MG/2 ML VIAL IV ONE (15:18)
[2022-02-14 19:18] LABS: Partial Thromboplastin Ratio 2.5
[2022-02-14 19:43] LABS: Partial Thromboplastin Time 69.9 Seconds (21.0-31.0)
[2022-02-14] MEDS: LIDOCAINE 5% 1 PATCH TD SCH (21:01)
[2022-02-14] MEDS: GABAPENTIN 100 MG CAP PO SCH (21:02)
[2022-02-14] MEDS: ATORVASTATIN 40 MG TAB PO SCH (21:03)
[2022-02-14] MEDS: busPIRone 7.5 MG TAB PO SCH (21:03)
[2022-02-15 02:45] LABS: Partial Thromboplastin Ratio 2.7
[2022-02-15 02:47] LABS: Partial Thromboplastin Time 73.5 Seconds (21.0-31.0)
[2022-02-15] MEDS: GABAPENTIN 100 MG CAP PO SCH ×3 (05:41→21:31)
[2022-02-15 05:50] LABS: Basophils # (auto) 0.01 K/uL (0-0.2); Basophils % (auto) 0.1 %; Eosinophils # (auto) 0.08 K/uL (0-0.5); Eosinophils % (auto) 0.6 %; Hematocrit (blood only) 31.2 % (37-47); Hemoglobin 10.8 g/dL (12.0-16.0); Immature Granulocytes # (auto) 0.14 K/uL (0.00-0.02); Immature Granulocytes % (auto) 1.1 %; Lymphocytes # (auto) 1.17 K/uL (1.2-3.4); Lymphocytes % (auto) 9.3 %; Mean Corpuscular Hemoglobin 30.4 pg (25-34); Mean Corpuscular Hgb Conc 34.6 g/dL (32-36); Mean Corpuscular Volume 87.9 fL (80-100); Mean Platelet Volume 10.5 fL (7.4-10.4); Monocytes % (auto) 7.2 %; Neutrophils # (auto) 10.23 K/uL (1.4-6.5); Neutrophils % (auto) 81.7 %; Platelet Count 252 K/uL (130-400); RDW Coefficient of Variation 15.9 % (11.5-14.5); RDW Standard Deviation 51.9 fL (36.4-46.3); Red Blood Count 3.55 M/uL (4.2-5.4); White Blood Count 12.53 K/uL (4.8-10.8)
[2022-02-15 06:07] LABS: BUN Creatinine Ratio 14.4 (10-20); Calcium 8.6 mg/dl (8.5-10.1); Creatinine Clr Calc Pharmacy 27.6 ml/min; Est GFR (African American) 29.1 ml/min; Est GFR (Non-African American) 25.1 ml/min; Potassium 3.5 mmol/L (3.5-5.1)
[2022-02-15] MEDS: MoRPHine SULFATE 2 MG/ML CARP IV PRN (06:22)
--- NOTE | 2022-02-15 06:53 | Hospitalist Progress Note ---
Date of Service February 15, 2022 Assessment & Plan (1) Weakness: Plan: Clay is a 81 y/o F with a hx of T2DM w/ CKD III, CHF, CAD, [place] s/p multiple stents and chronic sciatica, admitted for evaluation of altered mental status and acute hypoxic respiratory failure. Bacteremia: -WBC: 10.54, Procal: 6.89 -Blood cultures 2/2 w/ Group B Beta strep. -MRSA nares negative. -Changed from Nafcillin to cefazolin due to potential renal injury from nafc illin. -Repeat blood cultures 2/2 negative after 48 hours. -MRI lumbar spine w/o evidence of abscess. -CT head w/o evidence of sinusitis. CT A/P w/o evidence acute abnormality. -Source of bacteremia remains elusive at this time. -Consulted Infectious Disease. -F/u blood cultures from 02/11. -Duration may depend on repeat culture and OR results given no clear source. -ADIS if no gross evidence of infection from spine. -If after workup still negative, total 2 weeks antibiotics IV antibiotics (cefazolin or penicillin G or ceftriaxone) -Patient remains hemodynamically stable. Continue to monitor vitals and CBC. Acute Hypoxemic Respiratory Failure: -CXR w/ cardiomegaly, mild pulmonary edema. Likely -CHF induced along w/ reduced respiratory drive from back pain medications -CXR 02/14 w/ mild pulmonary edema, slightly increased from 02/11. -Given 20mg IV Lasix. -Cont. O2 as needed, wean as tolerated. -Cont. Hold Sciatica medication: Tramadol, baclofen, methocarbamol. -Continue to monitor vitals. Chronic R Sciatica/Weakness: -Acute onset bilateral lower extremity weakness x3days prior to hospital stay. -Lumbar MRI w/o contrast: severe multilevel degenerative changes/severe canal stenosis L4-L5 -Holding patient's baclofen, methocarbamol, tramadol. -Restarted patient's gabapentin 100mg TID. -Patient noted to be more sluggish after restarting Baclofen 10mg BID. -Morphine 2mg IV PRN q6h for pain. -Tylenol PRN for pain. -Dr. Baires following, possible decompression, fusion L3-L4, L4-L5 when medically optimized. -Tentativelly scheduled on chart for 02/16 but no orders entered. will follow in am. made NPO for am. SOHAN on CKD: -Creat 2.02 on admission, etiology initially thought to be dehydration. -Creat 1.87 today, baseline creatinine 1.6-2.0 -s/p 2L LR w/ mildly increased pulmonary edema on CXR. -Likely prerenal but may have interstitial nephritis contribution from Nafcillin due to worsening Creat after administration. -Given 20mg IV Lasix as above. -Cont. to hold Losartan. -Switched Nafcillin to cefazolin. -Cont. to monitor renal function with BMP Hyponatremia: -Na 130 today. -Euvolemic on exam. -AM BMP. New Onset Atrial Fibrillation: -EKG in ED with evidence of atrial fibrillation. No previous history of A. Fib. -Likely a new diagnosis given risk factors including chronic CHF, heart failure, and age. -heparin drip -Rate has been controlled. 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 Holding losartan in setting of SOHNA on CKD. T2DM -Holding home glimepiride. -SSI CAD -Continue home Aspirin and Plavix. DVT Prophylaxis: Heparin drip F/E/N/GI: Heart Healthy. Code Status: DNR/DNI Dispo: PCU Telemetry (2) Acute hypoxemic respiratory failure: (3) Right sided sciatica: (4) Acute hyponatremia: (5) SOHAN (acute kidney injury): (6) Type 2 DM with CKD stage 3 and hypertension: (7) History of coronary artery disease: (8) CHF (congestive heart failure): (9) Bacteremia: (10) Atrial fibrillation: Admission and Anticipated Discharge Date Admission Date: February 09, 2022 Supervising Physician Co-Signing Physician Notes Resident Physician Supervision Note: I independently interviewed and examined the patient and verified the rice history and physical, reviewed labs and image studies and agree with resident Dr. Armas findings and care plan. Subjective Patient is feeling some back pain this morning while trying to eat although very drowsy and difficult to answer questions properly. Review of Systems 2 Constitutional: as per Subjective / HPI Physical Exam Constitutional: WD/WN, vitals as above Patient difficult to answer questions in the morning due to drowsiness, more alert later in the day. Eyes: PERRL, conjunctivae normal, anicteric sclerae Respiratory: normal respiratory effort, lungs clear to auscultation Cardiovascular: Rate/Rhythm: regular rate and regular rhythm Heart Sounds: normal S1 and normal S2 Gastrointestinal (Abdomen): normal bowel sounds, soft, nontender, no hepatosplenomegaly Results & Data Results & Data ([facility]) Vital Signs (Past 12 Hours) Vital Signs Temp Pulse Resp BP Pulse Ox 02/15/22 03:16 36.8 C 65 19 162/77 H 95 02/14/22 23:00 36.6 C 63 20 144/71 H 90 02/14/22 19:35 37.0 C 20 148/75 H 96 Resident Activity Tracking Resident Involvement: Resident Care Provided Care Provided: Adult Hospital Medicine
[2022-02-15] MEDS ORDERED: MoRPHine SULFATE 2 MG/ML CARP IV PRN (08:01)
[2022-02-15] MEDS: CHOLECALCIFEROL 5,000 UNITS 125 MCG TAB PO SCH (09:00)
[2022-02-15] MEDS: ASPIRIN 81 MG ECTAB PO SCH (09:00)
[2022-02-15] MEDS: PANTOprazole 40 MG TAB PO SCH ×2 (09:00→20:54)
[2022-02-15] MEDS: PARoxetine HCL 20 MG TAB PO SCH (09:00)
[2022-02-15] MEDS: MAGNESIUM OXIDE 400 MG TAB PO SCH ×3 (09:00→20:54)
[2022-02-15] MEDS: LIDOCAINE 5% 1 PATCH TD SCH (09:00)
[2022-02-15] MEDS: amLODIPine BESYLATE 5 MG TAB PO SCH (09:00)
[2022-02-15] MEDS: PROPRANOLOL HCL LA 80 MG CAPCR PO SCH (09:00)
[2022-02-15] MEDS: INSULIN ASPART PER UNIT SC SCH ×4 (09:28→20:36)
[2022-02-15 10:23] LABS: Partial Thromboplastin Ratio 1.9
[2022-02-15 10:27] LABS: Partial Thromboplastin Time 53.2 Seconds (21.0-31.0)
[2022-02-15] MEDS: ceFAZolin 1000MG 1,000 MG/7.5 ML SYR IV SCH ×2 (11:00→22:02)
[2022-02-15] MEDS: ATORVASTATIN 40 MG TAB PO SCH (20:54)
[2022-02-15] MEDS: busPIRone 7.5 MG TAB PO SCH (20:54)
[2022-02-15] MEDS ORDERED: HEPARIN SODIUM/DEXTROSE 25,000 UNITS/500 ML BAG IV SCH ×2 (21:15→21:30)
[2022-02-15] MEDS ORDERED: Heparin IV Adult Wt-Based Low-Dose *NO* Bolus Protocol ONE (21:24)
[2022-02-15] MEDS: HEPARIN SODIUM/DEXTROSE 25,000 UNITS/500 ML BAG IV SCH (22:02)
[2022-02-16 05:24] LABS: Partial Thromboplastin Time 54.3 Seconds (21.0-31.0)
[2022-02-16] MEDS: GABAPENTIN 100 MG CAP PO SCH ×3 (06:07→21:32)
[2022-02-16] MEDS: INSULIN ASPART PER UNIT SC SCH ×4 (08:00→20:45)
--- NOTE | 2022-02-16 08:06 | Hospitalist Progress Note ---
Date of Service February 16, 2022 Assessment & Plan (1) Weakness: Plan: Clay is a 81 y/o F with a hx of T2DM w/ CKD III, CHF, CAD, [place] s/p multiple stents and chronic sciatica, admitted for evaluation of altered mental status and acute hypoxic respiratory failure. Bacteremia: -WBC: 10.54, Procal: 6.89 -Blood cultures 2/2 w/ Group B Beta strep. -MRSA nares negative. -Changed from Nafcillin to cefazolin due to potential renal injury from nafc illin. -Repeat blood cultures 2/2 negative after 48 hours. -MRI lumbar spine w/o evidence of abscess. -CT head w/o evidence of sinusitis. CT A/P w/o evidence acute abnormality. -Source of bacteremia remains elusive at this time. -Consulted Infectious Disease. -F/u blood cultures from 02/11. -Duration may depend on repeat culture and OR results given no clear source. -Recommend ADIS for cardiac source. -If after workup still negative, total 2 weeks antibiotics IV antibiotics (cefazolin or penicillin G or ceftriaxone) -Consulted Cardiology for ADIS. -Patient remains hemodynamically stable. Continue to monitor vitals and CBC. Acute Hypoxemic Respiratory Failure: -CXR w/ cardiomegaly, mild pulmonary edema. Likely -CHF induced along w/ reduced respiratory drive from back pain medications -CXR 02/14 w/ mild pulmonary edema, slightly increased from 02/11. -Given 20mg IV Lasix. -Cont. O2 as needed, wean as tolerated. -Cont. Hold Sciatica medication: Tramadol, baclofen, methocarbamol. -Continue to monitor vitals. Chronic R Sciatica/Weakness: -Acute onset bilateral lower extremity weakness x3days prior to hospital stay. -Lumbar MRI w/o contrast: severe multilevel degenerative changes/severe canal stenosis L4-L5 -Holding patient's baclofen, methocarbamol, tramadol. -Restarted patient's gabapentin 100mg TID. -Patient noted to be more sluggish after restarting Baclofen 10mg BID and Morphine 2mg PRN. -Tylenol PRN for pain. -Consulted Pain management. -Dr. Baires following, possible decompression, fusion L3-L4, L4-L5 when medically optimized. SOHAN on CKD: -Creat 2.02 on admission, etiology initially thought to be dehydration. -Creat 1.44 today, baseline creatinine 1.6-2.0 -s/p 2L LR w/ mildly increased pulmonary edema on CXR. -Likely prerenal but may have interstitial nephritis contribution from Nafcillin due to worsening Creat after administration. -Given 20mg IV Lasix as above. -Cont. to hold Losartan. -Switched Nafcillin to cefazolin. -Cont. to monitor renal function with BMP Hyponatremia: -Na 130 today. -Euvolemic on exam. -AM BMP. New Onset Atrial Fibrillation: -EKG in ED with evidence of atrial fibrillation. No previous history of A. Fib. -Likely a new diagnosis given risk factors including chronic CHF, heart failure, and age. -heparin drip -Rate has been controlled. Converted back to sinus rhythm 02/12 ~13:30 -Consulted Cardiology. 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 Holding losartan in setting of SOHAN on CKD. T2DM -Holding home glimepiride. -SSI CAD -Continue home Aspirin DVT Prophylaxis: Heparin drip F/E/N/GI: Heart Healthy. Code Status: DNR/DNI Dispo: PCU Telemetry (2) Acute hypoxemic respiratory failure: (3) Right sided sciatica: (4) Acute hyponatremia: (5) SOHAN (acute kidney injury): (6) Type 2 DM with CKD stage 3 and hypertension: (7) History of coronary artery disease: (8) CHF (congestive heart failure): (9) Bacteremia: (10) Atrial fibrillation: Admission and Anticipated Discharge Date Admission Date: February 09, 2022 Supervising Physician Co-Signing Physician Notes Resident Physician Supervision Note: I independently interviewed and examined the patient and verified the rice history and physical, reviewed labs and image studies and agree with resident Dr. Armas findings and care plan. Subjective Patient seen at the bedside this morning saying she is still having back pain and wondering about her progression through the hospital. Patient denies shortness of breath, chest pain, fevers, chills. Review of Systems Constitutional: as per Subjective / HPI Physical Exam Constitutional: WD/WN, vitals as above Eyes: PERRL, conjunctivae normal, anicteric sclerae Respiratory: normal respiratory effort, lungs clear to auscultation Cardiovascular: RRR, no murmur, no edema Extremities: + edema (1+) Gastrointestinal (Abdomen): normal bowel sounds, soft, nontender, no hepatosplenomegaly Results & Data Results & Data ([facility]) Vital Signs (Past 12 Hours) Vital Signs Temp Pulse Pulse Resp BP BP Pulse Ox 02/16/22 03:45 36.6 C 61 18 160/71 H 95 02/15/22 23:00 58 L 02/15/22 22:43 37.1 C 66 19 163/72 H 93 02/15/22 20:13 36.7 C 60 24 150/72 H 96 Resident Activity Tracking Resident Involvement: Resident Care Provided Care Provided: Adult Hospital Medicine
[2022-02-16] MEDS: LIDOCAINE 5% 1 PATCH TD SCH (09:29)
[2022-02-16] MEDS: ASPIRIN 81 MG ECTAB PO SCH (09:29)
[2022-02-16] MEDS: PROPRANOLOL HCL LA 80 MG CAPCR PO SCH (09:29)
[2022-02-16] MEDS: CHOLECALCIFEROL 5,000 UNITS 125 MCG TAB PO SCH (09:29)
[2022-02-16] MEDS: PARoxetine HCL 20 MG TAB PO SCH (09:29)
[2022-02-16] MEDS: amLODIPine BESYLATE 5 MG TAB PO SCH (09:29)
[2022-02-16] MEDS: PANTOprazole 40 MG TAB PO SCH ×2 (09:30→19:45)
[2022-02-16] MEDS: MAGNESIUM OXIDE 400 MG TAB PO SCH ×3 (09:30→19:45)
[2022-02-16 10:55] LABS: Basophils # (auto) 0.02 K/uL (0-0.2); Basophils % (auto) 0.2 %; Eosinophils # (auto) 0.11 K/uL (0-0.5); Eosinophils % (auto) 0.9 %; Hematocrit (blood only) 28.9 % (37-47); Hemoglobin 9.8 g/dL (12.0-16.0); Immature Granulocytes # (auto) 0.16 K/uL (0.00-0.02); Immature Granulocytes % (auto) 1.4 %; Lymphocytes # (auto) 1.07 K/uL (1.2-3.4); Lymphocytes % (auto) 9.2 %; Mean Corpuscular Hemoglobin 29.9 pg (25-34); Mean Corpuscular Hgb Conc 33.9 g/dL (32-36); Mean Corpuscular Volume 88.1 fL (80-100); Mean Platelet Volume 10.1 fL (7.4-10.4); Monocytes # (auto) 0.83 K/uL (0.11-0.59); Monocytes % (auto) 7.1 %; Neutrophils # (auto) 9.49 K/uL (1.4-6.5); Neutrophils % (auto) 81.2 %; Nucleated RBC # (auto) 0.04 K/uL (0-0); Nucleated RBC % (auto) 0.3 %; Platelet Count 280 K/uL (130-400); Red Blood Count 3.28 M/uL (4.2-5.4); White Blood Count 11.68 K/uL (4.8-10.8)
[2022-02-16 11:21] LABS: BUN Creatinine Ratio 13.9 (10-20); Calcium 8.3 mg/dl (8.5-10.1); Creatinine Clr Calc Pharmacy 36.1 ml/min; Est GFR (African American) 39.9 ml/min; Est GFR (Non-African American) 34.5 ml/min; Potassium 3.5 mmol/L (3.5-5.1)
[2022-02-16] MEDS: ceFAZolin 1000MG 1,000 MG/7.5 ML SYR IV SCH (11:32)
[2022-02-16] MEDS: ceFAZolin 2000MG 2,000 MG/15 ML SYR IV SCH (19:03)
[2022-02-16] MEDS: busPIRone 7.5 MG TAB PO SCH (19:45)
[2022-02-16] MEDS: ATORVASTATIN 40 MG TAB PO SCH (19:45)
[2022-02-17] MEDS: ceFAZolin 2000MG 2,000 MG/15 ML SYR IV SCH ×3 (02:03→17:38)
[2022-02-17] MEDS: GABAPENTIN 100 MG CAP PO SCH ×3 (05:22→21:02)
[2022-02-17 06:02] LABS: Basophils # (auto) 0.02 K/uL (0-0.2); Basophils % (auto) 0.2 %; Eosinophils # (auto) 0.08 K/uL (0-0.5); Eosinophils % (auto) 0.8 %; Hematocrit (blood only) 30.8 % (37-47); Hemoglobin 10.3 g/dL (12.0-16.0); Immature Granulocytes # (auto) 0.13 K/uL (0.00-0.02); Immature Granulocytes % (auto) 1.2 %; Lymphocytes # (auto) 1.39 K/uL (1.2-3.4); Lymphocytes % (auto) 13.1 %; Mean Corpuscular Hgb Conc 33.4 g/dL (32-36); Mean Corpuscular Volume 86.8 fL (80-100); Monocytes % (auto) 7.5 %; Neutrophils # (auto) 8.21 K/uL (1.4-6.5); Neutrophils % (auto) 77.2 %; Nucleated RBC # (auto) 0.07 K/uL (0-0); Nucleated RBC % (auto) 0.7 %; Platelet Count 295 K/uL (130-400); RDW Coefficient of Variation 16.2 % (11.5-14.5); RDW Standard Deviation 51.4 fL (36.4-46.3); Red Blood Count 3.55 M/uL (4.2-5.4); White Blood Count 10.63 K/uL (4.8-10.8)
[2022-02-17 06:26] LABS: BUN Creatinine Ratio 14.1 (10-20); Calcium 8.7 mg/dl (8.5-10.1); Creatinine Clr Calc Pharmacy 36.6 ml/min; Est GFR (African American) 40.6 ml/min; Potassium 3.6 mmol/L (3.5-5.1)
[2022-02-17 06:32] LABS: Partial Thromboplastin Ratio 2.4
[2022-02-17 06:35] LABS: Partial Thromboplastin Time 65.8 Seconds (21.0-31.0)
--- NOTE | 2022-02-17 08:10 | Orthopedic Progress Note ---
Date of Service February 17, 2022 Assessment & Plan (1) Spinal stenosis of lumbar region with radiculopathy: Plan: At this time encouraged the patient to begin transfers to the chair if possible. Still waiting her to maximize medically before considering any surgical int ervention. Like to see how she does with transfers and perhaps initiation of physical therapy before committing to full surgical procedure. Admission and Anticipated Discharge Date Admission Date: February 09, 2022 Subjective Patient not complaining of any back or leg pain at this time. She states she is not back to bed. Physical Exam Physical Exam: On exam she does have plantar flexion dorsiflexion active quads bilaterally. Sensory appears to be symmetric and intact. Results & Data ([facility]) Vital Signs (Past 12 Hours) Vital Signs Temp Pulse Pulse Resp BP BP Pulse Ox 02/17/22 07:55 36.5 C 60 24 162/71 H 98 02/17/22 03:02 66 02/17/22 02:49 36.8 C 64 22 148/70 H 98 02/16/22 23:24 37.1 C 66 18 161/69 H 97
[2022-02-17] MEDS: INSULIN ASPART PER UNIT SC SCH ×4 (08:13→20:53)
[2022-02-17] MEDS: PANTOprazole 40 MG TAB PO SCH ×2 (08:25→20:30)
[2022-02-17] MEDS: MAGNESIUM OXIDE 400 MG TAB PO SCH ×3 (08:25→20:30)
[2022-02-17] MEDS: PROPRANOLOL HCL LA 80 MG CAPCR PO SCH (08:25)
[2022-02-17] MEDS: amLODIPine BESYLATE 5 MG TAB PO SCH (08:25)
[2022-02-17] MEDS: ASPIRIN 81 MG ECTAB PO SCH (08:25)
[2022-02-17] MEDS: PARoxetine HCL 20 MG TAB PO SCH (08:25)
[2022-02-17] MEDS: CHOLECALCIFEROL 5,000 UNITS 125 MCG TAB PO SCH (08:25)
--- NOTE | 2022-02-17 08:26 | Hospitalist Progress Note ---
Date of Service February 17, 2022 Assessment & Plan (1) Weakness: Plan: Clay is a 81 y/o F with a hx of T2DM w/ CKD III, CHF, CAD, [place] s/p multiple stents and chronic sciatica, admitted for evaluation of altered mental status and acute hypoxic respiratory failure. Bacteremia: -WBC: 10.54, Procal: 6.89 -Blood cultures 2/2 w/ Group B Beta strep. -MRSA nares negative. -Changed from Nafcillin to cefazolin due to potential renal injury from nafc illin. -Repeat blood cultures 2/2 negative after 48 hours. -MRI lumbar spine w/o evidence of abscess. -CT head w/o evidence of sinusitis. CT A/P w/o evidence acute abnormality. -Source of bacteremia unclear. -Consulted Infectious Disease. -F/u blood cultures from 02/11. -Duration may depend on repeat culture and OR results given no clear source. -Recommend ADIS for cardiac source. -If after workup still negative, total 2 weeks antibiotics IV antibiotics (cefazolin or penicillin G or ceftriaxone) -Consulted Cardiology for ADIS -May need more clinical improvement before candidate for general anesthesia for ADIS. -Patient remains hemodynamically stable. Continue to monitor vitals and CBC. Acute Hypoxemic Respiratory Failure: -CXR w/ cardiomegaly, mild pulmonary edema. Likely -CHF induced along w/ reduced respiratory drive from back pain medications -CXR 02/14 w/ mild pulmonary edema, slightly increased from 02/11. -Given 20mg IV Lasix. -Cont. O2 as needed, wean as tolerated. -Cont. Hold Sciatica medication: Tramadol, baclofen, methocarbamol. -Continue to monitor vitals. Chronic R Sciatica/Weakness: -Acute onset bilateral lower extremity weakness x3days prior to hospital stay. -Lumbar MRI w/o contrast: severe multilevel degenerative changes/severe canal stenosis L4-L5 -Holding patient's baclofen, methocarbamol, tramadol. -Restarted patient's gabapentin 100mg TID. -Patient noted to be more sluggish after restarting Baclofen 10mg BID and Morphine 2mg PRN. -Tylenol PRN for pain. -Consulted Pain management. -Dr. Baires following, possible decompression, fusion L3-L4, L4-L5 when medically optimized. SOHAN on CKD: -Creat 2.02 on admission, etiology initially thought to be dehydration. -Creat 1.44 today, baseline creatinine 1.6-2.0 -s/p 2L LR w/ mildly increased pulmonary edema on CXR. -Likely prerenal but may have interstitial nephritis contribution from Nafcillin due to worsening Creat after administration. -Given 20mg IV Lasix as above. -Cont. to hold Losartan. -Cont. to monitor renal function with BMP Hyponatremia: -Na 130 today. -Euvolemic on exam. -AM BMP. New Onset Atrial Fibrillation: -EKG in ED with evidence of atrial fibrillation. No previous history of A. Fib. -Likely a new diagnosis given risk factors including chronic CHF, heart failure, and age. -heparin drip -Rate has been controlled. Converted back to sinus rhythm 02/12 ~13:30 -Consulted Cardiology -Can consider switching to Eliquis for anticoagulation. 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 Holding losartan in setting of SOHAN on CKD. T2DM -Holding home glimepiride. -SSI CAD -Continue home Aspirin DVT Prophylaxis: Heparin drip F/E/N/GI: Heart Healthy. Code Status: DNR/DNI Dispo: PCU Telemetry (2) Acute hypoxemic respiratory failure: (3) Right sided sciatica: (4) Acute hyponatremia: (5) SOHAN (acute kidney injury): (6) Type 2 DM with CKD stage 3 and hypertension: (7) History of coronary artery disease: (8) CHF (congestive heart failure): (9) Bacteremia: (10) Atrial fibrillation: Admission and Anticipated Discharge Date Admission Date: February 09, 2022 Supervising Physician Co-Signing Physician Notes Resident Physician Supervision Note: I independently interviewed and examined the patient and verified the rice history and physical, reviewed labs and image studies and agree with resident Dr. Armas findings and care plan. Subjective Patient seen at the bedside today saying she feels tired still. She denies any fevers, chills, shortness of breath, chest pain. She says she would like to eat but usually does not eat too much. She would like for 2 cups of tomato soup and fruit for dinner and said she would try to eat that. Review of Systems Constitutional: as per Subjective / HPI Physical Exam Constitutional: WD/WN, vitals as above Patient more alert today. She is the most alert and responsive I have seen her today than over the past 5 days. Eyes: PERRL, conjunctivae normal, anicteric sclerae Respiratory: normal respiratory effort, lungs clear to auscultation Cardiovascular: RRR, no murmur, no edema Extremities: + edema (1+) Gastrointestinal (Abdomen): normal bowel sounds, soft, nontender, no hepatosplenomegaly Results & Data Results & Data ([facility]) Vital Signs (Past 12 Hours) Vital Signs Temp Pulse Pulse Resp BP BP Pulse Ox 02/17/22 07:55 36.5 C 60 24 162/71 H 98 02/17/22 03:02 66 02/17/22 02:49 36.8 C 64 22 148/70 H 98 02/16/22 23:24 37.1 C 66 18 161/69 H 97 Resident Activity Tracking Resident Involvement: Resident Care Provided Care Provided: Adult Hospital Medicine
--- NOTE | 2022-02-17 08:53 | Pain Management Consultation ---
Date of Consultation February 17, 2022 Assessment & Plan (1) Spinal stenosis of lumbar region with radiculopathy: (2) Bacteremia: 1. Patient is a poor candidate for interventional treatment at this time due to her active bacteremia/sepsis. She did recently undergo a caudal RENAE with Dr. Eddy without notable benefit. Would recommend she follow-up with Dr. Eddy in the outpatient setting for further evaluation to determine whether further interventional treatment is indicated. 2. Patient will continue to follow with Dr. Baires regarding the possibility of surgical intervention 3. Recommend maintain gabapentin at 100 mg 3 times daily as she has minimal complaints of pain would not recommend dose titration at this time 4. Would recommend PT/OT assessment to begin with transferring to assess response to increased activity level 5. Patient may continue with Tylenol for as needed breakthrough pain. Would recommend avoiding opiate therapy due to concerns over mental status Thank you for allowing us to participate in care of Mrs. Pederson. Pain service will sign off at this time. History of Present Illness Reason for Consultation: Low back and lower extremity pain Requesting Physician: Rodger Armas DO Attending Physician: Tiffany Garcia MD History of Present Illness Mrs. Pederson is a morbidly obese white female who was admitted due to altered men jen status and was found to have febrile illness with acute hypoxic respiratory failure and determined to have bacteremia/sepsis remaining on IV antibiotic therapy. She had pre-existing complaints of low back pain and lower extremity radicular pain chronically with a slight increase in symptoms over the past 1-2 months. She had recently undergone a caudal RENAE on 12/22/[address] Eddy without benefit. She also presented emergently on 02/07/2022 with complaints of generalized weakness, chills, fevers and right-sided sciatica. Patient was determined to have no acute findings and was discharged home only to return to the emergency room a few days later. The patient has had ongoing complaints of low back pain extending into the right lateral hip and thigh and some lower extremity weakness upon this admission. She is being followed by Dr. Baiers who is possibly considering surgical intervention once her infection clears. Patient was sitting up upon entering the room today reporting her pain is minimal at a 2-4/10 in the right-sided lumbosacral region extending into the lateral hip and thigh region. Patient indicates that her leg weakness has improved. She has not been out of bed. She denies any lower extremity numbness or tingling at this time. She denies bowel or bladder incontinence or saddle anesthesia. Patient is reporting no further constitutional complaints at this time. Plan of care discussed with Dr. Solis. Pain Assessment Full Body Front + Back: 1. Right lumbosacral back-gluteal region 2. Right lateral hip and thigh region Pain scale - at its best (0-10): 2 Pain scale - at its worst (0-10): 4 Allergies Allergy/AdvReac Type Severity Reaction Status Date / Time clarithromycin Allergy Unknown UNKNOWN Verified 02/09/22 20:04 amoxicillin AdvReac Intermediate GI SYMPTOMS Verified 02/09/22 20:04 clavulanic acid AdvReac Intermediate GI SYMPTOMS Verified 02/09/22 20:04 lisinopril AdvReac Intermediate Cough Verified 02/09/22 20:04 Macrolide Antibiotics AdvReac Unknown Unknown Verified 02/09/22 20:04 Home Medications Medication Instructions Recorded Confirmed Type cyanocobalamin (vitamin B-12) 1,000 mcg PO QAM 07/24/19 02/09/22 History 1,000 mcg capsule magnesium oxide 500 mg capsule 500 mg PO TID #30 cap 12/01/20 02/09/22 Rx gabapentin 100 mg capsule 100 mg PO Q8H PRN #270 cap 05/19/21 02/09/22 Rx paroxetine HCl 40 mg tablet 20 mg PO QAM tab 06/23/21 02/09/22 History furosemide 40 mg tablet 40 mg PO DAILY PRN #30 tab 07/15/21 02/09/22 Rx aspirin 81 mg tablet,delayed 81 mg PO QAM #30 tab 09/15/21 02/09/22 Rx release nitroglycerin 0.4 mg sublingual 0.4 mg SUBLINGUAL Q5M PRN #30 tab 09/15/21 02/09/22 Rx tablet pantoprazole 40 mg tablet,delayed 40 mg PO BID #60 tab 11/16/21 02/09/22 Rx release amlodipine 10 mg tablet 10 mg PO QAM 12/17/21 02/09/22 History atorvastatin 40 mg tablet 40 mg PO QPM 12/17/21 02/09/22 History buspirone 7.5 mg tablet 7.5 mg PO HS 12/17/21 02/09/22 History cholecalciferol (vitamin D3) 125 5,000 units PO QAM 12/17/21 02/09/22 History mcg (5,000 unit) capsule clopidogrel 75 mg tablet 75 mg PO QAM 12/17/21 02/09/22 History losartan 25 mg tablet 25 mg PO QAM 12/17/21 02/09/22 History propranolol 160 mg capsule,24 160 mg PO QAM 12/17/21 02/09/22 History hr,extended release glimepiride 4 mg tablet 4 mg PO DAILY #30 tab 12/29/21 02/09/22 Rx tramadol 50 mg tablet (Ultram) 50 mg PO Q6H PRN #30 tab 02/07/22 02/09/22 Rx methocarbamol 750 mg tablet 750 mg PO Q6H PRN #90 tab 02/08/22 02/09/22 Rx baclofen 10 mg tablet 10 mg PO DIRECTED PRN 02/09/22 02/09/22 History calcitriol 0.25 mcg capsule 0.25 mcg PO 2XWK 02/09/22 02/09/22 History Pain History Pain Intensity Pain scale - at its best (0-10): 2 Pain scale - at its worst (0-10): 4 Patient History Medical History Acid reflux Acute [place], lateral wall, initial episode of care (08/04/13) Anemia Arteriosclerotic cardiovascular disease Chronic back pain Congestive heart failure Diabetes mellitus NIDDM History of coronary artery disease s/p stents Hyperlipidemia Hypertension Myocardial Infarction 09/07 with 3 stents NSTEMI (non-ST elevated myocardial infarction) (08/04/13) s/p stents Presence of stent in artery SBO (small bowel obstruction) history Spinal stenosis of lumbar region with radiculopathy Thrombocytopenia Surgical History Cataract History of cardiac cath 09/07 stents x 3 at [facility] History of colonoscopy History of dilatation and curettage History of esophagogastroduodenoscopy (EGD) History of eye surgery Rt eye, removal of lens material by phacofragmentation with aspirati History of intestinal surgery small bowel resection History of ligation of vein History of lithotripsy Renal lithotripsy History of partial colectomy History of surgery Cath stent 1 mid-right coronary artery Cath stent 2 mid-left anterior descending artery Cath stent 2 proximal left anterior descending artery Cath stent 3 mid-left anterior descending artery Hx of hernia repair ventral hernia repair w/ mesh; year? Family History Mother , from complications of a fall ; age 92 Breast cancer stage 4 Sister Breast cancer Father , 60s Coronary heart disease s/p CABG Denies family history of Ovarian cancer Prostate cancer Myocardial infarction Colorectal cancer Social History Smoking Status: Former smoker Tobacco Type: Cigarettes Age Quit Using Tobacco: 27; packs per day: 0.5; Years Smoked: 12; Second Hand Exposure: No; Do You Dip or Chew Tobacco: No; Tobacco Cessation Education Requested by Patient: No Hx Alcohol Use: No Hx Substance Use: No Preferred Language: Nigerien Communication Ability: Effective Cage Tender Required: No Beliefs That Will Affect Care: Yazidi Yazidi Beliefs: Julias witness-no blood products marital status: Current Living Situation: Spouse current occupational status: retired current occupation: [employer] How many Children do You have: 4 Other Information That Helps Us Care for You: No other: lives with son and Feels Safe at Home: Yes Childhood Exposure to Second-Hand Smoke: Yes caffeine: No Dental Care, Regularly: Yes Physical Activity Frequency: Does not Exercise Seatbelt Use: always Sunscreen Use: No Assistive Devices: Cane, Walker and Wheelchair Physical Exam Physical Exam: General: Patient sitting quietly in exam room in no acute distress. Speech and thought process appropriate. Mood and affect appropriate. Cognition intact. Head: Normocephalic and atraumatic. ENT: No evidence of nasal or oral mucosal lesions. Mucous membranes are moist. Eyes: Pupils equal round reactive to light. Neck: Supple without adenopathy and full range of motion. Abdomen: Soft and nondistended. No organomegaly. Bowel sounds active. Back/spine: Complete loss of lumbar lordosis. Nontender over the midline. No focal facet or SI joint tenderness. Nontender in the paravertebral, quadratus lumborum or gluteal musculature. Patient able to sit up with assistance for physical exam of the lumbar region. Lower extremities: SLR negative bilaterally. Sensation intact without focal deficit. Hip nontender with internal/external rotation. Strength testing 4+/5 with dorsiflexion, plantar flexion and hip flexion/extension bilaterally while lying supine. No appreciable edema of the lower extremities. Neurologic: Cranial nerves grossly intact. Ambulatory function not witnessed. Results (Pain Clinic) Diagnostic Review MRI Findings: [facility], [place] [phone] Magnetic Resonance Report Patient:LAURENT PEDERSON Admit Date:02/09/22 MR#:[id number] Address1:[address] [facility] Acct ID:[id number] Address2: [address] Date:1940 [facility] Zip:[place] [address] Age:81 Location:2S Sex:F Room/Bed:[facility] Att Phy:William Emerson D.O. Diagnosis:ALTERED MENTAL STATUS,HYPOXIA Leila Phy:Sarkis Asher DO Service Date:02/10/22 Fam Phy: Interpreting Phy:Charles Rao MDAdmit Phy:Rodger Armas DO Ordering Phy:Clovis Ashton MD cc: ~ MR lumbar spine wo con CLINICAL HISTORY: sudden immobility in bilateral lower extremities TECHNIQUE: Multiplanar sequences through the lumbar spine were obtained, without intravenous contrast. Comparison: None available at the time of this dictation. FINDINGS: The alignment is anatomical. Degenerative changes are noted in the discs and vertebral bodies. L1-L2: No significant abnormality. L2-L3: There is a moderate posterior disc bulge with mild canal stenosis. Moderate bilateral neuroforaminal stenosis. L3-L4: Large posterior disc bulge and bilateral facet arthropathy result in moderate to severe canal stenosis, AP diameter 8 mm. There is severe bilateral neural foraminal stenosis. L4-L5: Large posterior disc bulge and bilateral facet arthropathy results in severe canal stenosis, AP diameter 6 mm. Severe bilateral neuroforaminal stenosis is seen. L5-S1: Partial fusion of L5-S1 is noted. No canal or neuroforaminal stenosis is seen. The spinal ligaments are intact, without evidence of disruption or abnormal signal intensity. The spinal cord is normal in signal intensity and there is no evidence of cord contusion. There is no evidence of an extradural, intradural, extramedullary or intramedullary lesion. Visualized soft tissues are normal. IMPRESSION: Severe multilevel degenerative changes with severe canal stenosis, AP diameter 6 mm at L4-L5. Severe bilateral neuroforaminal stenosis is seen. ACT 112: Negative or not required by law. Electronically signed by: Charles Rao M.D. 02/11/2022 8:27 AM Dictated:02/11/22821 Transcribed: 02/11/22821
[2022-02-17] MEDS: LIDOCAINE 5% 1 PATCH TD SCH (10:19)
[2022-02-17] MEDS: ADVANCED PROBIOTIC 1250 MG CAPSULE PO SCH (12:13)
--- NOTE | 2022-02-17 13:30 | Cardiology Consultation ---
Date of Consultation February 17, 2022 Assessment & Plan (1) Bacteremia: -group B beta strep noted in 4 blood cultures done on February 09. -follow-up cultures done on February 11 have no growth. -ID consultation recommends a ADIS. -transthoracic echocardiogram was of good quality and showed no valvular vegetations (February 11). -patient is profoundly deconditioned, immobile, and demonstrates poor mentation. -I do not feel comfortable performing a ADIS in her current clinical state. -will continue to follow. (2) Arteriosclerotic cardiovascular disease: -RCA stents placed in April 2009 and August 2021 -continue medical management. (3) Hypertension: -adequate control on current regimen. (4) Hyperlipidemia: -continue atorvastatin. History of Present Illness Attending Physician: Tiffany Garcia MD History of Present Illness Mrs. Pederson is a 81-year-old female admitted on February 09 with acute respiratory failure, mental status changes, and new onset atrial fibrillation. The patient has for positive blood cultures and a ADIS has been recommended. Of note, patient is well known to me from the outpatient setting. The patient was in her usual state of health until the day of presentation which was brought to the emergency room for evaluation. She had apparently had 1 week of fever chills leading up to her presentation. She was noted to be in acute respiratory failure and had new onset atrial fibrillation. The patient converted spontaneously to sinus rhythm on February 12. She does carry history of coronary artery disease having undergone placement of stents within the right coronary artery back in April 2009. A cardiac catheterization October 2013 noted patent stents. She required additional sent in the RCA and August 2021. She has done well from a cardiac perspective sin that time. She does not experience exertional angina pectoris. Currently, patient is resting comfortably in bed without complaints. Past medical and surgical history 1. Coronary artery disease-see above 2. RCA stents-see above 3. Hypertension 4. Hypercholesterolemia 5. Diabetes mellitus next 6. Chronic renal failure 7. GERD 8. History of small-bowel obstruction 9. Nephrolithiasis 10. Spinal stenosis 11. Right intra-ocular lens implant 12. 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 Allergies Allergy/AdvReac Type Severity Reaction Status Date / Time clarithromycin Allergy Unknown UNKNOWN Verified 02/09/22 20:04 amoxicillin AdvReac Intermediate GI SYMPTOMS Verified 02/09/22 20:04 clavulanic acid AdvReac Intermediate GI SYMPTOMS Verified 02/09/22 20:04 lisinopril AdvReac Intermediate Cough Verified 02/09/22 20:04 Macrolide Antibiotics AdvReac Unknown Unknown Verified 02/09/22 20:04 Home Medications Medication Instructions Recorded Confirmed Type cyanocobalamin (vitamin B-12) 1,000 mcg PO QAM 07/24/19 02/09/22 History 1,000 mcg capsule magnesium oxide 500 mg capsule 500 mg PO TID #30 cap 12/01/20 02/09/22 Rx gabapentin 100 mg capsule 100 mg PO Q8H PRN #270 cap 05/19/21 02/09/22 Rx paroxetine HCl 40 mg tablet 20 mg PO QAM tab 06/23/21 02/09/22 History furosemide 40 mg tablet 40 mg PO DAILY PRN #30 tab 07/15/21 02/09/22 Rx aspirin 81 mg tablet,delayed 81 mg PO QAM #30 tab 09/15/21 02/09/22 Rx release nitroglycerin 0.4 mg sublingual 0.4 mg SUBLINGUAL Q5M PRN #30 tab 09/15/21 02/09/22 Rx tablet pantoprazole 40 mg tablet,delayed 40 mg PO BID #60 tab 11/16/21 02/09/22 Rx release amlodipine 10 mg tablet 10 mg PO QAM 12/17/21 02/09/22 History atorvastatin 40 mg tablet 40 mg PO QPM 12/17/21 02/09/22 History buspirone 7.5 mg tablet 7.5 mg PO HS 12/17/21 02/09/22 History cholecalciferol (vitamin D3) 125 5,000 units PO QAM 12/17/21 02/09/22 History mcg (5,000 unit) capsule clopidogrel 75 mg tablet 75 mg PO QAM 12/17/21 02/09/22 History losartan 25 mg tablet 25 mg PO QAM 12/17/21 02/09/22 History propranolol 160 mg capsule,24 160 mg PO QAM 12/17/21 02/09/22 History hr,extended release glimepiride 4 mg tablet 4 mg PO DAILY #30 tab 12/29/21 02/09/22 Rx tramadol 50 mg tablet (Ultram) 50 mg PO Q6H PRN #30 tab 02/07/22 02/09/22 Rx methocarbamol 750 mg tablet 750 mg PO Q6H PRN #90 tab 02/08/22 02/09/22 Rx baclofen 10 mg tablet 10 mg PO DIRECTED PRN 02/09/22 02/09/22 History calcitriol 0.25 mcg capsule 0.25 mcg PO 2XWK 02/09/22 02/09/22 History Patient History Medical History Acid reflux Acute [place], lateral wall, initial episode of care (08/04/13) Anemia Arteriosclerotic cardiovascular disease Chronic back pain Congestive heart failure Diabetes mellitus NIDDM History of coronary artery disease s/p stents Hyperlipidemia Hypertension Myocardial Infarction 09/07 with 3 stents NSTEMI (non-ST elevated myocardial infarction) (08/04/13) s/p stents Presence of stent in artery SBO (small bowel obstruction) history Spinal stenosis of lumbar region with radiculopathy Thrombocytopenia Surgical History Cataract History of cardiac cath 09/07 st[facility] x 3 [place] [facility] History of colonoscopy History of dilatation and curettage History of esophagogastroduodenoscopy (EGD) History of eye surgery Rt eye, removal of lens material by phacofragmentation with aspirati History of intestinal surgery small bowel resection History of ligation of vein History of lithotripsy Renal lithotripsy History of partial colectomy History of surgery Cath stent 1 mid-right coronary artery Cath stent 2 mid-left anterior descending artery Cath stent 2 proximal left anterior descending artery Cath stent 3 mid-left anterior descending artery Hx of hernia repair ventral hernia repair w/ mesh; year? Family History Mother , from complications of a fall ; age 92 Breast cancer stage 4 Sister Breast cancer Father , 60s Coronary heart disease s/p CABG Denies family history of Ovarian cancer Prostate cancer Myocardial infarction Colorectal cancer Social History Smoking Status: Former smoker Tobacco Type: Cigarettes Age Quit Using Tobacco: 27; packs per day: 0.5; Years Smoked: 12; Second Hand Exposure: No; Do You Dip or Chew Tobacco: No; Tobacco Cessation Education Requested by Patient: No Hx Alcohol Use: No Hx Substance Use: No Preferred Language: Japanese Communication Ability: Effective Marketing Planning Manager Required: No Beliefs That Will Affect Care: Presybeterian Presybeterian Beliefs: Killiangalina witness-no blood products marital status: Current Living Situation: Spouse current occupational status: retired 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 HEENT exam is negative. Neck reveals normal carotid upstrokes without bruits. No JVD. There is no thyromegaly. Cardiovascular exam reveals a regular rhythm with a normal S1 and S2. No murmurs, S3, or S4 are noted. Lungs are clear without rales, rhonchi, or wheezes. Abdomen is soft without bruits. Extremities reveal intact radial artery pulses bilaterally. There is no peripheral edema. Results & Data ([facility]) Vital Signs (Past 12 Hours) Vital Signs Temp Pulse Pulse Resp BP BP Pulse Ox 02/17/22 10:37 36.7 C 62 17 147/72 H 98 02/17/22 09:44 62 02/17/22 07:55 36.5 C 60 24 162/71 H 98 02/17/22 03:02 66 02/17/22 02:49 36.8 C 64 22 148/70 H 98 Laboratory Results CBC notes hemoglobin of 10.3, hematocrit 30.8, white count 10.6, and platelet count [id number]. Electrolytes note a sodium of 129, potassium 3.6, chloride 93, bicarb 25, BUN 20, creatinine 1.42, glucose of 150. High sensitivity troponin on presentation was 29.4 with follow-up values of 23.7 and 25.4. Magnesium level on presentation was low at 1.2, currently 1.9. Blood cultures on February 09 grew out group B beta strep in 4/4 bottles. Blood cultures on February 11 have been negative. Diagnostic Findings Echocardiogram performed on February 11 noted normal systolic function with an apical wall motion abnormality. There was mild LVH along with mild mitral regurgitation. There was no evidence of any valvular vegetations. Compared with the study done in August 2021, there was no change. EKG on presentation noted atrial fibrillation with a rapid ventricular response and PVCs versus aberrant beats. PG Care Time/CCT Total # of Minutes Spent Total Time Spent with Patient: Total time spent is greater than 50% in coordination of care (as documented) at patient's floor/unit and/or counseling patient: Coding Level of Care Code 08891 Initial Inpt Care Lvl 3 Diagnoses Bacteremia R78.81 Arteriosclerotic cardiovascular disease I25.10 Hypertension I10 Hypertension type: essential hypertension Hyperlipidemia E78.2 Hyperlipidemia type: mixed hyperlipidemia (1) Hypertension Hypertension type: essential hypertension Qualified Code(s): I10 - Essential (primary) hypertension (2) Hyperlipidemia Hyperlipidemia type: mixed hyperlipidemia Qualified Code(s): E78.2 - Mixed hyperlipidemia
[2022-02-17] MEDS: HEPARIN SODIUM/DEXTROSE 25,000 UNITS/500 ML BAG IV SCH (14:10)
[2022-02-17] MEDS: busPIRone 7.5 MG TAB PO SCH (20:29)
[2022-02-17] MEDS: ATORVASTATIN 40 MG TAB PO SCH (20:30)
[2022-02-18] MEDS: ceFAZolin 2000MG 2,000 MG/15 ML SYR IV SCH ×3 (01:56→17:39)
[2022-02-18] MEDS: HEPARIN SODIUM/DEXTROSE 25,000 UNITS/500 ML BAG IV SCH (02:05)
[2022-02-18] MEDS: GABAPENTIN 100 MG CAP PO SCH ×3 (05:43→20:54)
--- NOTE | 2022-02-18 06:46 | Hospitalist Progress Note ---
Date of Service February 18, 2022 Assessment & Plan (1) Weakness: Plan: Clay is a 81 y/o F with a hx of T2DM w/ CKD III, CHF, CAD, [place] s/p multiple stents and chronic sciatica, admitted for evaluation of altered mental status and acute hypoxic respiratory failure. Bacteremia: -WBC: 10.54, Procal: 6.89 -Blood cultures 2/2 w/ Group B Beta strep. -MRSA nares negative. -Changed from Nafcillin to cefazolin due to potential renal injury from nafc illin. -Repeat blood cultures 2/2 negative after 48 hours. -MRI lumbar spine w/o evidence of abscess. -CT head w/o evidence of sinusitis. CT A/P w/o evidence acute abnormality. -Source of bacteremia unclear. -Consulted Infectious Disease. -F/u blood cultures from 02/11. -Duration may depend on repeat culture and OR results given no clear source. -Recommend ADIS for cardiac source. -If after workup still negative, total 2 weeks antibiotics IV antibiotics (cefazolin or penicillin G or ceftriaxone) -Consulted Cardiology for ADIS -Not comfortable with ADIS w/ patient's current clinical status. -Patient remains hemodynamically stable. Continue to monitor vitals and CBC. Acute Hypoxemic Respiratory Failure: -CXR w/ cardiomegaly, mild pulmonary edema. Likely -CHF induced along w/ reduced respiratory drive from back pain medications -CXR 02/14 w/ mild pulmonary edema, slightly increased from 02/11. -Given 20mg IV Lasix. -Cont. O2 as needed, wean as tolerated. -Cont. Hold Sciatica medication: Tramadol, baclofen, methocarbamol. -Continue to monitor vitals. Chronic R Sciatica/Weakness: -Acute onset bilateral lower extremity weakness x3days prior to hospital stay. -Lumbar MRI w/o contrast: severe multilevel degenerative changes/severe canal stenosis L4-L5 -Holding patient's baclofen, methocarbamol, tramadol. -Restarted patient's gabapentin 100mg TID. -Patient noted to be more sluggish after restarting Baclofen 10mg BID and Morphine 2mg PRN. -Tylenol PRN for pain. -Consulted Pain management. -Dr. Baires following, possible decompression, fusion L3-L4, L4-L5 when medically optimized. SOHAN on CKD: -Creat 2.02 on admission, etiology initially thought to be dehydration. -Creat 1.29 today, baseline creatinine 1.6-2.0 -s/p 2L LR w/ mildly increased pulmonary edema on CXR. -Likely prerenal but may have interstitial nephritis contribution from Nafcillin due to worsening Creat after administration. -Given 20mg IV Lasix as above. -Cont. to hold Losartan. -Cont. to monitor renal function with BMP Hyponatremia: -Na 130 today. -Euvolemic on exam. -AM BMP. New Onset Atrial Fibrillation: -EKG in ED with evidence of atrial fibrillation. No previous history of A. Fib. -Likely a new diagnosis given risk factors including chronic CHF, heart failure, and age. -heparin drip -Rate has been controlled. Converted back to sinus rhythm 02/12 ~13:30 -Consulted Cardiology -Can switch to Eliquis for anticoagulation -Stopping patient's heparin and starting on Eliquis 5mg BID. -Cont. bellows filler on telemetry Hypertension -Continue home amlodipine. Holding losartan in setting of SOHAN on CKD. T2DM -Holding home glimepiride. -SSI CAD -Continue home Aspirin DVT Prophylaxis: Heparin drip to Eliquis 5mg BID. F/E/N/GI: Heart Healthy. Code Status: DNR/DNI Dispo: PCU Telemetry (2) Acute hypoxemic respiratory failure: (3) Right sided sciatica: (4) Acute hyponatremia: (5) SOHAN (acute kidney injury): (6) Type 2 DM with CKD stage 3 and hypertension: (7) History of coronary artery disease: (8) CHF (congestive heart failure): (9) Bacteremia: (10) Atrial fibrillation: Admission and Anticipated Discharge Date Admission Date: February 09, 2022 Supervising Physician Co-Signing Physician Notes Resident Physician Supervision Note: I independently interviewed and examined the patient and verified the rice history and physical, reviewed labs and image studies and agree with resident Dr. Armas findings and care plan. Subjective Patient seen at the bedside still feeling somewhat tired but overall is more alert. She is not feeling short of breath, denies chest pain, fevers, shortness of breath. She is having some increased pain with ambulation at the lower back but otherwise pain is controlled. Review of Systems Constitutional: as per Subjective / HPI Physical Exam Constitutional: WD/WN, vitals as above Eyes: PERRL, conjunctivae normal, anicteric sclerae Respiratory: normal respiratory effort, lungs clear to auscultation Cardiovascular: Rate/Rhythm: regular rate and regular rhythm Heart Sounds: normal S1 and normal S2 Extremities: normal capillary refill and + edema (1+) Gastrointestinal (Abdomen): normal bowel sounds, soft, nontender, no hepatosplenomegaly Psychiatric: A+Ox3, euthymic affect Eye Contact: + fair eye contact Results & Data Results & Data ([facility]) Vital Signs (Past 12 Hours) Vital Signs Temp Pulse Pulse Resp BP Pulse Ox 02/18/22 03:13 36.7 C 63 18 155/72 H 93 02/17/22 23:16 36.6 C 65 18 130/70 96 02/17/22 22:17 61 02/17/22 19:29 36.4 C L 64 18 132/70 95 Resident Activity Tracking Resident Involvement: Resident Care Provided Care Provided: Adult Hospital Medicine
[2022-02-18 08:23] LABS: Basophils # (auto) 0.02 K/uL (0-0.2); Basophils % (auto) 0.2 %; Eosinophils # (auto) 0.09 K/uL (0-0.5); Eosinophils % (auto) 0.9 %; Hematocrit (blood only) 27.3 % (37-47); Hemoglobin 9.3 g/dL (12.0-16.0); Immature Granulocytes # (auto) 0.09 K/uL (0.00-0.02); Immature Granulocytes % (auto) 0.9 %; Lymphocytes # (auto) 1.36 K/uL (1.2-3.4); Mean Corpuscular Hemoglobin 29.9 pg (25-34); Mean Corpuscular Hgb Conc 34.1 g/dL (32-36); Mean Corpuscular Volume 87.8 fL (80-100); Mean Platelet Volume 10.1 fL (7.4-10.4); Monocytes % (auto) 9.3 %; Neutrophils # (auto) 7.24 K/uL (1.4-6.5); Neutrophils % (auto) 74.7 %; Platelet Count 304 K/uL (130-400); RDW Coefficient of Variation 16.1 % (11.5-14.5); RDW Standard Deviation 51.4 fL (36.4-46.3); Red Blood Count 3.11 M/uL (4.2-5.4)
[2022-02-18] MEDS: INSULIN ASPART PER UNIT SC SCH ×4 (08:37→20:55)
[2022-02-18] MEDS: PROPRANOLOL HCL LA 80 MG CAPCR PO SCH (08:40)
[2022-02-18] MEDS: amLODIPine BESYLATE 5 MG TAB PO SCH (08:40)
[2022-02-18] MEDS: LIDOCAINE 5% 1 PATCH TD SCH (08:40)
[2022-02-18] MEDS: CHOLECALCIFEROL 5,000 UNITS 125 MCG TAB PO SCH (08:40)
[2022-02-18] MEDS: PANTOprazole 40 MG TAB PO SCH ×2 (08:40→20:54)
[2022-02-18] MEDS: PARoxetine HCL 20 MG TAB PO SCH (08:40)
[2022-02-18] MEDS: CALCITRIOL 0.25 MCG CAPSULE PO SCH (08:40)
[2022-02-18] MEDS: ASPIRIN 81 MG ECTAB PO SCH (08:40)
[2022-02-18] MEDS: MAGNESIUM OXIDE 400 MG TAB PO SCH ×3 (08:40→20:53)
[2022-02-18] MEDS: ADVANCED PROBIOTIC 1250 MG CAPSULE PO SCH (08:40)
[2022-02-18 08:43] LABS: BUN Creatinine Ratio 15.5 (10-20); Calcium 8.8 mg/dl (8.5-10.1); Creatinine Clr Calc Pharmacy 40.6 ml/min; Est GFR (African American) 45.6 ml/min; Est GFR (Non-African American) 39.4 ml/min; Potassium 3.4 mmol/L (3.5-5.1)
[2022-02-18 08:51] LABS: Partial Thromboplastin Ratio 2.4
[2022-02-18 09:03] LABS: Partial Thromboplastin Time 64.9 Seconds (21.0-31.0)
--- NOTE | 2022-02-18 14:25 | Cardiology Progress Note ---
Date of Service February 18, 2022 Assessment & Plan (1) Bacteremia: Plan: -group B beta strep in 4/4 blood cultures done on February 09. -follow-up cultures done on February 11 have no growth. -ID consultation recommends a ADIS. -transthoracic echocardiogram was of good quality and showed no valvular vegetations (February 11). -patient is very deconditioned, immobile, and demonstrates reduced mentation. -do not feel comfortable performing a ADIS in her current clinical state. -will continue to follow. (2) Arteriosclerotic cardiovascular disease: Plan: -RCA stents placed in April 2009 and August 2021 -continue medical management. (3) Hypertension: Plan: -adequate control on current regimen. (4) Hyperlipidemia: Plan: -continue atorvastatin. Admission and Anticipated Discharge Date Admission Date: February 09, 2022 Subjective The patient is resting comfortably in bed without complaints of chest pain or dyspnea. Mentation seems to be improved. Physical Exam Physical Exam: In general is a well-developed well-nourished white female in no acute distress. HEENT exam is negative. Neck reveals normal carotid upstrokes without bruits. No JVD. There is no thyromegaly. Cardiovascular exam reveals a regular rhythm with a normal S1 and S2. No murmurs, S3, or S4 are noted. Lungs are clear without rales, rhonchi, or wheezes. Abdomen is soft without bruits. Extremities reveal intact radial artery pulses bilaterally. There is no peripheral edema. Results & Data ([facility]) Vital Signs (Past 12 Hours) Vital Signs Temp Pulse Resp BP Pulse Ox 02/18/22 11:56 36.5 C 66 16 143/68 H 96 02/18/22 10:30 96 02/18/22 07:21 36.8 C 61 18 158/71 H 95 02/18/22 03:13 36.7 C 63 18 155/72 H 93 Diagnostic Findings monitoring analyst is benign. No atrial fibrillation. PG Care Time/CCT Total # of Minutes Spent Total Time Spent with Patient: Total time spent is greater than 50% in coordination of care (as documented) at patient's floor/unit and/or counseling patient: Coding Level of Care Code 71372 Subseq Hosp Care Lvl 3 Diagnoses Bacteremia R78.81 Arteriosclerotic cardiovascular disease I25.10 Hypertension I10 Hypertension type: essential hypertension Hyperlipidemia E78.2 Hyperlipidemia type: mixed hyperlipidemia (1) Hypertension Hypertension type: essential hypertension Qualified Code(s): I10 - Essential (primary) hypertension (2) Hyperlipidemia Hyperlipidemia type: mixed hyperlipidemia Qualified Code(s): E78.2 - Mixed hyperlipidemia
[2022-02-18] MEDS ORDERED: HEPARIN STOP ORDER ONE (20:30)
[2022-02-18] MEDS: ATORVASTATIN 40 MG TAB PO SCH (20:53)
[2022-02-18] MEDS: busPIRone 7.5 MG TAB PO SCH (20:54)
[2022-02-18] MEDS: APIXABAN 5 MG TABLET PO SCH (21:50)
[2022-02-19] MEDS: ceFAZolin 2000MG 2,000 MG/15 ML SYR IV SCH ×3 (02:03→18:36)
[2022-02-19] MEDS: GABAPENTIN 100 MG CAP PO SCH ×3 (05:47→20:50)
[2022-02-19 06:33] LABS: Basophils # (auto) 0.02 K/uL (0-0.2); Basophils % (auto) 0.2 %; Eosinophils # (auto) 0.08 K/uL (0-0.5); Eosinophils % (auto) 0.8 %; Hematocrit (blood only) 27.4 % (37-47); Hemoglobin 9.2 g/dL (12.0-16.0); Immature Granulocytes # (auto) 0.07 K/uL (0.00-0.02); Immature Granulocytes % (auto) 0.7 %; Lymphocytes # (auto) 1.35 K/uL (1.2-3.4); Lymphocytes % (auto) 14.3 %; Mean Corpuscular Hemoglobin 29.3 pg (25-34); Mean Corpuscular Hgb Conc 33.6 g/dL (32-36); Mean Corpuscular Volume 87.3 fL (80-100); Mean Platelet Volume 9.9 fL (7.4-10.4); Monocytes % (auto) 10.6 %; Neutrophils # (auto) 6.93 K/uL (1.4-6.5); Neutrophils % (auto) 73.4 %; Platelet Count 305 K/uL (130-400); RDW Coefficient of Variation 16.2 % (11.5-14.5); RDW Standard Deviation 50.5 fL (36.4-46.3); Red Blood Count 3.14 M/uL (4.2-5.4); White Blood Count 9.45 K/uL (4.8-10.8)
[2022-02-19 06:47] LABS: Partial Thromboplastin Ratio 1.1; Partial Thromboplastin Time 30.2 Seconds (21.0-31.0)
[2022-02-19 06:52] LABS: BUN Creatinine Ratio 13.8 (10-20); Calcium 8.9 mg/dl (8.5-10.1); Creatinine Clr Calc Pharmacy 39.8 ml/min; Est GFR (African American) 45.2 ml/min; Potassium 3.8 mmol/L (3.5-5.1)
[2022-02-19] MEDS: amLODIPine BESYLATE 5 MG TAB PO SCH (07:52)
[2022-02-19] MEDS: PARoxetine HCL 20 MG TAB PO SCH (07:52)
[2022-02-19] MEDS: MAGNESIUM OXIDE 400 MG TAB PO SCH ×3 (07:52→20:50)
[2022-02-19] MEDS: PROPRANOLOL HCL LA 80 MG CAPCR PO SCH (07:52)
[2022-02-19] MEDS: CHOLECALCIFEROL 5,000 UNITS 125 MCG TAB PO SCH (07:52)
[2022-02-19] MEDS: ADVANCED PROBIOTIC 1250 MG CAPSULE PO SCH (07:52)
[2022-02-19] MEDS: LIDOCAINE 5% 1 PATCH TD SCH (07:52)
[2022-02-19] MEDS: ASPIRIN 81 MG ECTAB PO SCH (07:52)
[2022-02-19] MEDS: APIXABAN 5 MG TABLET PO SCH ×2 (07:52→20:50)
[2022-02-19] MEDS: PANTOprazole 40 MG TAB PO SCH ×2 (07:53→20:50)
[2022-02-19] MEDS: INSULIN ASPART PER UNIT SC SCH ×4 (08:01→21:27)
--- NOTE | 2022-02-19 08:41 | Hospitalist Progress Note ---
Date of Service February 19, 2022 Assessment & Plan (1) Weakness: Plan: Clay is a 81 y/o F with a hx of T2DM w/ CKD III, CHF, CAD, [place] s/p multiple stents and chronic sciatica, admitted for evaluation of altered mental status and acute hypoxic respiratory failure. Bacteremia -WBC: 10.54, Procal: 6.89 -Blood cultures 2/2 w/ Group B Beta strep. -MRSA nares negative. -Changed from Nafcillin to cefazolin due to potential renal injury from nafc illin. -Repeat blood cultures 2/2 negative after 48 hours. -MRI lumbar spine w/o evidence of abscess. -CT head w/o evidence of sinusitis. CT A/P w/o evidence acute abnormality. -Source of bacteremia unclear. -Consulted Infectious Disease. -F/u blood cultures from 02/11. -Duration may depend on repeat culture and OR results given no clear source. -Recommend ADIS for cardiac source. -If after workup still negative, total 2 weeks antibiotics IV antibiotics (cefazolin or penicillin G or ceftriaxone) -currently day 07/01 of abx course. -Consulted Cardiology for ADIS -Not comfortable with ADIS w/ patient's current clinical status. -Patient remains hemodynamically stable. Continue to monitor vitals and CBC. Acute Hypoxemic Respiratory Failure: resolved -CXR w/ cardiomegaly, mild pulmonary edema. Likely -CHF induced along w/ reduced respiratory drive from back pain medications -CXR 02/14 w/ mild pulmonary edema, slightly increased from 02/11. -Given 20mg IV Lasix. -Cont. O2 as needed, wean as tolerated. -Cont. Hold Sciatica medication: Tramadol, baclofen, methocarbamol. -Continue to monitor vitals. Chronic R Sciatica/Weakness -Acute onset bilateral lower extremity weakness x3days prior to hospital stay. -Lumbar MRI w/o contrast: severe multilevel degenerative changes/severe canal stenosis L4-L5 -Holding patient's baclofen, methocarbamol, tramadol. -Restarted patient's gabapentin 100mg TID. -Patient noted to be more sluggish after restarting Baclofen 10mg BID and Morphine 2mg PRN. -Tylenol PRN for pain. -Consulted Pain management. -Dr. Baires following, possible decompression, fusion L3-L4, L4-L5 when medically optimized. -Worked with PT/OT. PT recommended dispo to rehab ( to facility with 3 hrs daily therapy). -Will coordinate with CM for tentative d/c 02/23 to rehab facility, upon completion of IV abx course. SOHAN on CKD -Creat 2.02 on admission, etiology initially thought to be dehydration. -Creat 1.29 today, baseline creatinine 1.6-2.0 -s/p 2L LR w/ mildly increased pulmonary edema on CXR. -Likely prerenal but may have interstitial nephritis contribution from Nafcillin due to worsening Creat after administration. -Received 20mg IV Lasix. -Cr. 1.3 today. Trend AM labs. -Cont. to hold Losartan. -Cont. to monitor renal function with BMP. Hyponatremia -Na 130 today. -Euvolemic on exam. -AM BMP. New Onset Atrial Fibrillation: -EKG in ED with evidence of atrial fibrillation. No previous history of A. Fib. -Likely a new diagnosis given risk factors including chronic CHF, heart failure, and age. -Rate has been controlled. Converted back to sinus rhythm 02/12 ~13:30 -Consulted Cardiology -Can switch to Eliquis for anticoagulation -Stopping patient's heparin and starting on Eliquis 5mg BID. -Continue cafeteria monitor on telemetry Hypertension -Continue home amlodipine. Holding losartan in setting of SOHAN on CKD. T2DM -Holding home glimepiride. -SSI CAD -Continue home Aspirin DVT Prophylaxis: Heparin drip to Eliquis 5mg BID. F/E/N/GI: Heart Healthy. Code Status: DNR/DNI Dispo: PCU Telemetry (2) Acute hypoxemic respiratory failure: (3) Right sided sciatica: (4) Acute hyponatremia: (5) SOHAN (acute kidney injury): (6) Type 2 DM with CKD stage 3 and hypertension: (7) History of coronary artery disease: (8) CHF (congestive heart failure): (9) Bacteremia: (10) Atrial fibrillation: Admission and Anticipated Discharge Date Admission Date: February 09, 2022 Supervising Physician Co-Signing Physician Notes Resident Physician Supervision Note: I independently interviewed and examined the patient and verified the rice histor y and physical, reviewed labs and image studies and agree with resident Dr. Donato findings and care plan. Subjective Patient seen at the bedside, is alert but bored. She denies shortness of breath, chest pain, or fever. Pain is controlled. Review of Systems Review of Systems: All systems reviewed & are unremarkable except as noted in HPI & below Physical Exam Physical Exam: General: Well-appearing, alert, interactive, and in no acute distress. HEENT: Normocephalic, atraumatic. EOM intact. Good conjugate gaze. Nares patent. Moist mucosal membranes. Neck: Supple. No lymphadenopathy. Normal ROM. CV: Regular rate and rhythm. Normal S1 and S2. No murmurs gallops or rubs. No pedal edema. Respiratory: Normal respiratory effort. Lungs clear to auscultation bilaterally. No crackles, rhonchi, or wheezes. Abdomen: Soft, nondistended abdomen. No bruits heard on auscultation. No tenderness to deep palpation. No guarding or rebound. Extremities: LE ROM limited to pain. Able to flex hip w/o tenderness w/ assistance. Sensation is intact. Capillary refill <2 sec. 2+ dp equal bilaterally. Skin: Intact, without rashes, lesions, or erythema. Results & Data Results & Data ([facility]) Vital Signs (Past 12 Hours) Vital Signs Temp Pulse Pulse Resp BP Pulse Ox 02/19/22 03:59 36.8 C 62 18 138/76 94 02/19/22 00:05 36.8 C 60 18 148/77 H 95 02/18/22 22:22 60 Resident Activity Tracking Resident Involvement: Resident Care Provided Care Provided: Adult [facility] Medicine
[2022-02-19] MEDS: ATORVASTATIN 40 MG TAB PO SCH (20:50)
[2022-02-19] MEDS: busPIRone 7.5 MG TAB PO SCH (20:50)
[2022-02-20] MEDS: ceFAZolin 2000MG 2,000 MG/15 ML SYR IV SCH ×2 (03:22→10:20)
[2022-02-20] MEDS: GABAPENTIN 100 MG CAP PO SCH ×2 (06:17→13:42)
[2022-02-20] MEDS: PROPRANOLOL HCL LA 80 MG CAPCR PO SCH (07:50)
[2022-02-20] MEDS: CHOLECALCIFEROL 5,000 UNITS 125 MCG TAB PO SCH (07:50)
[2022-02-20] MEDS: PANTOprazole 40 MG TAB PO SCH (07:51)
[2022-02-20] MEDS: ADVANCED PROBIOTIC 1250 MG CAPSULE PO SCH (07:51)
[2022-02-20] MEDS: APIXABAN 5 MG TABLET PO SCH (07:51)
[2022-02-20] MEDS: amLODIPine BESYLATE 5 MG TAB PO SCH (07:51)
[2022-02-20] MEDS: PARoxetine HCL 20 MG TAB PO SCH (07:51)
[2022-02-20] MEDS: ASPIRIN 81 MG ECTAB PO SCH (07:51)
[2022-02-20] MEDS: MAGNESIUM OXIDE 400 MG TAB PO SCH ×2 (07:51→13:42)
[2022-02-20] MEDS: LIDOCAINE 5% 1 PATCH TD SCH (07:51)
--- NOTE | 2022-02-20 07:53 | Hospitalist Progress Note ---
Date of Service February 20, 2022 Assessment & Plan (1) Weakness: Plan: Clay is a 81 y/o F with a hx of T2DM w/ CKD III, CHF, CAD, [place] s/p multiple stents and chronic sciatica, admitted for evaluation of altered mental status and acute hypoxic respiratory failure. Bacteremia -WBC: 10.54, Procal: 6.89 -Blood cultures 2/2 w/ Group B Beta strep. -MRSA nares negative. -Changed from Nafcillin to cefazolin due to potential renal injury from nafc illin. -Repeat blood cultures 2/2 negative after 48 hours. -MRI lumbar spine w/o evidence of abscess. -CT head w/o evidence of sinusitis. CT A/P w/o evidence acute abnormality. -Source of bacteremia unclear. -Consulted Infectious Disease. -F/u blood cultures from 02/11. -Duration may depend on repeat culture and OR results given no clear source. -Recommend ADIS for cardiac source. -If after workup still negative, total 2 weeks antibiotics IV antibiotics (cefazolin or penicillin G or ceftriaxone) -currently day 08/01 of abx (now cefazolin) course. -Consulted Cardiology for ADIS -Not comfortable with ADIS w/ patient's current clinical status. -Patient remains hemodynamically stable. Continue to monitor vitals and CBC. Acute Hypoxemic Respiratory Failure: resolved -CXR w/ cardiomegaly, mild pulmonary edema. Likely -CHF induced along w/ reduced respiratory drive from back pain medications -CXR 02/14 w/ mild pulmonary edema, slightly increased from 02/11. -Given 20mg IV Lasix. -Cont. O2 as needed, wean as tolerated. -Cont. Hold Sciatica medication: Tramadol, baclofen, methocarbamol. -Continue to monitor vitals. Chronic R Sciatica/Weakness -Acute onset bilateral lower extremity weakness x3days prior to hospital stay. -Lumbar MRI w/o contrast: severe multilevel degenerative changes/severe canal stenosis L4-L5 -Holding patient's baclofen, methocarbamol, tramadol. -Restarted patient's gabapentin 100mg TID. -Patient noted to be more sluggish after restarting Baclofen 10mg BID and Morphine 2mg PRN. -Tylenol PRN for pain. -Consulted Pain management. -Dr. Baires following, possible decompression, fusion L3-L4, L4-L5 when medically optimized. -Worked with PT/OT. PT recommended dispo to rehab (to facility with 3 hrs daily therapy). -Will coordinate with CM for tentative d/c on 02/23 to rehab facility, upon completion of IV abx course. SOHAN on CKD -Creat 2.02 on admission, etiology initially thought to be dehydration. -Creat 1.29 today, baseline creatinine was 1.6-2.0 (08/2021-01/2022). However, pt's baseline during this admission has been 1.2-1.4, meaning pt. is currently at baseline. -s/p 2L LR w/ mildly increased pulmonary edema on CXR. -Likely prerenal but may have interstitial nephritis contribution from Nafcillin due to worsening Creat after administration. -Received 20mg IV Lasix. -Cr. 1.3 today. Trend AM labs. -Cont. to hold Losartan. -Cont. to monitor renal function with BMP. Hyponatremia -Na 130 today. -Euvolemic on exam. -AM BMP. New Onset Atrial Fibrillation: -EKG in ED with evidence of atrial fibrillation. No previous history of A. Fib. -Likely a new diagnosis given risk factors including chronic CHF, heart failure, and age. -Rate has been controlled. Converted back to sinus rhythm 02/12 ~13:30 -Consulted Cardiology -Can switch to Eliquis for anticoagulation -Stopping patient's heparin and starting on Eliquis 5mg BID. -Continue research chief engineer on telemetry Hypertension -Continue home amlodipine. Holding losartan in setting of SOHAN on CKD. T2DM -Holding home glimepiride. -SSI CAD -Continue home Aspirin DVT Prophylaxis: Heparin drip to Eliquis 5mg BID. F/E/N/GI: Heart Healthy. Code Status: DNR/DNI Dispo: PCU Telemetry (2) Acute hypoxemic respiratory failure: (3) Right sided sciatica: (4) Acute hyponatremia: (5) SOHAN (acute kidney injury): (6) Type 2 DM with CKD stage 3 and hypertension: (7) History of coronary artery disease: (8) CHF (congestive heart failure): (9) Bacteremia: (10) Atrial fibrillation: Admission and Anticipated Discharge Date Admission Date: February 09, 2022 Review of Systems Review of Systems: All systems reviewed & are unremarkable except as noted in HPI & below Physical Exam Physical Exam: General: Well-appearing, alert, interactive, and in no acute distress. HEENT: Normocephalic, atraumatic. EOM intact. Good conjugate gaze. Nares patent. Moist mucosal membranes. Neck: Supple. No lymphadenopathy. Normal ROM. CV: Regular rate and rhythm. Normal S1 and S2. No murmurs gallops or rubs. No pedal edema. Respiratory: Normal respiratory effort. Lungs clear to auscultation bilaterally. No crackles, rhonchi, or wheezes. Abdomen: Soft, nondistended abdomen. No bruits heard on auscultation. No tenderness to deep palpation. No guarding or rebound. Extremities: LE ROM limited to pain. Able to flex hip w/o tenderness w/ devan tance. Sensation is intact. Capillary refill <2 sec. 2+ dp equal bilaterally. Skin: Intact, without rashes, lesions, or erythema. Results & Data Results & Data ([facility]) Vital Signs (Past 12 Hours) Vital Signs Temp Pulse Pulse Resp BP Pulse Ox 02/20/22 02:52 36.7 C 67 18 149/73 H 95 02/19/22 23:50 36.8 C 64 18 153/71 H 93 02/19/22 23:31 59 L
[2022-02-20] MEDS: INSULIN ASPART PER UNIT SC SCH ×2 (07:56→12:21)
--- NOTE | 2022-02-20 08:19 | Electrocardiogram Report ---
Test Reason : Blood Pressure : / mmHG Vent. Rate : 059 BPM Atrial Rate : 059 BPM P-R Int : 222 ms QRS Dur : 080 ms QT Int : 432 ms P-R-T Axes : 044 -24 -18 degrees QTc Int : 427 ms Sinus bradycardia with 1st degree A-V block Low voltage QRS Inferior infarct (cited on or before 14-SEP-2021) Abnormal ECG When compared with ECG of 09-FEB-2022 19:02, Sinus rhythm has replaced Atrial fibrillation Premature ventricular complexes are no longer Present Vent. rate has decreased BY 47 BPM Confirmed by George Perry ([id number]) on 02/20/2022 8:19:20 AM Referred By: REFERRED SELF Confirmed By:George Perry
[2022-02-20] MEDS: ACETAMINOPHEN 325 MG TAB PO PRN (11:43)
--- NOTE | 2022-02-20 15:02 | Discharge Summary ---
Date of Service February 20, 2022 Admission HPI Per Admitting Provider Clay is a 81 year old female w/ PmHx of T2DM w/ CKD stage 3, HTN, Peripheral neuropathy, R sided sciatica, CAD s/p stent x3 09/07, chronic reflux who presented to the ED for altered mental status and hypoxic respiratory failure. Patient recently came into the ED 2 days ago for sciatica pain and was given Tramadol to take at home. She was also given baclofen by her outpatient doctor for spasms. Clay took the Tramadol on Monday and was reported to be in a more drowsy state but still with it and answering questions appropriately. Earlier this morning after she took a 9AM dose of the Tramadol she developed into a more stuporous state, not making sense with questions she was asked and difficult to arouse. Patient also developed rapid breathing and shortness of breath and was brought to the ED. Upon coming into the ED and put on 10L non-rebreather she started to regain some consciousness. Prior to coming in patient had instances of fever and chills over the past week, at times needing 5-6 blankets for chills and then getting very hot and having to remove the blankets. Temperatures taken at home have been up to 101.9. Patient has had some nausea and decreased appetite, she has not eaten much over the past few days but has tried to keep well hydrated with water. Admission Exam Per Admitting Provider Constitutional: WD/WN, vitals as above Respiratory: Non-rebreather mask, clear to auscultation but difficult to assess with shallow breaths, equal chest rise bilaterally. Cardiovascular: Rate/Rhythm: + irregularly irregular Heart Sounds: normal S1 and normal S2 Extremities: normal capillary refill and + edema (1+) Gastrointestinal (Abdomen): BS+, non-tender, soft, obese habitus. Psychiatric: A+Ox3, euthymic affect Eye Contact: + fair eye contact Principal Diagnosis Lumbar spinal stenosis with radiculopathy Acute hypoxic respiratory failure Gram negative bacteremia Discharge Exam General: Well-appearing, alert, interactive, and in no acute distress. HEENT: Normocephalic, atraumatic. EOM intact. Good conjugate gaze. Nares patent. Moist mucosal membranes. Neck: Supple. No lymphadenopathy. Normal ROM. CV: Regular rate and rhythm. Normal S1 and S2. No murmurs gallops or rubs. No pedal edema. Respiratory: Normal respiratory effort. Lungs clear to auscultation bilaterally. No crackles, rhonchi, or wheezes. Abdomen: Soft, nondistended abdomen. No bruits heard on auscultation. No tenderness to deep palpation. No guarding or rebound. Extremities: Normal tone and ROM. Strength and sensation intact. Capillary refill <2 sec. 2+ dp equal bilaterally. Neuro: Alert and oriented x3. Reflexes symmetric. Sensation normal. No focal deficits. Skin: Intact, without rashes, lesions, or erythema. Discharge Data Allergies Allergy/AdvReac Type Severity Reaction Status Date / Time clarithromycin Allergy Unknown UNKNOWN Verified 02/09/22 20:04 amoxicillin AdvReac Intermediate GI SYMPTOMS Verified 02/09/22 20:04 clavulanic acid AdvReac Intermediate GI SYMPTOMS Verified 02/09/22 20:04 lisinopril AdvReac Intermediate Cough Verified 02/09/22 20:04 Macrolide Antibiotics AdvReac Unknown Unknown Verified 02/09/22 20:04 Consultations 02/09/22 21:05 ED Decision to Admit Stat 02/11/22 09:05 Consult Orthopedic Surgery Routine 02/13/22 09:31 Consult Infectious Diseases Routine 02/14/22 12:11 Consult Infectious Diseases Routine 02/16/22 15:27 Consult Cardiology Routine 02/16/22 17:56 Consult Pain Management Routine Procedures Performed Operation Date: 02/14/22 09:20 <No data on this case meets the specified criteria> Operation Date: 02/15/22 07:00 <No data on this case meets the specified criteria> Operation Date: 02/16/22 07:00 <No data on this case meets the specified criteria> Ordered Studies 02/09/22 19:04 CT abd pelvis wo con Stat CT head/brain wo con Stat 02/10/22 19:02 MR lumbar spine wo con Stat Hospital Course (1) Weakness: Clay is a 81 y/o F with a hx of T2DM w/ CKD III, CHF, CAD, DC s/p multiple stents and chronic sciatica, admitted for evaluation of altered mental status and acute hypoxic respiratory failure. Bacteremia -WBC: 10.54, Procal: 6.89 on admission -Blood cultures 2/2 w/ Group B Beta strep. MRSA nares negative. -Nafcillin--> cefazolin due to potential renal injury from nafcillin. -Repeat blood cultures 2/2 negative after 48 hours. -MRI lumbar spine w/o evidence of abscess. -CT head w/o evidence of sinusitis. CT A/P w/o evidence acute abnormality. -Source of bacteremia unclear. -Consulted Infectious Disease. -No clear source. -Recommend ADIS for cardiac source. No valvular vegetations on TTE. (patient didn't receive ADIS due to being high risk for procedure per cardiology) -Recommended 2 weeks total IV course (cefazolin) -Completed 08/01 days of total abx (now cefazolin) course on day of discharge to inpatient rehab. -Patient to complete remaining 3 days of IV cefazolin at [facility]. Acute Hypoxemic Respiratory Failure: resolved -CXR w/ cardiomegaly, mild pulmonary edema. -CHF induced along w/ reduced respiratory drive from back pain medications. -Stopped medication: tramadol, baclofen, methocarbamol due to concern they precipitated pt's AMS, hypoxia -CXR 02/14 w/ mild pulmonary edema, slightly increased from 02/11. Received IV Lasix. -Weaned off O2 to room air <48h after admission. Spinal stenosis with intractable back pain and Weakness -Acute onset bilateral lower extremity weakness x3days prior to hospital stay. -Lumbar MRI w/o contrast: severe multilevel degenerative changes/severe canal stenosis L4-L5 -Held patient's baclofen, methocarbamol, tramadol due to over sedation and d/jayson on discharge. Pt's pain well managed on gabapentin, prn Tylenol. -Consulted Pain management. -Dr. Baires (spine surgery) consulted: possible decompression, fusion L3-L4, L4- L5 when medically optimized. -patient with bacteremia during this admission hence surgery postponed -Worked with PT/OT. PT recommended dispo to rehab (to facility with 3 hrs daily therapy). SOHAN on CKD -Creat 2.02 on admission, etiology initially thought to be dehydration. -s/p 2L LR w/ mildly increased pulmonary edema on CXR. -Likely prerenal but may have interstitial nephritis contribution from Nafcillin due to worsening Creat after administration. -Received 20mg IV Lasix. -Cr. 1.3 represented new Cr baseline. -Restarted Losartan on discharge. Hyponatremia -Na 130 today. -Euvolemic on exam. New Onset Atrial Fibrillation: -EKG in ED with evidence of atrial fibrillation. No previous history of A. Fib. -Likely a new diagnosis -Rate has been controlled. Converted back to sinus rhythm 02/12 ~13:30. Patient remained rate controlled for rest of stay. -Kept on heparin drip for anticoagulation -Consulted Cardiology: -Recommended switch to Eliquis for anticoagulation. -Stopped heparin, was on Eliquis prior to discharge. Hypertension -Continued home amlodipine. Held losartan in setting of SOHAN on CKD. -Restarted losartan prior to discharge. T2DM -Held home glimepiride during admission. resumed on discharge -SSI CAD -Continued home Aspirin (2) Acute hypoxemic respiratory failure: (3) Right sided sciatica: (4) Acute hyponatremia: (5) SOHAN (acute kidney injury): (6) Type 2 DM with CKD stage 3 and hypertension: (7) History of coronary artery disease: (8) CHF (congestive heart failure): (9) Bacteremia: (10) Atrial fibrillation: Total Time Total Time Spent Total Time Spent (In Minutes): 20 Discharge Plan Discharge Items Patient Disposition: Transfer Inpatient Rehab Fac Reason For Visit: ALTERED MENTAL STATUS,HYPOXIA Discharge Diagnosis: Altered mental status, hypoxia Spinal stenosis of lumbar region with radiculopathy Gram-negative bacteremia Activity: Per Instructions section Non-emergency contact: Primary Care Provider and Surgeon Call non-emergency contact if: you have any medication questions, your symptoms worsen, your pain is worsening and your temperature is above 101 Follow-up/Referrals: Sarkis Asher DO [Primary Care Provider] - Diet: Regular Addtl Attending Provider Instructions: You were brought to the hospital with a complaint for increased drowsiness, weakness and difficulty breathing. You were admitted for management of altered mental status, gram negative bacteremia, and lower back pain. The following is a brief summary of your hospital course: Lumbar spinal stenosis with radiculopathy: You were brought to the hospital for a sudden worsening of leg weakness. Upon admission, you also complained of back pain. You were examined and sent for an MRI of your lumbar spine, which revealed "severe bilateral neuroforaminal stenosis of the lumbar spine at L4-L5." We consulted the orthopedic spine service, and they recommended medical management and physical therapy before possible surgical treatment. We had physical therapy assess your readiness to be discharged home. They recommended that you be transferred to an inpatient rehab facility for additional physical therapy before you could safely return home. Case management then found a suitable facility to which you are being discharged, [facility]. Gram Negative Bacteremia: You were presumptively treated for pneumonia on admission, due to your respiratory status. Blood cultures obtained on admission that showed you were bacteremic, or had an infection in your blood. You were treated empirically with broad spectrum antibiotics. We then adjusted your antibiotics to something more specific to your infection, once blood culture results came back. We performed an echocardiogram, or a heart ultrasound, to confirm that the infection did not affect your heart valves, which it did not. You improved on the antibiotics course and we feel you are ready to be discharged to a rehab facility, where you will receive the remainder of your IV antibiotics course. New onset atrial fibrillation: We obtained an EKG while you were in the emergency room which showed atrial fibrillation, or an irregularly irregular heartbeat. We consulted the cardiology service, and monitored your heart rate continuously. You went back into normal rhythm spontaneously, without pharmacologic intervention, and remained in normal sinus rhythm for the duration of your hospital course. Acute hypoxemic respiratory failure: You were brought to the hospital for drowsiness and were admitted for hypoxia, or having a lower than normal amount of oxygen in your blood. You received a CXR, which showed a small amount of fluid in your lungs. We believe this happened because were on several pain medications which reduced your respiratory drive. We stopped those medicines, and continue to monitor your pain during your hospital stay. Your pain remained well controlled on the pared-down regimen. Therefore, we are stopping those medicines upon discharge. They will be listed below. A discharge summary will be sent to your primary care physician to ensure continuity of care. Please bring this discharge summary with you to your next office appointment so that your provider can review it at that time. Follow-up appointments: * Make a follow-up appointment with Dr. Asher, your primary care physician within a week of completing rehab. It is very important that you follow up with them. * We have requested a follow-up appointment with [facility] in 2-4 weeks. Please call their office if you do not hear from them. They can be reached at [phone]. * Keep all your follow-up appointments as already scheduled. If you cannot make an appointment, notify your provider. Medications: Your medication list has been reviewed and reconciled upon discharge to ensure accuracy and continuity of care. An updated list of all your medications is included with your hospital discharge paperwork. Please review this list closely, and make note of any changes. * We stopped the following medicines: Baclofen, methocarbamol, and Tramadol. Do not take these medicines unless you are otherwise instructed by your primary care physician. Take your medications as instructed; do not skip a dose of your medicines. Make sure all of your doctors know every medicine you are taking (including over-the- counter medicines, vitamins, and supplements). Call your primary care provider before taking any new medicines (including [id number] medicines, vitamins, and supplements), because some of these may interact with your current medications, or may make your symptoms worse. Tell your primary care provider if you cannot afford your medications. CONTACT YOUR PRIMARY CARE PROVIDER if you experience any of the following: * Sudden numbness or lack of sensation of your legs, incontinence to urine or stool * Suddenly worsening back pain or weakness. * Pain not well controlled on your medications. * Difficulty following your treatment plan, or difficulty taking medications CALL 911 OR GO TO THE EMERGENCY DEPARTMENT if you experience any of the following: * Sudden, severe abdominal pain or nausea/vomiting * Severe chest pain, or chest pain that radiates (moves) to your jaw or arm * Sudden, severe shortness of breath or difficulty breathing Thank you for allowing us to participate in your care. Pending Studies at Discharge: No Stand-Alone Forms: My [facility] ASYM III Skilled Items Patient informed of condition?: Yes DNR: Yes Discharge Level of Care: Acute rehab Communicable Disease: No Discharge Prognosis: Stable Lines: Peripheral IV Urinary Catheter: No Medications and DC Order Prescriptions: Continued magnesium oxide 500 mg capsule 500 mg PO TID Qty: 30 RF: 0 furosemide 40 mg tablet 40 mg PO DAILY PRN (Reason: edema) Qty: 30 RF: 5 pantoprazole 40 mg tablet,delayed release (DR/EC) 40 mg PO BID Qty: 60 RF: 11 cyanocobalamin (vitamin B-12) 1,000 mcg capsule 1,000 mcg PO QAM RF: 0 paroxetine HCl 40 mg tablet 20 mg PO QAM RF: 0 gabapentin 100 mg capsule 100 mg PO Q8H PRN (Reason: neuropathy) Qty: 270 RF: 3 glimepiride 4 mg tablet 4 mg PO DAILY Qty: 30 RF: 5 aspirin 81 mg Tablet,Delayed Release (Dr/Ec) 81 mg PO QAM Qty: 30 RF: 0 nitroglycerin 0.4 mg tablet, sublingual 0.4 mg sublingual Q5M PRN (Reason: chest pain) Qty: 30 RF: 0 atorvastatin 40 mg tablet 40 mg PO QPM RF: 0 propranolol 160 mg capsule,extended release 24 hr 160 mg PO QAM RF: 0 clopidogrel 75 mg tablet 75 mg PO QAM RF: 0 amlodipine 10 mg tablet 10 mg PO QAM RF: 0 losartan 25 mg tablet 25 mg PO QAM RF: 0 buspirone 7.5 mg tablet 7.5 mg PO HS RF: 0 cholecalciferol (vitamin D3) 5,000 unit capsule 5,000 units PO QAM RF: 0 calcitriol 0.25 mcg capsule 0.25 mcg PO 2XWK RF: 0 Discontinued methocarbamol 750 mg tablet 750 mg PO Q6H PRN (Reason: muscle spasm) Qty: 90 RF: 5 tramadol [Ultram] 50 mg tablet 50 mg PO Q6H PRN (Reason: pain) Qty: 30 RF: 0 baclofen 10 mg Tablet 10 mg PO DIRECTED PRN (Reason: MUSCLE SPASMS) RF: 0 Discharge Orders: Discharge Order (Routine); Ordered 02/20/22 Ordered By: Vilma Donato Admission Data Admit Date/Time: 02/09/22 22:26 Attending Provider: Tiffany Garcia Admit Provider: Rodger Armas Primary Care Provider: Sarkis Asher Other Providers: Moe Reynoso ; Sumeet Baires ; Blake Lopez ; Khai Allison ; George Garcia I. ; Bari Conde II ; Valerie Reilly ; John Loco ; Agus Sheppard ; William Emerson ; George Perry ; Kassandra Hyman ; [facility] Other Interventions: Discharge Summary Assessment (RN) Last Done: 02/20/22 13:44 Supervising Physician Co-Signing Physician Notes Resident Physician Supervision Note: I independently interviewed and examined the patient and verified the rice history and physical, reviewed labs and image studies and agree with resident Dr. Donato findings and care plan. Resident Activity Tracking Resident Involvement: Resident Care Provided Care Provided: Adult Hospital Medicine
== END 2022-02-20 16:05 | DRG 189 ==
LOC: ED 19:01 → EDINP 22:26 → SUATTDRO 22:26 → 2S 02-10 01:20

== ENCOUNTER 2024-10-29 07:34 | Inpatient (IN) ==
--- NOTE | 2024-10-21 12:46 | Anesthesiology Consultation ---
Date of Service October 21, 2024 Assessment & Plan (1) Encounter for pre-operative examination: - Check BSG DOS - Infectious disease screening: Per assessment on 10/18/24- Patient's with recent influenza/PNA diagnosis- no current symptom development noted by patient. Patient does have chronic occasional productive cough (clear mucus)- at baseline. Patient advised to contact surgeon/PAT if infectious-related symptom development or not at baseline prior to surgery. - Cardiology visit (09/06/24): "The patient is stable from a cardiovascular standpoint. She demonstrates excellent control of her LDL cholesterol. Her HDL cholesterol remains low. She is tolerating rate control and long-term anticoagulation for paroxysmal atrial fibrillation without difficulty. Fortunately, her coronary artery disease remains quiescent on her current medical regimen. She is an acceptable cardiac risk for surgery should that be indicated to treat her breast cancer. Eliquis should be held 3 full days prior to surgery. Highly complex medical issues were managed and discussed today." - PCP visit (10/15/24): "patient anticipates right breast mastectomy with sentinel lymph node biopsy.. From a primary care perspective, patient is a low / optimal risk for surgery.. patient reports having a cold about 2 weeks ago. This is improving. Has some mild nasal congestion.. patient following with cardiology. scheduled for Preop eval with cardiology on 10-25-24 [determined by surgeon's office that patient already had preop cardiac evaluation at 09/06/24 visit and was not needed to be seen again 10/25/24 > appt cancelled per cardio/surgeon].. CKD stage 4 - Stable. Continue medications. patient follows with Dr Cardona.. Hx TB positive: patient states that she was treated for 1 month with antibiotics when she was in college." Chart Review Chart Review: Acceptable Risk for Surgery and Patient NOT seen in Pre Admission Testing History Surgery Operation Date: 10/29/24 12:00 Proposed Procedures p Right Breast Mastectomy with [place] Lymph Node Biopsy - Chivo Canales, , FACS Height/Weight Height: 5 ft 3 in Weight: 81.647 kg Allergies Allergy/AdvReac Type Severity Reaction Status Date / Time tramadol Allergy Severe "It almost Verified 10/18/24 13:14 killed me" clarithromycin Allergy Unknown Unknown Verified 10/18/24 13:14 amoxicillin AdvReac Intermediate Gastrointestinal Verified 10/18/24 13:14 Upset clavulanic acid AdvReac Intermediate Gastrointestinal Verified 10/18/24 13:14 Upset lisinopril AdvReac Intermediate Cough Verified 10/18/24 13:14 Macrolide Antibiotics AdvReac Unknown Unknown Verified 10/18/24 13:14 Medications Home Medications Medication Instructions Recorded Confirmed Last Taken cyanocobalamin (vitamin B-12) 1,000 mcg PO QAM 07/24/19 10/18/24 01/25/23 1,000 mcg capsule nitroglycerin 0.4 mg sublingual 0.4 mg sublingual Q5M PRN chest 08/16/23 10/18/24 Unknown tablet pain #30 tabs amlodipine 10 mg tablet 10 mg PO QAM #90 tabs 01/01/24 10/18/24 Unknown propranolol 160 mg capsule,24 160 mg PO QAM #90 caps 01/16/24 10/18/24 Unknown hr,extended release magnesium oxide 500 mg capsule 500 mg PO BID #30 caps 03/01/24 10/18/24 Unknown apixaban 5 mg tablet (Eliquis) 5 mg PO BID 10/18/24 10/18/24 Unknown atorvastatin 40 mg tablet (Lipitor) 40 mg PO QPM 10/18/24 10/18/24 Unknown buspirone 7.5 mg tablet 7.5 mg PO TID PRN Anxiety 10/18/24 10/18/24 Unknown furosemide 40 mg tablet (Lasix) 80 mg PO QAM edema 10/18/24 10/18/24 Unknown glimepiride 2 mg tablet 2 mg PO QAM 10/18/24 10/18/24 Unknown Past Medical History Medical History Acid reflux Anxiety Atrial fibrillation Taking Eliquis [facility] Cardio Dr Vasquez Breast cancer 08/2024 - Triple Negative - will have post-op Chemo - CCP Dr Degroot CAD (coronary artery disease) [facility] Cardio Dr Vasquez Total x8 stents (most recent 08/2021) CHF (congestive heart failure) [facility] Cardio - Dr Vasquez Chronic kidney disease, stage IV (severe) No dialysis [facility] Nephrology Dr Cardona Diverticular disease s/p small bowel resection - no issues at this time as per patient Gout Hx per records History of anemia History of kidney stones History of myocardial infarction 2020 [place] (hard of hearing) no hearing aids Hyperlipidemia Hypertension No blood products [employer] Type 2 diabetes mellitus Oral Past Family History Family History Mother , from complications of a fall ; age 92 Breast cancer stage 4 Sister Breast cancer Father , 60s Coronary heart disease s/p CABG Denies family history of Ovarian cancer Prostate cancer Myocardial infarction Colorectal cancer Past Surgical History Surgical History History of bilateral cataract extraction History of cardiac cath Total x8 stents History of colonoscopy History of dilatation and curettage History of esophagogastroduodenoscopy (EGD) History of eye surgery Rt eye, removal of lens material by phacofragmentation with aspirati History of intestinal surgery small bowel resection History of ligation of vein History of lithotripsy Renal lithotripsy History of surgery Total 8 stents (most recent 08/2021) Hx of hernia repair ventral hernia repair w/ mesh S/P coronary artery stent placement Total 8 stents (most recent 08/2021) S/P epidural steroid injection Dr Eddy Social History Smoking Status: Never smoker tobacco type: cigarettes Do You Dip or Chew Tobacco: No Hx Alcohol Use: No Hx Substance Use: No substance use type: does not use Lab Results Anesthesia Preop Results Results Anesthesia Widget: WBC 8.24 K/ul (4.8-10.8) 10/16/24 Hgb 13.6 g/dl (12.0-16.0) 10/16/24 Hct 39.8 % (37.0-47.0) 10/16/24 Plt 199 K/uL (130-400) 10/16/24 Na 136 mmol/L (136-145) 10/16/24 K 3.8 mmol/L (3.5-5.1) 10/16/24 Cl 105 mmol/L (98-107) 10/16/24 CO2 22 mmol/L (21-32) 10/16/24 BUN 20 mg/dl (6-23) 10/16/24 Creat 1.79 mg/dl (0.6-1.2) H 10/16/24 Glucose Level 259 mg/dl (70-99(Fasting)) H 10/16/24 Testing Electrocardiogram Date: 10/16/24 SB with first degree AVB at 57bpm. LAD. Low voltage QRS. Inferior infarct (cited on or before 11/23/2020 per latent print examiner comparison). NS TWA. Chest X-Ray Date: 10/16/24 Findings: + NAD Echocardiogram Date: 02/11/22 EF 50-55%. Mild apical wall HK. Mild cLVH. Mild MR. No valvular vegetation. Cardiac Catheterization Date: 09/14/21 Findings: Left main: Left main coronary was normal in size and caliber and bifurcated normally into the left anterior descending left circumflex arteries Left anterior descending: Left anterior descending artery was a large transapical vessel. There was a large 1st diagonal branch with luminal irregularities. There was a stent in the midportion of the LAD with minimal InStent restenoses. There were several smaller distal diagonal branches. The LAD was noted to fill the distal right coronary via collateral circulation. Left circumflex: Left circumflex was a nondominant vessel. It produced a large 1st OM branch. There are luminal irregularities but no discrete stenosis in this vessel Right coronary artery: The right coronary artery was relatively small. There was a stent in its proximal portion with minimal InStent restenoses but a discrete 50-60% stenosis distal to the stent. There appeared to be subtotal occlusion of a large PLB branch. The distal portion of the right coronary artery was known to fill via [id number] collaterals. Impression: Right dominant coronary system Normal left ventricular filling pressures No evidence of aortic stenosis Patent RCA and LAD stents Acute coronary syndrome involving the distal right coronary artery > Successful PCI RCA
--- NOTE | 2024-10-29 09:03 | Nuclear Medicine Report ---
LYMPHOSCINTIGRAPHY CLINICAL HISTORY: Right-sided breast cancer. PROCEDURE: Using standard sterile technique, 4 intradermal and one deep injection of 558.63 uCi of Ly mphoseek was placed in the right breast. The patient tolerated the procedure well. There were no imme diate complications. The patient was subsequently transported to the surgical suite. 15 minute Postpr ocedural imaging demonstrates 4 foci of axillary zenaida uptake. An indelible marker was used to tay t he skin superficial to 3 of the largest lymph nodes. IMPRESSION: Injection of 558.63 uCi of Lymphoseek in the right breast. ACT 112: Negative or not required by law. Electronically signed by: Eric Madden M.D. 10/29/2024 9:00 AM
[2024-10-29] MEDS: LACTATED RINGER'S 1,000 ML IV SCH (09:43)
[2024-10-29] MEDS ORDERED: ePHEDrine sulfate 50 MG/ML AMP IV PRN (10:51)
[2024-10-29] MEDS ORDERED: HYDROmorphone INJ 1 MG/ML SYRINGE IV PRN (10:51)
[2024-10-29] MEDS ORDERED: ONDANSETRON INJ 2 MG/ML 2 ML VIAL IV PRN ×2 (10:51→15:35)
[2024-10-29] MEDS ORDERED: ATROPINE SULFATE 0.1 MG/ML 10ML SYR IV PRN (10:51)
[2024-10-29] MEDS ORDERED: fentaNYL citrate PF 100 MCG/2 ML VIAL ONE ×3 (11:38→13:21)
[2024-10-29] MEDS ORDERED: LIDOCAINE 2% 2 ML VIAL/AMP(20MG/ML) INFIL ONE (11:40)
[2024-10-29] MEDS ORDERED: PROPOFOL IV EMULSION 10 MG/ML 20 ML VIAL IV ONE (11:41)
[2024-10-29] MEDS ORDERED: ONDANSETRON INJ 2 MG/ML 2 ML VIAL ONE (11:42)
[2024-10-29] MEDS ORDERED: SODIUM CHLORIDE 0.9% PF INJ 10 ML VIAL ONE (11:43)
[2024-10-29] MEDS ORDERED: ePHEDrine sulfate 50 MG/ML AMP ONE (11:43)
[2024-10-29] MEDS ORDERED: ROCURONIUM BROMIDE 10 MG/ML 5 ML VIAL IV ONE (11:53)
--- NOTE | 2024-10-29 12:11 | History & Physical Bridge Note ---
Date of Service October 29, 2024 History & Physical Bridge Note I have examined the patient, reviewed the History & Physical and in the interval since the performance of the History & Physical I have noted the following changes of clinical significance: no changes noted
[2024-10-29] MEDS: ceFAZolin 2000MG 2,000 MG/15 ML SYR IV SCH (12:22)
[2024-10-29] MEDS ORDERED: PHENYLEPHRINE 100MCG/ML 5ML SYR ONE (13:01)
[2024-10-29] MEDS: ISOSULFAN BLUE 10 MG/ML VIAL 5 ML ONE (13:02)
[2024-10-29] MEDS ORDERED: GLYCOPYRROLATE 0.2 MG/ML VIAL ONE (13:04)
[2024-10-29] MEDS: BUPIVACAINE LIPOSOME 1.3% 266 MG/20 ML VIAL ONE (14:04)
[2024-10-29] MEDS: BUPIVACAINE 0.5 % 5 MG/1 ML MPF 30ML VIAL ONE (14:04)
--- NOTE | 2024-10-29 14:09 | Operative Report ---
PG Post Operative Report Pre & Post Diagnosis Operation Date: 10/29/24 12:00 Pre-Op Diagnosis: Triple Negative Breast Cancer Post-Op Diagnosis: Triple Negative Breast Cancer I identified the patient and participated in the time-out.: Yes Procedure Operation Date: 10/29/24 12:00 Actual Procedures p Right Breast Mastectomy with [place] Lymph Node Biopsy(Right) - Chivo Canales DO, IRMA Surgeon Chivo Canales DO, IRMA Silviculture Professor Debbie Trivedi Estimated Blood Loss 25 Findings Consistent with Post-Op Diagnosis Right breast simple mastectomy performed. Multiple right axillary sentinel lymph nodes removed, axilla silent at conclusion of procedure. Exparel injected. 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 After discussion with oncology and us, patient elected for right breast mastectomy with sentinel lymph node biopsy. The risks of the procedure were discussed, all questions were answered, and the patient agreed to proceed with surgery as planned. Description of Procedure The patient had sentinel lymph node injection performed and nuclear medicine prior to the procedure. Lymphoscintigraphy was performed and showed uptake into the right axilla. The skin was marked overlying multiple lymph nodes. The axilla was examined in the operating room prior to surgery with the gamma probe and confirmed uptake into the right axilla. The patient was properly identified, consented, and taken to the operating room where she was placed in the supine position. General endotracheal anesthesia was induced. SCDs and a safety belt were placed. Preoperative antibiotics were administered. The patient's bilateral chest was prepped and draped in the standard sterile fashion. Surgical timeout was performed and all parties were in agreement that this was the correct patient and procedure to be performed and we continued as planned. A transversely oriented elliptical incision was made that encompassed the nipple-arreolar complex on the right. Flaps were raised to the clavicle superiorly, the sternum medially, and the rectus sheath inferiorly. The breast was then taken off the chest wall including the pectoralis fascia from inferior medial to superior lateral. We then continued the dissection along the lateral border of the pectoralis muscle. Attention was then turned to performing the sentinel lymph node biopsies. The axillary tissue was examined with the gamma probe and had multiple lymph nodes identified. The lymph nodes were isolated, ligated with 3-0 silk ties proximally and distally, and excised. The highest reading lymph node measured 1105 with the gamma probe ex vivo. A total of 4-5 lymph nodes were removed that read greater than 10% of the highest reading lymph node. The axilla was examined and was silent. Attention then turned back to completion of the mastectomy. We completed the dissection in the right axilla and the tail of [place] and the specimen was removed. The specimen was oriented. The wound was irrigated and hemostasis was confirmed. A 10 mm MARY LOU drain was placed underneath the mastectomy flap. This exited inferior to the incision and was secured into place with 2-0 silk sutures. The skin was closed with interrupted 3-0 Vicryl deep dermal sutures, followed by 4-0 Monocryl running subcuticular suture. Dermabond was placed over the wound. Fluffed gauze, ABDs, and an abdominal binder were placed around the chest. Drain sponge was placed around the drain. The patient was extubated in the operating room and taken to the PACU where she recovered without apparent incident. All sponge, instrument and needle counts were correct at the conclusion of the procedure. The patient tolerated the procedure well. The nurse practitioner was present and scrubbed for the entire the procedure. She was critical in positioning the patient, prepping and draping, retraction and exposure, performance of mastectomy, performance of the sentinel lymph node biopsies, closure the incisions, placement of the dressings. I attest to the content of the Intraoperative Record and any orders documented therein. Any exceptions are noted below.
[2024-10-29] MEDS: fentaNYL citrate PF 100 MCG/2 ML VIAL IV PRN (14:43)
[2024-10-29] MEDS ORDERED: MoRPHine SULFATE 4 MG/ML 1 ML CARP\\VIAL IV PRN (15:35)
[2024-10-29] MEDS ORDERED: DEXTROSE 50% 50 ML SYRINGE IV PRN (15:35)
[2024-10-29] MEDS ORDERED: MoRPHine SULFATE 2 MG/ML CARP IV PRN (15:35)
[2024-10-29] MEDS ORDERED: busPIRone 7.5 MG TAB PO PRN (15:35)
[2024-10-29] MEDS ORDERED: CARBOHYDRATES FOR HYPOGLYCEMIA PO PRN (15:35)
[2024-10-29] MEDS ORDERED: PHARMACY GLYCEMIC MGMT CONSULT PRN (15:35)
[2024-10-29] MEDS ORDERED: oxyCODONE HCL IR 5 MG TAB (IMMEDIATE RELEASE) PO PRN ×2 (15:35)
[2024-10-29] MEDS ORDERED: GLUCAGON FOR INJ 1 MG VIAL SQ PRN (15:35)
[2024-10-29] MEDS ORDERED: GLUCOSE 10 TAB/TUBE PO PRN (15:35)
[2024-10-29] MEDS ORDERED: GLUCOSE 40% GEL 15 GM TUBE PO PRN (15:35)
--- NOTE | 2024-10-29 15:42 | Anesthesiology Progress Note ---
Date of Service October 29, 2024 Anesthesia Post Procedure Vital Signs Vital Signs: Temp Pulse Resp BP Pulse Ox O2 Del Method O2 Flow Rate 10/29/24 15:13 36.2 C L 10/29/24 15:00 66 17 170/76 H 98 Nasal Cannula 4 10/29/24 14:50 67 17 157/81 H 98 Nasal Cannula 4 10/29/24 14:40 76 17 142/80 H 94 Nasal Cannula 4 10/29/24 14:30 76 17 118/67 94 Oxymask 8 10/29/24 14:22 36.0 C L 78 17 123/76 94 Oxymask 8 10/29/24 09:21 36.4 C L 64 18 142/57 H 94 Room Air Transfer of Care Handoff Completed per policy Notes Mental Status: alert / awake / arousable Patient Amnestic to Procedure: Yes Nausea / Vomiting: adequately controlled Pain: adequately controlled Airway Patency, RR, SpO2: stable & adequate BP & HR: stable & adequate Hydration State: stable & adequate Anesthetic Complications: no major complications apparent and Pt Satisfied with anesthetic care
--- NOTE | 2024-10-29 16:24 | Pharmacy Report ---
Pharmacy Glycemic Short Note 2 - Date of Service October 29, 2024 - Glycemic Short BSG Results (Last 24 hours): 10/29/24 10/29/24 09:08 14:22 POC Glucose 153 H 131 H OUTPATIENT ANTIDIABETIC REGIMEN: * Glimepiride 2 mg PO qAM * A1c = 6.5% (08/08/24) ASSESSMENT: * Clay is a 84 yo T2DM S/P right breast mastectomy with sentinel lymph node biopsy * Home anti-diabetic regimen on hold post-operatively. Will initiate conservative weight based Novolog. * Hold basal insulin for now based on limited BSG data and excellent A1c. PLAN FOR INPATIENT GLYCEMIC CONTROL: * Hold outpatient oral diabetes medications * Basal insulin * hold * Bolus insulin * NovoLog per scale ACHS or Q6hrs while NPO * Goal Range: Low 110 mg/dL - High 140 mg/dL * Correction Factor: 30 mg/dL/unit * Nutritional / Prandial insulin per carb ratio of 1 unit per 20 grams CHO consumed
[2024-10-29] MEDS: INSULIN ASPART PER UNIT CHARGE SC SCH (17:59)
[2024-10-29] MEDS: ACETAMINOPHEN 325 MG TAB PO PRN (18:00)
[2024-10-29] MEDS: ceFAZolin 1000MG 1,000 MG/7.5 ML SYR IV SCH (21:47)
[2024-10-29] MEDS: ATORVASTATIN 40 MG TAB PO SCH (21:47)
[2024-10-30 06:29] LABS: Basophils # (auto) 0.04 K/uL (0.00-0.20); Basophils % (auto) 0.6 %; Eosinophils # (auto) 0.33 K/uL (0.00-0.50); Eosinophils % (auto) 4.6 %; Hematocrit (blood only) 35.2 % (37.0-47.0); Hemoglobin 11.7 g/dl (12.0-16.0); Immature Granulocytes # (auto) 0.02 K/uL (0.01-0.20); Immature Granulocytes % (auto) 0.3 %; Lymphocytes # (auto) 1.95 K/uL (1.20-3.40); Lymphocytes % (auto) 27.3 %; Mean Corpuscular Hemoglobin 30.5 pg (25.0-34.0); Mean Corpuscular Hgb Conc 33.2 g/dL (32.0-36.0); Mean Corpuscular Volume 91.9 fL (80.0-100.0); Mean Platelet Volume 10.7 fL (9.4-12.4); Monocytes # (auto) 0.85 K/uL (0.11-0.59); Monocytes % (auto) 11.9 %; Neutrophils # (auto) 3.96 K/uL (1.40-6.50); Neutrophils % (auto) 55.3 %; Platelet Count 147 K/uL (130-400); RDW Coefficient of Variation 14.1 % (11.5-14.5); RDW Standard Deviation 47.3 fL (36.4-46.3); Red Blood Count 3.83 M/uL (4.20-5.40); White Blood Count 7.15 K/ul (4.8-10.8)
[2024-10-30 07:15] LABS: BUN Creatinine Ratio 12.5 (10-20); Calcium 8.5 mg/dl (8.6-10.3); Creatinine Clr Calc Pharmacy 25.6 ml/min; Potassium 4.1 mmol/L (3.5-5.1)
[2024-10-30] MEDS: PROPRANOLOL HCL LA 80 MG CAPCR PO SCH (09:17)
[2024-10-30] MEDS: amLODIPine BESYLATE 5 MG TAB PO SCH (09:17)
[2024-10-30] MEDS: ACETAMINOPHEN 1,000 MG/100 ML VIAL IV PRN (09:46)
--- NOTE | 2024-10-30 09:50 | Surgery Progress Note ---
Date of Service October 30, 2024 Assessment & Plan (1) H/O right mastectomy: Plan: POD 1 R breast mastectomy denies pain, having pain from chest binder, will try surgical bra MARY LOU serosang. incision CDI vss , wbc wnl stable for d/c f/u in 1 week o/p in office Admission and Anticipated Discharge Date Admission Date: October 29, 2024 Supervising Physician Co-Signing Physician Notes Patient seen examined, labs reviewed, agree with above. POD #1 right mastectomy with sentinel lymph node biopsy. Doing well, no pain, discomfort with binder. Flap with some ecchymosis, viable. No significant hematoma/seroma. Incision without infection. MARY LOU serosanguineous. H&H stable postop. Plan to discharge to home, may restart Eliquis tomorrow. Follow-up in general surgery clinic for drain removal when MARY LOU below 30 cc/day. Follow-up with me in 2 weeks. Wound care instructions, activity restrictions, and return precautions given. Subjective pt denies pain, having some discomfort from chest binder. Review of Systems Constitutional: no fever and no chills Respiratory: no dyspnea Cardiovascular: no chest pain Physical Exam Constitutional: cooperative and comfortable; no acute distress Respiratory: normal respiratory effort and able to speak in complete sentences; no respiratory distress Cardiovascular: Rate/Rhythm: regular rate Chest (Breasts): Additional Comments: s/p r breast mastectomy , dermabond CDI Results & Data Vital Signs (Past 12 Hours) Vital Signs Temp Pulse Pulse Pulse Resp BP Pulse Ox 10/30/24 07:50 98.1 F 62 16 121/63 93 10/30/24 07:00 51 L 10/30/24 04:00 97.9 F 58 L 18 128/78 94 10/30/24 00:31 56 L 10/29/24 23:00 97.7 F 59 L 18 121/61 91 O2 Del Method 10/30/24 07:50 Room Air 10/30/24 07:00 10/30/24 04:00 Room Air 10/30/24 00:31 10/29/24 23:00 Room Air Results CBC w Diff Results: RBC 3.83 M/uL (4.20-5.40) L 10/30/24 WBC 7.15 K/ul (4.8-10.8) 10/30/24 Hgb 11.7 g/dl (12.0-16.0) L 10/30/24 Hct 35.2 % (37.0-47.0) L 10/30/24 MCV 91.9 fL (80.0-100.0) 10/30/24 MCH 30.5 pg (25.0-34.0) 10/30/24 MCHC 33.2 g/dL (32.0-36.0) 10/30/24 RDW Standard Deviation 47.3 fL (36.4-46.3) H 10/30/24 RDW Coefficient of Variation 14.1 % (11.5-14.5) 10/30/24 Plt Count 147 K/uL (130-400) 10/30/24 MPV 10.7 fL (9.4-12.4) 10/30/24 Nucleated Red Blood Cells % (auto) 0.7 % 02/17 Nucleated RBC Absolute Count (auto) 0.07 K/uL (0-0) H 11/09 Neutrophils (%) (Auto) 55.3 % 10/30/24 Lymphocytes (%) (Auto) 27.3 % 10/30/24 Monocytes # (Auto) 0.85 K/uL (0.11-0.59) H 10/30/24 Eosinophils # (Auto) 0.33 K/uL (0.00-0.50) 10/30/24 Immature Granulocyte % (Auto) 0.3 % 10/30/24 Neutrophils # (Auto) 3.96 K/uL (1.40-6.50) 10/30/24 Lymphocytes # (Auto) 1.95 K/uL (1.20-3.40) 10/30/24 Monocytes # (Auto) 0.85 K/uL (0.11-0.59) H 10/30/24 Eosinophils # (Auto) 0.33 K/uL (0.00-0.50) 10/30/24 Basophils # (Auto) 0.04 K/uL (0.00-0.20) 10/30/24 Immature Granulocyte # (Auto) 0.02 K/uL (0.01-0.20) 5 PG Care Time/CCT Total # of Minutes Spent Total Time Spent with Patient: Total time spent is greater than 50% in coordination of care (as documented) at patient's floor/unit and/or counseling patient: Coding Level of Care Code 71328 Post Operative Follow-Up Diagnoses H/O right mastectomy Z90.11
[2024-10-30 11:41] VITALS: BP 110/70; PULSE 55; RESP 13; TEMP 97.9; O2SAT 95
--- NOTE | 2024-10-31 11:03 | Discharge Summary ---
Date of Service October 30, 2024 Principal Diagnosis S/p mastectomy Discharge Exam Constitutional cooperative and comfortable; no acute distress Respiratory normal respiratory effort and able to speak in complete sentences; no respiratory distress Cardiovascular Rate/Rhythm: regular rate Chest (Breasts) Additional Comments: s/p R mastectomy , dermabond , CDI , kortney drain Psychiatric A+Ox3, euthymic affect Discharge Data Allergies Allergy/AdvReac Type Severity Reaction Status Date / Time tramadol Allergy Severe "It almost Verified 10/29/24 09:14 killed me" clarithromycin Allergy Unknown Unknown Verified 10/29/24 09:14 amoxicillin AdvReac Intermediate Gastrointestinal Verified 10/29/24 09:14 Upset clavulanic acid AdvReac Intermediate Gastrointestinal Verified 10/29/24 09:14 Upset lisinopril AdvReac Intermediate Cough Verified 10/29/24 09:14 Macrolide Antibiotics AdvReac Unknown Unknown Verified 10/29/24 09:14 Procedures Performed Operation Date: 10/29/24 12:00 Actual Procedures p Right Breast Mastectomy with [place] Lymph Node Biopsy(Right) - Chivo Canales, , FACS Ordered Studies 10/29/24 05:00 US - OR guided needle placemen Routine Hospital Course (1) H/O right mastectomy: This is a 84 yo female who presented to the [facility] on 10/29/24 for an elective right breast mastectomy with Dr Canales. The patient tolerated the procedure well, see operative report for full details. Post operatively the patient was admitted for overnight observation and care. The patient's diet was advanced, pain managed on prn meds, and incisions clean/dry/intact. On POD#1 the patient was deemed stable for discharge to home. The patient was given discharge instructions, drain care, follow up recommendations, return precautions and a prescription for narcotic pain medication. Total Time Total Time Spent Total Time Spent (In Minutes): 10 Discharge Plan Discharge Items Patient Disposition: Home - Self-Care Reason For Visit: Triple Negative Breast Cancer Discharge Diagnosis: right breast mastectomy with sentinel lymph node biopsy Activity: As commented below Lifting: No more than 5 pounds Bathing Comment: sponge bath until your drain is removed. no soaking in baths /pools for 2wk Exercise/Sports: Wait until after follow-up appointment Driving/Machine Use: wait until cleared by surgeon Non-emergency contact: Surgeon Call non-emergency contact if: you have any medication questions, your symptoms worsen, your temperature is above 101.5, your wound has increased redness, your wound has increased drainage and your wound pain has increased Follow-up/Referrals: Chivo Canales DO, IRMA [Physician] - (please call to schedule follow up in the office within 2 weeks) Sarkis Asher DO [Primary Care Provider] - Diet: Carb Consistent or DM2 Addtl Attending Provider Instructions: You may resume your eliquis on 10/31 SPECIAL CARE INSTRUCTIONS: * You have skin glue over your incisions called dermabond. you may shower with this on. It will tend to dissolve and fall off within a couple weeks. Do not pick at the skin glue * care for your surgical drain as you have been instructed prior to discharge from the hospital. empty drain 2-3x/daily and record output. bring a log with you to the office. once drain <30cc/daily for 2 days you may call the office for consideration of removal. otherwise keep drain to bulb suction. may change dressing over drain site daily and as needed with dry gauze/medical tape. * You may wear a supportive bra for comfort * You may shower 10/30 . NO soaking in pools or baths for 2 weeks * No lifting greater than 10lbs. No strenuous exercise until cleared by surgeon. Light walking is accepted. * No driving while taking narcotic pain medication; wait at least 3 days * No drinking alcohol while taking narcotic pain medication * May use Tylenol over the counter for pain as tolerated. Do not exceed 3grams of Tylenol per 24 hours * Expect some swelling and bruising. * Diet- you may resume your regular diet Call your doctor if: * Temperature above 101 degrees, nausea/vomiting, fever/chills * Pain not relieved by pain medicine ordered * There is increased drainage or redness from any incision * You have any unanswered questions or concerns [phone]. FOLLOW UP VISIT: If not already scheduled, please call the office for a follow-up visit. Office Pending Studies at Discharge: Yes Studies:: surgical pathology Stand-Alone Forms: [facility] [employer] Medications and DC Order Prescriptions: New oxycodone 5 mg tablet 5 - 10 mg PO .[id number] MDD no more than 6 tabs in 24hours PRN (Reason: pain) Qty: 15 0RF Continued amlodipine 10 mg tablet 10 mg PO QAM Qty: 90 3RF cyanocobalamin (vitamin B-12) 1,000 mcg capsule 1,000 mcg PO QAM nitroglycerin 0.4 mg tablet, sublingual 0.4 mg sublingual Q5M PRN (Reason: chest pain) Qty: 30 3RF magnesium oxide 500 mg capsule 500 mg PO BID Qty: 30 0RF furosemide [Lasix] 40 mg tablet 80 mg PO QAM PRN (Reason: edema) atorvastatin [Lipitor] 40 mg tablet 40 mg PO QPM glimepiride 2 mg tablet 2 mg PO QAM buspirone 7.5 mg tablet 7.5 mg PO TID PRN (Reason: Anxiety) propranolol [Inderal LA] 160 mg capsule,extended release 24 hr 160 mg PO QAM Held Eliquis 5 mg tablet 5 mg PO BID Hold Instructions: Resume on 10/31/24. You may take your evening dose Discharge Orders: Discharge Order (Routine); Ordered 10/30/24 Ordered By: Debbie Saldana/Other Patient Handouts: Mastectomy Lumpectomy Dc, Blas Tejeda Drain Tube Dc Admission Data Admit Date/Time: 10/29/24 12:50 Attending Provider: Chivo Canales Admit Provider: Chivo Canales Primary Care Provider: Sarkis Asher Other Interventions: Discharge Summary Assessment (RN) Last Done: 10/30/24 10:12 Supervising Physician Co-Signing Physician Notes Patient seen examined, labs reviewed, agree with above. POD #1 right mastectomy with sentinel lymph node biopsy. Doing well, no pain, discomfort with binder. Flap with some ecchymosis, viable. No significant hematoma/seroma. Incision without infection. KORTNEY serosanguineous. H&H stable postop. Plan to discharge to home, may restart Eliquis tomorrow. Follow-up in general surgery clinic for drain removal when KORTNEY below 30 cc/day. Follow-up with me in 2 weeks. Wound care instructions, activity restrictions, and return precautions given. Coding Level of Care Code 86331 INP/OBS DISCH >30 MIN Diagnoses H/O right mastectomy Z90.11
== END 2024-10-30 11:45 | disposition home or self-care (01) | DRG 582 ==
LOC: ASU 07:34 → 2W 12:50